=== PATIENT | male | born 1970 | race Caucasian/White ===

== ENCOUNTER 2018-06-27 17:26 | Emergency (ER) | payer MEDICARE, MEDICAID ==
[~2018-06-27] VITALS: Ht 154.9 cm; Wt 61.2 kg
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
--- OUTSIDE RECORDS SUMMARY | 2018-06-27 17:32 | XMS REPORT ---
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 008835919 ALLERGIES No Information ENCOUNTERS Encounter Location Date Diagnosis [place] [id number] [place] [address] 00904- 9736 Oct, [place] [id number] [place] [address] 00146- 8133 Sep, [facility] [address] [place] [address] Aug, [facility] [address] [place] [address] Aug, Dental examination Z01.20 [place] [id number] [place] [address] 25655- 3297 May, Leg pain, right M79.604 [facility] [id number] [place] [address] 00500- 5828 May, [facility] [id number] [place] [address] 60177- 7408 Mar, [place] [id number] [place] [address] 80055- 7355 Mar, 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 [facility] [id number] [place] [address] 17953- 5904 Feb, Leg pain, right M79.604 and Actinic keratosis L57.0 [facility] [id number] [place] [address] 90737- 4686 Feb, 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 [facility] [id number] [place] [address] 97944 2546 Feb, 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 [facility] [id number] [place] [address] 81792- 9676 Jan, 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 [facility] [id number] [place] [address] 67269 2541 Jan, Impacted cerumen of right ear H61.21 [facility] [id number] [place] [address] 60119- 5803 Jan, 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 [facility] [id number] [place] [address] 91218- 1557 Dec, 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 [facility] [id number] [place] [address] 59011- 9159 Dec, 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 [facility] [id number] [place] [address] 22385- 7731 28 Nov, 2016 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 [facility] [id number] [place] [address] 65132- 5041 28 Nov, 2016 [facility] [id number] [place] [address] 83153 2544 28 Nov, 2016 [facility] [id number] [place] [address] 02139- 9657 14 Nov, 2016 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 [facility] [id number] [place] [address] 76042- 1586 Oct, 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 [facility] [address] [place] [address] 11103- 1490 Oct, 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 and Effusion of right knee M25.461 [facility] [id number] [address]- 2455 Oct, 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 [facility] [id number] [place] [address], [place] [address]- 2756 Oct, [facility] [id number] [place] [address] 82241- 3580 Sep, Pain in right knee M25.561 and 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 [facility] [id number] [place] [address], [place] [address]- 9622 Sep, 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 [facility] [id number] [place] [address], [place] [address]- 5983 Sep, 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 [facility] [id number] [place] [address], [place] [address]- 0790 Sep, Pain in right leg M79.604 [facility] [id number] [place] [address] 96677- 2377 Sep, Pain in right leg M79.604 [facility] [id number] [place] [address], [place] [address]- 0633 Aug, 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 and Pain in right leg M79.604 [facility] [address] [place] [address] 48986- 0974 Aug, 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 [facility] [address] [address]- 2109 Aug, 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 [facility] [id number] [place] [address] 37960- 0456 July, 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
--- OUTSIDE RECORDS SUMMARY | 2018-06-27 17:33 | XMS REPORT ---
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 343520327 ALLERGIES No Information ENCOUNTERS Encounter Location Date Diagnosis [facility] [address] [place] [address] [id number] Oct, [facility] [address] [place] [address] [id number] Aug, [address] [id number] Aug, Dental examination Z01.20 [place] [id number] [place] [address] 22336- 8520 May, Leg pain, right M79.604 [place] [id number] [place] [address] 28098- 0488 May, [place] [id number] [place] [address] 46111- 1618 Mar, [place] [id number] [place] [address] 62034- 2297 Mar, 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 [place] [id number] [place] [address] 56129- 7781 Feb, Leg pain, right M79.604 and Actinic keratosis L57.0 [place] [id number] [place] [address] 25109- 9579 Feb, 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 [place] [id number] [place] [address] 03759- 3337 Feb, 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 [facility] [id number] [place] [address] 52677- 8128 Jan, 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 [facility] [id number] [place] [address] 27478- 7087 16 Jan, 2017 Impacted cerumen of right ear H61.21 [facility] [id number] [place] [address] 60925- 0203 09 Jan, 2017 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 [facility] [id number] [place] [address] 18731- 9931 Dec, 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 [facility] [id number] [place] [address] 29346- 4249 Dec, 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 [facility] [id number] [place] [address] 53316- 9207 28 Nov, 2016 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 [facility] [id number] [place] [address] 09073- 6338 28 Nov, 2016 [facility] [id number] [place] [address] 07116- 1343 28 Nov, 2016 [facility] [id number] [place] [address] 92979- 5457 14 Nov, 2016 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 [facility] [id number] [place] [address] 95337- 6885 Oct, 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 and Effusion of right knee M25.461 [facility] [id number] [place] [address] 25369- 6658 Oct, 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 [facility] [id number] [place] [address] 01535- 6263 Oct, 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 [facility] [id number] [place] [address] 54621- 6182 Oct, [facility] [id number] [place] [address] 64090- 4177 Sep, Pain in right knee M25.561 and 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 [facility] [id number] [place] [address] 56464- 8484 Sep, 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 [facility] [id number] [place] [address] 10721- 0657 Sep, 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 [facility] [id number] [place] [address] 50003- 0544 Sep, Pain in right leg M79.604 [facility] [id number] [place] [address] 55715- 7965 Sep, Pain in right leg M79.604 [facility] [id number] [place] [address] 40234- 4102 Aug, 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 and Pain in right leg M79.604 [facility] [id number] [place] [address] 65912- 8427 Aug, 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 [facility] [address] [address]- 7062 Aug, 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 [facility] [id number] [place] [address] 61999- 8235 July, 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
--- OUTSIDE RECORDS SUMMARY | 2018-06-27 17:33 | XMS REPORT ---
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 334185937 ALLERGIES Substance Reaction Event Type Date Status Penicillin V Potassium hives Drug Allergy Aug, Active ENCOUNTERS Encounter Location Date Diagnosis [place] [id number] [place] [address] 62595- 4735 Oct, [place] [id number] [place] [address] 38830- 3464 Sep, [address] [address] Aug, [address] [address] Aug, Dental examination Z01.20 [place] [id number] [place] [address] 42512- 7695 May, Leg pain, right M79.604 [place] [id number] [place] [address] 27573- 4469 May, [place] [id number] [place] [address] 61332- 8842 Mar, [place] [id number] [place] [address] 73325- 6572 Mar, 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 [facility] [id number] [place] [address] 06157- 0182 Feb, Leg pain, right M79.604 and Actinic keratosis L57.0 [facility] [id number] [place] [address] 45208- 2509 Feb, 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 [facility] [id number] [place] [address] 68473 2546 Feb, 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 [facility] [id number] [place] [address] 80077 2544 Jan, 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 [facility] [id number] [place] [address] 62271 2540 Jan, Impacted cerumen of right ear H61.21 [facility] [id number] [place] [address] 81056- 0682 Jan, 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 [facility] [id number] [place] [address] 22103- 0578 Dec, 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 [facility] [id number] [place] [address] 42630- 8879 Dec, 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 [facility] [id number] [place] [address] 86064- 6899 Nov, 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 [facility] [id number] [place] [address] 16704- 2258 28 Nov, 2016 [facility] [id number] [place] [address] 48058- 2542 28 Nov, 2016 [facility] [id number] [place] [address] 21012- 3799 14 Nov, 2016 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 [facility] [id number] [place] [address] 57032- 2397 Oct, 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561 and 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 [facility] [id number] [place] [address] 58894- 4380 Sep, 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 [facility] [id number] [place] [address] 33154- 3392 Sep, 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 [facility] [id number] [place] [address] 62871- 1923 Sep, Pain in right leg M79.604 [facility] [id number] [place] [address] 77732- 1365 Sep, Pain in right leg M79.604 [facility] [id number] [place] [address] 90397- 2159 Aug, 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 and Pain in right leg M79.604 [facility] [id number] [place] [address] 38951- 6679 Aug, 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 [facility] [id number] [place] [address] 37533- 8225 Aug, 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 [facility] [id number] [place] [address] 70702- 2508 July, 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 PLAN OF CARE Activity Details Follow Up prn Reason:O&R #10 MDL VITAL SIGNS MEDICATIONS Medication Instructions Dosage Frequency Start Date End Date Duration Status Quetiapine Fumarate 400 mg Orally Once a day 1 tablet at bedtime 24h Not-Taking Protonix 40 mg Orally twice a day 1 tablet 12h Not-Taking Tramadol HCl 50 mg Orally 3 times a day 1 tablet as needed 8h Aug, Not-Taking Lamotrigine 200 mg Orally at bedtime 1 tablet Not-Taking Benztropine Mesylate 1 MG Orally Once a day 1 tablet at bedtime 24h Not-Taking Trazodone HCl 100 mg Orally Once a day 3 tablets at bedtime 24h Active Risperdal Consta 50MG/2ML INJECT 50 MG INTRAMUSCULARLY EVERY 14 DAYS Active Seroquel Active Quetiapine Fumarate 200 mg Orally Once a day, at bed time 1 tablet Not-Taking Lamictal Active Ranitidine HCl 150 MG Orally twice a day 1 capsule 12h Unknown RESULTS No Results PROCEDURES Procedure Date Ordered Result Body Site LTD ORAL EVALUATION - PROBLEM FOCUS September 04, 2017 INTRAORL-PERIAPICAL 1 FILM 80026 September 04, 2017 Dental Outreach adjust balance September 04, 2017 Billing Notes on claim September 04, 2017 INSTRUCTIONS MEDICATIONS ADMINISTERED No Known Medications MEDICAL [...]
--- OUTSIDE RECORDS SUMMARY | 2018-06-27 17:33 | XMS REPORT ---
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 Active 643536076 ALLERGIES Substance Reaction Event Type Date Status Penicillin V Potassium hives Drug Allergy May, Active ENCOUNTERS Encounter Location Date Diagnosis [address] [address] Oct, [address] [address] Aug, [address] [address] Aug, Dental examination Z01.20 [place] [id number] [place] [address] 12204- 3018 May, Leg pain, right M79.604 [facility] [id number] [place] [address] 34304- 7315 May, [facility] [place] [id number] [place] [address] 39145- 0906 Mar, [facility] [place] [id number] [place] [address] 98657- 3217 Mar, 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 [facility] [place] [id number] [place] [address] 68779- 5593 Feb, Leg pain, right M79.604 and Actinic keratosis L57.0 [facility] [id number] [place] [address] 42546- 3997 Feb, 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 [facility] [address] [place] [address] 59583- 5095 Feb, 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 [facility] [place] [address] [place] [address] 82233- 4396 Jan, 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 [facility] [place] [id number] [place] [address] 50182- 2896 16 Jan, 2017 Impacted cerumen of right ear H61.21 [facility] [place] [id number] [place] [address] 73767 2545 09 Jan, 2017 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 [facility] [place] [id number] [place] [address] 58813- 6386 Dec, 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 [facility] [place] [id number] [place] [address] 77689- 4896 Dec, 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 [facility] [place] [id number] [place] [address] 11026 2543 28 Nov, 2016 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 [facility] [place] [id number] [place] [address] 87425- 8436 28 Nov, 2016 [facility] [place] [address] [place] [address] 39915- 2541 28 Nov, 2016 [facility] [place] [address] [place] [address] 40954- 2543 14 Nov, 2016 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 [facility] [place] [address] [place] [address] 41039- 8595 Oct, 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 and Effusion of right knee M25.461 [facility] [place] [id number] [place] [address] 05904- 9337 Oct, 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 [facility] [place] [address] [place] [address] 01062- 254 Oct, 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 [facility] [place] [address] [place] [address], [place] [address]- 6672 Oct, [facility] [place] [id number] [place] [address] 44073- 8256 Sep, Pain in right knee M25.561 and 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 [facility] [place] [id number] [place] [address], [place] [address]- 4186 Sep, 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 [facility] [place] [id number] [place] [address], [place] [address]- 3876 Sep, 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 [facility] [place] [id number] [place] [address], [place] [address]- 8393 Sep, Pain in right leg M79.604 [facility] [place] [id number] [place] [address] 53925- 9196 Sep, Pain in right leg M79.604 [facility] [place] [id number] [place] [address] 56495- 8376 Aug, 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 and Pain in right leg M79.604 [facility] [place] [id number] [place] [address] 06545- 3297 Aug, 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 [facility] [place] [id number] [place] [address] 35567- 8402 Aug, 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 [facility] [place] [id number] [place] [address]- 7992 July, 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 [facility] [place] [id number] [place] [address], [place] [address]- 5168 July, [facility] [place] [id number] [place] [address] 18314- 8024 July, [facility] [place] [id number] [place] [address] 34249- 8145 July, 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 IMMUNIZATIONS No Known Immunizations SOCIAL HISTORY Never Assessed REASON FOR VISIT [facility] f/u. Was in for aabdominal pain. , UDS positive for meth and amphetamines according to Mobile notes. Pt reports has not used drugs in 15 yrs. CBRumbackRn PLAN OF CARE VITAL SIGNS Height 62 in 2017-05-29 Weight 127.3 lbs 2017-05-29 Temperature 97.9 degrees Fahrenheit 2017-05-29 Heart Rate 104 bpm 2017-05-29 Respiratory Rate 18 2017-05-29 BMI 23.28 kg/m2 2017-05-29 Blood pressure systolic 112 mmHg 2017-05-29 Blood pressure diastolic 80 mmHg 2017-05-29 MEDICATIONS Medication Instructions Dosage Frequency Start Date End Date Duration Status Quetiapine Fumarate 200 mg Orally Once a day, at bed time 1 tablet Active Trazodone HCl 100 mg Orally Once a day 3 tablets at bedtime 24h Active Quetiapine Fumarate 400 mg Orally Once a day 1 tablet at bedtime 24h Active Diclofenac Sodium 75 MG Orally Twice a day 1 tablet with food or milk 12h Feb, May, 30 day(s) Active Benztropine Mesylate 1 MG Orally Once a day 1 tablet at bedtime 24h Active Protonix 40 mg Orally twice a day 1 tablet 12h Active Tramadol HCl 50 mg Orally 3 times a day 1 tablet as needed 8h Aug, Active Lamotrigine 200 mg Orally at bedtime 1 tablet Active Ranitidine HCl 150 MG Orally twice a day 1 capsule 12h Not-Taking Risperdal Consta 50MG/2ML INJECT 50 MG INTRAMUSCULARLY EVERY 14 DAYS Active RESULTS No Results PROCEDURES Procedure Date Ordered Result Body Site DRUG TEST PRSMV CHEM ANLYZR May 29, 2017 ON LICENSE OF [facility] VISIT ESTABLISHED PATIENT May 29, 2017 INSTRUCTIONS MEDICATIONS ADMINISTERED No Known Medications [...]
--- OUTSIDE RECORDS SUMMARY | 2018-06-27 17:33 | XMS REPORT ---
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 Active 236726533 ALLERGIES No Information ENCOUNTERS Encounter Location Date Diagnosis [place] [id number] [place] [address] 64270- 5117 Oct, [place] [address] [address] Sep, [address] [address] Aug, [address] [address] Aug, Dental examination Z01.20 [place] [id number] [place] [address] 55703- 9133 May, Leg pain, right M79.604 [place] [id number] [place] [address] 80705- 8216 May, [place] [id number] [place] [address] 67697- 0170 Mar, [place] [address] [address]- 0968 Mar, 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 [place] [id number] [place] [address] 44209- 1300 Feb, Leg pain, right M79.604 and Actinic keratosis L57.0 [facility] [id number] [place] [address] 92034- 8302 Feb, 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 [facility] [id number] [place] [address] 42971 2546 Feb, 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 [facility] [id number] [place] [address] 54503- 3120 Jan, 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 [facility] [id number] [place] [address] 70773- 2542 Jan, Impacted cerumen of right ear H61.21 [facility] [id number] [place] [address] 84868- 1069 Jan, 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 [facility] [id number] [place] [address] 19016- 8429 Dec, 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 [facility] [id number] [place] [address] 46505- 8889 Dec, 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 [facility] [id number] [place] [address] 86245- 0438 28 Nov, 2016 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 [facility] [id number] [place] [address] 13044- 5441 28 Nov, 2016 [facility] [id number] [place] [address] 43367- 2548 28 Nov, 2016 [facility] [address] [place] [address] 98508- 9685 14 Nov, 2016 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 [facility] [id number] [place] [address] 97165- 8286 Oct, 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 [facility] [address] [place] [address] 38587- 9248 Oct, 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 and Effusion of right knee M25.461 [facility] [id number] [place] [address] 37358- 2197 Oct, 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 [facility] [id number] [place] [address] 28268- 8037 Oct, [facility] [id number] [place] [address] 98310- 8318 Sep, Pain in right knee M25.561 and 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 [facility] [id number] [place] [address], [place] [address]- 9173 Sep, 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 [facility] [id number] [place] [address], [place] [address]- 3195 Sep, 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 [facility] [id number] [place] [address], [place] [address]- 2901 Sep, Pain in right leg M79.604 [facility] [id number] [place] [address] 01858- 9797 Sep, Pain in right leg M79.604 [facility] [id number] [place] [address] 34514- 8829 Aug, 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 and Pain in right leg M79.604 [facility] [id number] [place] [address] 77534- 8237 Aug, 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 [facility] [id number] [place] [address] 81690- 8429 Aug, 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 [facility] [id number] [place] [address] 07970- 0975 July, 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 [facility] [id number] [address] 8305 July, [facility] [id number] [place] [address] 72276- 5896 July, [facility] [address] [facility] [id number] [place] [address] [address]686 July, 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 IMMUNIZATIONS No Known Immunizations SOCIAL HISTORY Never Assessed REASON FOR VISIT PLAN OF CARE VITAL SIGNS MEDICATIONS Medication Instructions Dosage Frequency Start Date End Date Duration Status Clindamycin HCl 150 MG Orally every 8 hrs 2 capsules 8h 10 day(s) Active Magic Mouthwash Apply medicated swab to sore areas of the mouth to numb the pain As needed Dip cotton swab into medication Aug, As needed Active RESULTS No Results PROCEDURES No Known procedures [...]
--- OUTSIDE RECORDS SUMMARY | 2018-06-27 17:33 | XMS REPORT ---
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 Active 33495199 Problem Pain in right knee M25.561 Active 82689918 Problem 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 Active 908982371 ALLERGIES No Information ENCOUNTERS Encounter Location Date Diagnosis [place] [id number] [place] [address] 80601- 5945 May, Leg pain, right M79.604 [facility] [address] 17953- 5833 May, [facility] [address] 44533- 1108 Mar, [facility] [id number] [place] [address] 13878- 3691 Mar, 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 [facility] [id number] [place] [address] 81237- 4288 Feb, Leg pain, right M79.604 and Actinic keratosis L57.0 [facility] [id number] [place] [address] 33014- 8505 Feb, 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 [facility] [id number] [place] [address] 28265- 1720 Feb, 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 [facility] [id number] [place] [address] 88094- 4097 Jan, 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 [facility] [id number] [place] [address] 76268- 5165 16 Jan, 2017 Impacted cerumen of right ear H61.21 [facility] [id number] [place] [address] 94436- 1105 Jan, 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 [facility] [id number] [place] [address] 30061- 1849 Dec, 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 [facility] [id number] [place] [address] 71727- 3835 Dec, 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 [facility] [id number] [place] [address] 76156- 6289 Nov, 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 [facility] [id number] [place] [address] 36256- 1773 Nov, [facility] [id number] [place] [address] 28379- 7204 Nov, [facility] [id number] [place] [address] 54464- 5535 14 Nov, 2016 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 [facility] [id number] [place] [address] 15414- 3555 Oct, 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 [facility] [id number] [place] [address] 81139- 5296 Oct, 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 and Effusion of right knee M25.461 [facility] [id number] [place] [address] 52936- 5344 Oct, 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 [facility] [id number] [place] [address] 03914- 2466 Oct, [facility] [address] [place] [address] 72677- 7510 Sep, Pain in right knee M25.561 and 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 [facility] [address] [address]- 0324 Sep, 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 [facility] [id number] [address]- 2896 Sep, 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 [facility] [address] [address]- 9496 Sep, Pain in right leg M79.604 [facility] [id number] [address]- 2671 Sep, Pain in right leg M79.604 [facility] [id number] [place] [address] 41924- 8691 Aug, 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 and Pain in right leg M79.604 [facility] [address] [place] [address] 44665- 6361 Aug, 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 [facility] [address] [address]- 1245 Aug, 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 [facility] [id number] [address]- 1746 July, 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 [facility] [address] [address]- 2647 July, [facility] [address] [address]- 2512 July, [facility] [address] [address]- 7424 July, 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 IMMUNIZATIONS Vaccine Route Administration Date Status RISPERDAL CONSTA INJECTION (PT'S OWN) IM Intramuscular Mar 21, 2017 Administered SOCIAL HISTORY Never Assessed REASON FOR VISIT Injection-Jacquelyn MCKEON PLAN OF CARE Activity Details Follow Up 2 Weeks Reason: VITAL SIGNS MEDICATIONS No Known Medications RESULTS No Results PROCEDURES Procedure Date Ordered Result Body Site RISPERDAL CONSTA INJECTION (PT'S OWN) Mar 21, 2017 THER/PROPH/DIAG INJ, SC/IM Mar 21, 2017 INSTRUCTIONS MEDICATIONS ADMINISTERED No Known Medications [...]
--- OUTSIDE RECORDS SUMMARY | 2018-06-27 17:33 | XMS REPORT ---
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 64383624 Problem Pain in right knee M25.561 Active 21164949 Problem 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 Active 018264152 ALLERGIES No Information ENCOUNTERS Encounter Location Date Diagnosis [place] [id number] [place] [address] 97620- 5260 May, Leg pain, right M79.604 [facility] [address] 27508- 1081 May, [facility] [address] 83411- 5461 Mar, [facility] [id number] [place] [address] 47243- 8380 Mar, 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 [facility] [id number] [place] [address] 50557- 3284 Feb, Leg pain, right M79.604 and Actinic keratosis L57.0 [facility] [id number] [place] [address] 55844- 3685 Feb, 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 [facility] [id number] [place] [address] 93621- 9021 Feb, 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 [facility] [id number] [place] [address] 92019- 8407 Jan, 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 [facility] [id number] [place] [address] 23815- 1194 16 Jan, 2017 Impacted cerumen of right ear H61.21 [facility] [id number] [place] [address] 49058- 9231 Jan, 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 [facility] [id number] [place] [address] 95064- 5024 Dec, 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 [facility] [id number] [place] [address] 88371- 0798 Dec, 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 [facility] [id number] [place] [address] 11304- 0038 Nov, 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 [facility] [id number] [place] [address] 37762- 9828 Nov, [facility] [id number] [place] [address] 99234- 4426 Nov, [facility] [id number] [place] [address] 54282- 5837 14 Nov, 2016 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 [facility] [id number] [place] [address] 85863- 2495 Oct, 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 and Effusion of right knee M25.461 [facility] [id number] [place] [address] 44980- 6171 Oct, 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 [facility] [id number] [place] [address] 31460- 4995 Oct, 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 [facility] [id number] [place] [address] 05704- 7608 Oct, [facility] [address] [place] [address] 04752- 0935 Sep, Pain in right knee M25.561 and 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 [facility] [address] [address]- 0381 Sep, 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 [facility] [address] [address]- 5726 Sep, 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 [facility] [address] [address]- 6846 Sep, Pain in right leg M79.604 [facility] [id number] [address]- 8410 Sep, Pain in right leg M79.604 [facility] [id number] [place] [address] 55031- 5508 Aug, 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 and Pain in right leg M79.604 [facility] [address] [place] [address] 26714- 8448 Aug, 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 [facility] [address] [address]- 9212 Aug, 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 [facility] [id number] [address]- 5520 July, 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 [facility] [address] [address]- 8032 July, [facility] [address] [address]- 3390 July, [facility] [address] [address]- 9808 July, 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 IMMUNIZATIONS Vaccine Route Administration Date Status RISPERDAL CONSTA INJECTION (PT'S OWN) IM Intramuscular Jan 10, 2017 Administered SOCIAL HISTORY Never Assessed REASON FOR VISIT Immunization(s)- Dotty Oliva RN PLAN OF CARE VITAL SIGNS MEDICATIONS No Known Medications RESULTS No Results PROCEDURES Procedure Date Ordered Result Body Site RISPERDAL CONSTA INJECTION (PT'S OWN) Jan 10, 2017 THER/PROPH/DIAG INJ, SC/IM Jan 10, 2017 INSTRUCTIONS MEDICATIONS ADMINISTERED No Known Medications [...]
--- OUTSIDE RECORDS SUMMARY | 2018-06-27 17:33 | XMS REPORT ---
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 Active 83860595 Problem Pain in right knee M25.561 Active 93420140 Problem 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 Active 835601402 ALLERGIES No Information ENCOUNTERS Encounter Location Date Diagnosis [place] [id number] [place] [address] 09628- 7227 May, Leg pain, right M79.604 [facility] [address] 15503- 3918 May, [facility] [address] 38383- 3940 Mar, [facility] [id number] [place] [address] 24991- 5782 Mar, 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 [facility] [id number] [place] [address] 07429- 5055 Feb, Leg pain, right M79.604 and Actinic keratosis L57.0 [facility] [id number] [place] [address] 63140- 9740 Feb, 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 [facility] [id number] [place] [address] 72424- 4039 Feb, 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 [facility] [id number] [place] [address] 12783- 6942 Jan, 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 [facility] [id number] [place] [address] 75476- 1654 16 Jan, 2017 Impacted cerumen of right ear H61.21 [facility] [id number] [place] [address] 81395- 5118 Jan, 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 [facility] [id number] [place] [address] 51596- 4764 Dec, 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 [facility] [id number] [place] [address] 50676- 9741 Dec, 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 [facility] [id number] [place] [address] 09086- 1203 Nov, 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 [facility] [id number] [place] [address] 34623- 4449 Nov, [facility] [id number] [place] [address] 75014- 3192 Nov, [facility] [id number] [place] [address] 55620- 4496 14 Nov, 2016 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 [facility] [id number] [place] [address] 73152- 4677 Oct, 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 [facility] [id number] [place] [address] 02102- 1224 Oct, 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 and Effusion of right knee M25.461 [facility] [id number] [place] [address] 18946- 7849 Oct, 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 [facility] [id number] [place] [address] 54527- 1495 Oct, [facility] [address] [place] [address] 28966- 8804 Sep, Pain in right knee M25.561 and 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 [facility] [address] [address]- 0085 Sep, 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 [facility] [id number] [address]- 3866 Sep, 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 [facility] [address] [address]- 2186 Sep, Pain in right leg M79.604 [facility] [id number] [address]- 2518 Sep, Pain in right leg M79.604 [facility] [id number] [place] [address] 60897- 3576 Aug, 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 and Pain in right leg M79.604 [facility] [address] [place] [address] 09542- 0745 Aug, 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 [facility] [address] [address]- 6402 Aug, 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 [facility] [id number] [address]- 6894 July, 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 [facility] [address], [place] [address]- 9707 July, [facility] [address] [place] [address]- 3169 July, [facility] [address] [address]- 4482 July, 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 IMMUNIZATIONS Vaccine Route Administration Date Status RISPERDAL CONSTA INJECTION (PT'S OWN) IM Intramuscular Mar 07, 2017 Administered SOCIAL HISTORY Never Assessed REASON FOR VISIT Injection-Jacquelyn MCKEON PLAN OF CARE Activity Details Follow Up 2 Weeks Reason: VITAL SIGNS MEDICATIONS No Known Medications RESULTS No Results PROCEDURES Procedure Date Ordered Result Body Site RISPERDAL CONSTA INJECTION (PT'S OWN) Mar 07, 2017 THER/PROPH/DIAG INJ, SC/IM Mar 07, 2017 INSTRUCTIONS MEDICATIONS ADMINISTERED No Known Medications [...]
--- OUTSIDE RECORDS SUMMARY | 2018-06-27 17:34 | XMS REPORT ---
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 06774981 Problem Pain in right knee M25.561 Active 46718708 Problem Undifferentiated schizophrenia F20.3 Active 707967563 ALLERGIES Substance Reaction Event Type Date Status Penicillin V Potassium hives Drug Allergy Feb, Active ENCOUNTERS Encounter Location Date Diagnosis [address] [id number] [place] [id number] Aug, [facility] [address] [place] [address] [id number] [place] [id number] Aug, Dental examination Z01.20 [facility] [place] [address] [place] [address] 04567- 1111 May, Leg pain, right M79.604 [facility] [place] [address], [place] [address] 33[address] May, [facility] [place] [id number] [place] [address] 06048- 1469 Mar, [facility] [place] [address] [place] [address] 60667- 5754 Mar, Undifferentiated schizophrenia F20.3 [facility] [place] [id number] [place] [address] 10292- 6080 Feb, Leg pain, right M79.604 and Actinic keratosis L57.0 [facility] [place] [address], [place] [address] 2817 Feb, Undifferentiated schizophrenia F20.3 [place] [id number], [place] [address] 3899 Feb, Undifferentiated schizophrenia F20.3 [facility] [place] [id number] [place] [address] 24944- 5996 Jan, Undifferentiated schizophrenia F20.3 [facility] [place] [address] [place] [address] 54411- 5506 16 Jan, 2017 Impacted cerumen of right ear H61.21 [facility] [place] [id number] [place] [address] 84709 2544 09 Jan, 2017 Undifferentiated schizophrenia F20.3 [facility] [place] [id number] [place] [address], [place] [address]- 6766 Dec, Undifferentiated schizophrenia F20.3 [facility] [place] [address] [place] [address] 17591- 6319 Dec, Undifferentiated schizophrenia F20.3 [facility] [place] [address] [place] [address] 29438- 4243 28 Nov, 2016 Undifferentiated schizophrenia F20.3 [facility] [place] [address] [place] [address] 31415- 4443 28 Nov, 2016 [facility] [place] [address] [place] [address] 18549- 2548 28 Nov, 2016 [facility] [place] [address] [place] [address] 48647- 5595 14 Nov, 2016 Undifferentiated schizophrenia F20.3 [facility] [place] [address] [place] [address] 99949- 6218 Oct, Undifferentiated schizophrenia F20.3 [facility] [place] [id number] [place] [address] 81275- 6335 Oct, 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 and Effusion of right knee M25.461 [facility] [place] [address], [place] [address] 3736 Oct, Undifferentiated schizophrenia F20.3 [facility] [place] [address] [facility] [id number] [place] [address] 2546 Oct, [facility] [place] [address] [facility] [id number] [place] [address], [place] [address] 2546 Sep, Pain in right knee M25.561 and Undifferentiated schizophrenia F20.3 [facility] [place] [address] [id number] [place] [address] 2546 Sep, Undifferentiated schizophrenia F20.3 [facility] [place] [address] [facility] [id number] [place] [address] 2546 Sep, Undifferentiated schizophrenia F20.3 [facility] [place] [id number] [place] [address], [place] [address]- 2966 Sep, Pain in right leg M79.604 [facility] [place] [address] [id number] [place] [address]- 8906 Sep, Pain in right leg M79.604 [facility] [place] [id number] [place] [address], [place] [address]- 0339 Aug, Undifferentiated schizophrenia F20.3 and Pain in right leg M79.604 [facility] [place] [address] [id number] [place] [address]- 0043 Aug, Undifferentiated schizophrenia F20.3 [facility] [place] [address] [id number] [place] [address]- 7636 Aug, Undifferentiated schizophrenia F20.3 [facility] [place] [id number], [place] [address] 2181 July, Undifferentiated schizophrenia F20.3 [facility] [place] [address] [facility] [id number] [place] [address]- 8936 July, [facility] [place] [id number], [place] [address]- 2631 July, [facility] [place] [address] [id number] [place] [address]- 1318 July, Undifferentiated schizophrenia F20.3 IMMUNIZATIONS No Known Immunizations SOCIAL HISTORY Never Assessed REASON FOR VISIT Tick Bites on head 5-6 yrs ago, pt reports he removed them with a pocket knife now has "growths" that are irritating and itchy. , Arthritis in right leg bothering him today. CBrumbackRN PLAN OF CARE VITAL SIGNS Height 62 in 2017-03-15 Weight 126.1 lbs 2017-03-15 Temperature 98.1 degrees Fahrenheit 2017-03-15 Heart Rate 92 bpm 2017-03-15 Respiratory Rate 18 2017-03-15 BMI 23.06 kg/m2 2017-03-15 Blood pressure systolic 110 mmHg 2017-03-15 Blood pressure diastolic 88 mmHg 2017-03-15 MEDICATIONS Medication Instructions Dosage Frequency Start Date End Date Duration Status Quetiapine Fumarate 200 mg Orally Once a day, at bed time 1 tablet Active Diclofenac Sodium 75 MG Orally Twice a day 1 tablet with food or milk 12h Feb, May, 30 day(s) Active Quetiapine Fumarate 400 mg Orally Once a day 1 tablet at bedtime 24h Active Ranitidine HCl 150 MG Orally twice a day 1 capsule 12h Not-Taking Trazodone HCl 100 mg Orally Once a day 3 tablets at bedtime 24h Active Benztropine Mesylate 1 MG Orally Once a day 1 tablet at bedtime 24h Active Risperdal Consta 50 MG INJECT 50 MG INTRAMUSCULARLY EVERY 14 DAYS 28 Active Lamotrigine 200 mg Orally at bedtime 1 tablet Active Protonix 40 mg Orally twice a day 1 tablet 12h Active Tramadol HCl 50 mg Orally 3 times a day 1 tablet as needed 8h Aug, Active RESULTS No Results PROCEDURES Procedure Date Ordered Result Body Site [facility] VISIT ESTABLISHED PATIENT Mar 15, 2017 INSTRUCTIONS MEDICATIONS ADMINISTERED No Known Medications [...]
--- OUTSIDE RECORDS SUMMARY | 2018-06-27 17:34 | XMS REPORT ---
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 65996929 Problem Pain in right knee M25.561 Active 67968202 Problem Undifferentiated schizophrenia F20.3 Active 586560424 ALLERGIES No Information ENCOUNTERS Encounter Location Date Diagnosis [place] [id number] [place] [address] 61561- 9724 May, Leg pain, right M79.604 [facility] [id number] [place] [address] 08012- 6179 May, [facility] [id number] [place] [address] 44927- 0999 Mar, [facility] [id number] [place] [address] 86969- 7186 Mar, Undifferentiated schizophrenia F20.3 [facility] [id number] [place] [address] 44252- 9603 Feb, Leg pain, right M79.604 and Actinic keratosis L57.0 [facility] [id number] [place] [address] 33499- 1259 Feb, Undifferentiated schizophrenia F20.3 [facility] [id number] [place] [address] 13392- 2090 Feb, Undifferentiated schizophrenia F20.3 [facility] [id number] [place] [address] 27033- 9733 Jan, Undifferentiated schizophrenia F20.3 [place] [address], [place] [address]- 6273 Jan, Impacted cerumen of right ear H61.21 [facility] [id number] [place] [address] 49920- 3834 09 Jan, 2017 Undifferentiated schizophrenia F20.3 [facility] [id number] [place] [address] 97909- 3976 Dec, Undifferentiated schizophrenia F20.3 [facility] [id number] [place] [address] 80557- 0034 Dec, Undifferentiated schizophrenia F20.3 [facility] [id number] [place] [address] 27406- 1923 Nov, Undifferentiated schizophrenia F20.3 [facility] [id number] [place] [address] 91750- 5005 Nov, [facility] [id number] [place] [address] 95830- 7676 28 Nov, 2016 [facility] [id number] [place] [address] 52325- 4112 14 Nov, 2016 Undifferentiated schizophrenia F20.3 [facility] [address] [place] [address] 24692- 6809 Oct, Undifferentiated schizophrenia F20.3 [facility] [address] [place] [address] 77777- 6747 Oct, 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 and Effusion of right knee M25.461 [facility] [address] [place] [address] 29416- 7252 Oct, Undifferentiated schizophrenia F20.3 [facility] [id number] [place] [address] 85361- 1292 Oct, [facility] [id number] [place] [address] 50977- 6210 Sep, Pain in right knee M25.561 and Undifferentiated schizophrenia F20.3 [facility] [address], [place] [address]- 9800 Sep, Undifferentiated schizophrenia F20.3 [facility] [id number], [place] [address]- 3946 Sep, Undifferentiated schizophrenia F20.3 [facility] [id number] [address]- 4438 Sep, Pain in right leg M79.604 [facility] [id number] [place] [address] 76970- 5076 Sep, Pain in right leg M79.604 [facility] [id number] [place] [address] 17601- 9583 Aug, Undifferentiated schizophrenia F20.3 and Pain in right leg M79.604 [facility] [address] [place] [address] 65365- 7606 Aug, Undifferentiated schizophrenia F20.3 [facility] [id number] [address]- 7346 Aug, Undifferentiated schizophrenia F20.3 [facility] [address], [place] [address]- 1073 July, Undifferentiated schizophrenia F20.3 [facility] [address], [place] [address]- 8910 July, [facility] [address], [place] [address]- 9485 July, [facility] [address], [place] [address]- 7251 July, Undifferentiated schizophrenia F20.3 IMMUNIZATIONS Vaccine Route Administration Date Status RISPERDAL CONSTA INJECTION (PT'S OWN) IM Intramuscular Oct 19, 2016 Administered SOCIAL HISTORY Never Assessed REASON FOR VISIT inject PLAN OF CARE VITAL SIGNS MEDICATIONS No Known Medications RESULTS No Results PROCEDURES Procedure Date Ordered Result Body Site RISPERDAL CONSTA INJECTION (PT'S OWN) Oct 19, 2016 THER/PROPH/DIAG INJ, SC/IM Oct 19, 2016 INSTRUCTIONS MEDICATIONS ADMINISTERED No Known Medications MEDICAL [...]
--- OUTSIDE RECORDS SUMMARY | 2018-06-27 17:34 | XMS REPORT ---
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 08925632 Problem Pain in right knee M25.561 Active 36889716 Problem Undifferentiated schizophrenia F20.3 Active 105848767 ALLERGIES No Information ENCOUNTERS Encounter Location Date Diagnosis [place] [id number] [place] [address] 04102- 4372 May, Leg pain, right M79.604 [facility] [address] 94032- 5608 May, [facility] [address] 25604- 7103 Mar, [facility] [id number] [place] [address] 93323- 4399 Mar, Undifferentiated schizophrenia F20.3 [facility] [id number] [place] [address] 33548- 8904 Feb, Leg pain, right M79.604 and Actinic keratosis L57.0 [facility] [id number] [place] [address] 58918- 9157 Feb, Undifferentiated schizophrenia F20.3 [facility] [id number] [place] [address] 69516- 5886 Feb, Undifferentiated schizophrenia F20.3 [facility] [id number] [place] [address] 44546- 3023 Jan, Undifferentiated schizophrenia F20.3 [facility] [id number] [place] [address] 30511- 5844 16 Jan, 2017 Impacted cerumen of right ear H61.21 [facility] [id number] [place] [address] 27438- 3735 Jan, Undifferentiated schizophrenia F20.3 [facility] [id number] [place] [address] 05235- 6462 Dec, Undifferentiated schizophrenia F20.3 [facility] [id number] [place] [address] 05500- 8389 Dec, Undifferentiated schizophrenia F20.3 [facility] [id number] [place] [address] 38391- 1274 Nov, Undifferentiated schizophrenia F20.3 [facility] [id number] [place] [address] 75858- 1870 Nov, [facility] [id number] [place] [address] 41241- 1621 Nov, [facility] [id number] [place] [address] 31760- 2304 14 Nov, 2016 Undifferentiated schizophrenia F20.3 [facility] [id number] [place] [address] 21991- 0576 Oct, Undifferentiated schizophrenia F20.3 [facility] [id number] [place] [address] 26733- 1131 Oct, 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 and Effusion of right knee M25.461 [facility] [id number] [place] [address] 78621- 3288 Oct, Undifferentiated schizophrenia F20.3 [facility] [id number] [place] [address] 37729- 5727 Oct, [facility] [address] [place] [address] 42816- 0804 Sep, Pain in right knee M25.561 and Undifferentiated schizophrenia F20.3 [facility] [address], [place] [address]- 0986 Sep, Undifferentiated schizophrenia F20.3 [facility] [address], [place] [address]- 5006 Sep, Undifferentiated schizophrenia F20.3 [facility] [address], [place] [address]- 5256 Sep, Pain in right leg M79.604 [facility] [id number], [place] [address]- 1028 Sep, Pain in right leg M79.604 [facility] [id number] [place] [address] 45455- 3196 Aug, Undifferentiated schizophrenia F20.3 and Pain in right leg M79.604 [facility] [address] [place] [address] 23262- 8504 Aug, Undifferentiated schizophrenia F20.3 [facility] [address], [place] [address]- 2970 Aug, Undifferentiated schizophrenia F20.3 [facility] [id number] [address]- 5799 July, Undifferentiated schizophrenia F20.3 [facility] [address], [place] [address]- 6210 July, [facility] [address], [place] [address]- 5904 July, [facility] [address], [place] [address]- 1551 July, Undifferentiated schizophrenia F20.3 IMMUNIZATIONS Vaccine Route Administration Date Status RISPERDAL CONSTA INJECTION (PT'S OWN) IM Intramuscular Feb 21, 2017 Administered SOCIAL HISTORY Never Assessed REASON FOR VISIT Injection-Jacquelyn MCKEON PLAN OF CARE Activity Details Follow Up 2 Weeks Reason: VITAL SIGNS MEDICATIONS No Known Medications RESULTS No Results PROCEDURES Procedure Date Ordered Result Body Site RISPERDAL CONSTA INJECTION (PT'S OWN) Feb 21, 2017 THER/PROPH/DIAG INJ, SC/IM Feb 21, 2017 INSTRUCTIONS MEDICATIONS ADMINISTERED No Known [...]
--- OUTSIDE RECORDS SUMMARY | 2018-06-27 17:34 | XMS REPORT ---
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 Active 27625211 Problem Pain in right knee M25.561 Active 03864417 Problem Undifferentiated schizophrenia F20.3 Active 451361821 ALLERGIES No Information ENCOUNTERS Encounter Location Date Diagnosis [place] [id number] [place] [address] 21445- 9322 May, Leg pain, right M79.604 [facility] [place] [address] 16475- 8314 May, [facility] [place] [address] 54358- 0181 Mar, [facility] [place] [id number] [place] [address] 39286- 2191 Mar, Undifferentiated schizophrenia F20.3 [facility] [place] [id number] [place] [address] 11831- 6690 Feb, Leg pain, right M79.604 and Actinic keratosis L57.0 [facility] [place] [id number] [place] [address] 48035- 7821 Feb, Undifferentiated schizophrenia F20.3 [facility] [place] [id number] [place] [address] 26175- 6306 Feb, Undifferentiated schizophrenia F20.3 [facility] [place] [id number] [place] [address] 12358- 4374 Jan, Undifferentiated schizophrenia F20.3 [facility] [place] [id number] [place] [address] 82217- 0023 16 Jan, 2017 Impacted cerumen of right ear H61.21 [facility] [place] [id number] [place] [address] 90482- 3520 Jan, Undifferentiated schizophrenia F20.3 [facility] [place] [id number] [place] [address] 02750- 0331 Dec, Undifferentiated schizophrenia F20.3 [facility] [place] [id number] [place] [address] 66787- 7610 Dec, Undifferentiated schizophrenia F20.3 [facility] [place] [id number] [place] [address] 73275- 3936 Nov, Undifferentiated schizophrenia F20.3 [facility] [place] [id number] [place] [address] 96047- 1190 Nov, [facility] [place] [id number] [place] [address] 79309- 3460 Nov, [facility] [place] [id number] [place] [address] 06591- 6608 14 Nov, 2016 Undifferentiated schizophrenia F20.3 [facility] [place] [id number] [place] [address] 08990- 3840 Oct, Undifferentiated schizophrenia F20.3 [facility] [place] [id number] [place] [address] 51215- 9229 Oct, 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 and Effusion of right knee M25.461 [facility] [place] [id number] [place] [address] 51992- 8792 Oct, Undifferentiated schizophrenia F20.3 [facility] [place] [id number] [place] [address] 63053- 9564 Oct, [facility] [address] [place] [address] 95256- 3125 Sep, Pain in right knee M25.561 and Undifferentiated schizophrenia F20.3 [facility] [place] [address], [place] [address]- 5297 Sep, Undifferentiated schizophrenia F20.3 [facility] [id number] [place] [address] 73423- 9966 Sep, Undifferentiated schizophrenia F20.3 [facility] [address] [address]- 1356 Sep, Pain in right leg M79.604 [facility] [id number] [place] [address] 75974- 8162 Sep, Pain in right leg M79.604 [facility] [place] [id number] [place] [id number] Aug, Undifferentiated schizophrenia F20.3 and Pain in right leg M79.604 [facility] [place] [id number] [place] [id number] Aug, Undifferentiated schizophrenia F20.3 [facility] [place] [id number] [address] Aug, Undifferentiated schizophrenia F20.3 [facility] [place] [id number] [place] [address] July, Undifferentiated schizophrenia F20.3 [facility] [place] [id number], [place] [address] July, [facility] [place] [id number], [place] [address] July, [facility] [place] [id number] [address] July, Undifferentiated schizophrenia F20.3 IMMUNIZATIONS No Known Immunizations SOCIAL HISTORY Never Assessed REASON FOR VISIT xray for referral PLAN OF CARE VITAL SIGNS MEDICATIONS No Known Medications RESULTS No Results PROCEDURES No Known [...]
--- OUTSIDE RECORDS SUMMARY | 2018-06-27 17:34 | XMS REPORT ---
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 Active 53542809 Problem Pain in right knee M25.561 Active 09067877 Problem Undifferentiated schizophrenia F20.3 Active 758989293 ALLERGIES No Information ENCOUNTERS Encounter Location Date Diagnosis [place] [id number] [place] [address] 19799- 2844 May, Leg pain, right M79.604 [facility] [address] [address]- 9250 May, [facility] [address] 92203- 0318 Mar, [facility] [id number] [place] [address] 67368- 4010 Mar, Undifferentiated schizophrenia F20.3 [facility] [id number] [place] [address] 98870- 7453 Feb, Leg pain, right M79.604 and Actinic keratosis L57.0 [facility] [id number] [place] [address] 18140- 6562 Feb, Undifferentiated schizophrenia F20.3 [facility] [id number] [place] [address] 66496- 3209 Feb, Undifferentiated schizophrenia F20.3 [facility] [id number] [place] [address] 95373- 6738 Jan, Undifferentiated schizophrenia F20.3 [facility] [id number] [place] [address] 86317- 7400 16 Jan, 2017 Impacted cerumen of right ear H61.21 [facility] [id number] [place] [address] 38626- 5758 Jan, Undifferentiated schizophrenia F20.3 [facility] [id number] [place] [address] 00800- 6119 Dec, Undifferentiated schizophrenia F20.3 [facility] [id number] [place] [address] 03457- 9955 Dec, Undifferentiated schizophrenia F20.3 [facility] [id number] [place] [address] 86776- 5153 Nov, Undifferentiated schizophrenia F20.3 [facility] [id number] [place] [address] 67280- 8559 Nov, [facility] [id number] [place] [address] 89776- 4638 Nov, [facility] [id number] [place] [address] 78699- 1986 14 Nov, 2016 Undifferentiated schizophrenia F20.3 [facility] [id number] [place] [address] 24671- 0253 Oct, Undifferentiated schizophrenia F20.3 [facility] [id number] [place] [address] 48608- 2951 Oct, 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 and Effusion of right knee M25.461 [facility] [id number] [place] [address] 44647- 2013 Oct, Undifferentiated schizophrenia F20.3 [facility] [id number] [place] [address] 95302- 2611 Oct, [facility] [id number] [place] [address] 77369- 2884 Sep, Pain in right knee M25.561 and Undifferentiated schizophrenia F20.3 [facility] [address] [place] [address]- 0995 Sep, Undifferentiated schizophrenia F20.3 [facility] [id number] [address]- 8876 Sep, Undifferentiated schizophrenia F20.3 [facility] [address] [place] [address]- 8796 Sep, Pain in right leg M79.604 [facility] [id number] [address]- 4032 Sep, Pain in right leg M79.604 [facility] [id number] [place] [address] 26634- 7563 Aug, Undifferentiated schizophrenia F20.3 and Pain in right leg M79.604 [facility] [id number] [place] [address] 57255- 3058 Aug, Undifferentiated schizophrenia F20.3 [facility] [address], [place] [address]- 8645 Aug, Undifferentiated schizophrenia F20.3 [facility] [id number] [place] [address]- 1451 July, Undifferentiated schizophrenia F20.3 [facility] [address] [place] [address]- 7753 July, [facility] [address] [place] [address]- 1012 July, [facility] [address] [place] [address]- 8730 July, Undifferentiated schizophrenia F20.3 IMMUNIZATIONS Vaccine Route Administration Date Status RISPERDAL CONSTA INJECTION (PT'S OWN) IM Intramuscular Dec 27, 2016 Administered SOCIAL HISTORY Never Assessed REASON FOR VISIT Injection JJustina PLAN OF CARE Activity Details Follow Up 2 Weeks Reason: VITAL SIGNS MEDICATIONS No Known Medications RESULTS No Results PROCEDURES Procedure Date Ordered Result Body Site RISPERDAL CONSTA INJECTION (PT'S OWN) Dec 27, 2016 THER/PROPH/DIAG INJ, SC/IM Dec 27, 2016 INSTRUCTIONS MEDICATIONS ADMINISTERED No Known Medications [...]
--- OUTSIDE RECORDS SUMMARY | 2018-06-27 17:34 | XMS REPORT ---
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 014977742 ALLERGIES Substance Reaction Event Type Date Status Penicillin V Potassium hives Drug Allergy Aug, Active ENCOUNTERS Encounter Location Date Diagnosis [place] [id number] [place] [address] 74972- 9739 May, Leg pain, right M79.604 [facility] [id number] [place] [address] 40366- 2710 May, [facility] [id number] [place] [address] 83997- 0267 Mar, [facility] [id number] [place] [address] 26167- 4862 Mar, 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 [facility] [id number] [place] [address] 72504- 0388 Feb, Leg pain, right M79.604 and Actinic keratosis L57.0 [facility] [id number] [place] [address] 74703- 6310 Feb, 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 [facility] [id number] [place] [address] 78432- 8405 Feb, Undifferentiated schizophrenia F20.3 [facility] [id number] [place] [address] 38793- 8273 Jan, 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 [facility] [id number] [place] [address] 75515- 9045 16 Jan, 2017 Impacted cerumen of right ear H61.21 [facility] [id number] [place] [address] 10674- 1975 Jan, 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 [facility] [id number] [place] [address] 55528- 5724 Dec, 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 [facility] [id number] [place] [address] 38975- 1979 Dec, Undifferentiated schizophrenia F20.3 [facility] [id number] [place] [address] 54636- 2245 Nov, Undifferentiated schizophrenia F20.3 [facility] [id number] [place] [address] 02600- 5831 Nov, [facility] [id number] [place] [address] 86363- 6564 Nov, [facility] [id number] [place] [address] 40945- 1922 Nov, Undifferentiated schizophrenia F20.3 [facility] [id number] [place] [address] 96218- 8123 Oct, Undifferentiated schizophrenia F20.3 [facility] [id number] [place] [address] 32197- 5567 Oct, 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 and Effusion of right knee M25.461 [facility] [id number] [place] [address] 34021- 8729 Oct, 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 [facility] [id number] [place] [address] 30470- 0970 Oct, [facility] [id number] [place] [address] 52402- 6566 Sep, Pain in right knee M25.561 and Undifferentiated schizophrenia F20.3 [facility] [address] [address]- 5186 Sep, Undifferentiated schizophrenia F20.3 [facility] [id number] [place] [place] [address]- 0154 Sep, Undifferentiated schizophrenia F20.3 [facility] [address] [address]- 2230 Sep, Pain in right leg M79.604 [facility] [id number] [address]- 5159 Sep, Pain in right leg M79.604 [facility] [id number] [place] [address] 47785- 3712 Aug, Undifferentiated schizophrenia F20.3 and Pain in right leg M79.604 [facility] [id number] [address]- 4749 Aug, Undifferentiated schizophrenia F20.3 [facility] [id number] [address]- 7122 Aug, Undifferentiated schizophrenia F20.3 [facility] [id number] [address]- 2406 July, Undifferentiated schizophrenia F20.3 [facility] [id number] [address]- 2759 July, [facility] [id number] [address]- 8821 July, [facility] [address] [address]- 2390 July, Undifferentiated schizophrenia F20.3 IMMUNIZATIONS No Known Immunizations SOCIAL HISTORY Never Assessed REASON FOR VISIT Establish Care. KBoleRN PLAN OF CARE Activity Details Follow Up 4 Weeks Reason:knee pain VITAL SIGNS Height 62 in 2016-09-13 Weight 135 lbs 2016-09-13 Temperature 98.0 degrees Fahrenheit 2016-09-13 Heart Rate 80 bpm 2016-09-13 Respiratory Rate 18 2016-09-13 BMI 24.69 kg/m2 2016-09-13 Blood pressure systolic 110 mmHg 2016-09-13 Blood pressure diastolic 66 mmHg 2016-09-13 MEDICATIONS Medication Instructions Dosage Frequency Start Date End Date Duration Status Quetiapine Fumarate 400 mg Orally Once a day 1 tablet at bedtime 24h Active Quetiapine Fumarate 200 mg Orally Once a day, at bed time 1 tablet Active Trazodone HCl 100 mg Orally Once a day 3 tablets at bedtime 24h Active Lamotrigine 200 mg Orally at bedtime 1 tablet Active Benztropine Mesylate 1 MG Orally Once a day 1 tablet at bedtime 24h Active Ranitidine HCl 150 MG Orally twice a day 1 capsule 12h Active Risperdal Consta 50 mg Intramuscular every two weeks Inject 50 mg July 30 days Active Tramadol HCl 50 mg Orally 3 times a day 1 tablet as needed 8h Aug, Active RESULTS No Results PROCEDURES Procedure Date Ordered Result Body Site [facility] VISIT NEW PATIENT September 13, 2016 INSTRUCTIONS MEDICATIONS ADMINISTERED No Known Medications [...]
--- OUTSIDE RECORDS SUMMARY | 2018-06-27 17:35 | XMS REPORT ---
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 326807639 ALLERGIES Substance Reaction Event Type Date Status Penicillin V Potassium hives Drug Allergy Aug, Active ENCOUNTERS Encounter Location Date Diagnosis [place] [id number] [place] [address] 65446- 8201 May, Leg pain, right M79.604 [facility] [place] [id number] [place] [address] 92581- 5612 May, [facility] [place] [id number] [place] [address] 92327- 9205 Mar, [facility] [place] [id number] [place] [address] 05926- 9277 Mar, Undifferentiated schizophrenia F20.3 [facility] [place] [id number] [place] [address] 97080- 8467 Feb, Leg pain, right M79.604 and Actinic keratosis L57.0 [facility] [place] [id number] [place] [address] 76701- 2221 Feb, Undifferentiated schizophrenia F20.3 [facility] [place] [id number] [place] [address] 22905- 1028 Feb, Undifferentiated schizophrenia F20.3 [facility] [place] [id number] [place] [address] 65982- 7861 Jan, Undifferentiated schizophrenia F20.3 [facility] [place] [id number] [place] [address] 64236- 3471 16 Jan, 2017 Impacted cerumen of right ear H61.21 [facility] [place] [id number] [place] [address] 01161- 4073 Jan, Undifferentiated schizophrenia F20.3 [facility] [place] [id number] [place] [address] 40146- 6412 Dec, Undifferentiated schizophrenia F20.3 [facility] [place] [id number] [place] [address] 61698- 0773 Dec, Undifferentiated schizophrenia F20.3 [facility] [place] [id number] [place] [address] 89028- 6937 Nov, Undifferentiated schizophrenia F20.3 [facility] [place] [id number] [place] [address] 70912- 1966 Nov, [facility] [place] [id number] [place] [address] 76729- 1890 Nov, [facility] [place] [id number] [place] [address] 54014- 6913 Nov, Undifferentiated schizophrenia F20.3 [facility] [place] [id number] [place] [address] 35561- 7716 Oct, Undifferentiated schizophrenia F20.3 [facility] [place] [id number] [place] [address] 47719- 1038 Oct, 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 and Effusion of right knee M25.461 [facility] [place] [id number] [place] [address] 00259- 9133 Oct, Undifferentiated schizophrenia F20.3 [facility] [place] [id number] [place] [address] 71768- 9425 Oct, [facility] [place] [id number] [place] [address] 49193- 8956 Sep, Pain in right knee M25.561 and 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 [facility] [place] [address] [address]- 9189 Sep, Undifferentiated schizophrenia F20.3 [facility] [place] [id number] [address]- 4146 Sep, Undifferentiated schizophrenia F20.3 [facility] [place] [address] [address]- 8475 Sep, Pain in right leg M79.604 [facility] [place] [address] [address]- 7413 Sep, Pain in right leg M79.604 [facility] [place] [id number] [place] [address] 38518- 0597 Aug, Undifferentiated schizophrenia F20.3 and Pain in right leg M79.604 [facility] [place] [address] [address]- 5658 Aug, Undifferentiated schizophrenia F20.3 [facility] [place] [address] [address]- 0432 Aug, Undifferentiated schizophrenia F20.3 [facility] [place] [id number] [address]- 4199 July, Undifferentiated schizophrenia F20.3 [facility] [place] [address] [address]- 6002 July, [facility] [place] [address] [address]- 1374 July, [facility] [place] [id number] [address]- 8093 July, 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 IMMUNIZATIONS Vaccine Route Administration Date Status RISPERDAL CONSTA INJECTION (PT'S OWN) IM Intramuscular September 07, 2016 Administered SOCIAL HISTORY Never Assessed REASON FOR VISIT risperdal injection CBrumbackRN PLAN OF CARE VITAL SIGNS MEDICATIONS Medication Instructions Dosage Frequency Start Date End Date Duration Status Risperdal Consta 50 mg Intramuscular every two weeks Inject 50 mg July 30 days Active Trazodone HCl 100 mg Orally Once a day 3 tablets at bedtime 24h Active Ranitidine & Diet Manage Prod 150 MG Active Quetiapine Fumarate 400 MG Orally Once a day 1 tablet at bedtime 24h Active Benztropine Mesylate 1 MG Orally Once a day 1 tablet at bedtime 24h Active Quetiapine Fumarate 200 mg Orally at bedtime 2 tablets Active Lamotrigine 200 mg Orally at bedtime 1 tablet Active RESULTS No Results PROCEDURES Procedure Date Ordered Result Body Site RISPERDAL CONSTA INJECTION (PT'S OWN) September 07, 2016 THER/PROPH/DIAG INJ, SC/IM September 07, 2016 INSTRUCTIONS MEDICATIONS ADMINISTERED No Known Medications [...]
--- OUTSIDE RECORDS SUMMARY | 2018-06-27 17:35 | XMS REPORT ---
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 725487528 ALLERGIES No Information SOCIAL HISTORY Never Assessed PLAN OF CARE VITAL SIGNS MEDICATIONS Unknown Medications RESULTS No Results PROCEDURES Procedure Date Ordered Result Body Site RISPERDAL CONSTA INJECTION (PT'S OWN) August 10, 2016 THER/PROPH/DIAG INJ, SC/IM August 10, 2016 IMMUNIZATIONS Vaccine Route Administration Date Status RISPERDAL CONSTA INJECTION (PT'S OWN) IM Intramuscular August 10, 2016 Administered MEDICAL (GENERAL) HISTORY Type Description Date Medical History bi polar Medical History schizophrenia Medical History manic depression Medical History insomnia Medical History chronic pain Medical History bilat hearing loss Surgical History right leg surgery and fusion Surgical History right knee replacement failure. Surgical History tonsilectomy
--- OUTSIDE RECORDS SUMMARY | 2018-06-27 17:35 | XMS REPORT ---
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 208054301 ALLERGIES Substance Reaction Event Type Date Status Penicillin V Potassium hives Drug Allergy Sep, Active ENCOUNTERS Encounter Location Date Diagnosis [place] [id number] [place] [address] 81810- 9849 May, Leg pain, right M79.604 [facility] [id number] [place] [address] 39288- 1668 May, [facility] [id number] [place] [address] 06954- 6749 Mar, [facility] [id number] [place] [address] 41109- 5723 Mar, Undifferentiated schizophrenia F20.3 [facility] [id number] [place] [address] 20571- 8429 Feb, Leg pain, right M79.604 and Actinic keratosis L57.0 [facility] [id number] [place] [address] 36483- 1975 Feb, Undifferentiated schizophrenia F20.3 [facility] [id number] [place] [address] 62289- 2595 Feb, Undifferentiated schizophrenia F20.3 [facility] [id number] [place] [address] 41641- 7403 Jan, Undifferentiated schizophrenia F20.3 [facility] [id number] [place] [address] 41765- 6330 Jan, Impacted cerumen of right ear H61.21 [facility] [id number] [place] [address] 96001- 5689 Jan, Undifferentiated schizophrenia F20.3 [facility] [id number] [place] [address] 78369- 6051 Dec, Undifferentiated schizophrenia F20.3 [facility] [id number] [place] [address] 14902- 1141 Dec, Undifferentiated schizophrenia F20.3 [facility] [id number] [place] [address] 14671- 5334 Nov, Undifferentiated schizophrenia F20.3 [facility] [id number] [place] [address] 83537- 3285 Nov, [facility] [id number] [place] [address] 36287- 9984 28 Nov, 2016 [facility] [id number] [place] [address] 37970- 6969 14 Nov, 2016 Undifferentiated schizophrenia F20.3 [facility] [id number] [place] [address] 69472- 8826 Oct, Undifferentiated schizophrenia F20.3 [facility] [id number] [place] [address] 77961- 3273 Oct, 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 and Effusion of right knee M25.461 [facility] [id number] [place] [address] 84900- 0829 Oct, Undifferentiated schizophrenia F20.3 [facility] [id number] [place] [address] 96316- 6829 Oct, [facility] [id number] [place] [address] 23570- 9969 Sep, Pain in right knee M25.561 and Undifferentiated schizophrenia F20.3 [facility] [address] [address]- 8396 Sep, Undifferentiated schizophrenia F20.3 [facility] [id number] [address]- 2546 Sep, Undifferentiated schizophrenia F20.3 [facility] [address] [address]- 6726 Sep, Pain in right leg M79.604 [facility] [id number] [address]- 5116 Sep, Pain in right leg M79.604 [facility] [id number] [place] [address] 03023- 2616 Aug, Undifferentiated schizophrenia F20.3 and Pain in right leg M79.604 [facility] [address] [address]- 9808 Aug, Undifferentiated schizophrenia F20.3 [facility] [address] [address]- 8309 Aug, Undifferentiated schizophrenia F20.3 [facility] [id number] [address]- 2876 July, Undifferentiated schizophrenia F20.3 [facility] [address] [address]- 4015 July, [facility] [id number] [address]- 2544 July, [facility] [id number] [address]- 4555 July, Undifferentiated schizophrenia F20.3 IMMUNIZATIONS Vaccine Route Administration Date Status RISPERDAL CONSTA INJECTION (PT'S OWN) IM Intramuscular September 21, 2016 Administered SOCIAL HISTORY Never Assessed REASON FOR VISIT Injection. Pt states that his last injection didn't seem to work. He was very boo and angry throughout the last 2 weeks. I asked patient to give me a call on Saturday if he is feeling the same way after this injection. [facility] [place] PLAN OF CARE VITAL SIGNS MEDICATIONS Medication Instructions Dosage Frequency Start Date End Date Duration Status Risperdal Consta 50 mg Intramuscular every two weeks Inject 50 mg July 30 days Active Trazodone HCl 100 mg Orally Once a day 3 tablets at bedtime 24h Active Ranitidine HCl 150 MG Orally twice a day 1 capsule 12h Active Tramadol HCl 50 mg Orally 3 times a day 1 tablet as needed 8h Aug, Active Benztropine Mesylate 1 MG Orally Once a day 1 tablet at bedtime 24h Active Quetiapine Fumarate 400 mg Orally Once a day 1 tablet at bedtime 24h Active Quetiapine Fumarate 200 mg Orally Once a day, at bed time 1 tablet Active Lamotrigine 200 mg Orally at bedtime 1 tablet Active RESULTS No Results PROCEDURES Procedure Date Ordered Result Body Site RISPERDAL CONSTA INJECTION (PT'S OWN) September 21, 2016 THER/PROPH/DIAG INJ, SC/IM September 21, 2016 INSTRUCTIONS MEDICATIONS ADMINISTERED No Known Medications [...]
--- OUTSIDE RECORDS SUMMARY | 2018-06-27 17:35 | XMS REPORT ---
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 190210253 ALLERGIES Substance Reaction Event Type Date Status Penicillin V Potassium hives Drug Allergy July, Active SOCIAL HISTORY Never Assessed PLAN OF CARE Activity Details Follow Up 2 Months Reason: VITAL SIGNS Weight 133 lbs 2016-08-09 Temperature 98.6 degrees Fahrenheit 2016-08-09 Heart Rate 76 bpm 2016-08-09 Respiratory Rate 18 2016-08-09 Blood pressure systolic 116 mmHg 2016-08-09 Blood pressure diastolic 80 mmHg 2016-08-09 MEDICATIONS Medication Instructions Dosage Frequency Start Date End Date Duration Status Quetiapine Fumarate 400 MG Orally Once a day 1 tablet at bedtime 24h Active Benztropine Mesylate 1 MG Orally Once a day 1 tablet at bedtime 24h Active Trazodone HCl 100 mg Orally Once a day 3 tablets at bedtime 24h Active Lamotrigine 200 mg Orally at bedtime 1 tablet Active Ranitidine & Diet Manage Prod 150 MG Active Quetiapine Fumarate 200 mg Orally at bedtime 2 tablets Active Risperdal Consta 50 mg Intramuscular every two weeks Inject 50 mg July 30 days Active RESULTS No Results PROCEDURES Procedure Date Ordered Result Body Site [facility] VISIT NEW PATIENT August 09, 2016 IMMUNIZATIONS No Known Immunizations MEDICAL (GENERAL) HISTORY Type Description Date Medical History bi polar Medical History schizophrenia Medical History manic depression Medical History insomnia Medical History chronic pain Medical History bilat hearing loss Surgical History right leg surgery and fusion Surgical History right knee replacement failure. Surgical History tonsilectomy
--- OUTSIDE RECORDS SUMMARY | 2018-06-27 17:35 | XMS REPORT ---
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 475869667 ALLERGIES No Information ENCOUNTERS Encounter Location Date Diagnosis [place] [id number] [place] [address] 39213- 4611 May, Leg pain, right M79.604 [facility] [address] 01256- 7078 May, [facility] [address] 41393- 8383 Mar, [facility] [id number] [place] [address] 56085- 4552 Mar, Undifferentiated schizophrenia F20.3 [facility] [id number] [place] [address] 50438- 6452 Feb, Leg pain, right M79.604 and Actinic keratosis L57.0 [facility] [id number] [place] [address] 35319- 2509 Feb, Undifferentiated schizophrenia F20.3 [facility] [id number] [place] [address] 27724- 7571 Feb, Undifferentiated schizophrenia F20.3 [facility] [id number] [place] [address] 22816- 8561 Jan, Undifferentiated schizophrenia F20.3 [facility] [id number] [place] [address] 40853- 5336 16 Jan, 2017 Impacted cerumen of right ear H61.21 [facility] [id number] [place] [address] 43820- 8378 Jan, Undifferentiated schizophrenia F20.3 [facility] [id number] [place] [address] 52368- 7608 Dec, Undifferentiated schizophrenia F20.3 [facility] [id number] [place] [address] 10873- 4038 Dec, Undifferentiated schizophrenia F20.3 [facility] [id number] [place] [address] 29574- 0384 Nov, Undifferentiated schizophrenia F20.3 [facility] [id number] [place] [address] 49994- 9333 Nov, [facility] [id number] [place] [address] 44687- 4126 Nov, [facility] [id number] [place] [address] 08339- 3705 14 Nov, 2016 Undifferentiated schizophrenia F20.3 [facility] [id number] [place] [address] 21325- 2941 Oct, Undifferentiated schizophrenia F20.3 [facility] [id number] [place] [address] 13388- 3352 Oct, 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 and Effusion of right knee M25.461 [facility] [id number] [place] [address] 63475- 8830 Oct, Undifferentiated schizophrenia F20.3 [facility] [id number] [place] [address] 14272- 9912 Oct, [facility] [id number] [place] [address] 27516- 1501 Sep, Pain in right knee M25.561 and Undifferentiated schizophrenia F20.3 [facility] [id number] [address]- 8293 Sep, Undifferentiated schizophrenia F20.3 [facility] [id number] [address]- 1386 Sep, Undifferentiated schizophrenia F20.3 [facility] [address] [address]- 6813 Sep, Pain in right leg M79.604 [facility] [id number] [address]- 7725 Sep, Pain in right leg M79.604 [facility] [id number] [place] [address] 22735- 4857 Aug, Undifferentiated schizophrenia F20.3 and Pain in right leg M79.604 [facility] [id number] [place] [address] 56758- 1672 Aug, Undifferentiated schizophrenia F20.3 [facility] [address] [address]- 0681 Aug, Undifferentiated schizophrenia F20.3 [facility] [id number] [place] [address] 16189- 0283 July, Undifferentiated schizophrenia F20.3 [facility] [address] [address]- 2839 July, [facility] [address] [address]- 1633 July, [facility] [address] [address]- 5498 July, Undifferentiated schizophrenia F20.3 IMMUNIZATIONS No Known Immunizations SOCIAL HISTORY Never Assessed REASON FOR VISIT Requests return call PLAN OF CARE VITAL SIGNS MEDICATIONS No [...]
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
--- OUTSIDE RECORDS SUMMARY | 2018-06-27 17:35 | XMS REPORT ---
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 Active 74958882 Problem Pain in right knee M25.561 Active 45685578 Problem Undifferentiated schizophrenia F20.3 Active 655380358 ALLERGIES Substance Reaction Event Type Date Status Penicillin V Potassium hives Drug Allergy Aug, Active ENCOUNTERS Encounter Location Date Diagnosis [place] [place] [id number] [place] [address] 37768- 4685 May, Leg pain, right M79.604 [facility] [id number] [place] [address] 13194- 4854 May, [facility] [id number] [place] [address] 60691- 2683 Mar, [facility] [id number] [place] [address] 96894- 6289 Mar, Undifferentiated schizophrenia F20.3 [facility] [id number] [place] [address] 84673- 7227 Feb, Leg pain, right M79.604 and Actinic keratosis L57.0 [facility] [id number] [place] [address] 98870- 4555 Feb, Undifferentiated schizophrenia F20.3 [facility] [id number] [place] [address] 71099- 0347 Feb, Undifferentiated schizophrenia F20.3 [facility] [id number] [place] [address] 82981- 4581 Jan, Undifferentiated schizophrenia F20.3 [facility] [id number] [place] [address] 33189- 7199 16 Jan, 2017 Impacted cerumen of right ear H61.21 [facility] [id number] [place] [address] 88277- 3247 Jan, Undifferentiated schizophrenia F20.3 [facility] [id number] [place] [address] 48096- 0719 Dec, Undifferentiated schizophrenia F20.3 [facility] [id number] [place] [address] 55225- 0580 Dec, Undifferentiated schizophrenia F20.3 [facility] [id number] [place] [address] 33829- 2241 Nov, Undifferentiated schizophrenia F20.3 [facility] [id number] [place] [address] 97856- 3751 Nov, [facility] [id number] [place] [address] 45816- 4030 Nov, [facility] [id number] [place] [address] 00103- 5564 Nov, Undifferentiated schizophrenia F20.3 [facility] [id number] [place] [address] 27472- 8545 Oct, Undifferentiated schizophrenia F20.3 [facility] [id number] [place] [address] 63569- 5939 Oct, 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 and Effusion of right knee M25.461 [facility] [id number] [place] [address] 62611- 9666 Oct, Undifferentiated schizophrenia F20.3 [facility] [id number] [place] [address] 53928- 9778 Oct, [facility] [id number] [place] [address] 64012- 7924 Sep, Pain in right knee M25.561 and 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 [facility] [address], [place] [address]- 1971 Sep, Undifferentiated schizophrenia F20.3 [facility] [id number] [address] 3475 Sep, Undifferentiated schizophrenia F20.3 [facility] [address], [place] [address]- 9812 Sep, Pain in right leg M79.604 [facility] [address], [place] [address]- 2137 Sep, Pain in right leg M79.604 [facility] [id number] [place] [address] 02730- 5510 Aug, Undifferentiated schizophrenia F20.3 and Pain in right leg M79.604 [facility] [address], [place] [address]- 1425 Aug, Undifferentiated schizophrenia F20.3 [facility] [address], [place] [address]- 0357 Aug, Undifferentiated schizophrenia F20.3 [facility] [id number] [address]- 1075 July, Undifferentiated schizophrenia F20.3 [facility] [address], [place] [address]- 9192 July, [facility] [address], [place] [address]- 5608 July, [facility] [id number] [address]- 8616 July, Undifferentiated 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 IMMUNIZATIONS Vaccine Route Administration Date Status RISPERDAL CONSTA INJECTION (PT'S OWN) IM Intramuscular August 24, 2016 Administered SOCIAL HISTORY Never Assessed REASON FOR VISIT Injection - Tiarra Brown MA PLAN OF CARE VITAL SIGNS MEDICATIONS Medication Instructions Dosage Frequency Start Date End Date Duration Status Risperdal Consta 50 mg Intramuscular every two weeks Inject 50 mg July 30 days Active Ranitidine & Diet Manage Prod 150 MG Active Quetiapine Fumarate 200 mg Orally at bedtime 2 tablets Active Lamotrigine 200 mg Orally at bedtime 1 tablet Active Benztropine Mesylate 1 MG Orally Once a day 1 tablet at bedtime 24h Active Trazodone HCl 100 mg Orally Once a day 3 tablets at bedtime 24h Active Quetiapine Fumarate 400 MG Orally Once a day 1 tablet at bedtime 24h Active RESULTS No Results PROCEDURES Procedure Date Ordered Result Body Site RISPERDAL CONSTA INJECTION (PT'S OWN) August 24, 2016 THER/PROPH/DIAG INJ, SC/IM August 24, 2016 INSTRUCTIONS MEDICATIONS ADMINISTERED No Known Medications [...]
--- OUTSIDE RECORDS SUMMARY | 2018-06-27 17:36 | XMS REPORT ---
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
--- OUTSIDE RECORDS SUMMARY | 2018-06-27 17:36 | XMS REPORT ---
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 Active 63255695 Problem Pain in right knee M25.561 Active 42224167 Problem Undifferentiated schizophrenia F20.3 Active 806398307 ALLERGIES No Information ENCOUNTERS Encounter Location Date Diagnosis [id number] [place] [address] 11258- 8832 May, Leg pain, right M79.604 [facility] [address] 54662- 4091 May, [facility] [address] 94655- 9846 Mar, [facility] [id number] [place] [address] 34634- 6364 Mar, Undifferentiated schizophrenia F20.3 [facility] [id number] [place] [address] 46674- 0427 Feb, Leg pain, right M79.604 and Actinic keratosis L57.0 [facility] [id number] [place] [address] 98706- 8154 Feb, Undifferentiated schizophrenia F20.3 [facility] [id number] [place] [address] 14937- 2474 Feb, Undifferentiated schizophrenia F20.3 [facility] [id number] [place] [address] 41093- 0835 Jan, Undifferentiated schizophrenia F20.3 [facility] [id number] [place] [address] 11454- 4707 16 Jan, 2017 Impacted cerumen of right ear H61.21 [facility] [id number] [place] [address] 97369- 9888 Jan, Undifferentiated schizophrenia F20.3 [facility] [id number] [place] [address] 01287- 1843 Dec, Undifferentiated schizophrenia F20.3 [facility] [id number] [place] [address] 63322- 8967 Dec, Undifferentiated schizophrenia F20.3 [facility] [place] [id number] [place] [address] 88605- 8944 Nov, Undifferentiated schizophrenia F20.3 [facility] [place] [id number] [place] [address] 20537- 1247 Nov, [facility] [place] [id number] [place] [address] 64495- 1490 Nov, [facility] [id number] [place] [address] 91329- 3604 14 Nov, 2016 Undifferentiated schizophrenia F20.3 [facility] [id number] [place] [address] 74869- 8034 Oct, Undifferentiated schizophrenia F20.3 [facility] [place] [id number] [place] [address] 47523- 6287 Oct, 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 and Effusion of right knee M25.461 [facility] [id number] [place] [address] 58794- 2256 Oct, Undifferentiated schizophrenia F20.3 [facility] [id number] [place] [address] 13566- 5436 Oct, [facility] [id number] [place] [address] 71809- 1441 Sep, Pain in right knee M25.561 and Undifferentiated schizophrenia F20.3 [facility] [address] [address]- 9713 Sep, Undifferentiated schizophrenia F20.3 [facility] [address] [address]- 5786 Sep, Undifferentiated schizophrenia F20.3 [facility] [address] [address]- 1996 Sep, Pain in right leg M79.604 [facility] [address] [address]- 4152 Sep, Pain in right leg M79.604 [facility] [id number] [place] [address] 39219- 5632 Aug, Undifferentiated schizophrenia F20.3 and Pain in right leg M79.604 [facility] [address] [address]- 3878 Aug, Undifferentiated schizophrenia F20.3 [facility] [address] [address]- 3159 Aug, Undifferentiated schizophrenia F20.3 [facility] [id number] [address]- 3489 July, Undifferentiated schizophrenia F20.3 [facility] [address] [address]- 3824 July, [facility] [address] [address]- 0436 July, [facility] [place] [id number] [address]- 2910 July, Undifferentiated schizophrenia F20.3 IMMUNIZATIONS No Known Immunizations SOCIAL HISTORY Never Assessed REASON FOR VISIT Xray (walk-in) MHill RT(R) PLAN OF CARE VITAL SIGNS MEDICATIONS No Known Medications RESULTS Name Result Date Reference Range Xray : Knee, Right 1-2 views (IN HOUSE) 2016-09-21 PROCEDURES Procedure Date Ordered Result Body Site X-RAY EXAM OF KNEE, 1 OR 2 September 21, 2016 INSTRUCTIONS MEDICATIONS ADMINISTERED No [...]
--- OUTSIDE RECORDS SUMMARY | 2018-06-27 17:36 | XMS REPORT ---
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 Active [id number] ALLERGIES No Information ENCOUNTERS Encounter Location Date Diagnosis [place] [id number] [place] [address]67[address] May, Leg pain, right M79.604 [facility] [address] [address] May, [facility] [address] [address] Mar, [facility] [id number] [place] [address] 99388- 5791 Mar, Undifferentiated schizophrenia F20.3 [facility] [id number] [place] [address] 05056- 1612 Feb, Leg pain, right M79.604 and Actinic keratosis L57.0 [facility] [id number] [place] [address] 96936- 1292 Feb, Undifferentiated schizophrenia F20.3 [facility] [id number] [place] [address] 62270- 5355 Feb, Undifferentiated schizophrenia F20.3 [facility] [id number] [place] [address] 13412- 1785 Jan, Undifferentiated schizophrenia F20.3 [facility] [id number] [place] [address] 10414- 1600 16 Jan, 2017 Impacted cerumen of right ear H61.21 [facility] [id number] [place] [address] 68388- 3855 Jan, Undifferentiated schizophrenia F20.3 [facility] [id number] [place] [address] 81235- 0914 Dec, Undifferentiated schizophrenia F20.3 [facility] [id number] [place] [address] 17138- 6270 Dec, Undifferentiated schizophrenia F20.3 [facility] [id number] [place] [address] 84025- 7764 Nov, Undifferentiated schizophrenia F20.3 [facility] [id number] [place] [address] 82095- 4332 Nov, [facility] [id number] [place] [address] 30803- 0968 Nov, [facility] [id number] [place] [address] 14446- 7653 14 Nov, 2016 Undifferentiated schizophrenia F20.3 [facility] [id number] [place] [address] 40395- 2297 Oct, Undifferentiated schizophrenia F20.3 [facility] [id number] [place] [address] 44177- 8904 Oct, 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 and Effusion of right knee M25.461 [facility] [id number] [place] [address] 66900- 3880 Oct, Undifferentiated schizophrenia F20.3 [facility] [id number] [place] [address] 60913- 5134 Oct, [facility] [id number] [place] [address] 76103- 6810 Sep, Pain in right knee M25.561 and Undifferentiated schizophrenia F20.3 [facility] [address] [place] [address] Sep, Undifferentiated schizophrenia F20.3 [facility] [address] [place] [address] Sep, Undifferentiated schizophrenia F20.3 [facility] [address] [place] [address] Sep, Pain in right leg M79.604 [facility] [id number] [address] Sep, Pain in right leg M79.604 [facility] [id number] [place] [address] 07697- 2062 Aug, Undifferentiated schizophrenia F20.3 and Pain in right leg M79.604 [facility] [id number] [place] [address] 79936- 3968 Aug, Undifferentiated schizophrenia F20.3 [facility] [address] [place] [address] Aug, Undifferentiated schizophrenia F20.3 [facility] [id number] [place] [address] 50124- 9556 July, Undifferentiated schizophrenia F20.3 [facility] [address] [place] [address] July, [facility] [address] [place] [address] July, [facility] [address] [place] [address] July, Undifferentiated schizophrenia F20.3 IMMUNIZATIONS No Known Immunizations SOCIAL HISTORY Never Assessed REASON FOR VISIT Medication question PLAN OF CARE VITAL SIGNS MEDICATIONS No [...]
--- NOTE | 2018-06-27 18:13 | ED GI ---
General Chief Complaint: Abdominal/GI Problems Stated Complaint: CONSTIPATION, ABD PAIN Nursing Triage Note: REPORTS NO BOWEL MOVEMENT FOR 3 WEEKS. REPORTS TRYING MIRALX, JUICE, AND STOOL SOFTENERS. LOWER UMBILICAL PAIN. Sepsis Screen: No Definite Risk Source of Information: Patient History of Present Illness Date Seen by Provider: Jun 27, 2018 Time Seen by Provider: 18:13 Initial Comments 48 yo M with hx of chronic GI issues and has had hard stools with constipation for over 3 weeks. He takes miralax and stool softeners as well as apple juice but nothing has worked to produce results other than small hard bits of stool. He has had similar symptoms a year or so ago and had to go to [facility] and stay overnight to get enemas to get cleared out. This had been a recurrent issue for him. He has had some nausea as well. He denies having any diarrhea. He has had no fever or chills. He does not know why this keeps happening for him. He has not tried an enema at home. Allergies and Home Medications Allergies Coded Allergies: Penicillins (Verified Allergy, Unknown, 06/27/18) Patient Home Medication List Home Medication List Reviewed: Yes Review of Systems Review of Systems Constitutional: No chills, No fever EENTM: No Symptoms Reported Respiratory: No Symptoms Reported Cardiovascular: No Symptoms Reported Gastrointestinal: See HPI; Denies Abdomen Distended; Abdominal Pain (diffuse cramping); Denies Blood Streaked Stools; Constipated; Denies Diarrhea; Nausea; Denies Poor Fluid Intake, Denies Rectal Bleeding, Denies Vomiting Genitourinary: No Symptoms Reported Musculoskeletal: no symptoms reported Skin: no symptoms reported Psychiatric/Neurological: No Symptoms Reported Past Bfhnfhk-Plqwna-Pnthmh Hx Past Med/Social Hx: Reviewed Nursing Past Med/Soc Hx Patient Social History Alcohol Use: Denies Use Recreational Drug Use: No Smoking Status: Never a Smoker 2nd Hand Smoke Exposure: No Recent Foreign Travel: No Contact w/Someone Who Travel: No Recent Infectious Disease Expo: No Recent Hopitalizations: No Physical Abuse: No Sexual Abuse: No Mistreated: No Fear: No Seasonal Allergies Seasonal Allergies: No Past Medical History Surgeries: Yes Cystectomy, Gallbladder, Orthopedic, Tonsillectomy Respiratory: No Cardiac: No Neurological: Yes Seizure Disorder Genitourinary: No Gastrointestinal: No Musculoskeletal: Yes Chronic Back Pain Endocrine: No HEENT: No Cancer: No Psychosocial: Yes Anxiety, Depression Integumentary: No Blood Disorders: No Physical Exam Vital Signs Vital Signs - First Documented 06/27/18 06/27/18 17:43 19:17 Temp 97.3 Pulse 104 Resp 16 B/P (MAP) 145/98 (114) Pulse Ox 99 O2 Delivery Room Air Capillary Refill : Less Than 3 Seconds Height/Weight/BMI Height: 5'1.00" Weight: 135lbs. oz. 61.495661jo; BMI Method:Stated General Appearance: WD/WN, no apparent distress HEENT: normal ENT inspection, pharynx normal Respiratory: chest non-tender, lungs clear, normal breath sounds Cardiovascular: normal peripheral pulses, regular rate, rhythm Gastrointestinal: normal bowel sounds, soft, no pulsatile mass; No distended, No guarding, No rebound; tenderness (diffuse mild tenderness) Rectal: normal exam, normal rectal tone; No black stool, No blood streaked stool, No decreased tone, No heme positive stool, No hemorrhoids, No mass, No tenderness; other (no stool in rectal vault or felt against my finger with rectal exam) Neurologic/Psychiatric: alert, normal mood/affect, oriented x 3 Skin: normal color, warm/dry Progress/Results/Core Measures Results/Orders My Orders Orders - DU DIEGO MD Acute Abd Series (06/27/18 18:25) Vital Signs/I&O 06/27/18 06/27/18 17:43 19:17 Temp 97.3 Pulse 104 100 Resp 16 B/P (MAP) 145/98 (114) 124/83 (97) Pulse Ox 99 O2 Delivery Room Air Room Air Blood Pressure Mean: 114 Progress Progress Note #1: Time: 18:20 Progress Note since he had no rectal impaction or stool in rectal vault will check an acute abdomen exam to see how much stool is present in bowels. Progress Note #2: Time: 18:48 Progress Note On return from radiology pt reports he felt like he could use the bathroom. I reviewed with him that I saw some increased stool but did not see any obstruction or blockage on his films. Also no sign of perforation. I advised him I would discuss more options with him when he comes back from trying to have a BM. When pt returned from the bathroom he states he did have a BM and his abdominal pain and cramping was much improved. He did see some blood and had a hard stool with the BM. He reports feeling better and that he did have some liquid stool at the the end of his BM. He felt he no longer needed the enema now. I advised him he could continue with his OTC meds/treatments and increase fiber in his diet. He could also try a Fleets enema at home if he wanted to. Follow up with clinic or return for worsening symptoms. Diagnostic Imaging Diagonstic Imaging: Xray Plain Films/CT/US/NM/MRI: abdomen Comments NAME: CORIE MILIAN JR [facility] REC#: [id number] PT STATUS: REG ER : 1970 PHYSICIAN: DU DIEGO MD ADMIT DATE: 06/27/18/ER FS Draft Date of Exam:06/27/18 ACUTE ABD SERIES INDICATION: Abdominal pain and constipation COMPARISON: None FINDINGS: Acute abdominal series demonstrates moderate constipation without obstruction or ileus. There is no free air. The chest is normal. Osseous structures are age-appropriate. IMPRESSION: Moderate constipation without obstruction, ileus or free air. Dictated on workstation # [id number] Dict: 06/27/18 1835 Trans: 06/27/18 1839 [facility] [id number] Interpreted by: DAI GARCÍA Electronically signed by: Reviewed: Reviewed by Me (reviewed radiology report as well) Departure Impression Primary Impression: Constipation Qualified Codes: K59.00 - Constipation, unspecified Disposition: 01 HOME, SELF-CARE Condition: Improved Departure-Patient Inst. Decision time for Depature: 19:06 Referrals: ANUEL IVAN MD (PCP) Primary Care Physician Patient Instructions: Constipation, Adult (DC) Add. Discharge Instructions: Continue with Stool softeners and laxatives as needed at home to keep stools soft and regular at home. If you have worsening symptoms again or more concerns check back with clinic You may also try a Fleets enema at home to help you have a bowel movement if you are not getting any results with taking the constipation treatments by mouth. All discharge instructions reviewed with patient and/or family. Voiced understanding. DU DIEGO MD Jun 27, 2018 18:13
--- NOTE | 2018-06-27 18:39 | Diagnostic Imaging Report ---
INDICATION: Abdominal pain and constipation COMPARISON: None FINDINGS: Acute abdominal series demonstrates moderate constipation without obstruction or ileus. There is no free air. The chest is normal. Osseous structures are age-appropriate. IMPRESSION: Moderate constipation without obstruction, ileus or free air. Dictated by: Dictated on workstation # [id number]
[2018-06-27 19:17] VITALS: BP 124/83
== END 2018-06-27 19:14 | disposition home or self-care (01) ==
LOC: ER FS 17:28
DX: K59.00 Constipation, unspecified (principal); G40.909 Epilepsy, unspecified, not intractable, without status epilepticus; F41.9 Anxiety disorder, unspecified; F32.9 Major depressive disorder, single episode, unspecified; Z88.0 Allergy status to penicillin; Z90.89 Acquired absence of other organs; Z90.6 Acquired absence of other parts of urinary tract
CPT/HCPCS: 74022

== ENCOUNTER 2018-07-02 19:10 | Emergency (ER) | payer MEDICARE, MEDICAID ==
[~2018-07-02] VITALS: Ht 154.9 cm; Wt 62.1 kg
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
--- NOTE | 2018-07-02 19:44 | NUR ---
Doctor in to see the patient at this time.
[2018-07-02] MEDS ORDERED: KETOROLAC 30 MG/ML VIAL IM ONE (20:00)
--- NOTE | 2018-07-02 20:28 | Diagnostic Imaging Report ---
EXAMINATION: Right ankle, three views. INDICATION: Right ankle pain after fall. COMPARISON: None available. FINDINGS: No fracture or acute osseous abnormality. Bony alignment is maintained. Ankle mortise appears intact. No osteochondral lesion of the talar dome. No significant arthritic change. The soft tissues are unremarkable. IMPRESSION: No acute fracture or dislocation. Dictated by: Dictated on workstation # [id number]
--- NOTE | 2018-07-02 20:29 | Diagnostic Imaging Report ---
Examination: Right knee, 3 views Indication: Right knee injury sustained during fall. Comparison: None available. Findings: There is fusion across the knee joint, with an intramedullary diane in the visualized distal femur traversing the knee joint into the proximal tibia, with fixation screws demonstrated. There is no evidence of hardware fracture or loosening. There is marked osteophyte and heterotopic bone formation along the medial and lateral compartments. The soft tissues are unremarkable. No radiopaque foreign body. IMPRESSION: Fusion across the knee joint, with intramedullary diane in the distal femur traversing the knee joint and into the proximal tibia. No evidence of hardware fracture. No evidence of acute osseous abnormality. Dictated by: Dictated on workstation # [id number]
--- NOTE | 2018-07-02 20:31 | Diagnostic Imaging Report ---
Examination: AP pelvis and single view of the right hip Indication: Right hip pain after fall. Findings: No fracture or acute osseous abnormality. Pelvis appears intact. The femoral heads are well-seated in the acetabuli. SI joints are unremarkable. Mild arthritic changes are noted in both hip joints. The regional soft tissues are unremarkable. Impression: No acute fracture or dislocation. Dictated by: Dictated on workstation # [id number]
[2018-07-02 21:37] VITALS: BP 118/85
== END 2018-07-02 21:18 | disposition home or self-care (01) ==
LOC: EDUNIT# 19:10 → ER FS 19:11
DX: M25.561 Pain in right knee (principal); M25.551 Pain in right hip; M25.571 Pain in right ankle and joints of right foot; G40.909 Epilepsy, unspecified, not intractable, without status epilepticus; F41.9 Anxiety disorder, unspecified; F32.9 Major depressive disorder, single episode, unspecified; Z88.0 Allergy status to penicillin; Z90.89 Acquired absence of other organs; Z90.6 Acquired absence of other parts of urinary tract; W19.XXXA Unspecified fall, initial encounter
CPT/HCPCS: 73502; 73562; 73610

== ENCOUNTER → 2018-07-10 | Outpatient (CLI) | payer MEDICARE, MEDICAID ==
--- NOTE | 2018-07-10 10:06 | Diagnostic Imaging Report ---
INDICATION: Right ankle pain. Three views of the right ankle show no fracture, dislocation or other acute abnormalities. IMPRESSION: Negative right ankle. Dictated by: Dictated on workstation # [id number]
--- NOTE | 2018-07-10 10:06 | Diagnostic Imaging Report ---
INDICATION: Right leg pain AP and lateral views of the right tibia and fibula show postop changes from arthrodesis of the right knee with long intramedullary pin extending across the joint and ankle with screws in the distal femur and proximal tibia shaft. There is no evidence of loosening. There is no acute fracture. IMPRESSION: Postop changes from hardware arthrodesis of the right knee. No acute abnormalities seen. Dictated by: Dictated on workstation # [id number]
== END ==
LOC: RAD FS 09:37
PROVIDERS: ATTEND Nurse Practitioner
DX: M79.661 Pain in right lower leg (principal); M25.571 Pain in right ankle and joints of right foot; Z98.890 Other specified postprocedural states
CPT/HCPCS: 73590; 73610

== ENCOUNTER 2018-07-14 11:48 | Emergency (ER) | payer MEDICARE, MEDICAID ==
[~2018-07-14] VITALS: Ht 154.9 cm; Wt 61.7 kg
--- NOTE | 2018-07-14 12:00 | ED Upper Extremity ---
General Stated Complaint: FLAQUITO SHOULDER PAIN Source: patient, RN notes reviewed Exam Limitations: no limitations History of Present Illness Date Seen by Provider: Jul 14, 2018 Time Seen by Provider: 12:00 Allergies and Home Medications Allergies Coded Allergies: Penicillins (Verified Allergy, Unknown, 07/02/18) Past Jkosenf-Zftfuv-Chnbyf Hx Patient Social History 2nd Hand Smoke Exposure: No Recent Hopitalizations: No Seasonal Allergies Seasonal Allergies: No Past Medical History Surgeries: Yes Cystectomy, Gallbladder, Orthopedic, Tonsillectomy Respiratory: No Cardiac: No Neurological: Yes Seizure Disorder Genitourinary: No Gastrointestinal: No Musculoskeletal: Yes Chronic Back Pain Endocrine: No HEENT: No Cancer: No Psychosocial: Yes Anxiety, Depression Integumentary: No Blood Disorders: No Physical Exam Vital Signs Vital Signs - First Documented 07/14/18 11:56 Temp 98.0 Pulse 110 Resp 16 B/P (MAP) 119/93 (102) Pulse Ox 99 O2 Delivery Room Air Capillary Refill : Height, Weight, BMI Height: 5'1.00" Weight: 137lbs. oz. 62.958960pb; BMI Method:Stated Progress/Results/Core Measures Results/Orders My Orders Orders - PHILLIP ROSEN DO Shoulder 3 View Bilateral (07/14/18 12:17) Vital Signs/I&O 07/14/18 11:56 Temp 98.0 Pulse 110 Resp 16 B/P (MAP) 119/93 (102) Pulse Ox 99 O2 Delivery Room Air Departure Impression Primary Impression: Bilateral shoulder pain Additional Impression: Degenerative arthritis bilateral shoulders Disposition: 01 HOME, SELF-CARE Departure-Patient Inst. Decision time for Depature: 13:04 Referrals: LUZ ELENA BARNEY (Family) Primary Care Physician Patient Instructions: Osteoarthritis (DC) Add. Discharge Instructions: IF PAIN CONTINUES RECOMMEND FOLLOW UP WITH ADDISON CORTES. Scripts Meloxicam (Mobic) 7.5 Mg Tablet 7.5 MG PO Q12H PRN for SHOULDER PAIN, #30 TAB 0 Refills Prov: PHILLIP ROSEN DO 07/14/18 PHILLIP ROSEN DO Jul 14, 2018 12:00
--- NOTE | 2018-07-14 12:48 | Diagnostic Imaging Report ---
INDICATION: Bilateral shoulder pain 3 views of both shoulders were obtained. FINDINGS: The alignment is normal bilaterally. There are minimal degenerative changes. There is no fracture or dislocation. Both visualized lungs are clear. Soft tissues are unremarkable. IMPRESSION: Mild degenerative changes bilaterally otherwise unremarkable. Dictated by: Dictated on workstation # [id number]
--- OUTSIDE RECORDS SUMMARY | 2018-07-14 12:57 | XMS REPORT | Continuity of Care Document ---
Author Organization Unknown Address Unknown Allergies Active Description Code Type Severity Reaction Onset Reported/Identified Relationship to Patient Clinical Status Yes ibuprofen [id number] Drug Allergy Unknown N/A 06/27/2018 Yes naproxen [id number] Drug Allergy Unknown N/A 06/27/2018 Yes tramadol [id number] Drug Allergy Unknown N/A 06/27/2018 Yes Penicillins [id number] Drug Allergy Unknown N/A 07/02/2018 Medications There is no data. Problems Date Dx Coded Attending Type Code Diagnosis Diagnosed By 06/27/2018 DU DIEGO MD, Ot F32.9 MAJOR DEPRESSIVE DISORDER, SINGLE EPISOD 06/27/2018 DU DIEGO MD, Ot F41.9 ANXIETY DISORDER, UNSPECIFIED 06/27/2018 DU DIEGO MD Ot G40.909 EPILEPSY, UNSP, NOT INTRACTABLE, WITHOUT 06/27/2018 DU DIEGO MD Ot K59.00 CONSTIPATION, UNSPECIFIED 06/27/2018 DU DIEGO MD, Ot Z88.0 ALLERGY STATUS TO PENICILLIN 06/27/2018 DU DIEGO MD, Ot Z90.6 ACQUIRED ABSENCE OF OTHER PARTS OF URINA 06/27/2018 DU DIEGO MD Ot Z90.89 ACQUIRED ABSENCE OF OTHER ORGANS 06/30/2018 DU DIEGO MD, Ot F32.9 MAJOR DEPRESSIVE DISORDER, SINGLE EPISOD 06/30/2018 DU DIEGO MD, Ot F41.9 ANXIETY DISORDER, UNSPECIFIED 06/30/2018 DU DIEGO MD, Ot G40.909 EPILEPSY, UNSP, NOT INTRACTABLE, WITHOUT 06/30/2018 DU DIEGO MD Ot K59.00 CONSTIPATION, UNSPECIFIED 06/30/2018 DU DIEGO MD Ot Z88.0 ALLERGY STATUS TO PENICILLIN 06/30/2018 DU DIEGO MD Ot Z90.6 ACQUIRED ABSENCE OF OTHER PARTS OF URINA 06/30/2018 DU DIEGO MD, Ot Z90.89 ACQUIRED ABSENCE OF OTHER ORGANS 06/30/2018 DU DIEGO MD Ot F32.9 MAJOR DEPRESSIVE DISORDER, SINGLE EPISOD 06/30/2018 DU DIEGO MD Ot F41.9 ANXIETY DISORDER, UNSPECIFIED 06/30/2018 DU DIEGO MD Ot G40.909 EPILEPSY, UNSP, NOT INTRACTABLE, WITHOUT 06/30/2018 DU DIEGO MD Ot K59.00 CONSTIPATION, UNSPECIFIED 06/30/2018 DU DIEGO MD Ot Z88.0 ALLERGY STATUS TO PENICILLIN 06/30/2018 DU DIEGO MD Ot Z90.6 ACQUIRED ABSENCE OF OTHER PARTS OF URINA 06/30/2018 DU DIEGO MD Ot Z90.89 ACQUIRED ABSENCE OF OTHER ORGANS 07/02/2018 DU DIEGO MD Ot F32.9 MAJOR DEPRESSIVE DISORDER, SINGLE EPISOD 07/02/2018 DU DIEGO MD Ot F41.9 ANXIETY DISORDER, UNSPECIFIED 07/02/2018 DU DIEGO MD Ot G40.909 EPILEPSY, UNSP, NOT INTRACTABLE, WITHOUT 07/02/2018 DU DIEGO MD Ot M25.551 PAIN IN RIGHT HIP 07/02/2018 DU DIEGO MD Ot M25.561 PAIN IN RIGHT KNEE 07/02/2018 DU DIEGO MD Ot M25.571 PAIN IN RIGHT ANKLE AND JOINTS OF RIGHT 07/02/2018 DU DIEGO MD Ot M79.604 PAIN IN RIGHT LEG 07/02/2018 DU DIEGO MD Ot W19.XXXA UNSPECIFIED FALL, INITIAL ENCOUNTER 07/02/2018 DU DIEGO MD Ot Z88.0 ALLERGY STATUS TO PENICILLIN 07/02/2018 DU DIEGO MD Ot Z90.6 ACQUIRED ABSENCE OF OTHER PARTS OF URINA 07/02/2018 DU DIEGO MD Ot Z90.89 ACQUIRED ABSENCE OF OTHER ORGANS 07/04/2018 DU DIEGO MD Ot F32.9 MAJOR DEPRESSIVE DISORDER, SINGLE EPISOD 07/04/2018 DU DIEGO MD Ot F41.9 ANXIETY DISORDER, UNSPECIFIED 07/04/2018 DU DIEGO MD Ot G40.909 EPILEPSY, UNSP, NOT INTRACTABLE, WITHOUT 07/04/2018 DU DIEGO MD Ot M25.551 PAIN IN RIGHT HIP 07/04/2018 DU DIEGO MD Ot M25.561 PAIN IN RIGHT KNEE 07/04/2018 DU DIEGO MD Ot M25.571 PAIN IN RIGHT ANKLE AND JOINTS OF RIGHT 07/04/2018 DU DIEGO MD Ot M79.604 PAIN IN RIGHT LEG 07/04/2018 DU DIEGO MD Ot W19.XXXA UNSPECIFIED FALL, INITIAL ENCOUNTER 07/04/2018 DU DIEGO MD Ot Z88.0 ALLERGY STATUS TO PENICILLIN 07/04/2018 DU DIEGO MD Ot Z90.6 ACQUIRED ABSENCE OF OTHER PARTS OF URINA 07/04/2018 DU DIEGO MD Ot Z90.89 ACQUIRED ABSENCE OF OTHER ORGANS 07/11/2018 KARLA CORTES Ot M25.571 PAIN IN RIGHT ANKLE AND JOINTS OF RIGHT 07/11/2018 KARLA CORTES Ot M79.661 PAIN IN RIGHT LOWER LEG 07/11/2018 KARLA CORTES Ot Z98.890 OTHER SPECIFIED POSTPROCEDURAL STATES Procedures There is no data. Results There is no data. Encounters ACCT No. Visit Date/Time Discharge Status Pt. Type Provider Facility Loc./Unit Complaint [id number] 07/10/2018 09:37:00 07/10/2018 23:59:59 CLS Outpatient KARLA CORTES Via [facility] RAD FS M79.661 [id number] 07/02/2018 19:11:00 07/02/2018 21:18:00 DIS Emergency DU DIEGO MD Via [facility] ER FS PT FELL, RT LEG SWOLLEN AND TENDER [id number] 06/27/2018 17:28:00 06/27/2018 19:14:00 DIS Emergency DU DIEGO MD Via [facility] ER FS CONSTIPATION, ABD PAIN
[2018-07-14] MEDS ORDERED: MELO-170 PO (13:07)
[2018-07-14 14:55] VITALS: BP 135/96
== END 2018-07-14 14:55 | disposition home or self-care (01) ==
LOC: EDUNIT# 11:48 → ER FS 11:52
DX: M19.011 Primary osteoarthritis, right shoulder (principal); M19.012 Primary osteoarthritis, left shoulder; G40.909 Epilepsy, unspecified, not intractable, without status epilepticus; F41.9 Anxiety disorder, unspecified; F32.9 Major depressive disorder, single episode, unspecified; Z88.0 Allergy status to penicillin; Z98.890 Other specified postprocedural states; Z90.6 Acquired absence of other parts of urinary tract

== ENCOUNTER 2018-08-06 17:54 | Emergency (ER) | payer MEDICARE, MEDICAID ==
[~2018-08-06] VITALS: Ht 157.5 cm; Wt 54.4 kg
[~2018-08-06 17:54] MED LIST: MELO-170 PO
--- OUTSIDE RECORDS SUMMARY | 2018-08-06 18:01 | XMS REPORT | Continuity of Care Document ---
Author Organization Unknown Address Unknown Allergies Active Description Code Type Severity Reaction Onset Reported/Identified Relationship to Patient Clinical Status Yes ibuprofen [id number] Drug Allergy Unknown N/A 06/27/2018 Yes naproxen [id number] Drug Allergy Unknown N/A 06/27/2018 Yes tramadol [id number] Drug Allergy Unknown N/A 06/27/2018 Yes Penicillins [id number] Drug Allergy Unknown N/A 07/02/2018 Medications There [...] PAIN IN RIGHT LOWER LEG 07/11/2018 KARLA CORTESP Ot Z98.890 OTHER SPECIFIED POSTPROCEDURAL STATES 07/14/2018 KARLA CORTES Ot M25.571 PAIN IN RIGHT ANKLE AND JOINTS OF RIGHT 07/14/2018 KARLA CORTES Ot M79.661 PAIN IN RIGHT LOWER LEG 07/14/2018 KARLA CORTES Ot Z98.890 OTHER SPECIFIED POSTPROCEDURAL STATES 07/14/2018 PHILLIP ROSEN DO Ot F32.9 MAJOR DEPRESSIVE DISORDER, SINGLE EPISOD 07/14/2018 PHILLIP ROSEN DO Ot F41.9 ANXIETY DISORDER, UNSPECIFIED 07/14/2018 PHILLIP ROSEN DO Ot G40.909 EPILEPSY, UNSP, NOT INTRACTABLE, WITHOUT 07/14/2018 PHILLIP ROSEN DO Ot M19.011 PRIMARY OSTEOARTHRITIS, RIGHT SHOULDER 07/14/2018 PHILLIP ROSEN DO, Ot M19.012 PRIMARY OSTEOARTHRITIS, LEFT SHOULDER 07/14/2018 PHILLIP ROSEN DO Ot M25.511 PAIN IN RIGHT SHOULDER 07/14/2018 PHILLIP ROSEN DO Ot Z88.0 ALLERGY STATUS TO PENICILLIN 07/14/2018 PHILLIP ROSEN DO Ot Z90.6 ACQUIRED ABSENCE OF OTHER PARTS OF URINA 07/14/2018 PHILLIP ROSEN DO, Ot Z98.890 OTHER SPECIFIED POSTPROCEDURAL STATES 07/14/2018 KARLA CORTES Ot M25.571 PAIN IN RIGHT ANKLE AND JOINTS OF RIGHT 07/14/2018 KARLA CORTES Ot M79.661 PAIN IN RIGHT LOWER LEG 07/14/2018 KARLA CORTES Ot Z98.890 OTHER SPECIFIED POSTPROCEDURAL STATES 07/17/2018 PHILLIP ROSEN DO, Ot F32.9 MAJOR DEPRESSIVE DISORDER, SINGLE EPISOD 07/17/2018 PHILLIP ROSEN DO, Ot F41.9 ANXIETY DISORDER, UNSPECIFIED 07/17/2018 PHILLIP ROSEN DO, Ot G40.909 EPILEPSY, UNSP, NOT INTRACTABLE, WITHOUT 07/17/2018 PHILLIP ROSEN DO, Ot M19.011 PRIMARY OSTEOARTHRITIS, RIGHT SHOULDER 07/17/2018 PHILLIP ROSEN DO, Ot M19.012 PRIMARY OSTEOARTHRITIS, LEFT SHOULDER 07/17/2018 PHILLIP ROSEN DO, Ot M25.511 PAIN IN RIGHT SHOULDER 07/17/2018 PHILLIP ORSEN DO Ot Z88.0 ALLERGY STATUS TO PENICILLIN 07/17/2018 PHILLIP ROSEN DO, Ot Z90.6 ACQUIRED ABSENCE OF OTHER PARTS OF URINA 07/17/2018 PHILLIP ROSEN DO, Ot Z98.890 OTHER SPECIFIED POSTPROCEDURAL STATES 07/22/2018 KARLA CORTES Ot M25.571 PAIN IN RIGHT ANKLE AND JOINTS OF RIGHT 07/22/2018 KARLA CORTES Ot M79.661 PAIN IN RIGHT LOWER LEG 07/22/2018 KARLA CORTES Ot Z98.890 OTHER SPECIFIED POSTPROCEDURAL STATES 07/23/2018 KARLA CORTES Ot M25.571 PAIN IN RIGHT ANKLE AND JOINTS OF RIGHT 07/23/2018 KARLA CORTES Ot M79.661 PAIN IN RIGHT LOWER LEG 07/23/2018 KARLA CORTES Ot Z98.890 OTHER SPECIFIED POSTPROCEDURAL STATES Procedures There is no data. Results Test Result Range PDM - PAIN MGMT (PROFILE 3 WITH CONFIRMATION) - 05/29/17 16:55 Prescribed Drug 1 Tramadol NRG Creatinine 21.8 mg/dL > or=20.0 pH 6.61 4.5 - 9.0 Oxidant NEGATIVE mcg/mL <200 Amphetamines NEGATIVE ng/mL <500 medMATCH Amphetamines CONSISTENT NRG Benzodiazepines NEGATIVE ng/mL <100 medMATCH Benzodiazepines CONSISTENT NRG Marijuana Metabolite NEGATIVE ng/mL <20 medMATCH Marijuana Metab CONSISTENT NRG Cocaine Metabolite NEGATIVE ng/mL <150 medMATCH Cocaine Metab CONSISTENT NRG Opiates NEGATIVE ng/mL <100 medMATCH Opiates CONSISTENT NRG Oxycodone NEGATIVE ng/mL <100 medMATCH Oxycodone CONSISTENT NRG COMMENT NRG Prescribed Drug 2 Tramadol NRG Encounters ACCT No. Visit Date/Time Discharge Status Pt. Type Provider Facility Loc./Unit Complaint [id number] 08/01/2018 15:20:00 08/01/2018 23:59:59 [facility] [id number] 05/29/2017 16:20:00 Document Registration [id number] 07/14/2018 11:52:00 07/14/2018 14:55:00 DIS Emergency PHILLIP ROSEN DO Via [facility] ER FS FLAQUITO SHOULDER PAIN [id number] 07/10/2018 09:37:00 07/10/2018 23:59:59 CLS Outpatient KARLA CORTES Via [facility] RAD FS M79.661 [id number] 07/02/2018 19:11:00 07/02/2018 21:18:00 DIS Emergency DU DIEGO MD Via [facility] ER FS PT FELL, RT LEG SWOLLEN AND TENDER [id number] 06/27/2018 17:28:00 06/27/2018 19:14:00 DIS Emergency DU DIEGO MD Via [facility] ER FS CONSTIPATION, ABD PAIN
[2018-08-06] MEDS ORDERED: NS IV 1000 ML 1,000 ML IV ONE (18:20)
[2018-08-06] MEDS ORDERED: FAMOTIDINE 20MG/2ML IV (PEPCID) IVP ONE (18:30)
[2018-08-06] MEDS ORDERED: ONDANSETRON 4 MG/2 ML (SDV) Z0FRAN IVP ONE (18:30)
[2018-08-06 18:46] LABS: BILIRUBIN,URINE NEGATIVE (NEGATIVE); CLARITY,URINE CLEAR; COLOR,URINE YELLOW; GLUCOSE, URINE (UA) NEGATIVE (NEGATIVE); KETONES,URINE NEGATIVE (NEGATIVE); NITRITE,URINE NEGATIVE (NEGATIVE); PROTEIN,URINE NEGATIVE (NEGATIVE)
[2018-08-06 18:47] LABS: BACTERIA,URINE NEGATIVE /HPF; LEUKOCYTE ESTERASE ,URINE NEGATIVE (NEGATIVE); SQUAMOUS EPITHELIAL CELL,UR RARE /HPF; UROBILINOGEN,URINE 0.2 MG/DL (NORMAL); WBC,URINE RARE /HPF
[2018-08-06 18:52] LABS: HEMATOCRIT 42 % (40-54); HEMOGLOBIN 13.9 G/DL (13.3-17.7); MEAN CORPUSCULAR HEMOGLOBIN 29 PG (25-34); MEAN CORPUSCULAR VOLUME 87 FL (80-99); WHITE BLOOD COUNT 7.8 10^3/uL (4.3-11.0)
[2018-08-06 18:53] LABS: BASOPHILS % (AUTO) 1 % (0-10); EOSINOPHILS # (AUTO) 0.2 10^3/uL (0.0-0.3); EOSINOPHILS % (AUTO) 3 % (0-10); LYMPHOCYTES # (AUTO) 2.2 X 10^3 (1.0-4.0); LYMPHOCYTES % (AUTO) 28 % (12-44); MEAN CORPUSCULAR HGB CONC 33 G/DL (32-36); MEAN PLATELET VOLUME 8.9 FL (7.4-10.4); MONOCYTES # (AUTO) 1.1 X 10^3 (0.0-1.0); MONOCYTES % (AUTO) 14 % (0-12); NEUTROPHILS # (AUTO) 4.2 X 10^3 (1.8-7.8); NEUTROPHILS % (AUTO) 54 % (42-75); PLATELET COUNT 263 10^3/uL (130-400); RED CELL DISTRIBUTION WIDTH 12.3 % (10.0-14.5)
[2018-08-06 18:54] LABS: BASOPHILS # (AUTO) 0.1 10^3/uL (0.0-0.1)
[2018-08-06 19:55] LABS: BILIRUBIN,TOTAL 0.3 MG/DL (0.1-1.0); BUN/CREATININE RATIO 8; CARBON DIOXIDE 25 MMOL/L (21-32); CHLORIDE 99 MMOL/L (98-107); GFR ESTIMATED > 60; GLUCOSE 79 MG/DL (70-105); POTASSIUM 3.2 MMOL/L (3.6-5.0); SODIUM 138 MMOL/L (135-145)
[2018-08-06 19:56] LABS: ALANINE AMINOTRANSFERASE 15 U/L (0-55); ALBUMIN 4.4 GM/DL (3.2-4.5); ALKALINE PHOSPHATASE 90 U/L (40-136); LIPASE 35 U/L (8-78); TOTAL PROTEIN 7.1 GM/DL (6.4-8.2)
--- NOTE | 2018-08-06 20:02 | Diagnostic Imaging Report ---
INDICATION: Abdominal pain. EXAMINATION: Abdomen, flat and upright. Supine and erect views were obtained. FINDINGS: There is gas in both the large and small bowel in a nonspecific fashion. This appearance is similar to the prior exam of 06/27/2018. There is no evidence for a bowel obstruction. There is at least a moderate amount of fecal material in the ascending colon. There is no mass, organomegaly or pathological calcification evident. There is no sign of a pneumoperitoneum. The deformity of the right iliac wing, seen previously, is again evident and no different. There is no acute bony abnormality appreciated. IMPRESSION: The bowel gas pattern is nonspecific. There is no acute abnormality identified. Dictated by: Dictated on workstation # [id number]
--- NOTE | 2018-08-06 20:46 | ED Abdominal Pain ---
General Chief Complaint: Abdominal/GI Problems Stated Complaint: VOMITING Nursing Triage Note: Patient reports he ran out of his medications 5 days ago and has been vomiting "nonstop" since then. States he has not been able to eat or drink for 5 days. Sepsis Screen: No Definite Risk Source of Information: Patient Exam Limitations: No Limitations History of Present Illness Date Seen by Provider: August 06, 2018 Time Seen by Provider: 18:11 Initial Comments This 48-year-old man presents to the emergency room with with nausea, vomiting, and abdominal pain 5 days. He denies any diarrhea. Last bowel movement was yesterday and was normal. He denies any drug or alcohol use. He reports abdominal pain is generalized and at 8/10 on the pain scale. Pain worsens when he eats or drinks. He reports being out of his usual medications including Risperdal, Seroquel, ranitidine, and Lamictal for about one week. Onset of his nausea and vomiting seems to correlate well with a timeframe of withdrawal from these medications. He does have the medications now but he believes he vomited them up when he tried to take them. He states a lapse in medications was due to medications being sent to the wrong address. He states his urine is dark in his mouth is dry. Allergies and Home Medications Allergies Coded Allergies: Penicillins (Verified Allergy, Unknown, 07/02/18) Home Medications Meloxicam 7.5 Mg Tablet, 7.5 MG PO Q12H PRN for SHOULDER PAIN Prescribed by: PHILLIP ROSEN on 07/14/18 1307 Omeprazole 20 Mg Capsule.dr, 20 MG PO BID Prescribed by: JENN OVALLE on 08/06/183 Patient Home Medication List Home Medication List Reviewed: Yes Review of Systems Review of Systems Constitutional: no symptoms reported EENTM: No Symptoms Reported Respiratory: No Symptoms Reported Cardiovascular: No Symptoms Reported Gastrointestinal: See HPI Genitourinary: No Symptoms Reported Musculoskeletal: no symptoms reported Skin: no symptoms reported Psychiatric/Neurological: No Symptoms Reported Endocrine: No Symptoms Reported Hematologic/Lymphatic: No Symptoms Reported Past Oqkviuo-Trxyye-Aacnaw Hx Past Med/Social Hx: Reviewed and Corrections made Patient Social History Alcohol Use: Denies Use Recreational Drug Use: No Smoking Status: Never a Smoker 2nd Hand Smoke Exposure: No Recent Foreign Travel: No Contact w/Someone Who Travel: No Recent Infectious Disease Expo: No Recent Hopitalizations: No Physical Abuse: No Sexual Abuse: No Mistreated: No Fear: No Seasonal Allergies Seasonal Allergies: No Past Medical History Surgeries: Yes Cystectomy, Gallbladder, Orthopedic, Tonsillectomy Respiratory: No Cardiac: No Neurological: Yes Seizure Disorder Genitourinary: No Gastrointestinal: No Musculoskeletal: Yes Chronic Back Pain Endocrine: No HEENT: No Cancer: No Psychosocial: Yes Anxiety, Bipolar, Depression Integumentary: No Blood Disorders: No Family Medical History Heart Disease, Diabetes, Hypertension Physical Exam Vital Signs Vital Signs - First Documented 08/06/18 18:11 Temp 98.9 Pulse 86 Resp 20 B/P (MAP) 120/95 (103) Pulse Ox 99 O2 Delivery Room Air Capillary Refill : Less Than 3 Seconds Height/Weight/BMI Height: 5'2.00" Weight: 120lbs. oz. 54.369039oc; BMI Method:Stated General Appearance: WD/WN, no apparent distress HEENT: PERRL/EOMI, normal ENT inspection, other (oropharynx dry) Neck: normal inspection Respiratory: lungs clear, normal breath sounds, no respiratory distress, no accessory muscle use Cardiovascular: regular rate, rhythm, no edema, no murmur Gastrointestinal: soft, abnormal bowel sounds (decreased); No distended; tenderness (generalized) Extremities: normal inspection, no pedal edema Neurologic/Psychiatric: manager budget II-XII nml as tested, no motor/sensory deficits, alert, normal mood/affect, oriented x 3 Skin: normal color, warm/dry Progress/Results/Core Measures Results/Orders Lab Results Laboratory Tests Test 08/06/18 18:26 08/06/18 18:40 Range/Units Urine Color YELLOW Urine Clarity CLEAR Urine pH 6.0 5-9 Urine Specific Bitely <=1.005 1.016-1.022 Urine Protein NEGATIVE NEGATIVE Urine Glucose (UA) NEGATIVE NEGATIVE Urine Ketones NEGATIVE NEGATIVE Urine Nitrite NEGATIVE NEGATIVE Urine Bilirubin NEGATIVE NEGATIVE Urine Urobilinogen 0.2 NORMAL MG/DL Urine Leukocyte Esterase NEGATIVE NEGATIVE Urine RBC (Auto) NEGATIVE NEGATIVE Urine RBC NONE /HPF Urine WBC RARE /HPF Urine Squamous Epithelial Cells RARE /HPF Urine Crystals NONE /LPF Urine Bacteria NEGATIVE /HPF Urine Casts NONE /LPF Urine Mucus NEGATIVE /LPF Urine Culture Indicated NO White Blood Count 7.8 4.3-11.0 10^3/uL Red Blood Count 4.81 4.35-5.85 10^6/uL Hemoglobin 13.9 13.3-17.7 G/DL Hematocrit 42 40-54 % Mean Corpuscular Volume 87 80-99 FL Mean Corpuscular Hemoglobin 29 25-34 PG Mean Corpuscular Hemoglobin Concent 33 32-36 G/DL Red Cell Distribution Width 12.3 10.0-14.5 % Platelet Count 263 130-400 10^3/uL Mean Platelet Volume 8.9 7.4-10.4 FL Neutrophils (%) (Auto) 54 42-75 % Lymphocytes (%) (Auto) 28 12-44 % Monocytes (%) (Auto) 14 H 0-12 % Eosinophils (%) (Auto) 3 0-10 % Basophils (%) (Auto) 1 0-10 % Neutrophils # (Auto) 4.2 1.8-7.8 X 10^3 Lymphocytes # (Auto) 2.2 1.0-4.0 X 10^3 Monocytes # (Auto) 1.1 H 0.0-1.0 X 10^3 Eosinophils # (Auto) 0.2 0.0-0.3 10^3/uL Basophils # (Auto) 0.1 0.0-0.1 10^3/uL Sodium Level 138 135-145 MMOL/L Potassium Level 3.2 L 3.6-5.0 MMOL/L Chloride Level 99 98-107 MMOL/L Carbon Dioxide Level 25 21-32 MMOL/L Anion Gap 14 5-14 MMOL/L Blood Urea Nitrogen 8 7-18 MG/DL Creatinine 1.00 0.60-1.30 MG/DL Estimat Glomerular Filtration Rate > 60 BUN/Creatinine Ratio 8 Glucose Level 79 70-105 MG/DL Calcium Level 9.0 8.5-10.1 MG/DL Corrected Calcium 8.7 8.5-10.1 MG/DL Magnesium Level 2.0 1.8-2.4 MG/DL Total Bilirubin 0.3 0.1-1.0 MG/DL Aspartate Amino Transf (AST/SGOT) 18 5-34 U/L Alanine Aminotransferase (ALT/SGPT) 15 0-55 U/L Alkaline Phosphatase 90 40-136 U/L Total Protein 7.1 6.4-8.2 GM/DL Albumin 4.4 3.2-4.5 GM/DL Lipase 35 8-78 U/L My Orders Orders - JENN TOLENTINO MD Cbc With Automated Diff (08/06/18 18:20) Comprehensive Metabolic Panel (08/06/18 18:20) Lipase (08/06/18 18:20) Magnesium (08/06/18 18:20) Ua Culture If Indicated (08/06/18 18:20) Ed Iv/Invasive Line Start (08/06/18 18:20) Ns Iv 1000 Ml (Sodium Chloride 0.9%) (08/06/18 18:20) Ondansetron Injection (Zofran Injectio (08/06/18 18:30) Famotidine Injection (Pepcid Injection) (08/06/18 18:30) Abdomen Flat & Upright/Decub (08/06/18 18:51) Hs C Reactive Protein (08/06/18 18:40) Lidocaine 2% Viscous 15 Ml (Xylocaine Vi (08/06/18 21:00) Antacid Suspension (Mylanta Suspension (08/06/18 21:00) Pantoprazole Tablet (Protonix Tablet) (08/06/18 21:15) Rx-Ondansetron Po (Rx-Zofran Po) (08/06/18 21:16) Potassium Chloride (Tablet) (Klor Con Ta (08/06/18 21:30) Medications Given in ED Current Medications Medications Dose Ordered Sig/Mukund Route Start Time Stop Time Status Last Admin Dose Admin Famotidine 20 mg ONCE ONCE IVP 08/06/18 18:30 08/06/18 18:31 DC 08/06/18 18:43 20 MG Ondansetron HCl 8 mg ONCE ONCE IVP 08/06/18 18:30 08/06/18 18:31 DC 08/06/18 18:42 8 MG Pantoprazole Sodium 40 mg ONCE ONCE PO 08/06/18 21:15 08/06/18 21:16 DC 08/06/18 21:30 40 MG Potassium Chloride 20 meq ONCE ONCE PO 08/06/18 21:30 08/06/18 21:31 DC 08/06/18 21:30 20 MEQ Sodium Chloride 1,000 ml @ 0 mls/hr Q0M ONCE IV 08/06/18 18:20 08/06/18 18:24 DC 08/06/18 18:42 1,000 MLS/HR Vital Signs/I&O 08/06/18 08/06/18 18:11 21:33 Temp 98.9 Pulse 86 73 Resp 20 15 B/P (MAP) 120/95 (103) 135/81 (99) Pulse Ox 99 100 O2 Delivery Room Air Room Air 08/07/18 00:00 Intake Total 1000 ml Balance 1000 ml Blood Pressure Mean: 103 Progress Progress Note : Progress Note Patient was treated with Zofran, Pepcid, and IV fluids. Labs were relatively unremarkable except for mild hypokalemia. X-ray revealed no acute abnormalities. Patient received a GI cocktail which improved his pain significantly. I'm suspicious he may have developed withdraw from his medications when he went without them for a few days and then developed gastritis from the vomiting. Patient was further treated with oral potassium and Protonix. Diagnostic Imaging Diagonstic Imaging: Xray Plain Films/CT/US/NM/MRI: abdomen, pelvis Comments KUB and upright x-ray films viewed by me and report reviewed. See report below: NAME: CORIE MILIAN [facility] REC#: [id number] PT STATUS: REG ER : 1970 PHYSICIAN: JENN TOLENTINO MD ADMIT DATE: 08/06/18/ER FS Signed Date of Exam:08/06/18 ABDOMEN FLAT UPRIGHT/DECUB INDICATION: Abdominal pain. EXAMINATION: Abdomen, flat and upright. Supine and erect views were obtained. FINDINGS: There is gas in both the large and small bowel in a nonspecific fashion. This appearance is similar to the prior exam of 06/27/2018. There is no evidence for a bowel obstruction. There is at least a moderate amount of fecal material in the ascending colon. There is no mass, organomegaly or pathological calcification evident. There is no sign of a pneumoperitoneum. The deformity of the right iliac wing, seen previously, is again evident and no different. There is no acute bony abnormality appreciated. IMPRESSION: The bowel gas pattern is nonspecific. There is no acute abnormality identified. Dictated by: Dictated on workstation # [id number] Dict: 08/06/181952 Trans: 08/06/182019 [facility] [id number] Interpreted by: TAMARA JEWELL MD Electronically signed by: TAMARA JEWELL MD 08/06/182019 Departure Impression Primary Impression: Generalized abdominal pain Additional Impressions: Nausea and vomiting Qualified Codes: R11.2 - Nausea with vomiting, unspecified Hypokalemia Disposition: HOME, SELF-CARE Condition: Improved Departure-Patient Inst. Decision time for Depature: 21:20 Referrals: [facility]/ (PCP) Primary Care Physician LUZ ELENA BARNEY (Family) Primary Care Physician Patient Instructions: Acute Abdomen (Belly Pain), Adult (DC), Nausea and Vomiting, Adult Add. Discharge Instructions: Dissolve Zofran (ondansetron) under your tongue every 4 hours as needed for nausea and vomiting. Take your ranitidine as previously prescribed. Add omeprazole as prescribed for further antiacid therapy. Follow-up with your primary care provider soon as possible. Call tomorrow for an appointment. Referral for scoping of your esophagus and stomach may be advised. Discuss this with your doctor. Avoid the following: Eating large meals, eating close to bedtime, caffeine, carbonation, chocolate, citrus fruits and juices, alcohol, tobacco, tomato products, NSAID medications such as ibuprofen or naproxen, fatty or greasy foods, mints, spicy foods, or anything else you know irritates your stomach. Return to care if symptoms worsen. All discharge instructions reviewed with patient and/or family. Voiced understanding. Scripts Omeprazole (Omeprazole) 20 Mg Capsule. 20 MG PO BID, #30 CAP Prov: JENN TOLENTINO MD 08/06/18 Copy Copies To 1: TARA EATON JOSHUA T MD August 06, 2018 20:46
[2018-08-06] MEDS ORDERED: LIDOCAINE 2% VISCOUS 15 ML UDC PO ONE (21:00)
[2018-08-06] MEDS ORDERED: ANTACID SUSP 30 ML UDC (MYLANTA) PO ONE (21:00)
[2018-08-06] MEDS ORDERED: PANTOPRAZOLE 40 MG (PROTONIX) TAB PO ONE (21:15)
[2018-08-06] MEDS ORDERED: RX-ONDANSETRON 4 MG ODT (ZOFRAN) PPK #4 SL STA (21:16)
[2018-08-06] MEDS ORDERED: OMEP20CA12 PO (21:23)
[2018-08-06] MEDS ORDERED: KCL 10 MEQ TAB (MICRO K) PO ONE (21:30)
[2018-08-06 21:33] VITALS: BP 135/81
== END 2018-08-06 21:33 | disposition home or self-care (01) ==
LOC: EDUNIT# 17:54 → ER FS 17:55
DX: E87.6 Hypokalemia (principal); R11.2 Nausea with vomiting, unspecified; R10.84 Generalized abdominal pain; G40.909 Epilepsy, unspecified, not intractable, without status epilepticus; F31.9 Bipolar disorder, unspecified; F41.9 Anxiety disorder, unspecified; Z88.0 Allergy status to penicillin; Z90.89 Acquired absence of other organs; Z82.49 Family history of ischemic heart disease and other diseases of the circulatory system
CPT/HCPCS: 36415; 74019; 80053; 81000; 83690; 83735; 85025; 86141

== ENCOUNTER 2018-08-11 17:15 | Emergency (ER) | payer MEDICARE, MEDICAID ==
[~2018-08-11] VITALS: Ht 154.9 cm; Wt 59.9 kg
[~2018-08-11 17:15] MED LIST changes: +OMEP20CA12 PO
--- OUTSIDE RECORDS SUMMARY | 2018-08-11 17:22 | XMS REPORT | Continuity of Care Document ---
Author Organization Unknown Address Unknown Allergies Active Description Code Type Severity Reaction Onset Reported/Identified Relationship to Patient Clinical Status Yes ibuprofen [id number] Drug Allergy Unknown N/A 06/27/2018 Yes naproxen [id number] Drug Allergy Unknown N/A 06/27/2018 Yes tramadol [id number] Drug Allergy Unknown N/A 06/27/2018 Yes Penicillins [id number] Drug Allergy Unknown N/A 07/02/2018 Medications There [...] OTHER PARTS OF URINA 07/14/2018 PHILLIP ROSEN DO Ot Z98.890 OTHER SPECIFIED POSTPROCEDURAL STATES 07/14/2018 KARLA CORTES Ot M25.571 PAIN IN RIGHT ANKLE AND JOINTS OF RIGHT 07/14/2018 KARLA CORTES Ot M79.661 PAIN IN RIGHT LOWER LEG 07/14/2018 KARLA CORTES Ot Z98.890 OTHER SPECIFIED POSTPROCEDURAL STATES 07/17/2018 PHILLIP ROSEN DO Ot F32.9 MAJOR DEPRESSIVE DISORDER, SINGLE EPISOD 07/17/2018 PHILLIP ROSEN DO Ot F41.9 ANXIETY DISORDER, UNSPECIFIED 07/17/2018 PHILLIP ROSEN DO, Ot G40.909 EPILEPSY, UNSP, NOT INTRACTABLE, WITHOUT 07/17/2018 PHILLIP ROSEN DO, Ot M19.011 PRIMARY OSTEOARTHRITIS, RIGHT SHOULDER 07/17/2018 PHILLIP ROSEN DO, Ot M19.012 PRIMARY OSTEOARTHRITIS, LEFT SHOULDER 07/17/2018 PHILLIP ROSEN DO, Ot M25.511 PAIN IN RIGHT SHOULDER 07/17/2018 PHILLIP ROSEN DO Ot Z88.0 ALLERGY STATUS [...] CORTES Ot Z98.890 OTHER SPECIFIED POSTPROCEDURAL STATES 08/08/2018 RAJAN HOFFMANN, JENN Grajeda Ot E87.6 HYPOKALEMIA 08/08/2018 JENN TOLENTINO MD Ot F31.9 BIPOLAR DISORDER, UNSPECIFIED 08/08/2018 JENN TOLENTINO MD, Ot F41.9 ANXIETY DISORDER, UNSPECIFIED 08/08/2018 JENN TOLENTINO MD, Ot G40.909 EPILEPSY, UNSP, NOT INTRACTABLE, WITHOUT 08/08/2018 JENN TOLENTINO MD, Ot R10.84 GENERALIZED ABDOMINAL PAIN 08/08/2018 JENN TOLENTINO MD, Ot R11.2 NAUSEA WITH VOMITING, UNSPECIFIED 08/08/2018 JENN TOLENTINO MD, Ot Z82.49 FAMILY HX OF ISCHEM HEART DIS AND OTH DI 08/08/2018 JENN TOLENTINO MD, Ot Z88.0 ALLERGY STATUS TO PENICILLIN 08/08/2018 JENN TOLENTINO MD, Ot Z90.89 ACQUIRED ABSENCE OF OTHER ORGANS Procedures There is no data. Results Test [...] COMMENT NRG Prescribed Drug 2 Tramadol NRG Complete urinalysis with reflex to culture - 08/06/18 18:26 Urine color determination YELLOW NRG Urine clarity determination CLEAR NRG Urine pH measurement by test strip 6.0 5-9 Specific gravity of urine by test strip <= 1.016-1.022 Urine protein assay by test strip, semi-quantitative NEGATIVE NEGATIVE Urine glucose detection by automated test strip NEGATIVE NEGATIVE Erythrocytes detection in urine sediment by light microscopy NEGATIVE NEGATIVE Urine ketones detection by automated test strip NEGATIVE NEGATIVE Urine nitrite detection by test strip NEGATIVE NEGATIVE Urine total bilirubin detection by test strip NEGATIVE NEGATIVE Urine urobilinogen measurement by automated test strip (mass/volume) 0.2 mg/dL NORMAL Urine leukocyte esterase detection by dipstick NEGATIVE NEGATIVE Automated urine sediment erythrocyte count by microscopy (number/high power field) NONE NRG Automated urine sediment leukocyte count by microscopy (number/high power field) RARE NRG Bacteria detection in urine sediment by light microscopy NEGATIVE NRG Squamous epithelial cells detection in urine sediment by light microscopy RARE NRG Crystals detection in urine sediment by light microscopy NONE NRG Casts detection in urine sediment by light microscopy NONE NRG Mucus detection in urine sediment by light microscopy NEGATIVE NRG Complete urinalysis with reflex to culture NO NRG Complete blood count (CBC) with automated white blood cell (WBC) differential - 08/06/18 18:40 Blood leukocytes automated count (number/volume) 7.8 10*3/uL 4.3-11.0 Blood erythrocytes automated count (number/volume) 4.81 10*6/uL 4.35-5.85 Venous blood hemoglobin measurement (mass/volume) 13.9 g/dL 13.3-17.7 Blood hematocrit (volume fraction) 42 % 40-54 Automated erythrocyte mean corpuscular volume 87 [foz_us] 80-99 Automated erythrocyte mean corpuscular hemoglobin (mass per erythrocyte) 29 pg 25-34 Automated erythrocyte mean corpuscular hemoglobin concentration measurement (mass/volume) 33 g/dL 32-36 Automated erythrocyte distribution width ratio 12.3 % 10.0- 14.5 Automated blood platelet count (count/volume) 263 10*3/uL 130-400 Automated blood platelet mean volume measurement 8.9 [foz_us] 7.4-10.4 Automated blood neutrophils/100 leukocytes 54 % 42-75 Automated blood lymphocytes/100 leukocytes 28 % 12-44 Blood monocytes/100 leukocytes 14 % 0-12 Automated blood eosinophils/100 leukocytes 3 % 0-10 Automated blood basophils/100 leukocytes 1 % 0-10 Blood neutrophils automated count (number/volume) 4.2 10*3 1.8-7.8 Blood lymphocytes automated count (number/volume) 2.2 10*3 1.0-4.0 Blood monocytes automated count (number/volume) 1.1 10*3 0.0- 1.0 Automated eosinophil count 0.2 10*3/uL 0.0-0.3 Automated blood basophil count (count/volume) 0.1 10*3/uL 0.0-0.1 Comprehensive metabolic panel - 08/06/18 18:40 Serum or plasma sodium measurement (moles/volume) 138 mmol/L 135-145 Serum or plasma potassium measurement (moles/volume) 3.2 mmol/L 3.6-5.0 Serum or plasma chloride measurement (moles/volume) 99 mmol/L 98-107 Carbon dioxide 25 mmol/L 21-32 Serum or plasma anion gap determination (moles/volume) 14 mmol/L 5-14 Serum or plasma urea nitrogen measurement (mass/volume) 8 mg/dL 7-18 Serum or plasma creatinine measurement (mass/volume) 1.00 mg/dL 0.60-1.30 Serum or plasma urea nitrogen/creatinine mass ratio 8 NRG Serum or plasma creatinine measurement with calculation of estimated glomerular filtration rate > NRG Serum or plasma glucose measurement (mass/volume) 79 mg/dL 70-105 Serum or plasma calcium measurement (mass/volume) 9.0 mg/dL 8.5-10.1 Serum or plasma total bilirubin measurement (mass/volume) 0.3 mg/dL 0.1-1.0 Serum or plasma alkaline phosphatase measurement (enzymatic activity/volume) 90 U/L 40-136 Serum or plasma aspartate aminotransferase measurement (enzymatic activity/volume) 18 U/L 5-34 Serum or plasma alanine aminotransferase measurement (enzymatic activity/volume) 15 U/L 0-55 Serum or plasma protein measurement (mass/volume) 7.1 g/dL 6.4-8.2 Serum or plasma albumin measurement (mass/volume) 4.4 g/dL 3.2-4.5 CALCIUM CORRECTED 8.7 mg/dL 8.5-10.1 Magnesium - 08/06/18 18:40 Magnesium 2.0 mg/dL 1.8-2.4 Lipase - 08/06/18 18:40 Lipase 35 U/L 8-78 Serum or plasma C reactive protein measurement (mass/volume) - 08/06/18 18:40 Serum or plasma C reactive protein measurement (mass/volume) 0.17 mg/dL 0.00-0.50 Encounters ACCT No. Visit Date/Time Discharge Status Pt. Type Provider Facility Loc./Unit Complaint [id number] 08/01/2018 15:20:00 08/01/2018 23:59:59 [facility] Outpatient LUZ ELENA BARNEY [facility] [id number] 05/29/2017 16:20:00 Document Registration [id number] 08/06/2018 17:55:00 08/06/2018 21:33:00 DIS Outpatient RAJAN HOFFMANN, JENN Grajeda [facility] ER FS VOMITING [id number] 07/14/2018 11:52:00 07/14/2018 14:55:00 DIS Emergency PHILLIP ROSEN DO [facility] ER FS FLAQUITO SHOULDER PAIN [id number] 07/10/2018 09:37:00 07/10/2018 23:59:59 CLS Outpatient KARLA CORTES [facility] RAD FS M79.661 [id number] 07/02/2018 19:11:00 07/02/2018 21:18:00 DIS Emergency DU DIEGO MD [facility] ER FS PT FELL, RT LEG SWOLLEN AND TENDER [id number] 06/27/2018 17:28:00 06/27/2018 19:14:00 DIS Emergency DU DIEGO MD [facility] ER FS CONSTIPATION, ABD PAIN
--- NOTE | 2018-08-11 17:57 | NUR ---
DR MONTANEZ TO ROOM.
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
[2018-08-11] MEDS ORDERED: KETOROLAC 60 MG/2 ML VIAL IM ONE (18:30)
[2018-08-11] MEDS ORDERED: FAMOTIDINE 20 MG (PEPCID) TABLET PO ONE (18:30)
[2018-08-11] MEDS ORDERED: NAPR-1071 PO (18:36)
[2018-08-11] MEDS ORDERED: OMEP20TA33 PO (18:36)
[2018-08-11] MEDS ORDERED: POLY119P5 PO (18:36)
[2018-08-11 18:52] VITALS: BP 117/86
== END 2018-08-11 18:46 | disposition home or self-care (01) ==
LOC: EDUNIT# 17:15 → ER FS 17:16
DX: M25.561 Pain in right knee (principal); G89.29 Other chronic pain; K59.00 Constipation, unspecified; K21.9 Gastro-esophageal reflux disease without esophagitis; F20.9 Schizophrenia, unspecified; G40.909 Epilepsy, unspecified, not intractable, without status epilepticus; F41.9 Anxiety disorder, unspecified; F31.9 Bipolar disorder, unspecified; Z82.49 Family history of ischemic heart disease and other diseases of the circulatory system; Z88.0 Allergy status to penicillin; Z90.89 Acquired absence of other organs; Z90.6 Acquired absence of other parts of urinary tract; Z98.890 Other specified postprocedural states
CPT/HCPCS: 96372; 99284

== ENCOUNTER 2018-08-19 20:03 | Emergency (ER) | payer MEDICARE, MEDICAID ==
[~2018-08-19] VITALS: Ht 165.1 cm; Wt 57.6 kg
[~2018-08-19 20:03] MED LIST changes: +NAPR-1071 PO; +OMEP20TA33 PO; +POLY119P5 PO
--- NOTE | 2018-08-19 20:16 | ED GI ---
General Chief Complaint: Abdominal/GI Problems Stated Complaint: ABD PAIN, VOMITING, LOOSE STOOL Source of Information: Patient, Old Records, RN Notes Reviewed Exam Limitations: No Limitations History of Present Illness Date Seen by Provider: Aug 19, 2018 Time Seen by Provider: 20:14 Initial Comments Patient presents c/ c/o upper abdominal pain c/ N/V since this AM p/ eating eggs for breakfast. Patient rates his pain a 12/25. Has known GERD. Sates he is scheduled for an EGD but not until January. Patient is a fairly frequent ED visitor. Timing/Duration: 12 Hours Severity/Quality: Severe (12/25) Location: Epigastric Radiation: No Radiation Activities at Onset: Other (p/ eating breakfast) Modifying Factors: Improves With Other (none) Associated Symptoms: Denies Symptoms (x/ as noted. ), Nausea/Vomiting Allergies and Home Medications Allergies Coded Allergies: Penicillins (Verified Allergy, Unknown, 08/19/18) Home Medications Meloxicam 7.5 Mg Tablet, 7.5 MG PO Q12H PRN for SHOULDER PAIN Prescribed by: PHILLIP ROSEN on 07/14/18 1307 Naproxen 500 Mg Tablet, 500 MG PO BID Prescribed by: ANTONETTE MONTANEZ on 08/11/18 1836 Omeprazole 20 Mg Capsule., 20 MG PO BID Prescribed by: JENN OVALLE on 08/06/182122 Omeprazole Magnesium 20 Mg Tablet., 20 MG PO DAILY Prescribed by: ANTONETTE MONTANEZ on 08/11/18 183 Ondansetron 4 Mg Tab.rapdis, 4 MG PO Q6H PRN for NAUSEA/VOMITING Prescribed by: PHILLIP ROSEN on 08/19/18 2202 Polyethylene Glycol 3350 119 Gm Powder, 17 GM PO BID PRN PRN for CONSTIPATION- 1ST LINE Prescribed by: ANTONETTE MONTANEZ on 08/11/18 1836 Patient Home Medication List Home Medication List Reviewed: Yes Review of Systems Review of Systems Constitutional: see HPI Gastrointestinal: See HPI, Abdominal Pain, Nausea, Vomiting All Other Systems Reviewed Negative Unless Noted: Yes (Negative excepted noted.) Past Awbulrt-Rfllmz-Ynpmwu Hx Patient Social History 2nd Hand Smoke Exposure: No Recent Foreign Travel: No Contact w/Someone Who Travel: No Recent Hopitalizations: No Immunizations Up To Date Tetanus Booster (TDap): Unknown Seasonal Allergies Seasonal Allergies: No Past Medical History Surgeries: Yes (RIGHT LEG FUSION CHILD) Cystectomy, Gallbladder, Orthopedic, Tonsillectomy Respiratory: No Cardiac: No Neurological: Yes Seizure Disorder Genitourinary: No Gastrointestinal: No Musculoskeletal: Yes Chronic Back Pain Endocrine: No HEENT: No Cancer: No Psychosocial: Yes Anxiety, Bipolar, Depression Integumentary: No Blood Disorders: No Family Medical History Heart Disease, Diabetes, Hypertension Physical Exam Vital Signs Vital Signs - First Documented 08/19/18 20:18 Temp 98.3 Pulse 109 Resp 20 B/P (MAP) 153/101 (118) Pulse Ox 98 O2 Delivery Room Air Capillary Refill : Height/Weight/BMI Height: 5'1.00" Weight: 132lbs. oz. 59.650146vy; BMI Method:Stated General Appearance: WD/WN, no apparent distress (despite rating his pain a 10/10.) Respiratory: no respiratory distress Cardiovascular: tachycardia Gastrointestinal: No guarding, No rebound; tenderness (epigastric; very dramatic) Rectal: deferred Neurologic/Psychiatric: no motor/sensory deficits, alert, oriented x 3 Skin: warm/dry Progress/Results/Core Measures Results/Orders Lab Results Laboratory Tests Test 08/19/18 20:43 08/19/18 20:45 Range/Units Urine Color YELLOW Urine Clarity CLEAR Urine pH 6.5 5-9 Urine Specific [place] 1.025 H 1.016-1.022 Urine Protein NEGATIVE NEGATIVE Urine Glucose (UA) NEGATIVE NEGATIVE Urine Ketones NEGATIVE NEGATIVE Urine Nitrite NEGATIVE NEGATIVE Urine Bilirubin NEGATIVE NEGATIVE Urine Urobilinogen 0.2 NORMAL MG/DL Urine Leukocyte Esterase NEGATIVE NEGATIVE Urine RBC (Auto) NEGATIVE NEGATIVE Urine RBC NONE /HPF Urine WBC NONE /HPF Urine Squamous Epithelial Cells RARE /HPF Urine Crystals NONE /LPF Urine Bacteria NONE /HPF Urine Casts NONE /LPF Urine Mucus TRACE /LPF Urine Other /HPF Urine Culture Indicated NO White Blood Count 9.2 4.3-11.0 10^3/uL Red Blood Count 4.45 4.35-5.85 10^6/uL Hemoglobin 13.0 L 13.3-17.7 G/DL Hematocrit 39 L 40-54 % Mean Corpuscular Volume 87 80-99 FL Mean Corpuscular Hemoglobin 29 25-34 PG Mean Corpuscular Hemoglobin Concent 34 32-36 G/DL Red Cell Distribution Width 12.7 10.0-14.5 % Platelet Count 299 130-400 10^3/uL Mean Platelet Volume 8.2 7.4-10.4 FL Neutrophils (%) (Auto) 67 42-75 % Lymphocytes (%) (Auto) 20 12-44 % Monocytes (%) (Auto) 11 0-12 % Eosinophils (%) (Auto) 2 0-10 % Basophils (%) (Auto) 0 0-10 % Neutrophils # (Auto) 6.2 1.8-7.8 X 10^3 Lymphocytes # (Auto) 1.8 1.0-4.0 X 10^3 Monocytes # (Auto) 1.0 0.0-1.0 X 10^3 Eosinophils # (Auto) 0.1 0.0-0.3 10^3/uL Basophils # (Auto) 0.0 0.0-0.1 10^3/uL Sodium Level 141 135-145 MMOL/L Potassium Level 3.9 3.6-5.0 MMOL/L Chloride Level 102 98-107 MMOL/L Carbon Dioxide Level 23 21-32 MMOL/L Anion Gap 16 H 5-14 MMOL/L Blood Urea Nitrogen 12 7-18 MG/DL Creatinine 1.19 0.60-1.30 MG/DL Estimat Glomerular Filtration Rate > 60 BUN/Creatinine Ratio 10 Glucose Level 114 H 70-105 MG/DL Calcium Level 9.1 8.5-10.1 MG/DL Corrected Calcium 8.9 8.5-10.1 MG/DL Total Bilirubin 0.2 0.1-1.0 MG/DL Aspartate Amino Transf (AST/SGOT) 14 5-34 U/L Alanine Aminotransferase (ALT/SGPT) 11 0-55 U/L Alkaline Phosphatase 94 40-136 U/L Troponin T < 6 <=15 NG/L Total Protein 6.7 6.4-8.2 GM/DL Albumin 4.3 3.2-4.5 GM/DL Lipase 24 8-78 U/L PHILLIP Pettit DO Lidocaine 2% Viscous 15 Ml (Xylocaine Vi (08/19/18 20:30) Antacid Suspension (Mylanta Suspension (08/19/18 20:30) Cbc With Automated Diff (08/19/18 20:29) Comprehensive Metabolic Panel (08/19/18 20:29) Lipase (08/19/18 20:29) Ua Culture If Indicated (08/19/18 20:29) Troponin T (08/19/18 20:39) Acute Abd Series (08/19/18 21:08) Magnesium Citrate Oral Soln (Citrate Of (08/19/18 22:00) Medications Given in ED Current Medications Medications Dose Ordered Sig/Mukund Route Start Time Stop Time Status Last Admin Dose Admin Al Hydrox/Mg Hydrox/Simethicone 30 ml ONCE ONCE PO 08/19/18 20:30 08/19/18 20:31 DC 08/19/18 20:24 30 ML Lidocaine HCl 15 ml ONCE ONCE PO 08/19/18 20:30 08/19/18 20:31 DC 08/19/18 20:24 15 ML Magnesium Citrate 300 ml ONCE ONCE PO 08/19/18 22:00 08/19/18 22:01 DC 08/19/18 21:58 300 ML Vital Signs/I&O 08/19/18 08/19/18 20:18 22:08 Temp 98.3 Pulse 109 83 Resp 20 16 B/P (MAP) 153/101 (118) 129/78 (95) Pulse Ox 98 97 O2 Delivery Room Air Room Air Progress Progress Note : Progress Note Discomfort improved @ time of discharge. Diagnostic Imaging Diagonstic Imaging: Xray Plain Films/CT/US/NM/MRI: abdomen ((+) constipation) Departure Impression Primary Impression: Abdominal pain Additional Impressions: Gastritis vs PUD Constipation Disposition: 01 HOME, SELF-CARE Condition: Improved Departure-Patient Inst. Referrals: [facility] (PCP) Primary Care Physician LUZ ELENA BARNEY (Family) Primary Care Physician Patient Instructions: Constipation, Adult (DC), Gastritis (DC), Nausea and Vomiting, Adult (DC) Add. Discharge Instructions: All discharge instructions reviewed with patient and/or family. Voiced understanding. RECOMMEND INCREASING YOUR OMEPRAZOLE TO TWICE DAILY X 2 WEEKS. INCREASE YOUR DAILY STOOL SOFTENER. STOP THE NAPROXEN IF YOUR TAKING IT. RECOMMEND 1000 mg OF TYLENOL EVERY 6 HOURS NEEDED FOR PAIN. DO NOT EXCEED 4000 mg OF TYLENOL IN A 24 HOUR PERIOD. Scripts Ondansetron (Ondansetron Odt) 4 Mg Tab.rapdis 4 MG PO Q6H PRN for NAUSEA/VOMITING, #10 TAB 0 Refills Prov: PHILLIP ROSEN DO 08/19/18 PHILLIP ROSEN DO Aug 19, 2018 20:16
[2018-08-19] MEDS ORDERED: LIDOCAINE 2% VISCOUS 15 ML UDC PO ONE (20:30)
[2018-08-19] MEDS ORDERED: ANTACID SUSP 30 ML UDC (MYLANTA) PO ONE (20:30)
[2018-08-19 20:52] LABS: CLARITY,URINE CLEAR; COLOR,URINE YELLOW; GLUCOSE, URINE (UA) NEGATIVE (NEGATIVE); PH,URINE 6.5 (5-9); PROTEIN,URINE NEGATIVE (NEGATIVE)
[2018-08-19 20:53] LABS: BILIRUBIN,URINE NEGATIVE (NEGATIVE); KETONES,URINE NEGATIVE (NEGATIVE); LEUKOCYTE ESTERASE ,URINE NEGATIVE (NEGATIVE); NITRITE,URINE NEGATIVE (NEGATIVE); SQUAMOUS EPITHELIAL CELL,UR RARE /HPF; UROBILINOGEN,URINE 0.2 MG/DL (NORMAL)
[2018-08-19 20:53] LABS: BASOPHILS % (AUTO) 0 % (0-10); EOSINOPHILS % (AUTO) 2 % (0-10); HEMATOCRIT 39 % (40-54); LYMPHOCYTES % (AUTO) 20 % (12-44); MEAN CORPUSCULAR HEMOGLOBIN 29 PG (25-34); MEAN CORPUSCULAR HGB CONC 34 G/DL (32-36); MEAN CORPUSCULAR VOLUME 87 FL (80-99); MEAN PLATELET VOLUME 8.2 FL (7.4-10.4); MONOCYTES % (AUTO) 11 % (0-12); NEUTROPHILS % (AUTO) 67 % (42-75); PLATELET COUNT 299 10^3/uL (130-400); RED CELL DISTRIBUTION WIDTH 12.7 % (10.0-14.5); WHITE BLOOD COUNT 9.2 10^3/uL (4.3-11.0)
[2018-08-19 20:54] LABS: EOSINOPHILS # (AUTO) 0.1 10^3/uL (0.0-0.3); LYMPHOCYTES # (AUTO) 1.8 X 10^3 (1.0-4.0); NEUTROPHILS # (AUTO) 6.2 X 10^3 (1.8-7.8)
[2018-08-19 21:21] LABS: ALANINE AMINOTRANSFERASE 11 U/L (0-55); ALBUMIN 4.3 GM/DL (3.2-4.5); ALKALINE PHOSPHATASE 94 U/L (40-136); BILIRUBIN,TOTAL 0.2 MG/DL (0.1-1.0); BUN/CREATININE RATIO 10; CALCIUM 9.1 MG/DL (8.5-10.1); CARBON DIOXIDE 23 MMOL/L (21-32); CHLORIDE 102 MMOL/L (98-107); CREATININE SERUM 1.19 MG/DL (0.60-1.30); GFR ESTIMATED > 60; GLUCOSE 114 MG/DL (70-105); LIPASE 24 U/L (8-78); POTASSIUM 3.9 MMOL/L (3.6-5.0); SODIUM 141 MMOL/L (135-145); TOTAL PROTEIN 6.7 GM/DL (6.4-8.2)
--- NOTE | 2018-08-19 21:43 | Diagnostic Imaging Report ---
INDICATION: Vomiting. Heartburn. FINDINGS: PA chest shows the lungs to be well aerated and clear. Heart is not enlarged. There is no evidence of free air under the diaphragm. There is a moderate amount of stool present throughout the colon from the cecum to the rectum. Stomach is fluid filled. Small bowel appears to be fluid filled as well. No organomegaly. No pathologic calcification. IMPRESSION: Findings are consistent with moderate constipation throughout the colon most severe within the right side of the colon. Fluid-filled stomach and small bowel may be secondary to constipation. Dictated by: Dictated on workstation # [id number]
[2018-08-19] MEDS ORDERED: MAGNESIUM CITRATE 300 ML BTL PO ONE (22:00)
[2018-08-19] MEDS ORDERED: ONDA4TAB11 PO (22:02)
[2018-08-19 22:08] VITALS: BP 129/78
--- OUTSIDE RECORDS SUMMARY | 2018-08-20 01:34 | XMS REPORT | Continuity of Care Document ---
Author Organization Unknown Address Unknown Allergies Active Description Code Type Severity Reaction Onset Reported/Identified Relationship to Patient Clinical Status Yes ibuprofen [id number] Drug Allergy Unknown N/A 06/27/2018 Yes naproxen [id number] Drug Allergy Unknown N/A 06/27/2018 Yes tramadol [id number] Drug Allergy Unknown N/A 06/27/2018 Yes Penicillins [id number] Drug Allergy Unknown N/A 07/02/2018 Medications There [...] ANKLE AND JOINTS OF RIGHT 07/02/2018 DU DEIGO MD Ot M79.604 PAIN IN RIGHT LEG [...] reactive protein measurement (mass/volume) 0.17 mg/dL 0.00-0.50 Complete urinalysis with reflex to culture - 08/19/18 20:43 Urine color determination YELLOW NRG Urine clarity determination CLEAR NRG Urine pH measurement by test strip 6.5 5-9 Specific gravity of urine by test strip 1.025 1.016-1.022 Urine protein assay by test strip, [...] leukocyte count by microscopy (number/high power field) NONE NRG Bacteria detection in urine sediment by light microscopy NONE NRG Squamous epithelial cells detection in urine sediment by light microscopy RARE NRG Crystals detection in urine sediment by light microscopy NONE NRG Casts detection in urine sediment by light microscopy NONE NRG Mucus detection in urine sediment by light microscopy TRACE NRG Complete urinalysis with reflex to culture NO NRG Complete blood count (CBC) with automated white blood cell (WBC) differential - 08/19/18 20:45 Blood leukocytes automated count (number/volume) 9.2 10*3/uL 4.3-11.0 Blood erythrocytes automated count (number/volume) 4.45 10*6/uL 4.35-5.85 Venous blood hemoglobin measurement (mass/volume) 13.0 g/dL 13.3-17.7 Blood hematocrit (volume fraction) 39 % 40-54 Automated erythrocyte mean corpuscular volume 87 [foz_us] 80-99 Automated erythrocyte mean corpuscular hemoglobin (mass per erythrocyte) 29 pg 25-34 Automated erythrocyte mean corpuscular hemoglobin concentration measurement (mass/volume) 34 g/dL 32-36 Automated erythrocyte distribution width ratio 12.7 % 10.0- 14.5 Automated blood platelet count (count/volume) 299 10*3/uL 130-400 Automated blood platelet mean volume measurement 8.2 [foz_us] 7.4-10.4 Automated blood neutrophils/100 leukocytes 67 % 42-75 Automated blood lymphocytes/100 leukocytes 20 % 12-44 Blood monocytes/100 leukocytes 11 % 0-12 Automated blood eosinophils/100 leukocytes 2 % 0-10 Automated blood basophils/100 leukocytes 0 % 0-10 Blood neutrophils automated count (number/volume) 6.2 10*3 1.8-7.8 Blood lymphocytes automated count (number/volume) 1.8 10*3 1.0-4.0 Blood monocytes automated count (number/volume) 1.0 10*3 0.0- 1.0 Automated eosinophil count 0.1 10*3/uL 0.0-0.3 Automated blood basophil count (count/volume) 0.0 10*3/uL 0.0-0.1 Comprehensive metabolic panel - 08/19/18 20:45 Serum or plasma sodium measurement (moles/volume) 141 mmol/L 135-145 Serum or plasma potassium measurement (moles/volume) 3.9 mmol/L 3.6-5.0 Serum or plasma chloride measurement (moles/volume) 102 mmol/L 98-107 Carbon dioxide 23 mmol/L 21-32 Serum or plasma anion gap determination (moles/volume) 16 mmol/L 5-14 Serum or plasma urea nitrogen measurement (mass/volume) 12 mg/dL 7-18 Serum or plasma creatinine measurement (mass/volume) 1.19 mg/dL 0.60-1.30 Serum or plasma urea nitrogen/creatinine mass ratio 10 NRG Serum or plasma creatinine measurement with calculation of estimated glomerular filtration rate > NRG Serum or plasma glucose measurement (mass/volume) 114 mg/dL 70-105 Serum or plasma calcium measurement (mass/volume) 9.1 mg/dL 8.5-10.1 Serum or plasma total bilirubin measurement (mass/volume) 0.2 mg/dL 0.1-1.0 Serum or plasma alkaline phosphatase measurement (enzymatic activity/volume) 94 U/L 40-136 Serum or plasma aspartate aminotransferase measurement (enzymatic activity/volume) 14 U/L 5-34 Serum or plasma alanine aminotransferase measurement (enzymatic activity/volume) 11 U/L 0-55 Serum or plasma protein measurement (mass/volume) 6.7 g/dL 6.4-8.2 Serum or plasma albumin measurement (mass/volume) 4.3 g/dL 3.2-4.5 CALCIUM CORRECTED 8.9 mg/dL 8.5-10.1 TROPONIN T - 08/19/18 20:45 TROPONIN T < 6 <=15 Lipase - 08/19/18 20:45 Lipase 24 U/L 8-78 Encounters ACCT No. Visit Date/Time Discharge Status Pt. Type Provider Facility Loc./Unit Complaint [id number] 08/01/2018 15:20:00 08/01/2018 23:59:59 [id number] 05/29/2017 16:20:00 Document Registration [id number] 08/11/2018 17:16:00 08/11/2018 18:46:00 DIS Emergency ANTONETTE MONTANEZ MD Via [facility] ER FS RT LEG PAIN [id number] 08/06/2018 17:55:00 08/06/2018 21:33:00 DIS Outpatient RAJAN HOFFMANN, JENN Grajeda Via [facility] ER FS VOMITING [id number] 07/14/2018 11:52:00 07/14/2018 14:55:00 DIS Emergency PHILLIP ROSEN DO Via [facility] ER FS FLAQUITO SHOULDER PAIN [id number] 07/10/2018 09:37:00 07/10/2018 23:59:59 CLS Outpatient KARLA CORTES [facility] RAD FS M79.661 [id number] 07/02/2018 19:11:00 07/02/2018 21:18:00 DIS Emergency DU DIEGO MD Via [facility] ER FS PT FELL, RT LEG SWOLLEN AND TENDER [id number] 06/27/2018 17:28:00 06/27/2018 19:14:00 DIS Emergency DU DIEGO MD Via [facility] ER FS CONSTIPATION, ABD PAIN [id number] 08/19/2018 20:53:00 Document Registration
== END 2018-08-19 22:08 | disposition home or self-care (01) ==
LOC: EDUNIT# 20:03 → ER FS 20:04
DX: K59.00 Constipation, unspecified (principal); K21.9 Gastro-esophageal reflux disease without esophagitis; G40.909 Epilepsy, unspecified, not intractable, without status epilepticus; F41.9 Anxiety disorder, unspecified; F31.9 Bipolar disorder, unspecified; Z88.0 Allergy status to penicillin; Z90.89 Acquired absence of other organs; Z90.6 Acquired absence of other parts of urinary tract; Z82.49 Family history of ischemic heart disease and other diseases of the circulatory system
CPT/HCPCS: 36415; 74022; 80053; 81000; 83690; 84484; 85025

== ENCOUNTER 2018-09-06 07:00 | Emergency (ER) | payer MEDICARE, MEDICAID ==
[~2018-09-06] VITALS: Ht 156.2 cm; Wt 57.6 kg
[~2018-09-06 07:00] MED LIST changes: +ONDA4TAB11 PO
[2018-09-06] MEDS ORDERED: IBUPROFEN 600 MG (MOTRIN) TAB PO ONE (07:45)
[2018-09-06 07:50] VITALS: BP 130/90
--- NOTE | 2018-09-06 11:47 | ED Lower Extremity ---
General Chief Complaint: Lower Extremity Stated Complaint: RT LEG INJ Nursing Triage Note: Patient c/o right leg pain. States that he was drilling post holes with an auger yesterday when it fell over and landed on his right leg. He states that he has tried Tylenol, ice packs, and a hot shower with no relief. Nursing Sepsis Screen: No Definite Risk Source: patient Exam Limitations: no limitations History of Present Illness Date Seen by Provider: Sep 06, 2018 Time Seen by Provider: 07:15 Initial Comments Patient is of 48-year-old male with chronic right knee pain with multiple failed right leg surgeries who presents with right anterior tibial pain. Patient states he was using an auger to drill post holes but fell over landing on top of his right leg. Auger reportedly weighs 50 pounds. Patient denies taking any medications prior to ED arrival. He states he does not have [id number]-utt-[id number] pain medication at home. Patient sleeping upon entering the room. Patient states his significant other drove him to the hospital. She is also checked in as a patient Onset: yesterday Pain/Injury Location: right leg Method of Injury: direct blow Modifying Factors: Improves With Rest Allergies and Home Medications Allergies Coded Allergies: Penicillins (Verified Allergy, Unknown, 08/19/18) Home Medications Meloxicam 7.5 Mg Tablet, 7.5 MG PO Q12H PRN for SHOULDER PAIN Prescribed by: PHILLIP ROSEN on 07/14/18 1307 Naproxen 500 Mg Tablet, 500 MG PO BID Prescribed by: ANTONETTE MONTANEZ on 08/11/18 183 Omeprazole 20 Mg Capsule., 20 MG PO BID Prescribed by: JENN OVALLE on 08/06/182122 Omeprazole Magnesium 20 Mg Tablet., 20 MG PO DAILY Prescribed by: ANTONETTE MONTANEZ on 08/11/18 183 Ondansetron 4 Mg Tab.rapdis, 4 MG PO Q6H PRN for NAUSEA/VOMITING Prescribed by: PHILLIP ROSEN on 08/19/182201 Polyethylene Glycol 3350 119 Gm Powder, 17 GM PO BID PRN PRN for CONSTIPATION- 1ST LINE Prescribed by: ANTONETTE MONTANEZ on 08/11/18 183 Patient Home Medication List Home Medication List Reviewed: Yes Review of Systems Constitutional: no symptoms reported EENTM: no symptoms reported Cardiovascular: no symptoms reported Gastrointestinal: no symptoms reported Genitourinary: no symptoms reported, decreased output Musculoskeletal: see HPI Skin: no symptoms reported Psychiatric/Neurological: No Symptoms Reported All Other Systems Reviewed Negative Unless Noted: Yes Past Niuagze-Woegjr-Vptxws Hx Past Med/Social Hx: Reviewed Nursing Past Med/Soc Hx Patient Social History Alcohol Use: Denies Use Recreational Drug Use: No Smoking Status: Never a Smoker 2nd Hand Smoke Exposure: No Recent Foreign Travel: No Contact w/Someone Who Travel: No Recent Infectious Disease Expo: No Recent Hopitalizations: No Physical Abuse: No Sexual Abuse: No Mistreated: No Fear: No Immunizations Up To Date Tetanus Booster (TDap): Unknown Seasonal Allergies Seasonal Allergies: No Past Medical History Surgeries: Yes (RIGHT LEG FUSION CHILD) Cystectomy, Gallbladder, Orthopedic, Tonsillectomy Respiratory: No Cardiac: No Neurological: Yes Seizure Disorder Genitourinary: No Gastrointestinal: No Musculoskeletal: Yes Chronic Back Pain Endocrine: No HEENT: No Cancer: No Psychosocial: Yes Anxiety, Bipolar, Depression Integumentary: No Blood Disorders: No Family Medical History Heart Disease, Diabetes, Hypertension Physical Exam Vital Signs Vital Signs - First Documented 09/06/18 07:06 Temp 97.5 Pulse 91 Resp 18 B/P (MAP) 130/90 (103) Pulse Ox 96 O2 Delivery Room Air Capillary Refill : Less Than 3 Seconds Height, Weight, BMI Height: 5'1.50" Weight: 127lbs. oz. 57.895831du; BMI Method:Stated General Appearance: no apparent distress HEENT: normal ENT inspection Neck: non-tender, supple Cardiovascular: regular rate, rhythm Respiratory: lungs clear, normal breath sounds Gastrointestinal: normal bowel sounds, non tender Hips: bilateral hip non-tender, bilateral hip normal inspection, bilateral hip normal range of motion Legs: right leg non-tender, right leg normal inspection, right leg other (right leg pain, no swelling bruising or redness. 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 as tested, no motor/sensory deficits Skin: normal color Progress/Results/Core Measures Results/Orders My Orders Orders - KEE PARTIDA DO Ibuprofen Tablet (Motrin Tablet) (09/06/18 07:45) Medications Given in ED Current Medications Medications Dose Ordered Sig/Mukund Route Start Time Stop Time Status Last Admin Dose Admin Ibuprofen 600 mg ONCE ONCE PO 09/06/18 07:45 09/06/18 07:47 DC 09/06/18 07:46 600 MG Vital Signs/I&O 09/06/18 09/06/18 07:06 07:50 Temp 97.5 97.5 Pulse 91 91 Resp 18 18 B/P (MAP) 130/90 (103) 130/90 (103) Pulse Ox 96 96 O2 Delivery Room Air Blood Pressure Mean: 103 Departure Communication (Admissions) No identifiable injury on physical exam. Patient sleeping for approximately 20- 30 minutes in the emergency department. Ibuprofen given. Recommend supportive care with PCP follow-up Impression Primary Impression: Pain of right lower leg Disposition: 01 HOME, SELF-CARE Condition: Improved Departure-Patient Inst. Decision time for Depature: 07:35 Add. Discharge Instructions: Apply ice and take 600 mg of ibuprofen alea 8 hours as needed for pain. All discharge instructions reviewed with patient and/or family. Voiced understanding. KEE PARTIDA DO Sep 06, 2018 11:47
== END 2018-09-06 07:50 | disposition home or self-care (01) ==
LOC: EDUNIT# 07:00 → ER FS 07:02
DX: M79.661 Pain in right lower leg (principal); G40.909 Epilepsy, unspecified, not intractable, without status epilepticus; F41.9 Anxiety disorder, unspecified; F31.9 Bipolar disorder, unspecified; Z88.0 Allergy status to penicillin; Z90.89 Acquired absence of other organs; Z82.49 Family history of ischemic heart disease and other diseases of the circulatory system; W20.8XXA Other cause of strike by thrown, projected or falling object, initial encounter
CPT/HCPCS: 99283

== ENCOUNTER 2018-09-25 19:39 | Emergency (ER) | payer MEDICARE, MEDICAID ==
[~2018-09-25] VITALS: Ht 154.9 cm; Wt 59.0 kg
--- OUTSIDE RECORDS SUMMARY | 2018-09-25 19:48 | XMS REPORT | Continuity of Care Document ---
Author Organization Unknown Address Unknown Allergies Active Description Code Type Severity Reaction Onset Reported/Identified Relationship to Patient Clinical Status Yes ibuprofen [id number] Drug Allergy Unknown N/A 06/27/2018 Yes naproxen [id number] Drug Allergy Unknown N/A 06/27/2018 Yes tramadol [id number] Drug Allergy Unknown N/A 06/27/2018 Yes Penicillins [id number] Drug Allergy Unknown N/A 08/19/2018 Medications There is no data. Problems Date [...] DIEGO MD Ot K59.00 CONSTIPATION, UNSPECIFIED 06/30/2018 UD DIEGO MD Ot Z88.0 ALLERGY STATUS TO [...] W19.XXXA UNSPECIFIED FALL, INITIAL ENCOUNTER 07/04/2018 DU DIGEO MD Ot Z88.0 ALLERGY STATUS TO PENICILLIN 07/04/2018 UD DIEGO MD Ot Z90.6 ACQUIRED ABSENCE OF [...] PRIMARY OSTEOARTHRITIS, LEFT SHOULDER 07/17/2018 PHILLIP ROSEN DO Ot M25.511 PAIN IN RIGHT SHOULDER 07/17/2018 [...] CORTES Ot Z98.890 OTHER SPECIFIED POSTPROCEDURAL STATES 08/06/2018 RAJAN HOFFMANN, JENN Grajeda Ot E87.6 HYPOKALEMIA 08/06/2018 BRUEGGEMANN MD, JENN T Ot F31.9 BIPOLAR DISORDER, UNSPECIFIED 08/06/2018 JENN TOLENTINO MD Ot F41.9 ANXIETY DISORDER, UNSPECIFIED 08/06/2018 JENN TOLENTINO MD Ot G40.909 EPILEPSY, UNSP, NOT INTRACTABLE, WITHOUT 08/06/2018 JENN TOLENTINO MD Ot R10.84 GENERALIZED ABDOMINAL PAIN 08/06/2018 JENN TOLENTINO MD Ot R11.2 NAUSEA WITH VOMITING, UNSPECIFIED 08/06/2018 JENN TOLENTINO MD Ot Z82.49 FAMILY HX OF ISCHEM HEART DIS AND OTH DI 08/06/2018 JENN TOLENTINO MD Ot Z88.0 ALLERGY STATUS TO PENICILLIN 08/06/2018 JENN TOLENTINO MD Ot Z90.89 ACQUIRED ABSENCE OF OTHER ORGANS 08/08/2018 JENN TOLENTINO MD Ot E87.6 HYPOKALEMIA 08/08/2018 JENN TOLENTINO MD Ot F31.9 BIPOLAR DISORDER, UNSPECIFIED 08/08/2018 JENN TOLENTINO MD Ot F41.9 ANXIETY DISORDER, UNSPECIFIED 08/08/2018 JENN TOLENTINO MD Ot G40.909 EPILEPSY, UNSP, NOT INTRACTABLE, WITHOUT 08/08/2018 JENN TOLENTINO MD Ot R10.84 GENERALIZED ABDOMINAL PAIN 08/08/2018 JENN TOLENTINO MD Ot R11.2 NAUSEA WITH VOMITING, UNSPECIFIED 08/08/2018 JENN TOLENTINO MD Ot Z82.49 FAMILY HX OF ISCHEM HEART DIS AND OTH DI 08/08/2018 JENN TOLENTINO MD Ot Z88.0 ALLERGY STATUS TO PENICILLIN 08/08/2018 JENN TOLENTINO MD Ot Z90.89 ACQUIRED ABSENCE OF OTHER ORGANS 08/11/2018 ANTONETTE MONTANEZ MD Ot F20.9 SCHIZOPHRENIA, UNSPECIFIED 08/11/2018 ANTONETTE MONTANEZ MD Ot F31.9 BIPOLAR DISORDER, UNSPECIFIED 08/11/2018 ANTONETTE MONTANEZ MD Ot F41.9 ANXIETY DISORDER, UNSPECIFIED 08/11/2018 ANTONETTE MONTANEZ MD Ot G40.909 EPILEPSY, UNSP, NOT INTRACTABLE, WITHOUT 08/11/2018 ANTONETTE MONTANEZ MD Ot G89.29 OTHER CHRONIC PAIN 08/11/2018 ANTONETTE MONTANEZ MD Ot K21.9 GASTRO-ESOPHAGEAL REFLUX DISEASE WITHOUT 08/11/2018 ANTONETTE MONTANEZ MD Ot K59.00 CONSTIPATION, UNSPECIFIED 08/11/2018 ANTONETTE MONTANEZ MD Ot M25.561 PAIN IN RIGHT KNEE 08/11/2018 ANTONETTE MONTANEZ MD Ot M79.604 PAIN IN RIGHT LEG 08/11/2018 ANTONETTE MONTANEZ MD Ot Z82.49 FAMILY HX OF ISCHEM HEART DIS AND OTH DI 08/11/2018 ANTONETTE MONTANEZ MD Ot Z88.0 ALLERGY STATUS TO PENICILLIN 08/11/2018 ANTONETTE MONTANEZ MD Ot Z90.6 ACQUIRED ABSENCE OF OTHER PARTS OF URINA 08/11/2018 ANTONETTE MONTANEZ MD Ot Z90.89 ACQUIRED ABSENCE OF OTHER ORGANS 08/11/2018 ANTONETTE MONTANEZ MD Ot Z98.890 OTHER SPECIFIED POSTPROCEDURAL STATES 08/19/2018 PHILLIP ROSEN DO, Ot F31.9 BIPOLAR DISORDER, UNSPECIFIED 08/19/2018 PHILLIP ROSEN DO, Ot F41.9 ANXIETY DISORDER, UNSPECIFIED 08/19/2018 PHILLIP ROSEN DO, Ot G40.909 EPILEPSY, UNSP, NOT INTRACTABLE, WITHOUT 08/19/2018 PHILLIP ROSEN DO, Ot K21.9 GASTRO-ESOPHAGEAL REFLUX DISEASE WITHOUT 08/19/2018 PHILLIP ROSEN DO, Ot K59.00 CONSTIPATION, UNSPECIFIED 08/19/2018 PHILLIP ROSEN DO Ot R10.13 EPIGASTRIC PAIN 08/19/2018 PHILLIP ROSEN DO, Ot Z82.49 FAMILY HX OF ISCHEM HEART DIS AND OTH DI 08/19/2018 PHILLIP ROSEN DO Ot Z88.0 ALLERGY STATUS TO PENICILLIN 08/19/2018 PHILLIP ROSEN DO Ot Z90.6 ACQUIRED ABSENCE OF OTHER PARTS OF URINA 08/19/2018 PHILLIP ROSEN DO Ot Z90.89 ACQUIRED ABSENCE OF OTHER ORGANS 08/22/2018 PHILLIP ROSEN DO, Ot F31.9 BIPOLAR DISORDER, UNSPECIFIED 08/22/2018 PHILLIP ROSEN DO, Ot F41.9 ANXIETY DISORDER, UNSPECIFIED 08/22/2018 PHILLIP ROSEN DO, Ot G40.909 EPILEPSY, UNSP, NOT INTRACTABLE, WITHOUT 08/22/2018 PHILLIP ROSEN DO, Ot K21.9 GASTRO-ESOPHAGEAL REFLUX DISEASE WITHOUT 08/22/2018 PHILLIP ROSEN DO, Ot K59.00 CONSTIPATION, UNSPECIFIED 08/22/2018 PHILLIP ROSEN DO Ot R10.13 EPIGASTRIC PAIN 08/22/2018 PHILLIP ROSEN DO, Ot Z82.49 FAMILY HX OF ISCHEM HEART DIS AND OTH DI 08/22/2018 PHILLIP ROSEN DO Ot Z88.0 ALLERGY STATUS TO PENICILLIN 08/22/2018 PHILLIP ROSEN DO Ot Z90.6 ACQUIRED ABSENCE OF OTHER PARTS OF URINA 08/22/2018 PHILLIP ROSEN DO, Ot Z90.89 ACQUIRED ABSENCE OF OTHER ORGANS 09/06/2018 KARLA CORTES Ot M25.571 PAIN IN RIGHT ANKLE AND JOINTS OF RIGHT 09/06/2018 KARLA CORTES Ot M79.661 PAIN IN RIGHT LOWER LEG 09/06/2018 KARLA CORTES Ot Z98.890 OTHER SPECIFIED POSTPROCEDURAL STATES 09/08/2018 KEE PARTIDA DO Ot F31.9 BIPOLAR DISORDER, UNSPECIFIED 09/08/2018 KEE PARTIDA DO, Ot F41.9 ANXIETY DISORDER, UNSPECIFIED 09/08/2018 KEE PARTIDA DO, Ot G40.909 EPILEPSY, UNSP, NOT INTRACTABLE, WITHOUT 09/08/2018 KEE PARTIDA DO Ot M79.661 PAIN IN RIGHT LOWER LEG 09/08/2018 KEE PARTIDA DO, Ot W20.8XXA OT CAUSE OF STRIKE BY THROWN, PROJECTED 09/08/2018 KEE PARTIDA DO Ot Z82.49 FAMILY HX OF ISCHEM HEART DIS AND OTH DI 09/08/2018 KEE PARTIDA DO Ot Z88.0 ALLERGY STATUS TO PENICILLIN 09/08/2018 KEE PARTIDA DO Ot Z90.89 ACQUIRED ABSENCE OF OTHER ORGANS [...] Status Pt. Type Provider Facility Loc./Unit Complaint [id number] 09/24/2018 13:00:00 ACT Outpatient [facility]I [facility] [id number] 05/29/2017 16:20:00 Document Registration [id number] 09/06/2018 07:02:00 09/06/2018 07:50:00 DIS Outpatient KEE PARTIDA DO Via [facility] ER FS RT LEG INJ [id number] 08/19/2018 20:04:00 08/19/2018 22:08:00 DIS Emergency PHILLIP ROSEN DO Via [facility] ER FS ABD PAIN, VOMITING, LOOSE STOOL [id number] 08/11/2018 17:16:00 08/11/2018 18:46:00 DIS Emergency ANTONETTE MONTANEZ MD Via [facility] ER FS RT LEG PAIN [id number] 08/06/2018 17:55:00 08/06/2018 21:33:00 DIS Emergency RAJAN HOFFMANN, JENN Grajeda [facility] ER FS VOMITING [id number] 07/14/2018 11:52:00 07/14/2018 14:55:00 DIS Emergency PHILLIP ROSEN DO [facility] ER FS FLAQUITO SHOULDER PAIN [id number] 07/10/2018 09:37:00 07/10/2018 23:59:59 CLS Outpatient KARLA CORTES [facility] RAD FS M79.661 [id number] 07/02/2018 19:11:00 07/02/2018 21:18:00 DIS Emergency DU DIEGO MD Via [facility] ER FS PT FELL, RT LEG SWOLLEN AND TENDER [id number] 06/27/2018 17:28:00 06/27/2018 19:14:00 DIS Emergency DU DIEGO MD Via [facility] ER FS CONSTIPATION, ABD PAIN
--- NOTE | 2018-09-25 19:54 | ED Lower Extremity ---
General Chief Complaint: Lower Extremity Stated Complaint: RT LEG PAIN History of Present Illness Date Seen by Provider: Sep 25, 2018 Time Seen by Provider: 19:45 Initial Comments The patient is a pleasant 48-year-old male presents for evaluation of a right lower leg injury. He states he was outside walking when he twisted his ankle and he now has pain to the lateral aspect of the right lower leg just inferior to the knee. He is a history of a traumatic injury to the right leg and has a fused knee. He did not fall or hit his head and has no other complaints. The injury happened at approximately 1730 this afternoon. Location Injury Occurred: walking outside Onset: other (around 1730) Pain/Injury Location: right leg Method of Injury: twisted Modifying Factors: Improves With Movement (worsens), Improves With Rest (helps) Allergies and Home Medications Allergies Coded Allergies: Penicillins (Verified Allergy, Unknown, 08/19/18) Home Medications Meloxicam 7.5 Mg Tablet, 7.5 MG PO Q12H PRN for SHOULDER PAIN Prescribed by: PHILLIP ROSEN on 07/14/18 1307 Naproxen 500 Mg Tablet, 500 MG PO BID Prescribed by: ANTONETTE MONTANEZ on 08/11/18 1836 Omeprazole 20 Mg Capsule.dr, 20 MG PO BID Prescribed by: JENN OVALLE on 08/06/182122 Omeprazole Magnesium 20 Mg Tablet.dr, 20 MG PO DAILY Prescribed by: ANTONETTE MONTANEZ on 08/11/18 1836 Ondansetron 4 Mg Tab.rapdis, 4 MG PO Q6H PRN for NAUSEA/VOMITING Prescribed by: PHILLIP ROSEN on 08/19/18 2202 Polyethylene Glycol 3350 119 Gm Powder, 17 GM PO BID PRN PRN for CONSTIPATION- 1ST LINE Prescribed by: ANTONETTE MONTANEZ on 08/11/18 1836 Patient Home Medication List Home Medication List Reviewed: Yes Review of Systems Constitutional: no symptoms reported EENTM: no symptoms reported Respiratory: no symptoms reported Cardiovascular: no symptoms reported Gastrointestinal: no symptoms reported Genitourinary: no symptoms reported Musculoskeletal: other (pain to right lateral keene) Skin: no symptoms reported Psychiatric/Neurological: No Symptoms Reported All Other Systems Reviewed Negative Unless Noted: Yes Past Kmpvkqf-Iiipnp-Cijoqo Hx Past Med/Social Hx: Reviewed Nursing Past Med/Soc Hx Patient Social History 2nd Hand Smoke Exposure: No Recent Foreign Travel: No Contact w/Someone Who Travel: No Recent Hopitalizations: No Immunizations Up To Date Tetanus Booster (TDap): Unknown Seasonal Allergies Seasonal Allergies: No Past Medical History Surgeries: Yes (RIGHT LEG FUSION CHILD) Cystectomy, Gallbladder, Orthopedic, Tonsillectomy Respiratory: No Cardiac: No Neurological: Yes Seizure Disorder Genitourinary: No Gastrointestinal: No Musculoskeletal: Yes Chronic Back Pain Endocrine: No HEENT: No Cancer: No Psychosocial: Yes Anxiety, Bipolar, Depression Integumentary: No Blood Disorders: No Family Medical History Heart Disease, Diabetes, Hypertension Physical Exam Vital Signs Capillary Refill : Height, Weight, BMI Height: 5'1.50" Weight: 127lbs. oz. 57.265422wb; BMI Method:Stated General Appearance: WD/WN, no apparent distress HEENT: PERRL/EOMI, normal ENT inspection, TMs normal, pharynx normal Neck: non-tender, full range of motion Cardiovascular: regular rate, rhythm, no edema, no murmur Respiratory: chest non-tender, lungs clear, normal breath sounds, no respiratory distress Gastrointestinal: normal bowel sounds, non tender, soft Back: normal inspection, no CVA tenderness Legs: right leg soft tissue tenderness (there is some swelling and mild ecchymosis to the right lateral upper keene, this is soft tissue swelling, there is limited adjacent bony tenderness) Knees: right knee other (surgical fixation of the right knee, multiple old healed surgical scars) Ankles: bilateral ankle non-tender, bilateral ankle normal inspection, bilateral ankle normal range of motion 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, alert, normal mood/affect, oriented x 3 Skin: normal color, warm/dry Progress/Results/Core Measures Results/Orders My Orders Orders - BERNARDINO BONILLA DO Ice: Apply To Affected Area (09/25/18 19:48) Hydrocodone/Apap 5/325 Tablet (Lortab 5 (09/25/18 20:00) Tibia Fibula 2 View Right (09/25/18 19:48) Medications Given in ED Current Medications Medications Dose Ordered Sig/Mukund Route Start Time Stop Time Status Last Admin Dose Admin Acetaminophen/ Hydrocodone Bitart 1 tab ONCE ONCE PO 09/25/18 20:00 09/25/18 20:01 DC 09/25/18 19:54 1 TAB Progress Progress Note : Progress Note @2019 - Patient updated on imaging results which are unremarkable. The patient likely has a strain and a small hematoma is possible. Advised patient to apply ice. Drew wrap applied and crutches given. The patient go home with a presc ription for tramadol. He is stable for discharge at this time. Diagnostic Imaging Comments [facility]. [place], [place] NAME: CORIE MILIAN JR [facility] REC#: [id number] PT STATUS: REG ER : 1970 PHYSICIAN: BERNARDINO BONILLA DO ADMIT DATE: 09/25/18/ER FS Draft Date of Exam:09/25/18 TIBIA FIBULA 2 VIEW RIGHT INDICATION: Patient rolled his ankle, now starting to have pain in his right leg. FINDINGS: Frontal and lateral views of the right tibia and fibula demonstrate previous fusion of the knee. No evidence of hardware loosening is present. No fractures or other foreign bodies are present. No joint effusion is seen in the ankle. IMPRESSION: There are no acute findings to the right tibia or fibula. Dictated on workstation # [id number] Dict: 09/25/182010 Trans: 09/25/182014 PJE [id number] Interpreted by: SHIRLEY HAILE MD Electronically signed by: Departure Impression Primary Impression: Lower leg injury Disposition: 01 HOME, SELF-CARE Condition: Stable Departure-Patient Inst. Decision time for Depature: 20:20 Referrals: [facility] [place] Primary Care Physician LUZ ELENA BARNEY (Family) Primary Care Physician Patient Instructions: Sprain (DC), Contusion (DC) Add. Discharge Instructions: Follow-up with your doctor in the next 2-3 days. Return to the emergency department for new or worsening symptoms. Take the prescribed medication as needed for pain relief. Apply ice at home and keep the extremity elevated to reduce swelling. Scripts Tramadol HCl (Tramadol HCl) 50 Mg Tablet 50 MG PO Q6H PRN for PAIN for 3 Days, #12 TAB 0 Refills Prov: BERNARDINO BONILLA DO 09/25/18 BERNARDINO BONILLA DO Sep 25, 2018 19:54
[2018-09-25] MEDS ORDERED: HYDROcodone/APAP 5 MG/325 MG (LORTAB) TAB PO ONE (20:00)
--- NOTE | 2018-09-25 20:16 | Diagnostic Imaging Report ---
INDICATION: Patient rolled his ankle, now starting to have pain in his right leg. FINDINGS: Frontal and lateral views of the right tibia and fibula demonstrate previous fusion of the knee. No evidence of hardware loosening is present. No fractures or other foreign bodies are present. No joint effusion is seen in the ankle. IMPRESSION: There are no acute findings to the right tibia or fibula. Dictated by: Dictated on workstation # [id number]
[2018-09-25] MEDS ORDERED: TRAM50TA2 PO (20:24)
[2018-09-25 20:54] VITALS: BP 127/88
== END 2018-09-25 20:55 | disposition home or self-care (01) ==
LOC: EDUNIT# 19:39 → ER FS 19:41
DX: S80.11XA Contusion of right lower leg, initial encounter (principal); G40.909 Epilepsy, unspecified, not intractable, without status epilepticus; F41.9 Anxiety disorder, unspecified; F31.9 Bipolar disorder, unspecified; Z88.0 Allergy status to penicillin; Z90.89 Acquired absence of other organs; Z82.49 Family history of ischemic heart disease and other diseases of the circulatory system; X50.1XXA Overexertion from prolonged static or awkward postures, initial encounter; Y93.01 Activity, walking, marching and hiking
CPT/HCPCS: 73590

== ENCOUNTER 2018-10-14 16:29 | Emergency (ER) | payer MEDICARE, MEDICAID ==
[~2018-10-14] VITALS: Ht 154.9 cm; Wt 64.4 kg
[~2018-10-14 16:29] MED LIST changes: +TRAM50TA2 PO
--- OUTSIDE RECORDS SUMMARY | 2018-10-14 16:36 | XMS REPORT | Continuity of Care Document ---
Author Organization Unknown Address Unknown Phone Unavailable Allergies Active Description Code Type Severity Reaction Onset Reported/Identified Relationship to Patient Clinical Status Yes ibuprofen [id number] Drug Allergy Unknown N/A 06/27/2018 Yes naproxen [id number] Drug Allergy Unknown N/A 06/27/2018 Yes tramadol [id number] Drug Allergy Unknown N/A 06/27/2018 Yes Penicillins [id number] Drug Allergy Unknown N/A 08/19/2018 Medications There is no data. Problems Date Dx Coded Attending Type Code Diagnosis Diagnosed By 06/27/2018 DU DIEGO MD, Ot F32.9 MAJOR DEPRESSIVE DISORDER, SINGLE EPISOD 06/27/2018 DU DIEGO MD, Ot F41.9 ANXIETY DISORDER, UNSPECIFIED 06/27/2018 DU DIEGO MD, Ot G40.909 EPILEPSY, UNSP, [...] UNSP, NOT INTRACTABLE, WITHOUT 07/17/2018 PHILLIP ROSEN DO Ot M19.011 PRIMARY OSTEOARTHRITIS, RIGHT SHOULDER 07/17/2018 PHILLIP ROSEN DO, Ot M19.012 PRIMARY OSTEOARTHRITIS, LEFT SHOULDER 07/17/2018 PHILLIP ROSEN DO, Ot M25.511 PAIN IN RIGHT SHOULDER 07/17/2018 PHILLIP ROSEN DO Ot Z88.0 ALLERGY STATUS TO PENICILLIN 07/17/2018 PHILLIP ROSEN DO Ot Z90.6 ACQUIRED ABSENCE OF OTHER PARTS OF URINA 07/17/2018 PHILLIP ROSEN DO Ot Z98.890 OTHER SPECIFIED POSTPROCEDURAL STATES 07/22/2018 [...] HOFFMANN, JENN Grajeda Ot E87.6 HYPOKALEMIA 08/06/2018 RAJAN HOFFMANN, JENN Grajeda Ot F31.9 BIPOLAR DISORDER, UNSPECIFIED 08/06/2018 JENN [...] F41.9 ANXIETY DISORDER, UNSPECIFIED 08/19/2018 PHILLIP ROSEN DO Ot G40.909 EPILEPSY, UNSP, NOT INTRACTABLE, WITHOUT 08/19/2018 PHILLIP ROSEN DO, Ot K21.9 GASTRO-ESOPHAGEAL REFLUX DISEASE WITHOUT 08/19/2018 PHILLIP ROSEN DO, Ot K59.00 CONSTIPATION, UNSPECIFIED 08/19/2018 PHILLIP ROSEN DO Ot R10.13 EPIGASTRIC PAIN 08/19/2018 PHILLIP ROSEN DO Ot Z82.49 FAMILY HX OF ISCHEM HEART DIS AND OTH DI 08/19/2018 PHILLIP ROSEN DO Ot Z88.0 ALLERGY STATUS TO PENICILLIN 08/19/2018 PHILLIP ROSEN DO Ot Z90.6 ACQUIRED ABSENCE OF OTHER PARTS OF URINA 08/19/2018 PHILLIP ROSEN DO Ot Z90.89 ACQUIRED ABSENCE OF OTHER ORGANS 08/22/2018 PHILLIP ROSEN DO Ot F31.9 BIPOLAR DISORDER, UNSPECIFIED 08/22/2018 PHILLIP ROSEN DO Ot F41.9 ANXIETY DISORDER, UNSPECIFIED 08/22/2018 PHILLIP ROSEN DO Ot G40.909 EPILEPSY, UNSP, NOT INTRACTABLE, WITHOUT 08/22/2018 PHILLIP ROSEN DO Ot K21.9 GASTRO-ESOPHAGEAL REFLUX DISEASE WITHOUT 08/22/2018 PHILLIP ROSEN DO Ot K59.00 CONSTIPATION, UNSPECIFIED 08/22/2018 PHILLIP ROSEN DO Ot R10.13 EPIGASTRIC PAIN 08/22/2018 PHILLIP ROSEN DO Ot Z82.49 FAMILY HX OF ISCHEM HEART DIS AND OTH DI 08/22/2018 PHILLIP ROSEN DO Ot Z88.0 ALLERGY STATUS TO PENICILLIN 08/22/2018 PHILLIP ROSEN DO Ot Z90.6 ACQUIRED ABSENCE OF OTHER PARTS OF URINA 08/22/2018 PHILLIP ROSEN DO Ot Z90.89 ACQUIRED ABSENCE OF OTHER ORGANS 09/06/2018 KARLA CORTES Ot M25.571 PAIN IN RIGHT ANKLE AND JOINTS OF RIGHT 09/06/2018 KARLA CORTES Ot M79.661 PAIN IN RIGHT LOWER LEG 09/06/2018 KARLA CORTES Ot Z98.890 OTHER SPECIFIED POSTPROCEDURAL STATES 09/06/2018 EKE PARTIDA DO Ot F31.9 BIPOLAR DISORDER, UNSPECIFIED 09/06/2018 KEE PARTIDA DO, Ot F41.9 ANXIETY DISORDER, UNSPECIFIED 09/06/2018 KEE PARTIDA DO, Ot G40.909 EPILEPSY, UNSP, NOT INTRACTABLE, WITHOUT 09/06/2018 EKE PARTIDA DO Ot M79.661 PAIN IN RIGHT LOWER LEG 09/06/2018 KEE PARTIDA DO, Ot W20.8XXA [facility] CAUSE OF STRIKE BY THROWN, PROJECTED 09/06/2018 KEE PARTIDA DO Ot Z82.49 FAMILY HX OF ISCHEM HEART DIS AND OTH DI 09/06/2018 KEE PARTIDA DO Ot Z88.0 ALLERGY STATUS TO PENICILLIN 09/06/2018 KEE PARTIDA DO Ot Z90.89 ACQUIRED ABSENCE OF OTHER ORGANS 09/08/2018 KEE PARTIDA DO Ot F31.9 BIPOLAR DISORDER, UNSPECIFIED 09/08/2018 KEE PARTIDA DO Ot F41.9 ANXIETY DISORDER, UNSPECIFIED 09/08/2018 KEE PARTIDA DO Ot G40.909 EPILEPSY, UNSP, NOT INTRACTABLE, WITHOUT 09/08/2018 KEE PARTIDA DO Ot M79.661 PAIN IN RIGHT LOWER LEG 09/08/2018 KEE PARTIDA DO Ot W20.8XXA OTH CAUSE OF STRIKE BY THROWN, PROJECTED 09/08/2018 KEE PARTIDA DO Ot Z82.49 FAMILY HX OF ISCHEM HEART DIS AND OTH DI 09/08/2018 KEE PARTIDA DO Ot Z88.0 ALLERGY STATUS TO PENICILLIN 09/08/2018 KEE PARTIDA DO Ot Z90.89 ACQUIRED ABSENCE OF OTHER ORGANS 09/25/2018 KARLA CORTES Ot M25.571 PAIN IN RIGHT ANKLE AND JOINTS OF RIGHT 09/25/2018 KARLA CORTES Ot M79.661 PAIN IN RIGHT LOWER LEG 09/25/2018 KARLA CORTES Ot Z98.890 OTHER SPECIFIED POSTPROCEDURAL STATES 09/25/2018 CHAD LEBRON DO Ot F31.9 BIPOLAR DISORDER, UNSPECIFIED 09/25/2018 CHAD LEBRON DO Ot F41.9 ANXIETY DISORDER, UNSPECIFIED 09/25/2018 CHAD LEBRON DO Ot G40.909 EPILEPSY, UNSP, NOT INTRACTABLE, WITHOUT 09/25/2018 CHAD LEBRON DO Ot S80.11XA CONTUSION OF RIGHT LOWER LEG, INITIAL EN 09/25/2018 CHAD LEBRON DO Ot S89.91XA UNSPECIFIED INJURY OF RIGHT LOWER LEG, I 09/25/2018 CHAD LEBRON DO Ot X50.1XXA OVEREXERTION FROM PROLONGED STATIC OR AW 09/25/2018 CHAD LEBRON DO Ot Y93.01 ACTIVITY, WALKING, MARCHING AND HIKING 09/25/2018 CHAD LEBRON DO Ot Z82.49 FAMILY HX OF ISCHEM HEART DIS AND OTH DI 09/25/2018 CHAD LEBRON DO Ot Z88.0 ALLERGY STATUS TO PENICILLIN 09/25/2018 CHAD LEBRON DO Ot Z90.89 ACQUIRED ABSENCE OF OTHER ORGANS 10/04/2018 KARLA CORTES Ot M25.571 PAIN IN RIGHT ANKLE AND JOINTS OF RIGHT 10/04/2018 KARLA CORTES Ot M79.661 PAIN IN RIGHT LOWER LEG 10/04/2018 KARLA CORTES Ot Z98.890 OTHER SPECIFIED POSTPROCEDURAL [...] - 08/19/18 20:45 Lipase 24 U/L 8-78 CBC w/MANUAL DIFF - 10/07/18 09:33 WHITE BLOOD CELL COUNT 5.9 Thousand/uL 3.8-10.8 RED BLOOD CELL COUNT 4.96 Million/uL 4.20-5.80 HEMOGLOBIN 14.1 g/dL 13.2-17.1 HEMATOCRIT 43.3 % 38.5-50.0 MCV 87.3 fL 80.0-100.0 MCH 28.4 pg 27.0-33.0 MCHC 32.6 g/dL 32.0-36.0 RDW 13.4 % 11.0-15.0 PLATELET COUNT 298 Thousand/uL 140-400 MPV 8.1 fL 7.5-12.5 ABSOLUTE NEUTROPHILS 3245 cells/uL 8605-0752 ABSOLUTE MONOCYTES 767 cells/uL 200-950 ABSOLUTE EOSINOPHILS 118 cells/uL 15-500 ABSOLUTE BASOPHILS 0 cells/uL 0-200 NEUTROPHILS 55 % NRG LYMPHOCYTES 30 % NRG MONOCYTES 13 % NRG EOSINOPHILS 2 % NRG BASOPHILS 0 % NRG ABSOLUTE LYMPHOCYTES 1770 cells/uL 850-3900 PLATELET ESTIMATION ADEQUATE ADEQUATE CBC MORPHOLOGY NORMAL Encounters ACCT No. Visit Date/Time Discharge Status Pt. Type Provider Facility Loc./Unit Complaint [id number] 10/07/2018 14:10:00 10/07/2018 23:59:59 CLS Outpatient ROSI PARADA [facility] [id number] 10/07/2018 09:30:00 Document Registration [id number] 05/29/2017 16:20:00 Document Registration [id number] 09/25/2018 19:41:00 09/25/2018 20:55:00 DIS Emergency CHAD LEBRON DO [facility] ER FS RT LEG PAIN [id number] 09/06/2018 07:02:00 09/06/2018 07:50:00 DIS Emergency KEE PARTIDA DO [facility] ER FS RT LEG INJ [id number] 08/19/2018 20:04:00 08/19/2018 22:08:00 DIS Emergency PHILLIP ROSEN DO [facility] ER FS ABD PAIN, VOMITING, LOOSE STOOL [id number] 08/11/2018 17:16:00 08/11/2018 18:46:00 DIS Emergency ANTONETTE MONTANEZ MD [facility] ER FS RT LEG PAIN [id number] 08/06/2018 17:55:00 08/06/2018 21:33:00 DIS Emergency JENN TOLENTINO MD [facility] ER FS VOMITING [id number] 07/14/2018 11:52:00 07/14/2018 14:55:00 DIS Emergency PHILLIP ROSEN DO [facility] ER FS FLAQUITO SHOULDER PAIN [id number] 07/10/2018 09:37:00 07/10/2018 23:59:59 CLS Outpatient KARLA CORTES [facility] RAD FS M79.661 [id number] 07/02/2018 19:11:00 07/02/2018 21:18:00 DIS Emergency DU DIEGO MD [facility] ER FS PT FELL, RT LEG SWOLLEN AND TENDER [id number] 06/27/2018 17:28:00 06/27/2018 19:14:00 DIS Emergency DU DIEGO MD [facility] ER FS CONSTIPATION, ABD PAIN
[2018-10-14] MEDS ORDERED: RT-ALBUTEROL/IPRATROPIUM 3 ML (DUONEB) VIAL INH ONE (16:45)
[2018-10-14 16:54] LABS: HEMOGLOBIN 14.4 G/DL (13.3-17.7); WHITE BLOOD COUNT 9.6 10^3/uL (4.3-11.0)
[2018-10-14 16:55] LABS: MEAN PLATELET VOLUME 8.4 FL (7.4-10.4); RED CELL DISTRIBUTION WIDTH 13.2 % (10.0-14.5)
--- NOTE | 2018-10-14 17:00 | Diagnostic Imaging Report ---
Patient History: Shortness of breath. Technique: Two views of the chest Comparison: None FINDINGS: The lung volumes are normal. No focal consolidation is seen. No large pleural effusion or pneumothorax is seen. The cardiomediastinal silhouette is normal in size and contour. No acute osseous abnormality is seen. IMPRESSION: No acute pulmonary abnormality seen. Dictated by: Dictated on workstation # [id number]
[2018-10-14 17:46] LABS: POTASSIUM 3.2 MMOL/L (3.6-5.0); SODIUM 141 MMOL/L (135-145)
[2018-10-14 17:47] LABS: ALANINE AMINOTRANSFERASE 13 U/L (0-55); ALKALINE PHOSPHATASE 100 U/L (40-136); BILIRUBIN,TOTAL 0.4 MG/DL (0.1-1.0); BUN/CREATININE RATIO 15; CALCIUM 10.1 MG/DL (8.5-10.1); CARBON DIOXIDE 19 MMOL/L (21-32); CHLORIDE 100 MMOL/L (98-107); CREATININE SERUM 1.14 MG/DL (0.60-1.30); GFR ESTIMATED > 60; GLUCOSE 113 MG/DL (70-105)
[2018-10-14 17:48] LABS: ALBUMIN 4.8 GM/DL (3.2-4.5)
--- NOTE | 2018-10-14 17:52 | ED Cough/URI ---
General Chief Complaint: Respiratory Problems Stated Complaint: SOA Nursing Triage Note: PT REPORTS HE WALKED "3/4 OF A MILE TO THE [facility] ON [address] AND HE GOT SHORT OF BREATH. HE REPORTS HIS RIGHT KNEE HURTS TOO FROM A CHRONIC INJURY. Sepsis Screen: No Definite Risk Source: patient Exam Limitations: no limitations History of Present Illness Date Seen by Provider: Oct 14, 2018 Time Seen by Provider: 16:40 Initial Comments She is a 48-year-old male well-known to this department and this examiner who presents with shortness of breath with exertion. Patient was walking outdoors in hot humid air with increased heat index greater than 95F. patient states he b nirav to overheat and started to pain. Denies chest pain, chest tightness, nausea, vomiting, fever, chills. Denies acute leg pain, swelling. No history of CAD, congestive heart failure, COPD, asthma, chronic lung disease, DVT or PE. Patient is a current smoker. No other acute symptoms or complaints. Timing/Duration: just prior to arrival Severity/Quality: mild Prior Episodes/Possible Cause: no prior episodes Modifying Factors: Improves With Activity Associated Symptoms: dizziness, lightheadedness, shortness of breath Allergies and Home Medications Allergies Coded Allergies: Penicillins (Verified Allergy, Unknown, 08/19/18) Home Medications Meloxicam 7.5 Mg Tablet, 7.5 MG PO Q12H PRN for SHOULDER PAIN Prescribed by: PHILLIP ROSEN on 07/14/18 1307 Naproxen 500 Mg Tablet, 500 MG PO BID Prescribed by: ANTONETTE MONTANEZ on 08/11/181835 Omeprazole 20 Mg Capsule., 20 MG PO BID Prescribed by: JENN OVALLE on 08/06/182122 Omeprazole Magnesium 20 Mg Tablet., 20 MG PO DAILY Prescribed by: ANTONETTE MONTANEZ on 08/11/18 183 Ondansetron 4 Mg Tab.rapdis, 4 MG PO Q6H PRN for NAUSEA/VOMITING Prescribed by: PHILLIP ROSEN on 08/19/182201 Polyethylene Glycol 3350 119 Gm Powder, 17 GM PO BID PRN PRN for CONSTIPATION- 1ST LINE Prescribed by: ANTONETTE MONTANEZ on 08/11/18 183 Tramadol HCl 50 Mg Tablet, 50 MG PO Q6H PRN for PAIN Prescribed by: BERNARDINO BONILLA on 09/25/182023 Patient Home Medication List Home Medication List Reviewed: Yes Review of Systems Review of Systems Constitutional: no symptoms reported EENTM: no symptoms reported Respiratory: see HPI Cardiovascular: no symptoms reported Gastrointestinal: no symptoms reported Genitourinary: no symptoms reported Musculoskeletal: no symptoms reported Skin: no symptoms reported Psychiatric/Neurological: No Symptoms Reported Hematologic/Lymphatic: No Symptoms Reported Immunological/Allergic: no symptoms reported Past Zdygmlk-Dblomc-Uugncj Hx Past Med/Social Hx: Reviewed Nursing Past Med/Soc Hx Patient Social History Alcohol Use: Denies Use Recreational Drug Use: No Smoking Status: Never a Smoker 2nd Hand Smoke Exposure: No Recent Foreign Travel: No Contact w/Someone Who Travel: No Recent Infectious Disease Expo: No Recent Hopitalizations: No Physical Abuse: No Sexual Abuse: No Mistreated: No Fear: No Immunizations Up To Date Tetanus Booster (TDap): Unknown Seasonal Allergies Seasonal Allergies: No Past Medical History Surgeries: Yes (RIGHT LEG FUSION CHILD) Cystectomy, Gallbladder, Orthopedic, Tonsillectomy Respiratory: No Cardiac: No Neurological: Yes Seizure Disorder Genitourinary: No Gastrointestinal: No Musculoskeletal: Yes Chronic Back Pain Endocrine: No HEENT: No Cancer: No Psychosocial: Yes Anxiety, Bipolar, Depression Integumentary: No Blood Disorders: No Family Medical History Heart Disease, Diabetes, Hypertension Physical Exam Vital Signs - First Documented 10/14/18 16:45 Temp 96.3 Pulse 100 Resp 24 B/P (MAP) 100/60 (73) O2 Delivery Room Air Capillary Refill : Less Than 3 Seconds Height: 5'1.00" Weight: 142lbs. oz. 64.625050jh; BMI Method:Stated General Appearance: WD/WN, no apparent distress Eyes: Bilateral Eye Normal Inspection, Bilateral Eye PERRL, Bilateral Eye Abnormal EOM HEENT: PERRL/EOMI, normal ENT inspection, pharynx normal Neck: non-tender, full range of motion, supple Respiratory: chest non-tender, lungs clear, decreased breath sounds; No wheezing, No expiration, No inspiration Cardiovascular: normal peripheral pulses, regular rate, rhythm, no edema Gastrointestinal: normal bowel sounds, non tender Extremities: no pedal edema, no calf tenderness Neurologic/Psychiatric: alert, oriented x 3 Focused Exam Sepsis Stage: Ruled Out Progress/Results/Core Measures Suspected Sepsis Recent Fever Within 48 Hours: No Infection Criteria Present: None New/Unexplained Altered Menta: No Sepsis Screen: No Definite Risk SIRS Temperature:96.3 Pulse: 100 Respiratory Rate: 24 Laboratory Tests 10/14/18 16:43: White Blood Count 9.6 Blood Pressure 100 /60 Mean: 73 Laboratory Tests 10/14/18 16:43: Creatinine 1.14, Platelet Count 329, Total Bilirubin 0.4 Results/Orders Lab Results Laboratory Tests Test 10/14/18 16:43 Range/Units White Blood Count 9.6 4.3-11.0 10^3/uL Red Blood Count 5.07 4.35-5.85 10^6/uL Hemoglobin 14.4 13.3-17.7 G/DL Hematocrit 42 40-54 % Mean Corpuscular Volume 83 80-99 FL Mean Corpuscular Hemoglobin 28 25-34 PG Mean Corpuscular Hemoglobin Concent 34 32-36 G/DL Red Cell Distribution Width 13.2 10.0-14.5 % Platelet Count 329 130-400 10^3/uL Mean Platelet Volume 8.4 7.4-10.4 FL Sodium Level 141 135-145 MMOL/L Potassium Level 3.2 L 3.6-5.0 MMOL/L Chloride Level 100 98-107 MMOL/L Carbon Dioxide Level 19 L 21-32 MMOL/L Anion Gap 22 H 5-14 MMOL/L Blood Urea Nitrogen 17 7-18 MG/DL Creatinine 1.14 0.60-1.30 MG/DL Estimat Glomerular Filtration Rate > 60 BUN/Creatinine Ratio 15 Glucose Level 113 H 70-105 MG/DL Calcium Level 10.1 8.5-10.1 MG/DL Corrected Calcium 8.5-10.1 MG/DL Total Bilirubin 0.4 0.1-1.0 MG/DL Aspartate Amino Transf (AST/SGOT) 17 5-34 U/L Alanine Aminotransferase (ALT/SGPT) 13 0-55 U/L Alkaline Phosphatase 100 40-136 U/L Troponin I < 0.30 <0.30 NG/ML Pro-B-Type Natriuretic Peptide 14.8 <75.0 PG/ML Total Protein 8.0 6.4-8.2 GM/DL Albumin 4.8 H 3.2-4.5 GM/DL My Orders Orders - KEE PARTIDA DO Ekg Tracing (10/14/18 16:36) Chest Pa/Lat (2 View) (10/14/18 16:36) Albuterol/Ipra Inhalation Soln (Duoneb I (10/14/18 16:45) Svn Small Volume Nebulizer (10/14/18 16:36) Troponin I (10/14/18 16:37) Probnp Fs (10/14/18 16:37) Cbc No Diff (10/14/18 16:37) Comprehensive Metabolic Panel (10/14/18 16:38) Ondansetron Oral Dissolve Tab (Zofran (10/14/18 17:53) Medications Given in ED Current Medications Medications Dose Ordered Sig/Mukund Route Start Time Stop Time Status Last Admin Dose Admin Albuterol/ Ipratropium 3 ml ONCE ONCE INH 10/14/18 16:45 10/14/18 16:46 DC 10/14/18 16:40 3 ML Vital Signs/I&O 10/14/18 16:45 Temp 96.3 Pulse 100 Resp 24 B/P (MAP) 100/60 (73) O2 Delivery Room Air Capillary Refill : Less Than 3 Seconds Blood Pressure Mean: 73 Departure Communication (Admissions) Presentation consistent with mild heat related illness primarily with respiratory complaints. Patient wanted to cool off and air-conditioned environment and drink ice water. A breathing treatment was given with some improvement. Lab, EKG chest x-ray reviewed nondiagnostic. Recommended the patient states in cooler condition firemen and follow-up with local PCP as needed. Return precautions reviewed Impression Primary Impression: Dyspnea Additional Impression: Heat intolerance Disposition: 01 HOME, SELF-CARE Condition: Stable Departure-Patient Inst. Referrals: [facility]/ (PCP) Primary Care Physician LUZ ELENA BARNEY (Family) Primary Care Physician Add. Discharge Instructions: Please stay in a cool air-conditioned environment. Avoid going outdoors during hot daytime hours. Follow-up with your PCP as needed All discharge instructions reviewed with patient and/or family. Voiced understanding. KEE PARTIDA DO Oct 14, 2018 17:52
[2018-10-14] MEDS ORDERED: ONDANSETRON 4 MG (ZOFRAN) ORAL DISSOLVE TAB PO STA (17:53)
[2018-10-14 18:05] VITALS: BP 122/68
== END 2018-10-14 18:01 | disposition home or self-care (01) ==
LOC: EDUNIT# 16:29 → ER FS 16:30
DX: R06.00 Dyspnea, unspecified (principal); R68.89 Other general symptoms and signs; G40.909 Epilepsy, unspecified, not intractable, without status epilepticus; F41.9 Anxiety disorder, unspecified; F31.9 Bipolar disorder, unspecified; F17.200 Nicotine dependence, unspecified, uncomplicated; Z88.0 Allergy status to penicillin; Z90.89 Acquired absence of other organs; Z90.6 Acquired absence of other parts of urinary tract; Z82.49 Family history of ischemic heart disease and other diseases of the circulatory system
CPT/HCPCS: 36415; 71046; 80053; 83880; 84484; 85027; 93005; 94640

== ENCOUNTER 2018-10-17 18:27 | Emergency (ER) | payer MEDICARE, MEDICAID ==
[~2018-10-17] VITALS: Ht 154.9 cm; Wt 63.5 kg
[~2018-10-17 18:27] MED LIST changes: -OMEP20CA12 PO; +OMEP20CA13 PO
--- OUTSIDE RECORDS SUMMARY | 2018-10-17 18:34 | XMS REPORT | Continuity of Care Document ---
Author Organization Unknown Address Unknown Phone Unavailable Allergies Active Description Code Type Severity Reaction Onset Reported/Identified Relationship to Patient Clinical Status Yes ibuprofen [id number] Drug Allergy Unknown N/A 06/27/2018 Yes naproxen [id number] Drug Allergy Unknown N/A 06/27/2018 Yes tramadol [id number] Drug Allergy Unknown N/A 06/27/2018 Yes Penicillins [id number] Drug Allergy Unknown N/A 08/19/2018 Medications There [...] Ot M25.561 PAIN IN RIGHT KNEE 07/02/2018 UD DIEGO MD Ot M25.571 PAIN IN RIGHT [...] ANKLE AND JOINTS OF RIGHT 07/14/2018 KARLA CORTSE Ot M79.661 PAIN IN RIGHT LOWER LEG [...] K21.9 GASTRO-ESOPHAGEAL REFLUX DISEASE WITHOUT 08/19/2018 PHILLIP ORSEN DO, Ot K59.00 CONSTIPATION, UNSPECIFIED 08/19/2018 PHILLIP [...] Ot Z98.890 OTHER SPECIFIED POSTPROCEDURAL STATES 09/06/2018 KEE PARTIDA DO Ot F31.9 BIPOLAR DISORDER, UNSPECIFIED 09/06/2018 KEE PARTIDA DO, Ot F41.9 ANXIETY DISORDER, UNSPECIFIED 09/06/2018 KEE PARTIDA DO, Ot G40.909 EPILEPSY, UNSP, NOT INTRACTABLE, WITHOUT 09/06/2018 KEE PARTIDA DO Ot M79.661 PAIN IN RIGHT LOWER LEG 09/06/2018 KEE PARTIDA DO, Ot W20.8XXA [facility] CAUSE OF STRIKE BY THROWN, PROJECTED 09/06/2018 [...] Ot Z88.0 ALLERGY STATUS TO PENICILLIN 09/08/2018 PARTIDA KEE EASTMAN Ot Z90.89 ACQUIRED ABSENCE OF OTHER ORGANS [...] CORTES Ot Z98.890 OTHER SPECIFIED POSTPROCEDURAL STATES 10/14/2018 SEBASTIAN, KARLA J MANAGER SITE Ot M25.571 PAIN IN RIGHT ANKLE AND JOINTS OF RIGHT 10/14/2018 KARLA CORTES MANAGER SITE Ot M79.661 PAIN IN RIGHT LOWER LEG 10/14/2018 KARLA CORTES MANAGER SITE Ot Z98.890 OTHER SPECIFIED POSTPROCEDURAL STATES 10/17/2018 KEE PARTIDA DO, Ot 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 DEPENDENCE, UNSPECIFIED, UNCOMP 10/17/2018 KEE PARTIDA DO Ot F31.9 BIPOLAR DISORDER, UNSPECIFIED 10/17/2018 KEE PARTIDA DO Ot F41.9 ANXIETY DISORDER, UNSPECIFIED 10/17/2018 KEE PARTIDA DO Ot G40.909 EPILEPSY, UNSP, NOT INTRACTABLE, WITHOUT 10/17/2018 KEE PARTIDA DO Ot R06.00 DYSPNEA, UNSPECIFIED 10/17/2018 KEE PARTIDA DO Ot R06.02 SHORTNESS OF BREATH 10/17/2018 KEE PARTIDA DO Ot R68.89 OTHER GENERAL SYMPTOMS AND SIGNS 10/17/2018 KEE PARTIDA DO Ot Z82.49 FAMILY HX OF ISCHEM HEART DIS AND OTH DI 10/17/2018 KEE PARTIDA DO Ot Z88.0 ALLERGY STATUS TO PENICILLIN 10/17/2018 KEE PARTIDA DO Ot Z90.6 ACQUIRED ABSENCE OF OTHER PARTS OF URINA 10/17/2018 KEE PARTIDA DO Ot Z90.89 ACQUIRED ABSENCE [...] 8.1 fL 7.5-12.5 ABSOLUTE NEUTROPHILS 3245 cells/uL 1939-2006 ABSOLUTE MONOCYTES 767 cells/uL 200-950 ABSOLUTE EOSINOPHILS 118 cells/uL 15-500 ABSOLUTE BASOPHILS 0 cells/uL 0-200 NEUTROPHILS 55 % NRG LYMPHOCYTES 30 % NRG MONOCYTES 13 % NRG EOSINOPHILS 2 % NRG BASOPHILS 0 % NRG ABSOLUTE LYMPHOCYTES 1770 cells/uL 850-3900 PLATELET ESTIMATION ADEQUATE ADEQUATE CBC MORPHOLOGY NORMAL Automated blood complete blood count (hemogram) panel - 10/14/18 16:43 Blood leukocytes automated count (number/volume) 9.6 10*3/uL 4.3-11.0 Blood erythrocytes automated count (number/volume) 5.07 10*6/uL 4.35-5.85 Venous blood hemoglobin measurement (mass/volume) 14.4 g/dL 13.3-17.7 Blood hematocrit (volume fraction) 42 % 40-54 Automated erythrocyte mean corpuscular volume 83 [foz_us] 80-99 Automated erythrocyte mean corpuscular hemoglobin (mass per erythrocyte) 28 pg 25-34 Automated erythrocyte mean corpuscular hemoglobin concentration measurement (mass/volume) 34 g/dL 32-36 Automated erythrocyte distribution width ratio 13.2 % 10.0- 14.5 Automated blood platelet count (count/volume) 329 10*3/uL 130-400 Automated blood platelet mean volume measurement 8.4 [foz_us] 7.4-10.4 Comprehensive metabolic panel - 10/14/18 16:43 Serum or plasma sodium measurement (moles/volume) 141 mmol/L 135-145 Serum or plasma potassium measurement (moles/volume) 3.2 mmol/L 3.6-5.0 Serum or plasma chloride measurement (moles/volume) 100 mmol/L 98-107 Carbon dioxide 19 mmol/L 21-32 Serum or plasma anion gap determination (moles/volume) 22 mmol/L 5-14 Serum or plasma urea nitrogen measurement (mass/volume) 17 mg/dL 7-18 Serum or plasma creatinine measurement (mass/volume) 1.14 mg/dL 0.60-1.30 Serum or plasma urea nitrogen/creatinine mass ratio 15 NRG Serum or plasma creatinine measurement with calculation of estimated glomerular filtration rate > NRG Serum or plasma glucose measurement (mass/volume) 113 mg/dL 70-105 Serum or plasma calcium measurement (mass/volume) 10.1 mg/dL 8.5-10.1 Serum or plasma total bilirubin measurement (mass/volume) 0.4 mg/dL 0.1-1.0 Serum or plasma alkaline phosphatase measurement (enzymatic activity/volume) 100 U/L 40-136 Serum or plasma aspartate aminotransferase measurement (enzymatic activity/volume) 17 U/L 5-34 Serum or plasma alanine aminotransferase measurement (enzymatic activity/volume) 13 U/L 0-55 Serum or plasma protein measurement (mass/volume) 8.0 g/dL 6.4-8.2 Serum or plasma albumin measurement (mass/volume) 4.8 g/dL 3.2-4.5 Serum or plasma troponin i.cardiac measurement (mass/volume) - 10/14/18 16:43 Serum or plasma troponin i.cardiac measurement (mass/volume) < ng/mL <0.30 PROBNP FS - 10/14/18 16:43 PROBNP FS 14.8 pg/mL <75.0 Encounters ACCT No. Visit Date/Time Discharge Status Pt. Type Provider Facility Loc./Unit Complaint [id number] 10/14/2018 09:00:00 ACT Outpatient ROSI PARADA [facility] [id number] 10/07/2018 09:30:00 Document Registration [id number] 05/29/2017 16:20:00 Document Registration [id number] 10/14/2018 16:30:00 10/14/2018 18:01:00 DIS Outpatient KEE PARTIDA DO [facility] FS SOA [id number] 09/25/2018 19:41:00 09/25/2018 20:55:00 DIS Emergency CHAD LEBRON DO [facility] ER FS RT LEG PAIN [id number] 09/06/2018 07:02:00 09/06/2018 07:50:00 DIS Emergency JAQUAN KEE EASTMAN [facility] ER FS RT LEG INJ [id number] 08/19/2018 20:04:00 08/19/2018 22:08:00 DIS Emergency PHILLIP ROSEN DO [facility] ER FS ABD PAIN, VOMITING, LOOSE STOOL [id number] 08/11/2018 17:16:00 08/11/2018 18:46:00 DIS Emergency ANTONETTE MONTANEZ MD [facility] ER FS RT LEG PAIN [id number] 08/06/2018 17:55:00 08/06/2018 21:33:00 DIS Emergency JENN TOLENTINO MD [facility] ER FS VOMITING [id number] 07/14/2018 11:52:00 07/14/2018 14:55:00 DIS Emergency PHILLIP ROSEN DO [facility] ER FS FLAQUITO SHOULDER PAIN [id number] 07/10/2018 09:37:00 07/10/2018 23:59:59 CLS Outpatient KARLA CORTES [facility] RAD FS M79.661 [id number] 07/02/2018 19:11:00 07/02/2018 21:18:00 DIS Emergency DU DIEGO MD [facility] ER FS PT FELL, RT LEG SWOLLEN AND TENDER [id number] 06/27/2018 17:28:00 06/27/2018 19:14:00 DIS Emergency DU DIEGO MD [facility] ER FS CONSTIPATION, ABD PAIN [id number] 10/17/2018 18:28:00 ACT Emergency SNOW BUENROSTRO MD [facility] ER FS ABD PAIN
[2018-10-17] MEDS ORDERED: MAGNESIUM CITRATE 300 ML BTL PO ONE (19:45)
--- NOTE | 2018-10-17 19:49 | ED Abdominal Pain ---
General Stated Complaint: ABD PAIN Source of Information: Patient Exam Limitations: No Limitations History of Present Illness Date Seen by Provider: Oct 17, 2018 Time Seen by Provider: 19:46 Initial Comments This 48-year-old man states that he has constipation frequently and now states he hasn't had a bowel movement for about a month. He presents now because he thinks he might need an enema. He denies nausea vomiting diarrhea or any other problems. Timing/Duration: 1 Week (one month history of constipation.), Constant Severity/Quality: Mild Location: Generalized Abdomen Radiation: No Radiation Activities at Onset: None Allergies and Home Medications Allergies Coded Allergies: Penicillins (Verified Allergy, Unknown, 08/19/18) Home Medications Meloxicam 7.5 Mg Tablet, 7.5 MG PO Q12H PRN for SHOULDER PAIN Prescribed by: PHILLIP ROSEN on 07/14/18 1307 Naproxen 500 Mg Tablet, 500 MG PO BID Prescribed by: ANTONETTE MONTANEZ on 08/11/18 183 Omeprazole 20 Mg Capsule., 20 MG PO BID Prescribed by: JENN OVALLE on 08/06/182122 Omeprazole Magnesium 20 Mg Tablet., 20 MG PO DAILY Prescribed by: ANTONETTE MONTANEZ on 08/11/18 183 Ondansetron 4 Mg Tab.rapdis, 4 MG PO Q6H PRN for NAUSEA/VOMITING Prescribed by: PHILLIP ROSEN on 08/19/182201 Polyethylene Glycol 3350 119 Gm Powder, 17 GM PO BID PRN PRN for CONSTIPATION- 1ST LINE Prescribed by: ANTONETTE MONTANEZ on 08/11/18 183 Tramadol HCl 50 Mg Tablet, 50 MG PO Q6H PRN for PAIN Prescribed by: BERNARDINO BONILLA on 09/25/182023 Patient Home Medication List Home Medication List Reviewed: Yes Review of Systems Review of Systems Constitutional: no symptoms reported Respiratory: No Symptoms Reported, See HPI Cardiovascular: No Symptoms Reported, See HPI Gastrointestinal: No Symptoms Reported, See HPI Genitourinary: No Symptoms Reported, See HPI Psychiatric/Neurological: No Symptoms Reported, See HPI Endocrine: No Symptoms Reported, See HPI Hematologic/Lymphatic: No Symptoms Reported, See HPI Past Qtvwcjc-Igtjer-Agembb Hx Patient Social History 2nd Hand Smoke Exposure: No Recent Foreign Travel: No Contact w/Someone Who Travel: No Recent Hopitalizations: No Immunizations Up To Date Tetanus Booster (TDap): Unknown Seasonal Allergies Seasonal Allergies: No Past Medical History Surgeries: Yes (RIGHT LEG FUSION CHILD) Cystectomy, Gallbladder, Orthopedic, Tonsillectomy Respiratory: No Cardiac: No Neurological: Yes Seizure Disorder Genitourinary: No Gastrointestinal: No Musculoskeletal: Yes Chronic Back Pain Endocrine: No HEENT: No Cancer: No Psychosocial: Yes Anxiety, Bipolar, Depression Integumentary: No Blood Disorders: No Family Medical History Heart Disease, Diabetes, Hypertension Physical Exam Vital Signs Capillary Refill : Height/Weight/BMI Height: 5'1.00" Weight: 142lbs. oz. 64.591377ly; BMI Method:Stated General Appearance: WD/WN, no apparent distress HEENT: PERRL/EOMI, normal ENT inspection, TMs normal, pharynx normal Neck: non-tender, full range of motion, supple, normal inspection Respiratory: chest non-tender, lungs clear, normal breath sounds, no respiratory distress, no accessory muscle use Cardiovascular: normal peripheral pulses, regular rate, rhythm, no edema, no gallop, no JVD, no murmur Peripheral Pulses: 2+ Carotid (R), 2+ Carotid (L), 2+ Femoral (R), 2+ Femoral (L), 2+ Dorsalis Pedis (R), 2+ Left Dors-Pedis (L), 2+ Radial Pulses (R), 2+ Radial Pulses (L) Gastrointestinal: normal bowel sounds, soft, no organomegaly, no pulsatile mass, tenderness (patient has some mild diffuse abdominal tenderness without rebound or guarding) Rectal: normal exam, normal rectal tone Genital/Rectal: normal genital exam Extremities: normal range of motion, non-tender, normal inspection, no pedal edema, no calf tenderness, normal capillary refill, pelvis stable Pelvic: normal external exam, normal adnexa, no cerv. 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 Patient Instructions: Constipation in Adults SNOW BUENROSTRO MD Oct 17, 2018 19:49
[2018-10-17 19:58] VITALS: BP 129/115
== END 2018-10-17 19:58 | disposition home or self-care (01) ==
LOC: EDUNIT# 18:27 → ER FS 18:28
DX: K59.00 Constipation, unspecified (principal); G40.909 Epilepsy, unspecified, not intractable, without status epilepticus; F31.9 Bipolar disorder, unspecified; F41.9 Anxiety disorder, unspecified; Z88.0 Allergy status to penicillin; Z90.89 Acquired absence of other organs; Z90.6 Acquired absence of other parts of urinary tract; Z82.49 Family history of ischemic heart disease and other diseases of the circulatory system
CPT/HCPCS: 99283

== ENCOUNTER 2018-10-22 17:59 | Emergency (ER) | payer MEDICARE, MEDICAID ==
[~2018-10-22] VITALS: Ht 154.9 cm; Wt 63.5 kg
[2018-10-22] MEDS ORDERED: PANTOPRAZOLE 40 MG (PROTONIX) VIAL IV ONE (18:15)
[2018-10-22] MEDS ORDERED: NS IV 1000 ML 1,000 ML IV SCH (18:15)
[2018-10-22] MEDS ORDERED: ONDANSETRON 4 MG/2 ML (SDV) Z0FRAN IVP ONE (18:15)
--- NOTE | 2018-10-22 18:18 | ED Abdominal Pain ---
General Chief Complaint: Abdominal/GI Problems Stated Complaint: STOMACH PAIN Source of Information: Patient History of Present Illness Date Seen by Provider: Oct 22, 2018 Time Seen by Provider: 18:05 Initial Comments The patient is a 48-year-old male presents for evaluation of epigastric abdominal discomfort as well as nausea and vomiting which started last night. He is very well-known to this emergency department for chronic abdominal pain. Review of his records over the last few months reveals over 5 visits for abdominal discomfort. He states that he has vomited approximately 6 times today. He denies fevers or chills, hematemesis, back or flank pain, urinary complaints, penile or testicular pain, shortness of breath, diaphoresis, dizziness or syncope. He reports some lower chest wall/upper abdominal burning discomfort. He states that he has had a laparoscopic cholecystectomy but denies any other abdominal surgeries. He states that he has hemorrhoids and intermittently has mild bleeding with bowel movements and that this is currently at baseline. He is prescribed omeprazole for GERD and MiraLAX for chronic constipation. Timing/Duration: 12 Hours Severity/Quality: Moderate Location: Epigastric Radiation: No Radiation Activities at Onset: None Associated Symptoms: Heartburn, Nausea/Vomiting Allergies and Home Medications Allergies Coded Allergies: Penicillins (Verified Allergy, Unknown, 08/19/18) Home Medications Meloxicam 7.5 Mg Tablet, 7.5 MG PO Q12H PRN for SHOULDER PAIN Prescribed by: PHILLIP ROSEN on 07/14/18 1307 Naproxen 500 Mg Tablet, 500 MG PO BID Prescribed by: ANTONETTE MONTANEZ on 08/11/181835 Omeprazole 20 Mg Capsule., 20 MG PO BID Prescribed by: JENN OVALLE on 08/06/182122 Omeprazole Magnesium 20 Mg Tablet., 20 MG PO DAILY Prescribed by: ANTONETTE MONTANEZ on 08/11/18 183 Ondansetron 4 Mg Tab.rapdis, 4 MG PO Q6H PRN for NAUSEA/VOMITING Prescribed by: PHILLIP ROSEN on 08/19/182201 Polyethylene Glycol 3350 119 Gm Powder, 17 GM PO BID PRN PRN for CONSTIPATION- 1ST LINE Prescribed by: ANTONETTE MONTANEZ on 08/11/18 183 Tramadol HCl 50 Mg Tablet, 50 MG PO Q6H PRN for PAIN Prescribed by: BERNARDINO BONILLA on 09/25/182023 Patient Home Medication List Home Medication List Reviewed: Yes Review of Systems Review of Systems Constitutional: no symptoms reported EENTM: No Symptoms Reported Respiratory: No Symptoms Reported Cardiovascular: No Symptoms Reported Gastrointestinal: Abdominal Pain, Nausea, Vomiting Musculoskeletal: no symptoms reported Skin: no symptoms reported Psychiatric/Neurological: No Symptoms Reported Endocrine: No Symptoms Reported Hematologic/Lymphatic: No Symptoms Reported All Other Systems Reviewed Negative Unless Noted: Yes Past Wivizql-Lnbjiz-Bjrlma Hx Past Med/Social Hx: Reviewed Nursing Past Med/Soc Hx Patient Social History 2nd Hand Smoke Exposure: No Recent Hopitalizations: No Immunizations Up To Date Tetanus Booster (TDap): Unknown Seasonal Allergies Seasonal Allergies: No Past Medical History Surgeries: Yes (RIGHT LEG FUSION CHILD) Cystectomy, Gallbladder, Orthopedic, Tonsillectomy Respiratory: No Cardiac: No Neurological: Yes Seizure Disorder Genitourinary: No Gastrointestinal: No Musculoskeletal: Yes Chronic Back Pain Endocrine: No HEENT: No Cancer: No Psychosocial: Yes Anxiety, Bipolar, Depression Integumentary: No Blood Disorders: No Family Medical History Heart Disease, Diabetes, Hypertension Physical Exam Vital Signs Vital Signs - First Documented 10/22/18 18:00 Temp 98.2 Pulse 100 Resp 18 B/P (MAP) 152/104 (120) Pulse Ox 100 O2 Delivery Room Air Capillary Refill : Height/Weight/BMI Height: 5'1.00" Weight: 140lbs. oz. 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, no motor/sensory deficits, alert, normal mood/affect, oriented x 3 Skin: normal color, warm/dry Lymphatic: no adenopathy Progress/Results/Core Measures Results/Orders Lab Results Laboratory Tests Test 10/22/18 18:21 Range/Units White Blood Count 9.6 4.3-11.0 10^3/uL Red Blood Count 5.06 4.35-5.85 10^6/uL Hemoglobin 14.4 13.3-17.7 G/DL Hematocrit 45 40-54 % Mean Corpuscular Volume 88 80-99 FL Mean Corpuscular Hemoglobin 28 25-34 PG Mean Corpuscular Hemoglobin Concent 32 32-36 G/DL Red Cell Distribution Width 13.3 10.0-14.5 % Platelet Count 319 130-400 10^3/uL Mean Platelet Volume 8.2 7.4-10.4 FL Neutrophils (%) (Auto) 65 42-75 % Lymphocytes (%) (Auto) 21 12-44 % Monocytes (%) (Auto) 12 0-12 % Eosinophils (%) (Auto) 1 0-10 % Basophils (%) (Auto) 1 0-10 % Neutrophils # (Auto) 6.3 1.8-7.8 X 10^3 Lymphocytes # (Auto) 2.1 1.0-4.0 X 10^3 Monocytes # (Auto) 1.2 H 0.0-1.0 X 10^3 Eosinophils # (Auto) 0.1 0.0-0.3 10^3/uL Basophils # (Auto) 0.1 0.0-0.1 10^3/uL Sodium Level 141 135-145 MMOL/L Potassium Level 3.3 L 3.6-5.0 MMOL/L Chloride Level 97 L 98-107 MMOL/L Carbon Dioxide Level 28 21-32 MMOL/L Anion Gap 16 H 5-14 MMOL/L Blood Urea Nitrogen 6 L 7-18 MG/DL Creatinine 1.03 0.60-1.30 MG/DL Estimat Glomerular Filtration Rate > 60 BUN/Creatinine Ratio 6 Glucose Level 89 70-105 MG/DL Calcium Level 9.5 8.5-10.1 MG/DL Corrected Calcium 8.5-10.1 MG/DL Total Bilirubin 0.3 0.1-1.0 MG/DL Aspartate Amino Transf (AST/SGOT) 17 5-34 U/L Alanine Aminotransferase (ALT/SGPT) 12 0-55 U/L Alkaline Phosphatase 97 40-136 U/L Troponin I < 0.30 <0.30 NG/ML Total Protein 8.0 6.4-8.2 GM/DL Albumin 5.0 H 3.2-4.5 GM/DL Amylase Level 47 25-125 U/L Lipase 27 8-78 U/L My Orders Orders - BERNARDINO BONILLA DO Comprehensive Metabolic Panel (10/22/18 18:09) Lipase (10/22/18 18:09) Amylase (10/22/18 18:09) Ua Culture If Indicated (10/22/18 18:09) Ed Iv/Invasive Line Start (10/22/18 18:09) Acute Abd Series (10/22/18 18:09) Cbc With Automated Diff (10/22/18 18:09) Ekg Tracing (10/22/18 18:09) Troponin I (10/22/18 18:09) Ondansetron Injection (Zofran Injectio (10/22/18 18:15) Pantoprazole Injection (Protonix Injecti (10/22/18 18:15) Ns Iv 1000 Ml (Sodium Chloride 0.9%) (10/22/18 18:15) Lidocaine 2% Viscous 15 Ml (Xylocaine Vi (10/22/18 19:00) Antacid Suspension (Mylanta Suspension (10/22/18 19:00) Potassium Chloride (Tablet) (K Dur Table (10/22/18 19:15) Tramadol Tablet (Ultram Tablet) (10/22/18 19:15) Medications Given in ED Current Medications Medications Dose Ordered Sig/Mukund Route Start Time Stop Time Status Last Admin Dose Admin Ondansetron HCl 4 mg ONCE ONCE IVP 10/22/18 18:15 10/22/18 18:16 DC 10/22/18 18:24 4 MG Pantoprazole 40 mg ONCE ONCE IV 10/22/18 18:15 10/22/18 18:16 DC 10/22/18 18:24 40 MG Vital Signs/I&O 10/22/18 18:00 Temp 98.2 Pulse 100 Resp 18 B/P (MAP) 152/104 (120) Pulse Ox 100 O2 Delivery Room Air Progress Progress Note : Progress Note @1910 - Patient reports some relief after the GI cocktail. Workup today fails reveal any emergent pathology. The patient is stable for discharge. He reports that he had previously been told to follow up with GI (Dr. Hatch) for an endoscopy but states that he does not yet have an appointment. Advised the patient to take the prescribed medications as directed and return to the emergency department for new or worsening symptoms. Comment @1829 - Normal sinus rhythm, rate of 81, normal axis, no acute ischemic findings noted, no STEMI, reviewed and interpreted by myself. Departure Impression Primary Impression: Epigastric abdominal pain Additional Impressions: Chronic abscess of areola Hypokalemia Disposition: HOME, SELF-CARE Condition: Stable Departure-Patient Inst. Decision time for Depature: 19:15 Referrals: [facility]/ (PCP) Primary Care Physician LUZ ELENA BARNEY (Family) Primary Care Physician Patient Instructions: Peptic Ulcers (DC), Hypokalemia, Acid Reflux (Gastroesophageal Reflux Disease), Adult (DC) Add. Discharge Instructions: Take the prescribed medications as instructed. Return to the ER for new or worsening symptoms. Follow up with Dr. Hatch for endoscopies as previously arranged. Scripts Ondansetron (Ondansetron Odt) 4 Mg Tab.rapdis 4 MG PO Q4H PRN for NAUSEA/VOMITING-1ST LINE for 5 Days, #20 TAB Prov: BERNARDINO BONILLA DO 10/22/18 Tramadol HCl (Ultram) 50 Mg Tablet 50 MG PO Q6H PRN for ABDOMINAL PAIN for 4 Days, #10 TAB Prov: BERNARDINO BONILLA DO 10/22/18 Potassium Chloride (Potassium Chloride) 20 Meq Tablet.er 20 MEQ PO DAILY for 7 Days, #7 TAB Prov: BERNARDINO BONILLA DO 10/22/18 BERNARDINO BONILLA DO Oct 22, 2018 18:18
[2018-10-22 18:29] LABS: BASOPHILS # (AUTO) 0.1 10^3/uL (0.0-0.1); BASOPHILS % (AUTO) 1 % (0-10); EOSINOPHILS # (AUTO) 0.1 10^3/uL (0.0-0.3); EOSINOPHILS % (AUTO) 1 % (0-10); HEMATOCRIT 45 % (40-54); HEMOGLOBIN 14.4 G/DL (13.3-17.7); LYMPHOCYTES # (AUTO) 2.1 X 10^3 (1.0-4.0); LYMPHOCYTES % (AUTO) 21 % (12-44); MEAN CORPUSCULAR HEMOGLOBIN 28 PG (25-34); MEAN CORPUSCULAR HGB CONC 32 G/DL (32-36); MEAN CORPUSCULAR VOLUME 88 FL (80-99); MEAN PLATELET VOLUME 8.2 FL (7.4-10.4); MONOCYTES # (AUTO) 1.2 X 10^3 (0.0-1.0); MONOCYTES % (AUTO) 12 % (0-12); NEUTROPHILS # (AUTO) 6.3 X 10^3 (1.8-7.8); NEUTROPHILS % (AUTO) 65 % (42-75); PLATELET COUNT 319 10^3/uL (130-400); RED CELL DISTRIBUTION WIDTH 13.3 % (10.0-14.5); WHITE BLOOD COUNT 9.6 10^3/uL (4.3-11.0)
--- NOTE | 2018-10-22 18:37 | Diagnostic Imaging Report ---
EXAMINATION: Abdominal radiographs, acute series. DATE: October 22, 2018. CLINICAL INDICATION: 48-year-old male, abdominal pain, vomiting. COMPARISON: August 19, 2018. COMMENTS: Heart size and mediastinal contours are unremarkable. There is no identified pneumothorax. There is no large pleural effusion. There is no identified focal airspace consolidation. There is no identified free intraperitoneal air. Right upper quadrant surgical clips most likely relate to prior cholecystectomy. There are gas-filled segments of large bowel which are not abnormally distended. There are no abnormally distended gas-filled segments of small bowel. There is a moderate volume colonic stool. There is no identified abnormal radiodensity overlying the kidneys or expected positions of the ureters. IMPRESSION: 1. Moderate volume colonic stool. 2. No identified acute abdominal radiographic abnormality. 3. No identified acute cardiopulmonary abnormality. Dictated by: Dictated on workstation # [id number]
[2018-10-22 18:45] LABS: ALANINE AMINOTRANSFERASE 12 U/L (0-55); ALKALINE PHOSPHATASE 97 U/L (40-136); AMYLASE 47 U/L (25-125); BILIRUBIN,TOTAL 0.3 MG/DL (0.1-1.0); BUN/CREATININE RATIO 6; CALCIUM 9.5 MG/DL (8.5-10.1); CARBON DIOXIDE 28 MMOL/L (21-32); CHLORIDE 97 MMOL/L (98-107); CREATININE SERUM 1.03 MG/DL (0.60-1.30); GFR ESTIMATED > 60; GLUCOSE 89 MG/DL (70-105); LIPASE 27 U/L (8-78); POTASSIUM 3.3 MMOL/L (3.6-5.0); SODIUM 141 MMOL/L (135-145)
--- OUTSIDE RECORDS SUMMARY | 2018-10-22 18:48 | XMS REPORT | Continuity of Care Document ---
Author Organization Unknown Address Unknown Phone Unavailable Allergies Active Description Code Type Severity Reaction Onset Reported/Identified Relationship to Patient Clinical Status Yes ibuprofen [id number] Drug Allergy Unknown N/A 06/27/2018 Yes naproxen [id number] Drug Allergy Unknown N/A 06/27/2018 Yes tramadol [id number] Drug Allergy Unknown N/A 06/27/2018 Yes Penicillins [id number] Drug Allergy Unknown N/A 08/19/2018 Medications There [...] Z88.0 ALLERGY STATUS TO PENICILLIN 06/30/2018 DU DEIGO MD Ot Z90.6 ACQUIRED ABSENCE OF OTHER [...] ANKLE AND JOINTS OF RIGHT 09/06/2018 KARLA CORETS Ot M79.661 PAIN IN RIGHT LOWER LEG 09/06/2018 KARLA CORTES Ot Z98.890 OTHER SPECIFIED POSTPROCEDURAL STATES 09/06/2018 KEE PARTIDA DO Ot F31.9 BIPOLAR DISORDER, UNSPECIFIED 09/06/2018 KEE PARTIDA DO, Ot F41.9 ANXIETY DISORDER, UNSPECIFIED 09/06/2018 KEE PARTIDA DO, Ot G40.909 EPILEPSY, UNSP, NOT INTRACTABLE, WITHOUT 09/06/2018 KEE PARTIDA DO Ot M79.661 PAIN IN RIGHT LOWER LEG 09/06/2018 KEE PARTIDA DO, Ot W20.8XXA [facility] CAUSE OF STRIKE BY THROWN, PROJECTED 09/06/2018 [...] PAIN IN RIGHT LOWER LEG 09/25/2018 KARLA CROTES Ot Z98.890 OTHER SPECIFIED POSTPROCEDURAL STATES 09/25/2018 [...] SPECIFIED POSTPROCEDURAL STATES 10/14/2018 SEBASTIAN, KARLA J MACHINERY RIGGER Ot M25.571 PAIN IN RIGHT ANKLE AND JOINTS OF RIGHT 10/14/2018 KARLA CORTES MACHINERY RIGGER Ot M79.661 PAIN IN RIGHT LOWER LEG 10/14/2018 SEBASTIANKARLA MACHINERY RIGGER Ot Z98.890 OTHER SPECIFIED POSTPROCEDURAL STATES 10/17/2018 KEE PARTIDA DO Ot 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 DEPENDENCE, UNSPECIFIED, UNCOMP 10/17/2018 PARTIDA DO, KEE Ot F31.9 BIPOLAR DISORDER, UNSPECIFIED 10/17/2018 PARTIDA DO, KEE Ot F41.9 ANXIETY DISORDER, UNSPECIFIED 10/17/2018 PARTIDA DO, KEE Ot G40.909 EPILEPSY, UNSP, NOT INTRACTABLE, WITHOUT 10/17/2018 PARTIDA DO, KEE Ot R06.00 DYSPNEA, UNSPECIFIED 10/17/2018 PARTIDA DO, KEE Ot R06.02 SHORTNESS OF BREATH 10/17/2018 PARTIDA DO, KEE Ot R68.89 OTHER GENERAL SYMPTOMS AND SIGNS 10/17/2018 JAQUAN DOKEE Ot Z82.49 FAMILY HX OF ISCHEM HEART DIS AND OTH DI 10/17/2018 KEE PARTIDA DO Ot Z88.0 ALLERGY STATUS TO PENICILLIN 10/17/2018 WHICK DO KEE Ot Z90.6 ACQUIRED ABSENCE OF OTHER PARTS OF URINA 10/17/2018 JAQUAN DOKEE Ot Z90.89 ACQUIRED ABSENCE OF OTHER ORGANS 10/21/2018 SNOW BUENROSTRO MD Ot F31.9 BIPOLAR DISORDER, UNSPECIFIED 10/21/2018 SNOW BUENROSTRO MD Ot F41.9 ANXIETY DISORDER, UNSPECIFIED 10/21/2018 SNOW BUENROSTRO MD Ot G40.909 EPILEPSY, UNSP, NOT INTRACTABLE, WITHOUT 10/21/2018 SNOW BUENROSTRO MD Ot K59.00 CONSTIPATION, UNSPECIFIED 10/21/2018 SNOW BUENROSTRO MD Ot R10.84 GENERALIZED ABDOMINAL PAIN 10/21/2018 SNOW BUENROSTRO MD Ot Z82.49 FAMILY HX OF ISCHEM HEART DIS AND OTH DI 10/21/2018 SNOW BUENROSTRO MD Ot Z88.0 ALLERGY STATUS TO PENICILLIN 10/21/2018 SNOW BUENROSTRO MD Ot Z90.6 ACQUIRED ABSENCE OF OTHER PARTS OF URINA 10/21/2018 SNOW BUENROSTRO MD Ot Z90.89 ACQUIRED ABSENCE OF OTHER [...] 8.1 fL 7.5-12.5 ABSOLUTE NEUTROPHILS 3245 cells/uL [id number] ABSOLUTE MONOCYTES 767 cells/uL 200-950 ABSOLUTE EOSINOPHILS [...] Status Pt. Type Provider Facility Loc./Unit Complaint [id number] 10/21/2018 09:40:00 ACT [id number] 10/07/2018 09:30:00 Document Registration [id number] 05/29/2017 16:20:00 Document Registration [id number] 10/17/2018 18:28:00 10/17/2018 19:58:00 DIS Outpatient SNOW BUENROSTRO MD [facility] ER FS ABD PAIN [id number] 10/14/2018 16:30:00 10/14/2018 18:01:00 DIS Outpatient KEE PARTIDA DO [facility] ER FS SOA [id number] 09/25/2018 19:41:00 09/25/2018 20:55:00 DIS Emergency CHAD LEBRON DO Via [facility] ER FS RT LEG PAIN [id number] 09/06/2018 07:02:00 09/06/2018 07:50:00 DIS Emergency KEE PARTIDA DO Via [facility] ER FS RT LEG INJ [id number] 08/19/2018 20:04:00 08/19/2018 22:08:00 DIS Emergency PHILLIP ROSEN DO Via [facility] ER FS ABD PAIN, VOMITING, LOOSE STOOL [id number] 08/11/2018 17:16:00 08/11/2018 18:46:00 DIS Emergency ANTONETTE MONTANEZ MD Via [facility] ER FS RT LEG PAIN [id number] 08/06/2018 17:55:00 08/06/2018 21:33:00 DIS Emergency JNEN TOLENTINO MD Via [facility] ER FS VOMITING [id number] 07/14/2018 11:52:00 07/14/2018 14:55:00 DIS Emergency PHILLIP ROSEN DO Via [facility] ER FS FLAQUITO SHOULDER PAIN [id number] 07/10/2018 09:37:00 07/10/2018 23:59:59 CLS Outpatient KARLA CORTES [facility] RAD FS M79.661 [id number] 07/02/2018 19:11:00 07/02/2018 21:18:00 DIS Emergency DU DIEGO MD Via [facility] ER FS PT FELL, RT LEG SWOLLEN AND TENDER [id number] 06/27/2018 17:28:00 06/27/2018 19:14:00 DIS Emergency DU DIEGO MD Via [facility] ER FS CONSTIPATION, ABD PAIN
[2018-10-22] MEDS ORDERED: LIDOCAINE 2% VISCOUS 15 ML UDC PO ONE (19:00)
[2018-10-22] MEDS ORDERED: ANTACID SUSP 30 ML UDC (MYLANTA) PO ONE (19:00)
[2018-10-22] MEDS ORDERED: TRAM-42 PO (19:12)
[2018-10-22] MEDS ORDERED: ONDA4TAB11 PO (19:12)
[2018-10-22] MEDS ORDERED: POTA-51 PO (19:12)
[2018-10-22] MEDS ORDERED: KCL 20 MEQ TAB (K-DUR) PO ONE (19:15)
[2018-10-22 19:24] LABS: BILIRUBIN,URINE NEGATIVE (NEGATIVE); CLARITY,URINE CLEAR; COLOR,URINE YELLOW; GLUCOSE, URINE (UA) NEGATIVE (NEGATIVE); KETONES,URINE NEGATIVE (NEGATIVE); LEUKOCYTE ESTERASE ,URINE NEGATIVE (NEGATIVE); NITRITE,URINE NEGATIVE (NEGATIVE); PH,URINE 7.5 (5-9); PROTEIN,URINE NEGATIVE (NEGATIVE); SQUAMOUS EPITHELIAL CELL,UR 0-2 /HPF; UROBILINOGEN,URINE 0.2 MG/DL (NORMAL)
[2018-10-22 19:30] VITALS: BP 135/98
== END 2018-10-22 19:28 | disposition home or self-care (01) ==
LOC: EDUNIT# 17:59 → ER FS 18:00
DX: N61.1 Abscess of the breast and nipple (principal); E87.6 Hypokalemia; R10.13 Epigastric pain; K21.9 Gastro-esophageal reflux disease without esophagitis; G40.909 Epilepsy, unspecified, not intractable, without status epilepticus; F31.9 Bipolar disorder, unspecified; F41.9 Anxiety disorder, unspecified; Z88.0 Allergy status to penicillin; Z87.19 Personal history of other diseases of the digestive system; Z90.49 Acquired absence of other specified parts of digestive tract; Z90.89 Acquired absence of other organs; Z82.49 Family history of ischemic heart disease and other diseases of the circulatory system
CPT/HCPCS: 36415; 74022; 80053; 81000; 82150; 83690; 84484; 85025; 93005

== ENCOUNTER 2018-10-28 14:02 | Emergency (ER) | payer MEDICARE, MEDICAID ==
[~2018-10-28] VITALS: Ht 154.9 cm; Wt 64.4 kg
[~2018-10-28 14:02] MED LIST changes: +POTA-51 PO; +TRAM-42 PO
--- NOTE | 2018-10-28 14:48 | ED Upper Extremity ---
General Chief Complaint: Upper Extremity Stated Complaint: LT SHOULDER PAIN Nursing Sepsis Screen: No Definite Risk Source: patient History of Present Illness Date Seen by Provider: Oct 28, 2018 Time Seen by Provider: 14:30 Initial Comments Patient is a 48-year-old male well-known to this emergency department with frequent visits for various pain-related conditions who presents with left shoulder pain after receiving a cortisone injection yesterday per Dr. Lyles. Patient reports burning, pain with range of motion and tenderness. Patient states he is also injected in his right shoulder, but denies complaints in that shoulder. No other acute symptoms or complaints. Severity: mild Pain/Injury Location: left shoulder Method of Injury: other Modifying Factors: Improves With Movement Allergies and Home Medications Allergies Coded Allergies: Penicillins (Verified Allergy, Unknown, 08/19/18) Home Medications Meloxicam 7.5 Mg Tablet, 7.5 MG PO Q12H PRN for SHOULDER PAIN Prescribed by: PHILLIP ROSEN on 07/14/18 1307 Naproxen 500 Mg Tablet, 500 MG PO BID Prescribed by: ANTONETTE MONTANEZ on 08/11/18 183 Omeprazole 20 Mg Capsule.dr, 20 MG PO BID Prescribed by: JENN OVALLE on 08/06/182122 Omeprazole Magnesium 20 Mg Tablet.dr, 20 MG PO DAILY Prescribed by: ANTONETTE MONTANEZ on 08/11/181835 Ondansetron 4 Mg Tab.rapdis, 4 MG PO Q6H PRN for NAUSEA/VOMITING Prescribed by: PHILLIP ROSEN on 08/19/182201 Ondansetron 4 Mg Tab.rapdis, 4 MG PO Q4H PRN for NAUSEA/VOMITING-1ST LINE Prescribed by: BERNARDINO BONILLA on 10/22/181911 Polyethylene Glycol 3350 119 Gm Powder, 17 GM PO BID PRN PRN for CONSTIPATION- 1ST LINE Prescribed by: ANTONETTE MONTANEZ on 08/11/181835 Potassium Chloride 20 Meq Tablet.er, 20 MEQ PO DAILY Prescribed by: BERNARDINO BONILLA on 10/22/181911 Tramadol HCl 50 Mg Tablet, 50 MG PO Q6H PRN for PAIN Prescribed by: BERNARDINO BONILLA on 09/25/182023 Tramadol HCl 50 Mg Tablet, 50 MG PO Q6H PRN for ABDOMINAL PAIN Prescribed by: BERNARDINO BONILLA on 10/22/181911 Patient Home Medication List Home Medication List Reviewed: Yes Review of Systems Constitutional: no symptoms reported EENTM: no symptoms reported Respiratory: no symptoms reported Cardiovascular: no symptoms reported Gastrointestinal: no symptoms reported Genitourinary: no symptoms reported Musculoskeletal: see HPI Skin: no symptoms reported Past Shzvufd-Qdxmqq-Ourtws Hx Patient Social History 2nd Hand Smoke Exposure: No Recent Foreign Travel: No Contact w/Someone Who Travel: No Recent Infectious Disease Expo: No Recent Hopitalizations: No Physical Abuse: No Sexual Abuse: No Mistreated: No Fear: No Immunizations Up To Date Tetanus Booster (TDap): Unknown Seasonal Allergies Seasonal Allergies: No Past Medical History Surgeries: Yes (RIGHT LEG FUSION CHILD) Cystectomy, Gallbladder, Orthopedic, Tonsillectomy Respiratory: No Cardiac: No Neurological: Yes Seizure Disorder Genitourinary: No Gastrointestinal: No Musculoskeletal: Yes Chronic Back Pain Endocrine: No HEENT: No Cancer: No Psychosocial: Yes Anxiety, Bipolar, Depression Integumentary: No Blood Disorders: No Family Medical History Heart Disease, Diabetes, Hypertension Physical Exam Vital Signs Vital Signs - First Documented 10/28/18 14:10 Temp 98.2 Pulse 112 Resp 20 B/P (MAP) 150/105 (120) Capillary Refill : Less Than 3 Seconds Height, Weight, BMI Height: 5'1.00" Weight: 142lbs. oz. 64.369612ry; BMI Method:Estimated General Appearance: WD/WN, no apparent distress HEENT: PERRL/EOMI, normal ENT inspection Shoulder: No non-tender, No no evidence of injury, No asymmetry, No bone tenderness, No deformity, No ecchymosis; pain, soft tissue tenderness (pain range of motion.) Elbow/Forearm: normal inspection Wrist: Yes normal inspection Progress/Results/Core Measures Results/Orders Vital Signs/I&O 10/28/18 14:10 Temp 98.2 Pulse 112 Resp 20 B/P (MAP) 150/105 (120) Blood Pressure Mean: 120 Departure Communication (Admissions) Shoulder joint is not warm without evidence of cellulitis. Pain is active and passive range of motion. Recommend shoulder sling NSAIDs for this PCP follow-up. Impression Primary Impression: Left shoulder pain Disposition: 01 HOME, SELF-CARE Condition: Critical Departure-Patient Inst. Referrals: [facility]/ (PCP) Primary Care Physician ROSI PARADA APRN (Family) Primary Care Physician Patient Instructions: Shoulder Pain (DC) Add. Discharge Instructions: Please wear shoulder sling and take aues-dkj-mmxrglq pain medications and follow-up with Dr. Lyles. All discharge instructions reviewed with patient and/or family. Voiced understanding. KEE PARTIDA DO Oct 28, 2018 14:47
[2018-10-28 14:55] VITALS: BP 142/86
--- NOTE | 2018-10-28 14:59 | NUR ---
PT WAS NOT IN THE EXAM ROOM WHEN THIS RN CAME IN WITH A SLING AND DISCHARGE PAPERS. PT WAS NOT IN WAITING AREA EITHER. LEFT WITHOUT SIGNING.
== END 2018-10-28 14:55 | disposition home or self-care (01) ==
LOC: EDUNIT# 14:02 → ER FS 14:03
DX: M25.512 Pain in left shoulder (principal); G40.909 Epilepsy, unspecified, not intractable, without status epilepticus; F31.9 Bipolar disorder, unspecified; F41.9 Anxiety disorder, unspecified; Z88.0 Allergy status to penicillin; Z90.89 Acquired absence of other organs; Z82.49 Family history of ischemic heart disease and other diseases of the circulatory system
CPT/HCPCS: 99282

== ENCOUNTER 2018-11-07 21:44 | Emergency (ER) | payer MEDICARE, MEDICAID | END 2018-11-08 00:45 | disposition home or self-care (01) | LOC: ER FS 11-08 00:45 ==

== ENCOUNTER 2018-11-12 20:36 | Inpatient (IN) | payer MEDICARE, MEDICAID ==
[~2018-11-12] VITALS: Ht 157.5 cm; Wt 58.2 kg
[~2018-11-12 20:36] MED LIST changes: +NA P133E22 RC; +POLY17PO6 PO; +PROM25TA14 PO; +QUET25TA PO; +RISP1TAB94 PO
[2018-11-12] MEDS ORDERED: NS IV 1000 ML 1,000 ML IV STA (21:18)
[2018-11-12] MEDS ORDERED: ONDANSETRON 4 MG/2 ML (SDV) Z0FRAN IVP STA (21:18)
[2018-11-12] MEDS ORDERED: KETOROLAC 30 MG/ML VIAL IVP STA (21:18)
--- NOTE | 2018-11-12 21:25 | ED Abdominal Pain ---
General Chief Complaint: Abdominal/GI Problems Stated Complaint: STOMACH PAIN, VOMITING Nursing Triage Note: PT. REPORTED HE HAS HAD VOMITING TODAY AND NO BOWEL MOVEMENTS FOR 7 DAYS. HE C/O LEFT SIDE ABD. PAIN. PT. REPORTED HE IS TO SEE HIS FAMILY DOCTOR ON . Sepsis Screen: No Definite Risk Source of Information: Patient History of Present Illness Date Seen by Provider: Nov 12, 2018 Time Seen by Provider: 20:38 Initial Comments 48 yo M presenting with complaints of constipation and vomiting. He has multiple times in the emergency department for the same complaints. He was most recently seen on November 07 for the same problem. At that time on Saturday he had a CT scan with blood work done. At that visit his test showed that he had stool in his colon and that he had constipation. He was discharged home with instructions to take MiraLAX for his constipation. He reports that he was doing that but he is been having nausea and vomiting. He states he hasn't been able to keep anything down today because of the vomiting. He is also having diffuse abdominal pain wor se on the left side. He reports also trying to use enema 3 at home with no effect. He is still urinating okay. He has an appointment on November 24 to see his primary doctor about these recurrent chronic issues. He also reports taking stool softeners and trying other [id number]-clnvgbn laxatives with no significant effect. Allergies and Home Medications Allergies Coded Allergies: Penicillins (Verified Allergy, Unknown, 08/19/18) Home Medications Meloxicam 7.5 Mg Tablet, 7.5 MG PO Q12H PRN for SHOULDER PAIN Prescribed by: PHILLIP ROSEN on 07/14/18 1307 Na Phos,M-B/Na Phos,Di-Ba 133 Ml Enema, 133 ML RC DAILY Prescribed by: ANTONETTE MONTANEZ on 11/08/18 0028 Naproxen 500 Mg Tablet, 500 MG PO BID Prescribed by: ANTONETTE MONTANEZ on 08/11/181835 Omeprazole 20 Mg Capsule., 20 MG PO BID Prescribed by: JENN OVALLE on 08/06/182122 Omeprazole Magnesium 20 Mg Tablet., 20 MG PO DAILY Prescribed by: ANTONETTE MONTANEZ on 08/11/181835 Ondansetron 4 Mg Tab.rapdis, 4 MG PO Q6H PRN for NAUSEA/VOMITING Prescribed by: PHILLIP ROSEN on 08/19/182201 Ondansetron 4 Mg Tab.rapdis, 4 MG PO Q4H PRN for NAUSEA/VOMITING-1ST LINE Prescribed by: BERNARDINO BONILLA on 10/22/181911 Ondansetron 4 Mg Tab.rapdis, 4 MG PO Q6H PRN for NAUSEA/VOMITING Prescribed by: ANTONETTE MONTANEZ on 11/08/1827 Polyethylene Glycol 3350 119 Gm Powder, 17 GM PO BID PRN PRN for CONSTIPATION- 1ST LINE Prescribed by: ANTONETTE MONTANEZ on 08/11/181835 Polyethylene Glycol 3350 17 Gm Powd.pack, 17 GM PO TID Prescribed by: ANTONETTE MONTANEZ on 11/08/1827 Potassium Chloride 20 Meq Tablet.er, 20 MEQ PO DAILY Prescribed by: BERNARDINO BONILLA on 10/22/181911 Promethazine HCl 25 Mg Tablet, 25 MG PO Q6H PRN for NAUSEA/VOMITING Prescribed by: ANTONETTE MONTANEZ on 11/08/1827 Tramadol HCl 50 Mg Tablet, 50 MG PO Q6H PRN for PAIN Prescribed by: BERNARDINO BONILLA on 09/25/182023 Tramadol HCl 50 Mg Tablet, 50 MG PO Q6H PRN for ABDOMINAL PAIN Prescribed by: BERNARDINO BONILLA on 10/22/181911 Patient Home Medication List Home Medication List Reviewed: Yes Review of Systems Review of Systems Constitutional: No chills, No dizziness, No fever; malaise EENTM: No Symptoms Reported Respiratory: No Symptoms Reported Cardiovascular: No Symptoms Reported Gastrointestinal: See HPI Genitourinary: No Symptoms Reported Musculoskeletal: other (chronic right leg pain and issues from prior injuries and surgeries) Skin: no symptoms reported Psychiatric/Neurological: Anxiety (and bipolar/schizophrenia) Past Fanharc-Lopmdu-Vfduas Hx Past Med/Social Hx: Reviewed Nursing Past Med/Soc Hx Patient Social History 2nd Hand Smoke Exposure: No Recent Foreign Travel: No Contact w/Someone Who Travel: No Recent Infectious Disease Expo: No Recent Hopitalizations: No Physical Abuse: No Sexual Abuse: No Mistreated: No Fear: No Immunizations Up To Date Tetanus Booster (TDap): Unknown Seasonal Allergies Seasonal Allergies: No Past Medical History Surgeries: Yes (RIGHT LEG FUSION CHILD) Cystectomy, Gallbladder, Orthopedic, Tonsillectomy Respiratory: No Cardiac: No Neurological: Yes Seizure Disorder Genitourinary: No Gastrointestinal: No Musculoskeletal: Yes Chronic Back Pain Endocrine: No HEENT: No Cancer: No Psychosocial: Yes Anxiety, Bipolar, Depression Integumentary: No Blood Disorders: No Family Medical History Heart Disease, Diabetes, Hypertension Physical Exam Vital Signs Vital Signs - First Documented 11/12/18 20:49 Temp 98.3 Pulse 108 Resp 20 B/P (MAP) 137/91 (106) O2 Delivery Room Air Capillary Refill : Less Than 3 Seconds Height/Weight/BMI Height: 5'1.50" Weight: 140lbs. oz. 63.024324hp; BMI Method:Stated General Appearance: WD/WN, no apparent distress HEENT: pharynx normal Neck: non-tender, full range of motion, supple, normal inspection Respiratory: chest non-tender, lungs clear, normal breath sounds Cardiovascular: normal peripheral pulses, regular rate, rhythm Gastrointestinal: soft, no pulsatile mass, abnormal bowel sounds (tympanic sounding hypoactive bowel sounds); No guarding, No rebound; tenderness (diffuse mild pain with palpation) Rectal: normal rectal tone; No hemorrhoids, No mass, No tenderness; other (no stool in rectal vault) Extremities: no pedal edema, no calf tenderness, normal capillary refill, other (right leg chronic pain and chronic extension) Neurologic/Psychiatric: alert, oriented x 3 Skin: normal color, warm/dry Progress/Results/Core Measures Results/Orders Lab Results Laboratory Tests Test 11/12/18 21:20 Range/Units White Blood Count 8.1 4.3-11.0 10^3/uL Red Blood Count 4.51 4.35-5.85 10^6/uL Hemoglobin 12.9 L 13.3-17.7 G/DL Hematocrit 39 L 40-54 % Mean Corpuscular Volume 87 80-99 FL Mean Corpuscular Hemoglobin 29 25-34 PG Mean Corpuscular Hemoglobin Concent 33 32-36 G/DL Red Cell Distribution Width 13.2 10.0-14.5 % Platelet Count 340 130-400 10^3/uL Mean Platelet Volume 8.5 7.4-10.4 FL Neutrophils (%) (Auto) 65 42-75 % Lymphocytes (%) (Auto) 22 12-44 % Monocytes (%) (Auto) 11 0-12 % Eosinophils (%) (Auto) 2 0-10 % Basophils (%) (Auto) 1 0-10 % Neutrophils # (Auto) 5.3 1.8-7.8 X 10^3 Lymphocytes # (Auto) 1.8 1.0-4.0 X 10^3 Monocytes # (Auto) 0.9 0.0-1.0 X 10^3 Eosinophils # (Auto) 0.1 0.0-0.3 10^3/uL Basophils # (Auto) 0.1 0.0-0.1 10^3/uL Urine Color YELLOW Urine Clarity CLEAR Urine pH 7.0 5-9 Urine Specific [place] 1.020 1.016-1.022 Urine Protein NEGATIVE NEGATIVE Urine Glucose (UA) NEGATIVE NEGATIVE Urine Ketones NEGATIVE NEGATIVE Urine Nitrite NEGATIVE NEGATIVE Urine Bilirubin NEGATIVE NEGATIVE Urine Urobilinogen 0.2 NORMAL MG/DL Urine Leukocyte Esterase NEGATIVE NEGATIVE Urine RBC (Auto) NEGATIVE NEGATIVE Urine RBC NONE /HPF Urine WBC NONE /HPF Urine Squamous Epithelial Cells RARE /HPF Urine Crystals NONE /LPF Urine Bacteria NEGATIVE /HPF Urine Casts NONE /LPF Urine Mucus NONE /LPF Urine Culture Indicated NO Sodium Level 141 135-145 MMOL/L Potassium Level 3.8 3.6-5.0 MMOL/L Chloride Level 100 98-107 MMOL/L Carbon Dioxide Level 26 21-32 MMOL/L Anion Gap 15 H 5-14 MMOL/L Blood Urea Nitrogen 13 7-18 MG/DL Creatinine 1.05 0.60-1.30 MG/DL Estimat Glomerular Filtration Rate > 60 BUN/Creatinine Ratio 12 Glucose Level 117 H 70-105 MG/DL Calcium Level 9.2 8.5-10.1 MG/DL Corrected Calcium 8.9 8.5-10.1 MG/DL Total Bilirubin 0.3 0.1-1.0 MG/DL Aspartate Amino Transf (AST/SGOT) 17 5-34 U/L Alanine Aminotransferase (ALT/SGPT) 14 0-55 U/L Alkaline Phosphatase 94 40-136 U/L Total Protein 7.1 6.4-8.2 GM/DL Albumin 4.4 3.2-4.5 GM/DL Lipase 27 8-78 U/L My Orders Orders - DU DIEGO MD Comprehensive Metabolic Panel (11/12/18 21:18) Lipase (11/12/18 21:18) Ua Culture If Indicated (11/12/18 21:18) Ed Iv/Invasive Line Start (11/12/18 21:18) Cbc With Automated Diff (11/12/18 21:18) Ct Abdomen/Pelvis Wo (11/12/18 21:18) Ns Iv 1000 Ml (Sodium Chloride 0.9%) (11/12/18 21:18) Ketorolac Injection (Toradol Injection) (11/12/18 21:18) Ondansetron Injection (Zofran Injectio (11/12/18 21:18) Pantoprazole Injection (Protonix Injecti (11/12/18 22:30) Vital Signs/I&O 11/12/18 20:49 Temp 98.3 Pulse 108 Resp 20 B/P (MAP) 137/91 (106) O2 Delivery Room Air 11/13/18 00:00 Intake Total 1000 ml Balance 1000 ml Blood Pressure Mean: 106 Progress Progress Note #1: Progress Note Pt reports he has been going to the bathroom and vomited during his ED stay, although no staff has heard him having any emesis. He has no stool in his rectal vault. Will try some nausea medicine and fluids for his reported nausea and slight tachycardia. Repeat testing to see if any change from Saturday. and do CT scan to determine if he has signs of obstruction or blockage. Progress Note #2: Progress Note Labs are stable but CT scan shows obstructing mass at rectosigmoid junction with constipation. Will page surgeon client application support engineer to check about admit for further evaluation and work up. Pt has continued nausea despite medicine as well and reflux symptoms so will try additional medicine for this. Diagnostic Imaging Diagonstic Imaging: CT Plain Films/CT/US/NM/MRI: abdomen, pelvis Comments NAME: [facility]IE [facility]IAN [facility] REC#: [id number] PT STATUS: REG ER : 1970 PHYSICIAN: DU DIEGO MD ADMIT DATE: 11/12/18/ER FS Signed Date of Exam:11/12/18 CT ABDOMEN/PELVIS WO PROCEDURE: CT abdomen and pelvis without contrast. TECHNIQUE: Multiple contiguous axial images were obtained through the abdomen and pelvis without the use of intravenous contrast. Auto Exposure Controls were utilized during the CT exam to meet ALARA standards for radiation dose reduction. INDICATION: Constipation, left-sided abdominal pain. COMPARISON: None available. FINDINGS: Evaluation of the abdominal viscera is mildly limited without contrast. Lower chest: Calcified pulmonary nodule in the right lower lobe is compatible with old granulomatous infection. No pericardial or pleural effusion. Peritoneum: No free intraperitoneal air or loculated fluid collections. Liver and biliary system: Unenhanced liver is normal. Cholecystectomy. No pathologic biliary duct dilatation. Spleen and Pancreas: Spleen is normal. Unenhanced pancreas is grossly normal. Adrenals: Normal. tract: No renal or ureteral calculi. No obstructive uropathy. Prostate is not enlarged. Urinary bladder is normally filled. GI tract: Stomach is partially filled with fluid and there is no wall thickening. No dilated loops of bowel to indicate small bowel obstruction. A large volume of colonic stool is present to the level of the rectosigmoid junction. At this site, there is abnormal focal wall thickening in the rectum with an abrupt transition to a stool filled colon more proximally. Surrounding inflammatory stranding is present in the sigmoid colon. There are a few regional lymph nodes measuring up to 0.5 cm. Vasculature and Lymph nodes: Normal caliber thoracic aorta. No enlarged abdominal or pelvic lymph nodes by size criteria. Musculoskeletal: No concerning osseous lesion. IMPRESSION: 1. Imaging features raise the possibility of a partially colonic neoplasm located near the rectosigmoid junction. A large volume of colonic stool is present proximal to this potential obstructing mass and the rectum is decompressed distally. 2. A few tiny regional lymph nodes in the mesentery could relate to reactive lymph nodes versus regional metastasis. Dictated by: Dictated on workstation # [id number] Dict: 11/12/182206 Trans: 11/12/182222 [facility] [id number] Interpreted by: LOY HUBER MD Electronically signed by: LOY HUBER MD 11/12/182222 Departure Communication (Admissions) Time/Spoke to Admitting Phy: 22:[address] Hauser at [phone] and he accepted the patient for admit. He requested an NG be placed as well as a Hoover. Continue LR for fluids and Protonix for his stomach, Zofran for nausea, pain medicine and check am labs. Impression Primary Impression: Rectal mass Additional Impressions: Constipation by outlet obstruction Nausea and vomiting Qualified Codes: R11.14 - Bilious vomiting Disposition: 09 ADMITTED INPATIENT Condition: Stable Admissions Decision to Admit Reason: Admit from ER (General) Decision to Admit/Date: Nov 12, 2018 Time/Decision to Admit Time: 22:44 Departure-Patient Inst. Referrals: [facility] (PCP) Primary Care Physician ROSI PARADA APRN (Family) Primary Care Physician DU DIEGO MD Nov 12, 2018 21:25
[2018-11-12 21:34] LABS: BACTERIA,URINE NEGATIVE /HPF; BILIRUBIN,URINE NEGATIVE (NEGATIVE); CLARITY,URINE CLEAR; COLOR,URINE YELLOW; GLUCOSE, URINE (UA) NEGATIVE (NEGATIVE); KETONES,URINE NEGATIVE (NEGATIVE); LEUKOCYTE ESTERASE ,URINE NEGATIVE (NEGATIVE); NITRITE,URINE NEGATIVE (NEGATIVE); PROTEIN,URINE NEGATIVE (NEGATIVE); UROBILINOGEN,URINE 0.2 MG/DL (NORMAL)
[2018-11-12 21:35] LABS: SQUAMOUS EPITHELIAL CELL,UR RARE /HPF
[2018-11-12 21:43] LABS: HEMOGLOBIN 12.9 G/DL (13.3-17.7); MEAN CORPUSCULAR HEMOGLOBIN 29 PG (25-34); WHITE BLOOD COUNT 8.1 10^3/uL (4.3-11.0)
[2018-11-12 21:44] LABS: BASOPHILS % (AUTO) 1 % (0-10); EOSINOPHILS # (AUTO) 0.1 10^3/uL (0.0-0.3); EOSINOPHILS % (AUTO) 2 % (0-10); HEMATOCRIT 39 % (40-54); LYMPHOCYTES # (AUTO) 1.8 X 10^3 (1.0-4.0); LYMPHOCYTES % (AUTO) 22 % (12-44); MEAN CORPUSCULAR HGB CONC 33 G/DL (32-36); MEAN CORPUSCULAR VOLUME 87 FL (80-99); MEAN PLATELET VOLUME 8.5 FL (7.4-10.4); MONOCYTES # (AUTO) 0.9 X 10^3 (0.0-1.0); MONOCYTES % (AUTO) 11 % (0-12); NEUTROPHILS # (AUTO) 5.3 X 10^3 (1.8-7.8); NEUTROPHILS % (AUTO) 65 % (42-75); PLATELET COUNT 340 10^3/uL (130-400); RED CELL DISTRIBUTION WIDTH 13.2 % (10.0-14.5)
[2018-11-12 21:45] LABS: BASOPHILS # (AUTO) 0.1 10^3/uL (0.0-0.1)
[2018-11-12 22:02] LABS: ALKALINE PHOSPHATASE 94 U/L (40-136); BILIRUBIN,TOTAL 0.3 MG/DL (0.1-1.0); BUN/CREATININE RATIO 12; CALCIUM 9.2 MG/DL (8.5-10.1); CARBON DIOXIDE 26 MMOL/L (21-32); CHLORIDE 100 MMOL/L (98-107); CREATININE SERUM 1.05 MG/DL (0.60-1.30); GFR ESTIMATED > 60; GLUCOSE 117 MG/DL (70-105); POTASSIUM 3.8 MMOL/L (3.6-5.0); SODIUM 141 MMOL/L (135-145)
[2018-11-12 22:03] LABS: ALANINE AMINOTRANSFERASE 14 U/L (0-55); ALBUMIN 4.4 GM/DL (3.2-4.5); LIPASE 27 U/L (8-78); TOTAL PROTEIN 7.1 GM/DL (6.4-8.2)
--- NOTE | 2018-11-12 22:10 | NUR ---
THIS RN GAVE THE PATIENT A CUP OF WATER AT THIS TIME.
--- NOTE | 2018-11-12 22:16 | Diagnostic Imaging Report ---
PROCEDURE: CT abdomen and pelvis without contrast. TECHNIQUE: Multiple contiguous axial images were obtained through the abdomen and pelvis without the use of intravenous contrast. Auto Exposure Controls were utilized during the CT exam to meet ALARA standards for radiation dose reduction. INDICATION: Constipation, left-sided abdominal pain. COMPARISON: None available. FINDINGS: Evaluation of the abdominal viscera is mildly limited without contrast. Lower chest: Calcified pulmonary nodule in the right lower lobe is compatible with old granulomatous infection. No pericardial or pleural effusion. Peritoneum: No free intraperitoneal air or loculated fluid collections. Liver and biliary system: Unenhanced liver is normal. Cholecystectomy. No pathologic biliary duct dilatation. Spleen and Pancreas: Spleen is normal. Unenhanced pancreas is grossly normal. Adrenals: Normal. tract: No renal or ureteral calculi. No obstructive uropathy. Prostate is not enlarged. Urinary bladder is normally filled. GI tract: Stomach is partially filled with fluid and there is no wall thickening. No dilated loops of bowel to indicate small bowel obstruction. A large volume of colonic stool is present to the level of the rectosigmoid junction. At this site, there is abnormal focal wall thickening in the rectum with an abrupt transition to a stool filled colon more proximally. Surrounding inflammatory stranding is present in the sigmoid colon. There are a few regional lymph nodes measuring up to 0.5 cm. Vasculature and Lymph nodes: Normal caliber thoracic aorta. No enlarged abdominal or pelvic lymph nodes by size criteria. Musculoskeletal: No concerning osseous lesion. IMPRESSION: 1. Imaging features raise the possibility of a partially colonic neoplasm located near the rectosigmoid junction. A large volume of colonic stool is present proximal to this potential obstructing mass and the rectum is decompressed distally. 2. A few tiny regional lymph nodes in the mesentery could relate to reactive lymph nodes versus regional metastasis. Dictated by: Dictated on workstation # [id number]
[2018-11-12] MEDS ORDERED: PANTOPRAZOLE 40 MG (PROTONIX) VIAL ONE (22:30)
[2018-11-13] VITALS (7 sets, daily range): BP systolic 128–143; BP diastolic 85–100
[2018-11-13] MEDS ORDERED: ONDANSETRON 4 MG/2 ML (SDV) Z0FRAN IVP STA (00:07)
[2018-11-13] MEDS ORDERED: PANTOPRAZOLE 40 MG (PROTONIX) VIAL IV STA (00:07)
[2018-11-13] MEDS ORDERED: DICYCLOMINE 10 MG/ML (BENTYL) 2 ML AMP IM PRN (03:00)
[2018-11-13] MEDS: LACTATED RINGERS 1,000 ML IV SCH ×3 (03:25→21:53)
[2018-11-13] MEDS: morphine INJ 4 MG/ML 1 ML (VIAL/SYRINGE) IV PRN ×4 (03:27→18:39)
[2018-11-13 05:26] LABS: BASOPHILS % (AUTO) 0 % (0-10); EOSINOPHILS # (AUTO) 0.1 10^3/uL (0.0-0.3); EOSINOPHILS % (AUTO) 1 % (0-10); HEMATOCRIT 37 % (40-54); HEMOGLOBIN 11.9 G/DL (13.3-17.7); LYMPHOCYTES # (AUTO) 1.6 X 10^3 (1.0-4.0); LYMPHOCYTES % (AUTO) 12 % (12-44); MEAN CORPUSCULAR HEMOGLOBIN 28 PG (25-34); MEAN CORPUSCULAR HGB CONC 33 G/DL (32-36); MEAN CORPUSCULAR VOLUME 87 FL (80-99); MEAN PLATELET VOLUME 8.5 FL (7.4-10.4); MONOCYTES # (AUTO) 1.3 X 10^3 (0.0-1.0); MONOCYTES % (AUTO) 10 % (0-12); NEUTROPHILS % (AUTO) 77 % (42-75); PLATELET COUNT 283 10^3/uL (130-400); RED CELL DISTRIBUTION WIDTH 13.6 % (10.0-14.5)
[2018-11-13 05:48] LABS: ALANINE AMINOTRANSFERASE 12 U/L (0-55); ALBUMIN 3.8 GM/DL (3.2-4.5); ALKALINE PHOSPHATASE 88 U/L (40-136); BILIRUBIN,TOTAL 0.4 MG/DL (0.1-1.0); BUN/CREATININE RATIO 11; CALCIUM 8.5 MG/DL (8.5-10.1); CARBON DIOXIDE 22 MMOL/L (21-32); CHLORIDE 106 MMOL/L (98-107); CREATININE SERUM 0.82 MG/DL (0.60-1.30); GFR ESTIMATED > 60; GLUCOSE 94 MG/DL (70-105); POTASSIUM 3.6 MMOL/L (3.6-5.0); SODIUM 139 MMOL/L (135-145); TOTAL PROTEIN 6.2 GM/DL (6.4-8.2)
--- NOTE | 2018-11-13 07:22 | Diagnostic Imaging Report ---
Patient History: Tube placement.. Technique: Single frontal view of the chest Comparison: 11/07/2018 FINDINGS: The enteric tube is visualized the tip at the distal esophagus. The lung volumes are normal. No focal consolidation is seen. No large pleural effusion or pneumothorax is seen. The cardiomediastinal silhouette is normal in size and contour. No acute osseous abnormality is seen. IMPRESSION: Enteric tube with the tip overlying the distal esophagus. Recommend advancing. No acute pulmonary abnormality seen. Dictated by: Dictated on workstation # [id number]
--- NOTE | 2018-11-13 09:21 | Progress Note-Pre Operative ---
Pre-Operative Progress Note H&P Reviewed The H&P was reviewed, patient examined and no changes noted. 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
--- NOTE | 2018-11-13 09:22 | Conscious Sedation/ASA ---
Conscious Sedation Pre-Proced Time 09:20 ASA Score 2 For ASA 3 and 4: Consider anesthesia and medical clearance. Also, for patients with a history of failed moderate sedation consider anesthesia. Airway Lungs Heart ASA score ASA 1: a normal healthy patient ASA 2: a patient with a mild systemic disease (mid diabetes, controlled hypertension, obesity ASA 3: a patient with a severe systemic disease that limits activity (angina, COPD, prior Myocardial infarction) ASA 4: a patient with an incapacitating disease that is a constant threat to life (CHF, renal failure) ASA 5: a moribund patient not expected to survive 24 hrs. (ruptured aneurysm) ASA 6: a declared brain- patient whose organs are being harvested. For emergent operations, add the letter E after the classification Mallampati Classification Grade 2 Sedation Plan Analgesia, Amnesia, Plan communicated to team members, Discussed options with patient/fam, Discussed risks with patient/fam The patient is an appropriate candidate to undergo the planned procedure, sedation, and anesthesia. The patient immediately re-assessed prior to indication. СЕРГЕЙ SANCHEZ MD Nov 13, 2018 09:22
[2018-11-13] MEDS ORDERED: POLY17PO6 PO (09:59)
[2018-11-13] MEDS ORDERED: CYCL10TA9 PO (09:59)
[2018-11-13] MEDS ORDERED: SUCR1TAB PO (09:59)
[2018-11-13] MEDS ORDERED: NAPR-915 PO (09:59)
[2018-11-13] MEDS ORDERED: SENN15TA5 PO ×2 (09:59→10:22)
[2018-11-13] MEDS ORDERED: RANI150T11 PO (09:59)
[2018-11-13] MEDS ORDERED: RSP50S INJ (09:59)
[2018-11-13] MEDS ORDERED: QUET300T44 PO (09:59)
[2018-11-13] MEDS ORDERED: LAMO200T2 PO (10:22)
[2018-11-13] MEDS ORDERED: TRAZ-190 PO (10:22)
[2018-11-13] MEDS ORDERED: DOCU-143 PO (10:25)
[2018-11-13] MEDS ORDERED: BENZ1TAB6 PO (10:25)
--- NOTE | 2018-11-13 10:25 | NUR ---
PATIENT HAD A LIST OF HIS MEDICATIONS WITH HIM HE STATES HE WROTE DOWN PRIOR TO GOING TO THE ER. I COMPARED THAT LIST WITH THE EXT MED HX. HE STATES HE WAS UNABLE TO ADMINISTER THE ENEMAS ER TOLD HIM TO USE DUE TO NOT BEING ABLE TO BEND HIS LEG. HE STATES HE DID HAVE THE PROMETHAZINE AND ZOFRAN FOR NAUSEA BUT THEY WERE SMALL SUPPLIES AND HE DOES NOT HAVE ANY LEFT. ACCORDING TO THE EXT MED HX HE IS PAST DUE FOR REFILL ON SOME OF HIS MEDS, HE STATES HE DOES NOT HAVE A PHONE TO CALL IN HIS REFILLS. I NOTED THE PAST DUE FILL DATES ON THE MED REC: 08-06-18 TRAZODONE 100MG #90 3 HS (LIST STATES 1 HS) 07-29-18 BENZTROPINE 1MG HS #30 (LIST STATES 1/2 TAB HS) 07-12-18 LAMOTRIGINE 200MG HS #90 HIS LIST ALSO HAS POTASSIUM HOWEVER IT WAS FILLED FOR 7 DAYS 10-22-18- HE STATES THAT THERAPY IS FINISHED. OTC MEDS: MIRALAX TID (PUT ON PRN) CHOCOLATE LAXATIVE 2 BID PRN STOOL SOFTENER QID (PUT ON PRN)
--- NOTE | 2018-11-13 10:26 | HISTORY AND PHYSICAL ---
DATE OF SERVICE: 11/13/2018 ATTENDING LEGAL TRANSCRIBER: Lolly Foote APRN HISTORY OF PRESENT ILLNESS: The patient is a 48-year-old male who presented to [facility] with abdominal distention and crampy pain. This gentleman reports that he had similar symptoms one week previous and underwent a workup including x-rays, which did show significant amount of stool within the colon consistent with constipation. Since that time, he states that he has only had minimal bowel function and continued abdominal discomfort. He does report a history of constipation. He does not report any known red blood per rectum nor any dark tarry stools. A CT scan was performed, which did show a significant amount of stools within the proximal colon as well as a transition point at the rectosigmoid junction, most likely consistent with some type of neoplastic process. PAST MEDICAL HISTORY: Anxiety, depression, bipolar disorder. PAST SURGICAL HISTORY: Right lower extremity ORIF, laparoscopic cholecystectomy and tonsillectomy. ALLERGIES: PENICILLIN. MEDICATIONS: Seroquel 25 mg daily, risperidone 1 mg daily and Tramadol p.r.n. SOCIAL HISTORY: Negative smoke, negative alcohol. FAMILY HISTORY: Noncontributory for diabetes, hypertension and heart disease. VITAL SIGNS: Temperature 98.3, blood pressure 143/100, pulse 99, respirations 19, pulse ox 99% on room air. REVIEW OF SYSTEMS: Well-nourished male currently uncomfortable due to the abdominal distention. He was experiencing nausea and vomiting; however, currently has a nasogastric tube in place. He states that he has not had a bowel movement for one week; however, has passed flatus. No known red blood per rectum, no dark tarry stools. He has past history of constipation. No fever, chills, no recent inadvertent weight loss. All other review of systems negative. PHYSICAL EXAMINATION: CHEST: Clear. Good breath sounds bilaterally. HEART: Regular, no murmurs. EXTREMITIES: No lower extremity edema, negative Homans sign. HEENT: No scleral icterus. NECK: No cervical lymphadenopathy. ABDOMEN: Soft, distended and tympanitic. No palpable masses. SKIN: Warm, dry. LABORATORY DATA: WBC 13.0, hemoglobin 11.9, hematocrit 37, platelets 283. BUN 9, creatinine 0.82. Liver function enzymes normal. ASSESSMENT AND PLAN: A 48-year-old male with near obstructing lesion of the rectosigmoid junction, most likely consistent with a neoplastic process. We will proceed with a flexible sigmoidoscopy biopsies as well as submucosal injection for identification. Depending on the severity of the stricture we will determine what surgical procedure to proceed with. He will likely need resection of the lesion as well as either an end colostomy and Pramod's pouch and then later roman catholic of gastrointestinal continuity versus a one stage resection and anastomosis. However, he would have to have adequate bowel prep before this. Job ID: [id number] DocumentID: [id number] Dictated Date: 11/13/2018 09:19:41 Topstitcher Zigzag Date: 11/13/2018 10:25:24 Dictated By: СЕРГЕЙ SANCHEZ MD
--- NOTE | 2018-11-13 14:05 | NUR ---
PT LEFT FLOOR AT THIS TIME IN ROUTE TO ENDO ACCOMPANIED BY STAFF. IV TO RIGHT HAND SALINE LOCKED, NG CLAMPED. THIS RN WILL AWAIT PTS RETURN TO THE FLOOR.
[2018-11-13] MEDS ORDERED: NS IV 500 ML 500 ML ONE (14:07)
[2018-11-13] MEDS ORDERED: MIDAZOLAM 2 MG/2 ML (VERSED) VIAL ONE ×3 (14:08→14:09)
[2018-11-13] MEDS ORDERED: LIDOCAINE JELLY 2% 6 ML SYRINGE ONE (14:09)
[2018-11-13] MEDS ORDERED: fentaNYL INJECTION 100 MCG/2 ML AMP ONE (14:09)
--- NOTE | 2018-11-13 15:21 | NUR ---
PT BACK TO ROOM 420 VIA WHEELCHAIR, ACCOMPANIED BY STAFF. NG TO INTERMITTENT SUCTION, IV FLUIDS RESTARTED
--- NOTE | 2018-11-13 15:40 | Progress Note-Post Operative ---
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 Procedure & Operative Findings Date of Procedure 11/13/18 Procedure Performed/Findings colonoscopy with bx and balloon dilatation and submucosal injection. Anesthesia Type get Estimated Blood Loss Estimated blood loss (mL): minimal Specimens/Packing Specimens Removed rectosimoid, rectum СЕРГЕЙ SANCHEZ MD Nov 13, 2018 15:40
[2018-11-13] MEDS ORDERED: MAGNESIUM CITRATE 300 ML BTL PO PRN (15:45)
--- NOTE | 2018-11-13 16:00 | NUR ---
Dr Hauser on floor new orders received. DC Hoover and NG tube.
[2018-11-13] MEDS: HYDROcodone/APAP 7.5 MG/325 MG (LORTAB, LORCET PLUS) TABLET PO PRN (16:12)
--- NOTE | 2018-11-13 16:12 | NUR ---
DR FOREMAN NOTIFIED BY THIS RN FOR CONSULT.
[2018-11-13] MEDS ORDERED: NS IV 500 ML 500 ML IV PRN (16:18)
--- NOTE | 2018-11-13 16:18 | NUR ---
NG TUBE REMOVED AT THIS TIME. PT TOLERATED PROCEDURE WELL.
--- NOTE | 2018-11-13 16:21 | OPERATIVE REPORT ---
DATE OF SERVICE: 11/13/2018 PREOPERATIVE DIAGNOSES: Obstructing lesion rectosigmoid junction with abdominal distention. POSTOPERATIVE DIAGNOSES: Rectosigmoid hypertonicity versus stricture versus Hirschsprung disease. No mechanical obstruction. No tumors. There were no neoplasms. Proximal colon full of formed stool. PROCEDURE: Colonoscopy with biopsy, balloon dilatation, and submucosal injection. SURGEON: Сергей Sanchez MD ANESTHESIA: Conscious sedation. ESTIMATED BLOOD LOSS: Minimal. FINDINGS: Chronic stage II external and internal hemorrhoids. At the rectosigmoid junction, there appeared to be hypertonicity of the circular musculature with a thick band of muscle identified. This did relax over time with gentle insufflation. Everything proximal appeared normal. There were no exophytic masses or neoplastic processes that would be worrisome for cancer. Once the sigmoid colon was reached, this was full of formed stool. There were no other lesions identified. DISPOSITION: The patient tolerated the procedure well. INDICATIONS: The patient is a 48-year-old male who presented to [facility] with abdominal distention, crampy pain. He reports that he has had similar symptoms one week previous and underwent workup including abdominal x-rays, which did show significant amount of stools within the colon consistent with constipation. Since that time, he only states that he has only had minimal amounts of flatulence as well as small bowel movements and worsening abdominal discomfort. He does report a history of constipation. A CT scan was performed, which did show a significant amount of stools within the proximal colon as well as transition point at the rectosigmoid junction. DESCRIPTION OF PROCEDURE: The patient was brought to the endoscopy suite, laid in the left lateral decubitus position. After adequate IV pain sedating medications and conscious sedation anesthesia, a digital rectal examination was performed. Chronic stage II external and internal hemorrhoids were identified, which were not actively edematous nor inflamed and no bleeding. Normal sphincter tone was felt and there were no palpable masses. Prostate gland was palpable and appeared normal. Endoscope was then intubated into the anus and rectum gently insufflated. The endoscope was then advanced to the valves of Reyes of the rectum with no polyps or any neoplasms identified. At the rectosigmoid junction at approximately 15 cm from the anal verge, a ring of hypertonic musculature was identified. There was no exophytic mucosal lesions that would indicate any neoplastic process. With gentle insufflation in time, this did relax over time. Biopsies were taken of this region to rule out Hirschsprung disease and loss of Vangie's and myenteric plexus. Biopsies were taken of the distal rectum as well. Submucosal injections at this area with black ink were then performed. The endoscope was then advanced into the sigmoid colon and significant amount of formed stools were identified. It was then proceeded with dilatation of the stricture or the hypertonic portion of the rectosigmoid junction and the balloon was dilated to 2, 4 and then 6 atmospheres or 20mm luminal diameter with no resistance. The balloon was then desufflated and removed. Good hemostasis was observed as well as no mucosal tears. The endoscope was then slowly withdrawn while taking a second look and suctioning of residual air with no additional findings. The patient tolerated the procedure well. We will start magnesium citrate 150 mg b.i.d. as well as advance diet as tolerated to promote liquid stools. His presentation is more likely consistent with a dysmotility and an undiagnosed adult presentation of Hirschsprung disease. We will await the biopsy results; however, he may need to see a industrial maintenance millwright first suction biopsies to find the transition point of the myenteric plexus and then he may need a formal colorectal resection and anastomosis if he continues to become symptomatic. Job ID: [id number] DocumentID: [id number] Dictated Date: 11/13/2018 16:07:18 Piping Drafter Date: 11/13/2018 16:20:25 Dictated By: СЕРГЕЙ SANCHEZ MD MTDD
[2018-11-13] MEDS ORDERED: MIDAZOLAM 2 MG/2 ML (VERSED) VIAL IVP ONE (16:30)
[2018-11-13] MEDS ORDERED: fentaNYL INJECTION 100 MCG/2 ML AMP IVP ONE (16:30)
[2018-11-13] MEDS ORDERED: LIDOCAINE JELLY 2% 6 ML SYRINGE MM PRN (16:30)
[2018-11-13] MEDS: ONDANSETRON 4 MG/2 ML (SDV) Z0FRAN IV PRN (18:39)
[2018-11-13] MEDS ORDERED: PANTOPRAZOLE 40 MG (PROTONIX) VIAL IV SCH (23:00)
[2018-11-14] VITALS: BP 122/78
[2018-11-14] MEDS: HYDROcodone/APAP 7.5 MG/325 MG (LORTAB, LORCET PLUS) TABLET PO PRN ×2 (01:37→06:51)
[2018-11-14 04:00] VITALS: BP 144/93
[2018-11-14] MEDS: LACTATED RINGERS 1,000 ML IV SCH ×2 (04:45→13:03)
[2018-11-14 08:00] VITALS: BP 148/92
[2018-11-14] MEDS ORDERED: LACTATED RINGERS 1,000 ML IV PRN (08:00)
[2018-11-14] MEDS: ONDANSETRON 4 MG/2 ML (SDV) Z0FRAN IV PRN (08:37)
--- NOTE | 2018-11-14 10:35 | Progress Note ---
Subjective Date Seen by a Provider: Nov 14, 2018 Time Seen by a Provider: 10:00 Subjective/Events-last exam doing much better today. having multiple BM's. minimal crampy abd pain. tolerating diet. Objective Exam Vital Signs Date Time Temp Pulse Resp B/P (MAP) Pulse Ox O2 Delivery O2 Flow Rate FiO2 11/14/18 08:00 98.0 100 20 148/92 (110) 99 Room Air 11/14/18 04:00 96.6 89 19 144/93 (110) 95 Room Air 11/14/18 00:00 97.8 98 18 122/78 (93) 97 Room Air 11/13/18 20:45 Room Air 11/13/18 19:26 97.6 94 18 135/85 (102) 95 Room Air 11/13/18 16:00 97.5 85 18 131/87 (102) 97 Room Air 11/13/18 12:00 98.3 100 20 137/90 (106) 98 Room Air I & O 11/14/18 07:00 Intake Total 1950 ml Output Total 2950 ml Balance -1000 ml Capillary Refill : Less Than 3 Seconds General Appearance: No Apparent Distress HEENT: PERRL/EOMI Neck: Full Range of Motion Respiratory: Chest Non Tender, Lungs Clear, Normal Breath Sounds Cardiovascular: Regular Rate, Rhythm Gastrointestinal: normal bowel sounds, non tender, soft Extremity: Normal Capillary Refill Neurologic/Psychiatric: Alert, Oriented x3 Skin: Normal Color Lymphatic: No Adenopathy Assessment/Plan Assessment/Plan Assess & Plan/Chief Complaint constipation with possible undiagnosed hirschprung disease. recommend very high fiber diet/stool softeners to promote bowel movements daily. states dysphagia as well. will have patient f/u in 2 weeks to schedule EGD Clinical Quality Measures DVT/VTE Risk/Contraindication: Risk Factor Score Per Nursin RFS Level Per Nursing on Admit: 1=Low/No VTE PPX СЕРГЕЙ SANCHEZ MD Nov 14, 2018 10:35
--- NOTE | 2018-11-14 11:02 | Consultation - Hospitalist ---
KANNAN CARVAJAL,MED STUDENT 11/14/18 11:02am: HPI History of Present Illness: HPI/Chief Complaint Patient is a 48 y/o male that present two days ago to the ED d/t inability to have a bowel movement for 7days even with aid of laxatives. Patient denies fever, chills, headache, nausea, vomiting, chest pain, sob, constipation, diarrhea, hallucinations, delusions numbness and weakness. He admits to RLQ pain, recent loss of 40 lbs in past month. He said that he has had 3 bowel movements since surgery and stools where soft and brown. Patient said that he is bipolar but not sure which type and has visual and auditory hallucinations but denies any active hallucinations right now Source: patient Date Seen 11/14/18 Attending Physician Beny Hauser MD [facility] Referring Physician Date of Admission Nov 13, 2018 at 00:13 Home Medications & Allergies Home Medications Reviewed patient Home Medication Reconciliation performed by pharmacy medication reconciliations central sterilization technician and/or nursing. Patients Allergies have been reviewed. Allergies Allergies Coded Allergies Penicillins (Verified Allergy, Unknown, 08/19/18) Past Fgnvups-Nzmzsv-Dtzhsk Hx Past Med/Social Hx: Reviewed Nursing Past Med/Soc Hx Patient Social History Employed/Student: unemployed (disabled ) Alcohol Use: Past History Recreational Drug Use: No 2nd Hand Smoke Exposure: No Recent Foreign Travel: No Contact w/other who traveled: No Recent Hopitalizations: No Recent Infectious Disease Expo: No Immunizations Up To Date Tetanus Booster (TDap): Unknown Seasonal Allergies Seasonal Allergies: No Past Medical History Surgeries: Cystectomy, Gallbladder, Orthopedic, Tonsillectomy Neurological: Seizure Disorder Musculoskeletal: Chronic Back Pain Psychosocial: Anxiety, Bipolar, Depression History of Blood Disorders: No Family History Cardiovascular disease 19 FATHER Diabetes mellitus G8 BROTHER Hypertension 19 FATHER 19 MOTHER G8 BROTHER Heart Disease, Diabetes, Hypertension Review of Systems Constitutional: see HPI Respiratory: see HPI Cardiovascular: see HPI Gastrointestinal: see HPI Skin: see HPI Psychiatric/Neurological: See HPI Physical Exam Physical Exam Vital Signs Vital Signs - First Documented 11/12/18 11/13/18 20:49 00:12 Temp 98.3 Pulse 108 Resp 20 B/P (MAP) 137/91 (106) Pulse Ox 98 O2 Delivery Room Air Capillary Refill : Less Than 3 Seconds Height, Weight, BMI Height: 5'2.00" Weight: 128lbs. 5.0oz. 58.858604pc; 26.0 BMI Method:Stated General Appearance: No Apparent Distress HEENT: PERRL/EOMI Neck: Full Range of Motion Respiratory: Chest Non Tender, Lungs Clear, Normal Breath Sounds Cardiovascular: Regular Rate, Rhythm, No Edema, No Gallop, No Murmur, Normal Peripheral Pulses Gastrointestinal: No Pulsatile Mass, Soft, Tenderness (RLQ and LLQ ) Extremity: Normal Capillary Refill, Non Tender, No Calf Tenderness, No Pedal Edema Neurologic/Psychiatric: Alert, Oriented x3, Other (mild pressured speech and fidgeting ) Skin: Normal Color Lymphatic: No Adenopathy Results Results/Procedures Labs Laboratory Tests 11/12/18 21:20 11/13/18 05:10 Patient resulted labs reviewed. Assessment/Plan Assessment and Plan Assess & Plan/Chief Complaint Constipation d/t sigmoid stricture - management per primary Bipolar - restart home meds - monitor for hallucinations FENGIPPX - regular diet - up with aid d/t right leg disability Clinical Quality Measures DVT/VTE Risk/Contraindication: Risk Factor Score Per Nursin RFS Level Per Nursing on Admit: 1=Low/No VTE PPX LINNEA CARR MD 11/14/18 2:17pm: HPI Referring Physician Dr Hauser Past Nkxomcz-Vvykwz-Fdldia Hx Family History Cardiovascular disease 19 FATHER Diabetes mellitus G8 BROTHER Hypertension 19 FATHER 19 MOTHER G8 BROTHER Supervisory-Addendum Brief Verification & Attestation Participated in pt care: history, MDM, physical Personally performed: exam, history, MDM, supervision of care Care discussed with: Medical Student Procedures: n/a Results interpretation: Verified all documentation Verification and Attestation of Medical Student E/M Service A medical student performed and documented this service in my presence. I reviewed and verified all information documented by the medical student and made modifications to such information, when appropriate. I personally performed the physical exam and medical decision making. Linnea Carr, Nov 14, 2018,14:16 KANNAN CARVAJAL,MED STUDENT Nov 14, 2018 11:02 am LINNEA CARR MD Nov 14, 2018 2:17 pm
[2018-11-14 12:00] VITALS: BP 133/92
--- NOTE | 2018-11-14 12:42 | NUR ---
Two attempted visits and hour apart while pt was on the phone. Specialty Molder will continue to touch base as able.
--- NOTE | 2018-11-14 12:46 | NUR ---
PATIENT STATES HE HAS HAD 3 LARGE BROWN FORMED BM'S THIS AM, DENIES PAIN OR NAUSEA
--- NOTE | 2018-11-14 13:38 | Discharge Inst-Surgical ---
D/C Lap Instructions-LAURA Follow Up Appt in 2 weeks Activity as tolerated High Fiber Diet 25g or more per day Avoid Alcohol, Caffeine, Spicy [place] and Acid foods. Drink 64 fluid oz or more of fluids per day. Symptoms to Report: Fever over 101 degree F, Nausea/Vomiting If any problems/questions: Contact your physician or go to Emergency Room СЕРГЕЙ SANCHEZ MD Nov 14, 2018 13:38
[2018-11-14 15:43] VITALS: BP 133/92
--- NOTE | 2018-11-19 09:00 | Physician Query Clarification ---
PQ-Uncertain Diagnosis Admission/Discharge Admission Date: Nov 13, 2018 at 00:13 Discharge Date: Nov 14, 2018 at 15:35 The medical record reflects the following clinical scenario: History/Risk Factors: constipation, GERd Clinical Findings: abdominal distention, crampy pain, constipation, N&V Treatment: dilation rectosigmoid stricture, high fiber diet Question: Is Hirschsprung's disease a clinically valid diagnosis? Hirschsprung's disease was documented in Dr. Sanchez op rpt and 11/14 PN with no further documentation in the medical record. Please document a response in Progress Note or Discharge Summary. 1. Yes, clinically valid, condition resolved. 2. No, condition ruled out. 3. Other, with explanation of clinical findings. 4. Undetermined, no explanation for clinical findings. PHYSICIAN RESPONSE Diagnosis clinically valid: Undetermined Please remember a lack of response to the above will prompt a phone page by CDI/Coding staff. In responding to this query, please exercise your independent professional judgment. The purpose of this communication is to more accurately reflect the complexity of your patients condition. The fact that a question is asked does not imply that any particular answer is desired or expected. Thank you for your timely response to this clarification. Requestors name: Marcela THIS PHYSICIAN QUERY FORM IS A PERMANENT PART OF THE MEDICAL RECORD MARCELA PEÑA Nov 19, 2018 09:00 СЕРГЕЙ SANCHEZ MD Nov 19, 2018 10:48
--- NOTE | 2018-11-20 09:31 | Physician Query-Final Dx ---
REGINE LEON 11/20/18 0931: Final Diagnosis Give Final Diagnosis Please give Final Diagnosis СЕРГЕЙ SANCHEZ MD 11/20/18 1102: Final Diagnosis Give Final Diagnosis constipation, abdominal pain, colorectal dysmotility. REGINE LEON Nov 20, 2018 09:31 СЕРГЕЙ SANCHEZ MD Nov 20, 2018 11:02
== END 2018-11-14 15:35 | disposition home or self-care (01) | DRG 390 ==
LOC: EDUNIT# 20:36 → ER FS 20:37 → 4TH 22:44 → UNDOADMIN 11-13 00:13 → UNDODISIN 11-14 15:35
PROVIDERS: ADMIT Surgery; ATTEND Surgery
PROC: 0DBN8ZX Excision of Sigmoid Colon, Via Natural or Artificial Opening Endoscopic, Diagnostic (ICD-10-PCS; 2018-11-13)
PROC: 0DBP8ZX Excision of Rectum, Via Natural or Artificial Opening Endoscopic, Diagnostic (ICD-10-PCS; 2018-11-13)
PROC: 0D7N8ZZ Dilation of Sigmoid Colon, Via Natural or Artificial Opening Endoscopic (ICD-10-PCS; principal; 2018-11-13 14:10)
DX: K56.699 Other intestinal obstruction unspecified as to partial versus complete obstruction (principal); K59.00 Constipation, unspecified; K92.89 Other specified diseases of the digestive system; K64.1 Second degree hemorrhoids; R11.2 Nausea with vomiting, unspecified; K21.9 Gastro-esophageal reflux disease without esophagitis; M79.605 Pain in left leg; G40.909 Epilepsy, unspecified, not intractable, without status epilepticus; M54.9 Dorsalgia, unspecified; F41.9 Anxiety disorder, unspecified; F31.9 Bipolar disorder, unspecified; F20.9 Schizophrenia, unspecified; R13.10 Dysphagia, unspecified
CPT/HCPCS: 36415; 51702; 71045; 74176; 80053; 81000; 83690; 85025; 87081; 88305; 96361; 96374; 96375; 96376

== ENCOUNTER 2018-11-30 15:18 | Emergency (ER) | payer MEDICARE, MEDICAID ==
[~2018-11-30] VITALS: Ht 158.5 cm; Wt 56.8 kg
[~2018-11-30 15:18] MED LIST changes: +BENZ1TAB6 PO; +CYCL10TA9 PO; +DOCU-143 PO; +LAMO200T2 PO; +NAPR-915 PO; +QUET300T44 PO; +RANI150T11 PO; +RSP50S INJ; +SENN15TA5 PO; +SUCR1TAB PO; +TRAZ-190 PO
--- NOTE | 2018-11-30 15:39 | ED Upper Extremity ---
General Chief Complaint: Upper Extremity Stated Complaint: LT SHOULDER PAIN Source: patient Exam Limitations: no limitations History of Present Illness Date Seen by Provider: Nov 30, 2018 Time Seen by Provider: 15:36 Initial Comments Listed brooks of food with left arm (abducting left shoulder) 30 minutes prior to arrival and felt immediate pain in his left shoulder. He dropped the pain and the pain. Now has pain in his left shoulder and it is difficult to abduct. No direct trauma. History of chronic left shoulder pain. He is supposed to have an MRI. Allergies and Home Medications Allergies Coded Allergies: Penicillins (Verified Allergy, Unknown, 08/19/18) Home Medications Benztropine Mesylate 1 Mg Tablet, 0.5 MG PO HS, (Reported) LAST FILLED #30 07-29-18 TAKES 1/2 (1MG) TABLET Cyclobenzaprine HCl 10 Mg Tablet, 10 MG PO DAILY PRN for MUSCLE SPASMS, (Reported) Docusate Sodium 100 Mg Capsule, 100 MG PO QID PRN for CONSTIPATION-1ST LINE, (Reported) Lamotrigine 200 Mg Tablet, 200 MG PO HS, (Reported) LAST FILLED #90 07-12-18 Naproxen 500 Mg Tablet, 500 MG PO BID PRN for PAIN-MILD, (Reported) Polyethylene Glycol 3350 17 Gm Powd.pack, 17 GM PO TID PRN for CONSTIPATION-2ND LINE, (Reported) Quetiapine Fumarate 300 Mg Tablet, 1,200 MG PO HS, (Reported) TAKES 4 (300MG) TABLETS Ranitidine HCl 150 Mg Tablet, 150 MG PO HS, (Reported) Risperidone 50 Mg/2 Ml Inj, 50 MG INJ EVERY 2 WEEKS, (Reported) Sennosides 15 Mg Tab.chew, 2 TAB.CHEW PO BID PRN for CONSTIPATION-5TH LINE, (Reported) Sucralfate 1 Gm Tablet, 1 GM PO ACHS, (Reported) Trazodone HCl 100 Mg Tablet, 100 MG PO HS, (Reported) Patient Home Medication List Home Medication List Reviewed: Yes Review of Systems Constitutional: no symptoms reported Respiratory: no symptoms reported Cardiovascular: no symptoms reported Gastrointestinal: no symptoms reported Musculoskeletal: joint pain Skin: no symptoms reported Past Wvynfib-Dffbhz-Vwkrng Hx Patient Social History 2nd Hand Smoke Exposure: No Recent Hopitalizations: No Immunizations Up To Date Tetanus Booster (TDap): Unknown Seasonal Allergies Seasonal Allergies: No Past Medical History Surgeries: Yes (RIGHT LEG FUSION CHILD) Cystectomy, Gallbladder, Orthopedic, Tonsillectomy Respiratory: No Cardiac: No Neurological: Yes Seizure Disorder Genitourinary: No Gastrointestinal: No Musculoskeletal: Yes Chronic Back Pain Endocrine: No HEENT: No Cancer: No Psychosocial: Yes Anxiety, Bipolar, Depression Integumentary: No Blood Disorders: No Family Medical History Cardiovascular disease 19 FATHER Diabetes mellitus G8 BROTHER Hypertension 19 FATHER 19 MOTHER G8 BROTHER Heart Disease, Diabetes, Hypertension Physical Exam Vital Signs Capillary Refill : Height, Weight, BMI Height: 5'2.00" Weight: 128lbs. 5.0oz. 58.730030lm; 26.0 BMI Method:Stated General Appearance: WD/WN, no apparent distress Neck: supple Cardiovascular: regular rate, rhythm Respiratory: lungs clear Gastrointestinal: soft Back: normal inspection Shoulder: limited ROM (unable to abduct more than 10 due to pain. Tender over his lateral posterior shoulder.) Neurologic/Psychiatric: alert, normal mood/affect Skin: normal color, warm/dry Progress/Results/Core Measures Results/Orders My Orders Orders - TREVOR MCFARLAND MD Ibuprofen Tablet (Motrin Tablet) (11/30/18 15:45) Progress Progress Note : Progress Note Patient was given sling and ibuprofen. Advised follow-up with orthopedist as soon as possible. Departure Impression Primary Impression: Left shoulder strain Disposition: 01 HOME, SELF-CARE Condition: Stable Departure-Patient Inst. Decision time for Depature: 15:38 Referrals: [facility] [place] (PCP) Primary Care Physician ROSI PARADA APRN (Family) Primary Care Physician Patient Instructions: How to Use a Shoulder Sling Add. Discharge Instructions: With sling for comfort and exudates. Ibuprofen for pain. See orthopedist as soon as possible for follow-up. All discharge instructions reviewed with patient and/or family. Voiced understanding. TREVOR MCFARLAND MD Nov 30, 2018 15:39
[2018-11-30] MEDS ORDERED: IBUPROFEN 600 MG (MOTRIN) TAB PO ONE (15:45)
[2018-11-30 16:08] VITALS: BP 148/78
== END 2018-11-30 16:08 | disposition home or self-care (01) ==
LOC: EDUNIT# 15:18 → ER FS 15:19
DX: S46.912A Strain of unspecified muscle, fascia and tendon at shoulder and upper arm level, left arm, initial encounter (principal); G40.909 Epilepsy, unspecified, not intractable, without status epilepticus; F41.9 Anxiety disorder, unspecified; F31.9 Bipolar disorder, unspecified; Z88.0 Allergy status to penicillin; Z90.89 Acquired absence of other organs; Z82.49 Family history of ischemic heart disease and other diseases of the circulatory system; X50.1XXA Overexertion from prolonged static or awkward postures, initial encounter
CPT/HCPCS: 99283

== ENCOUNTER 2018-12-13 16:54 | Emergency (ER) | payer MEDICARE, MEDICAID ==
[~2018-12-13] VITALS: Ht 157.4 cm; Wt 55.3 kg
[2018-12-13] MEDS ORDERED: ONDANSETRON 4 MG (ZOFRAN) ORAL DISSOLVE TAB PO STA (17:07)
[2018-12-13 17:22] LABS: BILIRUBIN,URINE NEGATIVE (NEGATIVE); CLARITY,URINE CLEAR; COLOR,URINE YELLOW; GLUCOSE, URINE (UA) NEGATIVE (NEGATIVE); KETONES,URINE NEGATIVE (NEGATIVE); LEUKOCYTE ESTERASE ,URINE NEGATIVE (NEGATIVE); NITRITE,URINE NEGATIVE (NEGATIVE); PH,URINE 6.5 (5-9); PROTEIN,URINE NEGATIVE (NEGATIVE); SQUAMOUS EPITHELIAL CELL,UR RARE /HPF; UROBILINOGEN,URINE 0.2 MG/DL (NORMAL)
--- NOTE | 2018-12-13 18:07 | ED Abdominal Pain ---
General Chief Complaint: Abdominal/GI Problems Stated Complaint: ABD PAIN,VOMITING Nursing Triage Note: Patient c/o nausea, vomiting, and abdominal pain for the last 3 days. States his abdominal pain is on the left side. Reports that he hasn't slept in the past 2 days. Sepsis Screen: No Definite Risk Source of Information: Patient Exam Limitations: No Limitations History of Present Illness Date Seen by Provider: Dec 13, 2018 Time Seen by Provider: 17:00 Initial Comments Patient a 48-year-old male presents with left lower quadrant pain with nausea and vomiting. Symptoms began intermittent for the past several hours. Patient reports mild tenderness to palpation. Reports constipation. No urinary frequency urgency dysuria or hematuria. No flank pain. No fever chills, sweats. No history of diverticulosis diverticulitis or kidney stones. No other acute symptoms or complaints. No medications or therapies taken prior to ED arrival. Timing/Duration: 4-6 Hours Severity/Quality: Moderate Location: LLQ Radiation: No Radiation Activities at Onset: None Associated Symptoms: Back Pain Allergies and Home Medications Allergies Coded Allergies: Penicillins (Verified Allergy, Unknown, 08/19/18) Home Medications Benztropine Mesylate 1 Mg Tablet, 0.5 MG PO HS, (Reported) LAST FILLED #30 07-29-18 TAKES 1/2 (1MG) TABLET Cyclobenzaprine HCl 10 Mg Tablet, 10 MG PO DAILY PRN for MUSCLE SPASMS, (Reported) Docusate Sodium 100 Mg Capsule, 100 MG PO QID PRN for CONSTIPATION-1ST LINE, (Reported) Lamotrigine 200 Mg Tablet, 200 MG PO HS, (Reported) LAST FILLED #90 07-12-18 Naproxen 500 Mg Tablet, 500 MG PO BID PRN for PAIN-MILD, (Reported) Polyethylene Glycol 3350 17 Gm Powd.pack, 17 GM PO TID PRN for CONSTIPATION-2ND LINE, (Reported) Quetiapine Fumarate 300 Mg Tablet, 1,200 MG PO HS, (Reported) TAKES 4 (300MG) TABLETS Ranitidine HCl 150 Mg Tablet, 150 MG PO HS, (Reported) Risperidone 50 Mg/2 Ml Inj, 50 MG INJ EVERY 2 WEEKS, (Reported) Sennosides 15 Mg Tab.chew, 2 TAB.CHEW PO BID PRN for CONSTIPATION-5TH LINE, (Reported) Sucralfate 1 Gm Tablet, 1 GM PO ACHS, (Reported) Trazodone HCl 100 Mg Tablet, 100 MG PO HS, (Reported) Patient Home Medication List Home Medication List Reviewed: Yes Review of Systems Review of Systems Constitutional: see HPI EENTM: See HPI Respiratory: See HPI Cardiovascular: See HPI Gastrointestinal: See HPI Genitourinary: See HPI Musculoskeletal: see HPI Skin: see HPI Psychiatric/Neurological: See HPI Endocrine: See HPI Past Ffechjv-Imkorc-Olqgaj Hx Past Med/Social Hx: Reviewed Nursing Past Med/Soc Hx Patient Social History Alcohol Use: Denies Use Recreational Drug Use: No Smoking Status: Never a Smoker 2nd Hand Smoke Exposure: No Recent Foreign Travel: No Contact w/Someone Who Travel: No Recent Infectious Disease Expo: No Recent Hopitalizations: No Physical Abuse: No Sexual Abuse: No Mistreated: No Fear: No Immunizations Up To Date Tetanus Booster (TDap): Unknown Seasonal Allergies Seasonal Allergies: No Past Medical History Surgeries: Yes (RIGHT LEG FUSION CHILD) Cystectomy, Gallbladder, Orthopedic, Tonsillectomy Respiratory: No Cardiac: No Neurological: Yes Seizure Disorder Genitourinary: No Gastrointestinal: No Musculoskeletal: Yes Chronic Back Pain Endocrine: No HEENT: No Cancer: No Psychosocial: Yes Anxiety, Bipolar, Depression Integumentary: No Blood Disorders: No Family Medical History Cardiovascular disease 19 FATHER Diabetes mellitus G8 BROTHER Hypertension 19 FATHER 19 MOTHER G8 BROTHER Heart Disease, Diabetes, Hypertension Physical Exam Vital Signs Vital Signs - First Documented 12/13/18 17:00 Temp 37.4 Pulse 102 Resp 16 B/P (MAP) 138/86 (103) Pulse Ox 98 O2 Delivery Room Air Capillary Refill : Less Than 3 Seconds Height/Weight/BMI Height: 5'2.00" Weight: 128lbs. 5.0oz. 58.696096ws; 22.00 BMI Method:Stated General Appearance: WD/WN, no apparent distress HEENT: PERRL/EOMI Neck: non-tender, full range of motion, supple Respiratory: chest non-tender, lungs clear Cardiovascular: regular rate, rhythm, no edema Gastrointestinal: soft, distended, tenderness (LLQ) Extremities: normal range of motion, non-tender Back: normal inspection, no CVA tenderness Neurologic/Psychiatric: bike technician II-XII nml as tested, no motor/sensory deficits Progress/Results/Core Measures Results/Orders Lab Results Laboratory Tests Test 12/13/18 17:05 12/13/18 17:15 Range/Units Urine Color YELLOW Urine Clarity CLEAR Urine pH 6.5 5-9 Urine Specific [place] <1.005 1.016-1.022 Urine Protein NEGATIVE NEGATIVE Urine Glucose (UA) NEGATIVE NEGATIVE Urine Ketones NEGATIVE NEGATIVE Urine Nitrite NEGATIVE NEGATIVE Urine Bilirubin NEGATIVE NEGATIVE Urine Urobilinogen 0.2 NORMAL MG/DL Urine Leukocyte Esterase NEGATIVE NEGATIVE Urine RBC (Auto) NEGATIVE NEGATIVE Urine RBC NONE /HPF Urine WBC NONE /HPF Urine Squamous Epithelial Cells RARE /HPF Urine Crystals NONE /LPF Urine Bacteria NONE /HPF Urine Casts NONE /LPF Urine Mucus NEGATIVE /LPF Urine Culture Indicated NO Glucometer 123 H 70-110 MG/DL My Orders Orders - KEE PARTIDA DO Ondansetron Oral Dissolve Tab (Zofran (12/13/18 17:07) Urinalysis (12/13/18 17:07) Accucheck Fasting (12/13/18 17:07) Vital Signs/I&O 12/13/18 17:00 Temp 37.4 Pulse 102 Resp 16 B/P (MAP) 138/86 (103) Pulse Ox 98 O2 Delivery Room Air Blood Pressure Mean: 103 FSBG Bedside Testing Finger Stick Blood Glucose: 123 Blood Glucose Action Taken: Notified Physician Departure Communication (Admissions) Abdomen is soft, nonsurgical. i'll treat for constipation and nausea with instructions to follow up with PCP or on Saturday for reevaluation. Return precautions reviewed Impression Primary Impression: Abdominal pain Additional Impression: rectodigmoid mass, constipation, N/V Disposition: 01 HOME, SELF-CARE Condition: Improved Departure-Patient Inst. Referrals: [facility] (PCP) Primary Care Physician ROSI PARADA APRN (Family) Primary Care Physician Patient Instructions: Acute Abdomen (Belly Pain), Adult (DC) Add. Discharge Instructions: Please increase fluids and fiber and take newly prescribed medication as directed. Follow-up with your PCP early next week for reevaluation All discharge instructions reviewed with patient and/or family. Voiced understanding. Scripts Polyethylene Glycol 3350 (Miralax) 17 Gm Powd.pack 17 GM PO BID, #14 EACH Prov: KEE PARTIDA DO 12/13/18 Ondansetron (Ondansetron Odt) 4 Mg Tab.rapdis 4 MG PO Q6H, #10 TAB Prov: KEE PARTIDA DO 12/13/18 KEE PARTIDA DO Dec 13, 2018 18:07
[2018-12-13] MEDS ORDERED: POLY17PO6 PO (18:10)
[2018-12-13] MEDS ORDERED: ONDA4TAB11 PO (18:10)
[2018-12-13 18:19] VITALS: BP 138/86
== END 2018-12-13 18:19 | disposition home or self-care (01) ==
LOC: EDUNIT# 16:54 → ER FS 16:55
DX: K63.89 Other specified diseases of intestine (principal); K59.00 Constipation, unspecified; R11.2 Nausea with vomiting, unspecified; G40.909 Epilepsy, unspecified, not intractable, without status epilepticus; F41.9 Anxiety disorder, unspecified; F31.9 Bipolar disorder, unspecified; Z88.0 Allergy status to penicillin; Z90.89 Acquired absence of other organs; Z82.49 Family history of ischemic heart disease and other diseases of the circulatory system
CPT/HCPCS: 81000; 82962

== ENCOUNTER 2018-12-17 13:05 | Emergency (ER) | payer MEDICARE, MEDICAID ==
[~2018-12-17] VITALS: Ht 182 cm; Wt 56.0 kg
--- NOTE | 2018-12-17 13:24 | ED Back Pain ---
General Chief Complaint: Back Problems Stated Complaint: FALL; NECK/FLAQUITO SHOULDER/BACK INJ Source of Information: Patient Exam Limitations: No Limitations History of Present Illness Date Seen by Provider: Dec 17, 2018 Time Seen by Provider: 13:17 Initial Comments Patient states he slipped getting out of the shower and hurt his upper back. History of chronic back pain. No weakness or numbness of extremities. no head or neck injury Allergies and Home Medications Allergies Coded Allergies: Penicillins (Verified Allergy, Unknown, 08/19/18) Home Medications Benztropine Mesylate 1 Mg Tablet, 0.5 MG PO HS, (Reported) LAST FILLED #30 07-29-18 TAKES 1/2 (1MG) TABLET Cyclobenzaprine HCl 10 Mg Tablet, 10 MG PO DAILY PRN for MUSCLE SPASMS, (Reported) Docusate Sodium 100 Mg Capsule, 100 MG PO QID PRN for CONSTIPATION-1ST LINE, (Reported) Lamotrigine 200 Mg Tablet, 200 MG PO HS, (Reported) LAST FILLED #90 07-12-18 Naproxen 500 Mg Tablet, 500 MG PO BID PRN for PAIN-MILD, (Reported) Ondansetron 4 Mg Tab.rapdis, 4 MG PO Q6H Prescribed by: KEE PARTIDA on 12/13/181809 Polyethylene Glycol 3350 17 Gm Powd.pack, 17 GM PO TID PRN for CONSTIPATION-2ND LINE, (Reported) Polyethylene Glycol 3350 17 Gm Powd.pack, 17 GM PO BID Prescribed by: KEE PARTIDA on 12/13/181809 Quetiapine Fumarate 300 Mg Tablet, 1,200 MG PO HS, (Reported) TAKES 4 (300MG) TABLETS Ranitidine HCl 150 Mg Tablet, 150 MG PO HS, (Reported) Risperidone 50 Mg/2 Ml Inj, 50 MG INJ EVERY 2 WEEKS, (Reported) Sennosides 15 Mg Tab.chew, 2 TAB.CHEW PO BID PRN for CONSTIPATION-5TH LINE, (Reported) Sucralfate 1 Gm Tablet, 1 GM PO ACHS, (Reported) Trazodone HCl 100 Mg Tablet, 100 MG PO HS, (Reported) Patient Home Medication List Home Medication List Reviewed: Yes Review of Systems Constitutional: no symptoms reported Respiratory: no symptoms reported Cardiovascular: no symptoms reported Musculoskeletal: see HPI, back pain, muscle pain, muscle stiffness; No muscle twitching, No muscle weakness, No neck pain Skin: see HPI; No lesions, No lumps Psychiatric/Neurological: Denies Headache, Denies Numbness, Denies Paresthesia, Denies Pre-Existing Deficit Past Xovrswj-Zdgdcu-Ldduwf Hx Past Med/Social Hx: Reviewed Nursing Past Med/Soc Hx Patient Social History 2nd Hand Smoke Exposure: No Recent Hopitalizations: No Immunizations Up To Date Tetanus Booster (TDap): Unknown Seasonal Allergies Seasonal Allergies: No Past Medical History Surgeries: Yes (RIGHT LEG FUSION CHILD) Cystectomy, Gallbladder, Orthopedic, Tonsillectomy Respiratory: No Cardiac: No Neurological: Yes Seizure Disorder Genitourinary: No Gastrointestinal: No Musculoskeletal: Yes Chronic Back Pain Endocrine: No HEENT: No Cancer: No Psychosocial: Yes Anxiety, Bipolar, Depression Integumentary: No Blood Disorders: No Family Medical History Cardiovascular disease 19 FATHER Diabetes mellitus G8 BROTHER Hypertension 19 FATHER 19 MOTHER G8 BROTHER Heart Disease, Diabetes, Hypertension Physical Exam Vital Signs Vital Signs - First Documented 12/17/18 12/17/18 13:19 13:28 Temp 36.5 Pulse 110 Resp 18 B/P (MAP) 126/90 (102) Pulse Ox 99 Capillary Refill : Height, Weight, BMI Height: 5'2.00" Weight: 128lbs. 5.0oz. 58.608055sx; 22.00 BMI Method:Stated General Appearance: No Apparent Distress, WD/WN HEENT: PERRL/EOMI, TMs Normal, Normal ENT Inspection, Pharynx Normal, Other (AT/NC) Neck: Full Range of Motion, Normal Inspection, Non Tender, Supple Back: Normal Inspection, No CVA Tenderness, No Vertebral Tenderness; No Decreased Range of Motion, No Muscle Spasm, No Vertebral Tenderness Extremity: Normal Capillary Refill, Non Tender, No Pedal Edema Progress/Results/Core Measures Results/Orders Vital Signs/I&O 12/17/18 12/17/18 13:19 13:28 Temp 36.5 36.5 Pulse 110 110 Resp 18 18 B/P (MAP) 126/90 (102) 126/90 (102) Pulse Ox 99 Departure Impression Primary Impression: Back pain Qualified Codes: M54.5 - Low back pain Additional Impression: Chronic back pain Qualified Codes: M54.9 - Dorsalgia, unspecified; G89.29 - Other chronic pain Disposition: 01 HOME, SELF-CARE Condition: Stable Departure-Patient Inst. Decision time for Depature: 13:23 Referrals: [facility] (PCP) Primary Care Physician ROSI PARADA APRN (Family) Primary Care Physician Patient Instructions: Upper Back Pain (DC) KADEN WILLOUGHBY DO Dec 17, 2018 13:24
[2018-12-17 13:28] VITALS: BP 126/90
== END 2018-12-17 13:26 | disposition home or self-care (01) ==
LOC: EDUNIT# 13:05 → ER FS 13:07
DX: M54.6 Pain in thoracic spine (principal); G40.909 Epilepsy, unspecified, not intractable, without status epilepticus; F41.9 Anxiety disorder, unspecified; F31.9 Bipolar disorder, unspecified; Z88.0 Allergy status to penicillin; Z90.89 Acquired absence of other organs; Z82.49 Family history of ischemic heart disease and other diseases of the circulatory system; W18.2XXA Fall in (into) shower or empty bathtub, initial encounter
CPT/HCPCS: 99281

== ENCOUNTER → 2018-12-18 | Outpatient (CLI) | payer MEDICARE, MEDICAID ==
--- NOTE | 2018-12-18 10:07 | Diagnostic Imaging Report ---
INDICATION: Back pain after fall. COMPARISON: Lumbar and cervical spine radiographs performed concurrently. TECHNIQUE: 3 views of the thoracic spine were obtained. FINDINGS: Normal kyphosis of thoracic spine. No traumatic subluxation. Vertebral bodies are normal in stature without compression or burst fracture deformity. Intervertebral disc space heights are preserved. Calcified granuloma is present in the right lung base. IMPRESSION: No acute injury in the thoracic spine by radiography. Dictated by: Dictated on workstation # [id number]
--- NOTE | 2018-12-18 10:08 | Diagnostic Imaging Report ---
INDICATION: Cervical spine pain after fall. COMPARISON: None available. TECHNIQUE: Three views of the cervical spine. FINDINGS: Normal kyphosis of the cervical spine. No traumatic subluxation. No features of fracture in the cervical spine. Lateral masses of C1 and C2 are normal in alignment. The dens appears intact. No prevertebral soft tissue swelling. Degenerative disc disease is present at C4-C5 and C5-C6. IMPRESSION: Mild degenerative changes of the cervical spine without features of acute fracture or malalignment. Dictated by: Dictated on workstation # [id number]
--- NOTE | 2018-12-18 10:09 | Diagnostic Imaging Report ---
INDICATION: Back pain after fall. COMPARISON: None available. TECHNIQUE: Three views of the lumbar spine were obtained. FINDINGS: Normal lordosis of the lumbar spine. No traumatic subluxation. Intervertebral disc space heights are preserved. Small endplate spurs are present at L3-L4. Vertebral bodies are normal in stature without compression deformity. SI joints are normal in alignment. 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 IMPRESSION: No features of acute traumatic injury in the lumbar spine by radiography. Dictated by: Dictated on workstation # [id number]
== END ==
LOC: RAD FS 09:20
PROVIDERS: ATTEND Nurse Practitioner Family
DX: M47.812 Spondylosis without myelopathy or radiculopathy, cervical region (principal); M54.5 Low back pain; M54.6 Pain in thoracic spine; W19.XXXA Unspecified fall, initial encounter
CPT/HCPCS: 72040; 72072; 72100

== ENCOUNTER 2019-01-25 22:16 | Emergency (ER) | payer MEDICAID, MEDICARE ==
[~2019-01-25] VITALS: Ht 162 cm; Wt 63.0 kg
[2019-01-25] MEDS ORDERED: KETOROLAC 30 MG/ML VIAL IM STA (22:36)
[2019-01-25] MEDS ORDERED: ORPHENADRINE 60 MG/2 ML (NORFLEX) AMP IM STA (22:36)
--- NOTE | 2019-01-25 22:43 | ED Fall/Injury ---
General Chief Complaint: Trauma-Non Activation Stated Complaint: BACK PAIN Nursing Triage Note: PT TOOK SLEEPING MED TONIGHT AND THEN NEEDED TO GET OUT OF BED. PT FELL AND LANDED ON HIS BACK AND PRESENTS WITH MID/LOW BACK PAIN. PT RATES HIS PAIN 9/10 BUT IS SLEEPING IN ROOM Source: patient, EMS History of Present Illness Date Seen by Provider: Jan 25, 2019 Time Seen by Provider: 22:16 Initial Comments 48-year-old male presenting with complaints of pain in his neck, mid and low back. He states that he had taken a sleeping medicine and then tried to go to the bathroom. He had fell backward and hit his neck and back against his toilet seat. He denies hitting his head or getting knocked out. He complains of pain 9 out of 10. He has not taken anything for pain. He has no numbness or tingling in his arms or legs. He has some chronic pain anyway but reports that this is worse. He keeps falling asleep due to taking his chronic medications. Allergies and Home Medications Allergies Coded Allergies: Penicillins (Verified Allergy, Unknown, 08/19/18) Home Medications Benztropine Mesylate 1 Mg Tablet, 0.5 MG PO HS, (Reported) LAST FILLED #30 07-29-18 TAKES 1/2 (1MG) TABLET Cyclobenzaprine HCl 10 Mg Tablet, 10 MG PO DAILY PRN for MUSCLE SPASMS, (Reported) Docusate Sodium 100 Mg Capsule, 100 MG PO QID PRN for CONSTIPATION-1ST LINE, (Reported) Lamotrigine 200 Mg Tablet, 200 MG PO HS, (Reported) LAST FILLED #90 07-12-18 Naproxen 500 Mg Tablet, 500 MG PO BID PRN for PAIN-MODERATE (4-6) Prescribed by: DU DIEGO on 01/26/19 0020 Ondansetron 4 Mg Tab.rapdis, 4 MG PO Q6H Prescribed by: KEE PARTIDA on 12/13/181809 Polyethylene Glycol 3350 17 Gm Powd.pack, 17 GM PO TID PRN for CONSTIPATION-2ND LINE, (Reported) Polyethylene Glycol 3350 17 Gm Powd.pack, 17 GM PO BID Prescribed by: KEE PARTIDA on 12/13/181809 Quetiapine Fumarate 300 Mg Tablet, 1,200 MG PO HS, (Reported) TAKES 4 (300MG) TABLETS Ranitidine HCl 150 Mg Tablet, 150 MG PO HS, (Reported) Risperidone 50 Mg/2 Ml Inj, 50 MG INJ EVERY 2 WEEKS, (Reported) Sennosides 15 Mg Tab.chew, 2 TAB.CHEW PO BID PRN for CONSTIPATION-5TH LINE, (Reported) Sucralfate 1 Gm Tablet, 1 GM PO ACHS, (Reported) Trazodone HCl 100 Mg Tablet, 100 MG PO HS, (Reported) Patient Home Medication List Home Medication List Reviewed: Yes Review of Systems Review of Systems Constitutional: No chills, No dizziness, No fever Eyes: No Symptoms Reported Ears, Nose, Mouth, Throat: no symptoms reported Respiratory: no symptoms reported Cardiovascular: no symptoms reported Gastrointestinal: No nausea, No vomiting Genitourinary: no symptoms reported Musculoskeletal: see HPI Skin: No change in color, No rash; other (no bruising or lacerations noted) Psychiatric/Neurological: Denies Headache Past Laixqgr-Gruimp-Fvbzae Hx Past Med/Social Hx: Reviewed Nursing Past Med/Soc Hx Patient Social History 2nd Hand Smoke Exposure: No Recent Foreign Travel: No Contact w/Someone Who Travel: No Recent Infectious Disease Expo: No Recent Hopitalizations: No Physical Abuse: No Sexual Abuse: No Immunizations Up To Date Tetanus Booster (TDap): Unknown Seasonal Allergies Seasonal Allergies: No Past Medical History Surgeries: Yes (RIGHT LEG FUSION CHILD) Cystectomy, Gallbladder, Orthopedic, Tonsillectomy Respiratory: No Cardiac: No Neurological: Yes Seizure Disorder Genitourinary: No Gastrointestinal: No Musculoskeletal: Yes Chronic Back Pain Endocrine: No HEENT: No Cancer: No Psychosocial: Yes Anxiety, Bipolar, Depression Integumentary: No Blood Disorders: No Family Medical History Cardiovascular disease 19 FATHER Diabetes mellitus G8 BROTHER Hypertension 19 FATHER 19 MOTHER G8 BROTHER Heart Disease, Diabetes, Hypertension Physical Exam Vital Signs Vital Signs - First Documented 01/25/19 22:19 Temp 35.6 Pulse 113 Resp 16 B/P (MAP) 131/76 (94) Pulse Ox 95 O2 Delivery Room Air Capillary Refill : Less Than 3 Seconds Height, Weight, BMI Height: 5'2.00" Weight: 128lbs. 5.0oz. 58.499695zr; 24.00 BMI Method:Stated General Appearance: no apparent distress, other (patient keeps falling asleep during the interview but when awake complaints of pain 9 out of 10) HEENT: PERRL/EOMI, pharynx normal Neck: full range of motion, supple, tender lateral; No tender midline Cardiovascular: normal peripheral pulses, regular rate, rhythm Respiratory: chest non-tender, lungs clear, normal breath sounds Gastrointestinal: normal bowel sounds, non tender, soft Back: vertebral tenderness (thoracic and lumbar T10-L2 level) Extremities: normal capillary refill Neurologic/Psychiatric: other (pt awakens to voice and follows commands but is somnolent from taking his night time medicines at home) Skin: normal color, warm/dry; No ecchymosis Progress/Results/Core Measures Results/Orders My Orders Orders - DU DIEGO MD Ct Cerv/Thoracic/Lumbar Wo (01/25/19 22:36) Ketorolac Injection (Toradol Injection) (01/25/19 22:36) Orphenadrine Injection (Norflex Injectio (01/25/19 22:36) Vital Signs/I&O 01/25/19 01/26/19:19 00:27 Temp 35.6 Pulse 113 92 Resp 16 16 B/P (MAP) 131/76 (94) 124/85 Pulse Ox 95 99 O2 Delivery Room Air Room Air Blood Pressure Mean: 94 POS Progress Progress Note #1: Progress Note After Toradol and Norflex for his pain. Obtain CT scan of the cervical thoracic and lumbar spine to evaluate for possible fracture since he complains of pain in those areas. I did not palpate any step-off or deformity on physical exam. Progress Note #2: Progress Note Pt continues to be resting comfortably in room and is able to move without difficulty when he was transferring from bed to CT table and back. CT scans of Cervical, Thoracic and Lumbar spine were all negative for acute findings. Will discharge on Naproxen and encourage him to follow up with clinic for continued concerns. He may still have pain but with nothing fractured or out of place he seems to have contusions and nothing that would indicate a need for further imaging or specialist care at this point. Diagnostic Imaging Diagonstic Imaging: CT Plain Films/CT/US/NM/MRI: c-spine (Lumbar and Thoracic spine) Comments Cervical spine impression no acute findings Thoracic spine impression no acute findings Lumbar spine impression no acute findings Read by radiologist Dr. Miller Ward MD at 2338 and faxed at 0002 Reviewed: [facility] Primary Impression: Contusion of thoracic wall Qualified Codes: S20.229A - Contusion of unspecified back wall of thorax, initial encounter Additional Impressions: Lumbar contusion Qualified Codes: S30.0XXA - Contusion of lower back and pelvis, initial encounter Cervical myofascial strain Qualified Codes: S16.1XXA - Strain of muscle, fascia and tendon at neck level, initial encounter Fall at home Qualified Codes: W19.XXXA - Unspecified fall, initial encounter; Y92.009 - Unspecified place in unspecified non-institutional (private) residence as the place of occurrence of the external cause Disposition: HOME, SELF-CARE Condition: Stable Departure-Patient Inst. Decision time for Depature: 00:17 Referrals: [facility] (PCP) Primary Care Physician ROSI PARADA APRN (Family) Primary Care Physician Patient Instructions: Contusion (DC), Low Back Pain (DC), Neck Sprain (DC), Preventing Falls, Upper Back Pain (DC) Add. Discharge Instructions: From your fall you have contusions to your back and neck. There are no acute fractures or broken bones. You may use naproxen to help with pain and inflammation. You may also alternate ice and heat to your back to help with pain. Check back with your regular provider for continued concerns and problems All discharge instructions reviewed with patient and/or family. Voiced understanding. Scripts Naproxen (Naproxen) 500 Mg Tablet 500 MG PO BID PRN for PAIN-MODERATE (4-6) for 10 Days, #20 TAB 0 Refills Prov: DU DIEGO MD 01/26/19 DU DIEGO MD Jan 25, 2019 22:43 POS
[2019-01-26] MEDS ORDERED: NAPR-915 PO (00:20)
[2019-01-26 00:27] VITALS: BP 124/85
--- NOTE | 2019-01-26 06:58 | Diagnostic Imaging Report ---
INDICATION: Fall, pain COMPARISON: 12/18/2018 and 11/12/2018 TECHNIQUE: Multiple contiguous axial CT images are obtained through the cervical, thoracic, and lumbar spine without the use of intravenous contrast dated 01/25/2019. Sagittal and coronal reformatted images were reviewed. Dose reduction techniques were used 2 comply with ALAR standards. FINDINGS: Alignment of the cervical spine is well maintained. Alignment of the atlantooccipital joint is well maintained. 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 Vertebral body heights are well-maintained. Mild disc space height loss at C4/C5. No severe disc space height loss. No acute fracture or dislocation. No destructive osseous process. Scattered facet joint degenerative changes and uncovertebral joint hypertrophy are present. No high-grade osseous central canal stenosis. No significant anterolisthesis or retrolisthesis within the thoracic spine. Vertebral body heights are well-maintained. No acute fracture or dislocation. No destructive osseous process. No high-grade osseous central canal or neural foraminal stenosis. Calcified mediastinal and hilar lymph nodes are present. Calcified granuloma are noted within the lungs. Minimal background emphysematous changes. Alignment of the lumbar spine is well maintained. Vertebral body heights are well-maintained. Disc space heights demonstrate mild disc space height loss at L3/L4. No severe disc space height loss. Bilateral pars interarticularis defects of L3 without associated anterolisthesis. No acute fracture or dislocation. No destructive osseous process. Visualized sacroiliac joints are intact. Mild bilateral neural foraminal stenosis at L3/L4 without severe osseous central canal or neural foraminal stenosis. IMPRESSION: No acute osseous abnormality. Mild scattered degenerative changes. Pars interarticularis defects of L3 without significant anterolisthesis of L3 on L4. Additional findings as above. Agree with the preliminary interpretation. Dictated by: Dictated on workstation # [id number]
== END 2019-01-26 00:30 | disposition home or self-care (01) ==
LOC: EDUNIT# 22:16 → ER FS 22:18
DX: S16.1XXA Strain of muscle, fascia and tendon at neck level, initial encounter (principal); S20.229A Contusion of unspecified back wall of thorax, initial encounter; S30.0XXA Contusion of lower back and pelvis, initial encounter; G40.909 Epilepsy, unspecified, not intractable, without status epilepticus; F41.9 Anxiety disorder, unspecified; F31.9 Bipolar disorder, unspecified; Z88.0 Allergy status to penicillin; Z90.89 Acquired absence of other organs; Z82.49 Family history of ischemic heart disease and other diseases of the circulatory system; W01.198A Fall on same level from slipping, tripping and stumbling with subsequent striking against other object, initial encounter
CPT/HCPCS: 72125; 72128; 72131; 96372

== ENCOUNTER 2019-02-14 12:59 | Emergency (ER) | payer MEDICARE, MEDICAID ==
[~2019-02-14] VITALS: Ht 158.1 cm; Wt 53.9 kg
--- NOTE | 2019-02-14 13:08 | ED Fall/Injury ---
General Stated Complaint: FALL Source: patient Exam Limitations: no limitations History of Present Illness Date Seen by Provider: Feb 14, 2019 Time Seen by Provider: 13:04 Initial Comments 48-year-old male presents on a fall. Patient was walking about 6 hrs ago when he slipped on the wet concrete and fell. He is complaining of some mild pain in his left hip. He can bear weight. He did not his head. He denies any other injuries. Comes because he just wants to have it checked out. Allergies and Home Medications Allergies Coded Allergies: Penicillins (Verified Allergy, Unknown, 08/19/18) Home Medications Benztropine Mesylate 1 Mg Tablet, 0.5 MG PO HS, (Reported) LAST FILLED #30 07-29-18 TAKES 1/2 (1MG) TABLET Cyclobenzaprine HCl 10 Mg Tablet, 10 MG PO DAILY PRN for MUSCLE SPASMS, (Reported) Docusate Sodium 100 Mg Capsule, 100 MG PO QID PRN for CONSTIPATION-1ST LINE, (Reported) Lamotrigine 200 Mg Tablet, 200 MG PO HS, (Reported) LAST FILLED #90 07-12-18 Naproxen 500 Mg Tablet, 500 MG PO BID PRN for PAIN-MODERATE (4-6) Prescribed by: DU DIEGO on 01/26/19 0020 Ondansetron 4 Mg Tab.rapdis, 4 MG PO Q6H Prescribed by: KEE PARTIDA on 12/13/181809 Polyethylene Glycol 3350 17 Gm Powd.pack, 17 GM PO TID PRN for CONSTIPATION-2ND LINE, (Reported) Polyethylene Glycol 3350 17 Gm Powd.pack, 17 GM PO BID Prescribed by: KEE PARTIDA on 12/13/181809 Quetiapine Fumarate 300 Mg Tablet, 1,200 MG PO HS, (Reported) TAKES 4 (300MG) TABLETS Ranitidine HCl 150 Mg Tablet, 150 MG PO HS, (Reported) Risperidone 50 Mg/2 Ml Inj, 50 MG INJ EVERY 2 WEEKS, (Reported) Sennosides 15 Mg Tab.chew, 2 TAB.CHEW PO BID PRN for CONSTIPATION-5TH LINE, (Reported) Sucralfate 1 Gm Tablet, 1 GM PO ACHS, (Reported) Trazodone HCl 100 Mg Tablet, 100 MG PO HS, (Reported) Patient Home Medication List Home Medication List Reviewed: Yes Review of Systems Review of Systems Constitutional: no symptoms reported Ears, Nose, Mouth, Throat: no symptoms reported Respiratory: no symptoms reported Cardiovascular: no symptoms reported Gastrointestinal: no symptoms reported Musculoskeletal: see HPI Past Snvzyxv-Xkrzvg-Kojmhn Hx Past Med/Social Hx: Reviewed Nursing Past Med/Soc Hx Patient Social History 2nd Hand Smoke Exposure: No Recent Hopitalizations: No Immunizations Up To Date Tetanus Booster (TDap): Unknown Seasonal Allergies Seasonal Allergies: No Past Medical History Surgeries: Yes (RIGHT LEG FUSION CHILD) Cystectomy, Gallbladder, Orthopedic, Tonsillectomy Respiratory: No Cardiac: No Neurological: Yes Seizure Disorder Genitourinary: No Gastrointestinal: No Musculoskeletal: Yes Chronic Back Pain Endocrine: No HEENT: No Cancer: No Psychosocial: Yes Anxiety, Bipolar, Depression Integumentary: No Blood Disorders: No Family Medical History Cardiovascular disease 19 FATHER Diabetes mellitus G8 BROTHER Hypertension 19 FATHER 19 MOTHER G8 BROTHER Heart Disease, Diabetes, Hypertension Physical Exam Vital Signs Vital Signs - First Documented 02/14/19 13:07 Temp 36.0 Pulse 94 Resp 20 B/P (MAP) 120/93 (102) Pulse Ox 98 O2 Delivery Room Air Capillary Refill : Height, Weight, BMI Height: 5'2.00" Weight: 128lbs. 5.0oz. 58.054802qn; 24.00 BMI Method:Stated General Appearance: WD/WN, no apparent distress HEENT: PERRL/EOMI Neck: full range of motion, supple Cardiovascular: normal peripheral pulses, regular rate, rhythm Respiratory: lungs clear Back: normal inspection, no CVA tenderness Extremities: other (mild tenderness to palpation left hip) Neurologic/Psychiatric: oriented x 3 Skin: normal color, warm/dry Progress/Results/Core Measures Results/Orders My Orders Orders - DEANNA GREENE DO Hip 2-3 View Left (02/14/19 13:09) Vital Signs/I&O 02/14/19 13:07 Temp 36.0 Pulse 94 Resp 20 B/P (MAP) 120/93 (102) Pulse Ox 98 O2 Delivery Room Air Diagnostic Imaging Diagonstic Imaging: Xray Plain Films/CT/US/NM/MRI: hip Reviewed: Reviewed/Discussed Departure Impression Primary Impression: Contusion of left hip, initial encounter Disposition: 01 HOME, SELF-CARE Condition: Stable Departure-Patient Inst. Referrals: [facility] (PCP) Primary Care Physician ROSI PARADA APRN (Family) Primary Care Physician Patient Instructions: Contusion (DC), Hip Pointer (DC) Add. Discharge Instructions: Tylenol or ibuprofen as needed for pain DEANNA GREENE DO Feb 14, 2019 13:08 POS
--- NOTE | 2019-02-14 13:29 | Diagnostic Imaging Report ---
CLINICAL HISTORY: Fall 6 hours ago. Left-sided pain. COMPARISON: None. TECHNIQUE: Two views of the left hip. FINDINGS: There is no acute fracture or dislocation of the left hip. Alignment is anatomic. The imaged joint spaces are preserved. No joint effusion is seen in the left hip. The surrounding soft tissues are unremarkable. IMPRESSION: 1. No acute fracture or dislocation in the left hip. Dictated by: Dictated on workstation # [id number]
[2019-02-14 13:53] VITALS: BP 120/93
[2019-03-06] MEDS ORDERED: CYCL10TA9 PO (12:01)
[2019-03-06] MEDS ORDERED: DICL50TA4 PO (12:01)
--- OUTSIDE RECORDS SUMMARY | 2019-03-11 22:10 | XMS REPORT | Continuity of Care Document ---
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 ADHESIVE BONDING MACHINE OPERATOR Ot M54.5 LOW BACK PAIN 02/14/2019 ROSI PARADA ADHESIVE BONDING MACHINE OPERATOR Ot M54.6 PAIN IN THORACIC SPINE 02/14/2019 ROSI PARADA ADHESIVE BONDING MACHINE OPERATOR Ot W19.XXXA UNSPECIFIED FALL, INITIAL ENCOUNTER 02/14/2019 KARLA CORTES Ot M25.571 PAIN IN RIGHT ANKLE AND JOINTS OF RIGHT 02/14/2019 KARLA CORTESP Ot M79.661 PAIN IN RIGHT LOWER LEG 02/14/2019 KARLA CORTESP Ot Z98.890 OTHER SPECIFIED POSTPROCEDURAL STATES 02/14/2019 ROSI PARADA ADHESIVE BONDING MACHINE OPERATOR Ot M47.812 SPONDYLOSIS W/O MYELOPATHY OR RADICULOPA 02/14/2019 KARMA, ROSI Jose Juan ADHESIVE BONDING MACHINE OPERATOR Ot M54.5 LOW BACK PAIN 02/14/2019 ROSI PARADA ADHESIVE BONDING MACHINE OPERATOR Ot M54.6 PAIN IN THORACIC SPINE 02/14/2019 ROSI PARADA ADHESIVE BONDING MACHINE OPERATOR Ot W19.XXXA UNSPECIFIED FALL, INITIAL ENCOUNTER 02/14/2019 GREENE DO, DEANNA L Ot F31.9 BIPOLAR DISORDER, UNSPECIFIED 02/14/2019 GREENE DO, DEANNA L Ot F41.9 ANXIETY DISORDER, UNSPECIFIED 02/14/2019 GREENE DO, DEANNA L Ot G40.9 09 EPILEPSY, UNSP, NOT INTRACTABLE, WITHOUT 02/14/2019 GREENE DO, DEANNA L Ot M25.5 52 PAIN IN LEFT HIP 02/14/2019 GREENE DO, DEANNA L Ot S70.02XA CONTUSION OF LEFT HIP, INITIAL ENCOUNTER 02/14/2019 GREENE DO, DEANNA L Ot W01.0XXA FALL SAME LEV FROM SLIP/TRIP W/O STRIKE 02/14/2019 GREENE DO, DEANNA L Ot Z82.4 9 FAMILY HX OF ISCHEM HEART DIS AND OTH DI 02/14/2019 GREENE DO, DEANNA L Ot Z88.0 ALLERGY STATUS TO PENICILLIN 02/14/2019 GREENE DO, DEANNA L Ot Z90.8 9 ACQUIRED ABSENCE OF OTHER ORGANS 02/15/2019 ANTONETTE MONTANEZ MD Ot F31. 9 BIPOLAR DISORDER, UNSPECIFIED 02/15/2019 ANTONETTE MONTANEZ MD Ot F41. 9 ANXIETY DISORDER, UNSPECIFIED 02/15/2019 ANTONETTE MONTANEZ MD Ot G40.909 EPILEPSY, UNSP, NOT INTRACTABLE, WITHOUT 02/15/2019 ANTONETTE MONTANEZ MD Ot M79.605 PAIN IN LEFT LEG 02/15/2019 ANTONETTE MONTANEZ MD Ot W01.0XXA FALL SAME LEV FROM SLIP/TRIP W/O STRIKE 02/15/2019 ANTONETTE MONTANEZ MD Ot Y92.[address] OF OCCURRENCE OF T 02/15/2019 ANTONETTE MONTANEZ MD Ot Z82. 49 FAMILY HX OF ISCHEM HEART DIS AND OTH DI 02/15/2019 ANTONETTE MONTANEZ MD Ot Z88. 0 ALLERGY STATUS TO PENICILLIN 02/15/2019 ANTONETTE MONTANEZ MD Ot Z90. 89 ACQUIRED ABSENCE OF OTHER ORGANS 02/19/2019 GREENE DO, DEANNA L Ot F31.9 BIPOLAR DISORDER, UNSPECIFIED 02/19/2019 GREENE DO, DEANNA L Ot F41.9 ANXIETY DISORDER, UNSPECIFIED 02/19/2019 GREENE DO, DEANNA L Ot G40.9 09 EPILEPSY, UNSP, NOT INTRACTABLE, WITHOUT 02/19/2019 GREENE DO, DEANNA L Ot M25.5 52 PAIN IN LEFT HIP 02/19/2019 GREENE DO, DEANNA L Ot S70.02XA CONTUSION OF LEFT HIP, INITIAL ENCOUNTER 02/19/2019 GREENE DO, DEANNA L Ot W01.0XXA FALL SAME LEV FROM SLIP/TRIP W/O STRIKE 02/19/2019 GREENE DO, DEANNA L Ot Z82.4 9 FAMILY HX OF ISCHEM HEART DIS AND OTH DI 02/19/2019 GREENE DO, DEANNA L Ot Z88.0 ALLERGY STATUS TO PENICILLIN 02/19/2019 GREENE DO, DEANNA L Ot Z90.8 9 ACQUIRED ABSENCE OF OTHER ORGANS 02/21/2019 GREENE DO, DEANNA L Ot F31.9 BIPOLAR DISORDER, UNSPECIFIED 02/21/2019 GREENE DO, DEANNA L Ot F41.9 ANXIETY DISORDER, UNSPECIFIED 02/21/2019 GREENE DO, DEANNA L Ot G40.9 09 EPILEPSY, UNSP, NOT INTRACTABLE, WITHOUT 02/21/2019 GREENE DO, DEANNA L Ot M25.5 52 PAIN IN LEFT HIP 02/21/2019 DEANNA GREENE DO Ot S70.02XA CONTUSION OF LEFT HIP, INITIAL ENCOUNTER 02/21/2019 DEANNA GREENE DO Ot W01.0XXA FALL SAME LEV FROM SLIP/TRIP W/O STRIKE 02/21/2019 DEANNA GREENE DO Ot Z82.4 9 FAMILY HX OF ISCHEM HEART DIS AND OTH DI 02/21/2019 DEANNA GREENE DO Ot Z88.0 ALLERGY STATUS TO PENICILLIN 02/21/2019 DEANNA GREENE DO Ot Z90.8 9 ACQUIRED ABSENCE OF OTHER ORGANS 03/06/2019 KARLA CORTES COMMERCIAL REAL ESTATE SALES MANAGER Ot M25.571 PAIN IN RIGHT ANKLE AND JOINTS OF RIGHT 03/06/2019 KARLA CORTES COMMERCIAL [employer] ESTATE SALES MANAGER Ot M79.661 PAIN IN RIGHT LOWER LEG 03/06/2019 KARLA CORTES COMMERCIAL REAL ESTATE SALES MANAGER Ot Z98.890 OTHER SPECIFIED POSTPROCEDURAL STATES 03/06/2019 ROSI PARADA ADHESIVE BONDING MACHINE OPERATOR Ot M47.812 SPONDYLOSIS W/O MYELOPATHY OR RADICULOPA 03/06/2019 ROSI PARADA ADHESIVE BONDING MACHINE OPERATOR Ot M54.5 LOW BACK PAIN 03/06/2019 ROSI PARADA ADHESIVE BONDING MACHINE OPERATOR Ot M54.6 PAIN IN THORACIC SPINE 03/06/2019 ROSI PARADA ADHESIVE BONDING MACHINE OPERATOR Ot W19.XXXA UNSPECIFIED FALL, INITIAL ENCOUNTER 03/09/2019 CHARANJIT WYMAN MD Ot F31. 9 BIPOLAR DISORDER, UNSPECIFIED 03/09/2019 CHARANJIT WYMAN MD Ot F41. 9 ANXIETY DISORDER, UNSPECIFIED 03/09/2019 CHARANJIT WYMAN MD Ot G40.909 EPILEPSY, UNSP, NOT INTRACTABLE, WITHOUT 03/09/2019 CHARANJIT WYMAN MD Ot M79.652 PAIN IN LEFT THIGH 03/09/2019 CHARANJIT WYMAN MD Ot S70.12XA CONTUSION OF LEFT THIGH, INITIAL ENCOUNT 03/09/2019 CHARANJIT WYMAN MD Ot W10.1XXA FALL (ON)(FROM) SIDEWALK CURB, INITIAL E 03/09/2019 CHARANJIT WYMAN MD Ot Y92.[address] OF OCCURRENCE OF T 03/09/2019 CHARANJIT WYMAN MD Ot Z82. 49 FAMILY HX OF ISCHEM HEART DIS AND OTH DI 03/09/2019 CHARANJIT WYMAN MD, Ot Z88. 0 ALLERGY STATUS TO PENICILLIN 03/09/2019 CHARANJIT WYMAN MD, Ot Z90. 89 ACQUIRED ABSENCE OF OTHER ORGANS 03/09/2019 CHARANJIT WYMAN MD, Ot F31. 9 BIPOLAR DISORDER, UNSPECIFIED 03/09/2019 CHARANJIT WYMAN MD, Ot F41. 9 ANXIETY DISORDER, UNSPECIFIED 03/09/2019 CHARANJIT WYMAN MD, Ot G40.909 EPILEPSY, UNSP, NOT INTRACTABLE, WITHOUT 03/09/2019 CHARANJIT WYMAN MD, Ot M79.652 PAIN IN LEFT THIGH 03/09/2019 CHARANJIT WYMAN MD, Ot S70.12XA CONTUSION OF LEFT THIGH, INITIAL ENCOUNT 03/09/2019 CHARANJIT WYMAN MD, Ot W10.1XXA FALL (ON)(FROM) SIDEWALK CURB, INITIAL E 03/09/2019 CHARANJIT WYMAN MD, Ot Y92.[address] OF OCCURRENCE OF T 03/09/2019 CHARANJIT WYMAN MD, Ot Z82. 49 FAMILY HX OF ISCHEM HEART DIS AND OTH DI 03/09/2019 CHARANJIT WYMAN MD, Ot Z88. 0 ALLERGY STATUS TO PENICILLIN 03/09/2019 CHARANJIT WYMAN MD, Ot Z90. 89 ACQUIRED ABSENCE OF OTHER ORGANS Procedures Code Description Performed By Per formed On [id number] DI LATION OF SIGMOID COLON, ENDO 11/13/2018 [id number] DI LATION OF RECTUM WITH INTRALUMINAL DEV 11/13/[id number] HUERTAS OF STOMACH WITH DRAINAGE DEVICE 11/13/2018 [id number] EX CISION OF SIGMOID COLON, ENDO, DIAGN 11/13/2018 [id number] EX CISION OF RECTUM, ENDO, DIAGN 11/13/2018 Results Test Result Range PDM - PAIN MGMT (PROFILE 3 WITH CONFIRMA TION) - 05/29/17 16:55 Prescribed Drug 1 Tramadol NRG Creatinine 21.8 mg/dL > or = 20.0 pH 6.61 4.5 - 9.0 Oxidant NEGATIVE [...] Tramadol NRG Complete urinalysis with reflex to cultu re - 08/06/18 18:26 Urine color determination YELLOW NRG Urine clarity determination CLEAR NR G Urine pH measurement by test strip 6.0 5-9 Specific gravity of urine by test strip <= 1.016-1.022 Urine protein assay by test strip, semi-quantitative NEGATIVE NEGATIVE Urine glucose detection by automated test strip NE GATIVE NEGATIVE Erythrocytes detection in urine sediment by light micr oscopy NEGATIVE NEGATIVE Urine ketones detection by automated test strip NE GATIVE NEGATIVE Urine nitrite detection by test strip NEGATIVE NEGATIVE Urine total bilirubin detection by test strip NEGA TIVE NEGATIVE Urine urobilinogen measurement by automated test strip (mass/volume) 0.2 mg/dL NORMAL Urine leukocyte esterase detection by dipstick NEG ATIVE NEGATIVE Automated urine sediment erythrocyte cou nt by microscopy (number/high power field) NONE NRG Automated urine sediment leukocyte count by microscopy (number/high power field) RARE NRG Bacteria detection in urine sediment by light microsco py NEGATIVE NRG Squamous epithelial cells detection in u rine sediment by light microscopy RARE NRG Crystals detection in urine sediment by light microsco py NONE NRG Casts detection in urine sediment by light microscopy NONE NRG Mucus detection in urine sediment by light microscopy NEGATIVE NRG Complete urinalysis with reflex to culture NO NRG Complete blood count (CBC) with automate d white blood cell (WBC) differential - 08/06/18 18:40 Blood leukocytes automated count (number/volume) 7.8 10*3/uL 4.3-11.0 Blood erythrocytes automated count (number/volume) 4.81 10*6/uL 4.35-5.85 Venous blood hemoglobin measurement (mass/volume) 13.9 g/dL 13.3-17.7 Blood hematocrit (volume fraction) 42 % 40-54 Automated erythrocyte mean corpuscular volume 87 [ foz_us] 80-99 Automated erythrocyte mean corpuscular h emoglobin (mass per erythrocyte) 29 pg 25-34 Automated erythrocyte mean corpuscular h emoglobin concentration measurement (mass/volume) 33 g/dL 32-36 Automated erythrocyte distribution width ratio 12. 3 % 10.0- 14.5 Automated blood platelet count [...] 10*3 1.0-4.0 Blood monocytes automated count (number/volume) 1. 1 10*3 0.0-1.0 Automated eosinophil count 0.2 10*3/uL 0 .0-0.3 Automated blood basophil count (count/volume) 0.1 10*3/uL 0.0-0.1 Comprehensive metabolic panel - 08/06/18 18:40 Serum or plasma sodium measurement (moles/volume) 138 mmol/L 135-145 Serum or plasma potassium measurement (moles/volume) 3.2 mmol/L 3.6-5.0 Serum or plasma chloride measurement (moles/volume) 99 mmol/L 98-107 Carbon dioxide 25 mmol/L 21-32 Serum or plasma anion gap determination (moles/volume) 14 mmol/L 5-14 Serum or plasma urea nitrogen measurement (mass/volume ) 8 mg/dL 7-18 Serum or plasma creatinine measurement (mass/volume) 1.00 mg/dL 0.60-1.30 Serum or plasma urea nitrogen/creatinine mass ratio 8 NRG Serum or plasma creatinine measurement w ith calculation of estimated glomerular filtration rate > NRG Serum or plasma glucose measurement (mass/volume) 79 mg/dL 70-105 Serum or plasma calcium measurement (mass/volume) 9.0 mg/dL 8.5-10.1 Serum or plasma total bilirubin measurement (mass/volu me) 0.3 mg/dL 0.1-1.0 Serum or plasma alkaline phosphatase kenna surement (enzymatic activity/volume) 90 U/L 40-136 Serum or plasma aspartate aminotransfera se measurement (enzymatic activity/volume) 18 U/L 5-34 Serum or plasma alanine aminotransferase measurement (enzymatic activity/volume) 15 U/L 0-55 Serum or plasma protein measurement (mass/volume) 7.1 g/dL 6.4-8.2 Serum or plasma albumin measurement (mass/volume) 4.4 g/dL 3.2-4.5 CALCIUM CORRECTED 8.7 mg/dL 8.5-10.1 Magnesium - 08/06/18 18:40 Magnesium 2.0 mg/dL 1.8-2.4 Lipase - 08/06/18 18:40 Lipase 35 U/L 8-78 Serum or plasma C reactive protein measu rement (mass/volume) - 08/06/18 18:40 Serum or plasma C reactive protein measurement (mass/v olume) 0.17 mg/dL 0.00-0.50 Complete urinalysis with reflex to cultu re - 08/19/18 20:43 Urine color determination YELLOW NRG Urine clarity determination CLEAR NR G Urine pH measurement by test strip 6.5 5-9 Specific gravity of urine by test strip 1.025 1.016-1.022 Urine protein assay by test strip, semi-quantitative NEGATIVE NEGATIVE Urine glucose detection by automated test strip NE GATIVE NEGATIVE Erythrocytes detection in urine sediment by light micr oscopy NEGATIVE NEGATIVE Urine ketones detection by automated test strip NE GATIVE NEGATIVE Urine nitrite detection by test strip NEGATIVE NEGATIVE Urine total bilirubin detection by test strip NEGA TIVE NEGATIVE Urine urobilinogen measurement by automated test strip (mass/volume) 0.2 mg/dL NORMAL Urine leukocyte esterase detection by dipstick NEG ATIVE NEGATIVE Automated urine sediment erythrocyte cou nt by microscopy (number/high power field) NONE NRG Automated urine sediment leukocyte count by microscopy (number/high power field) NONE NRG Bacteria detection in urine sediment by light microsco py NONE NRG Squamous epithelial cells detection in u rine sediment by light microscopy RARE NRG Crystals detection in urine sediment by light microsco py NONE NRG Casts detection in urine sediment by light microscopy NONE NRG Mucus detection in urine sediment by light microscopy TRACE NRG Complete urinalysis with reflex to culture NO NRG Complete blood count (CBC) with automate d white blood cell (WBC) differential - 08/19/18 20:45 Blood leukocytes automated count (number/volume) 9.2 10*3/uL 4.3-11.0 Blood erythrocytes automated count (number/volume) 4.45 10*6/uL 4.35-5.85 Venous blood hemoglobin measurement (mass/volume) 13.0 g/dL 13.3-17.7 Blood hematocrit (volume fraction) 39 % 40-54 Automated erythrocyte mean corpuscular volume 87 [ foz_us] 80-99 Automated erythrocyte mean corpuscular h emoglobin (mass per erythrocyte) 29 pg 25-34 Automated erythrocyte mean corpuscular h emoglobin concentration measurement (mass/volume) 34 g/dL 32-36 Automated erythrocyte distribution width ratio 12. 7 % 10.0- 14.5 Automated blood platelet count [...] 10*3 1.0-4.0 Blood monocytes automated count (number/volume) 1. 0 10*3 0.0-1.0 Automated eosinophil count 0.1 10*3/uL 0 .0-0.3 Automated blood basophil count (count/volume) 0.0 10*3/uL 0.0-0.1 Comprehensive metabolic panel - 08/19/18 20:45 Serum or plasma sodium measurement (moles/volume) 141 mmol/L 135-145 Serum or plasma potassium measurement (moles/volume) 3.9 mmol/L 3.6-5.0 Serum or plasma chloride measurement (moles/volume) 102 mmol/L 98-107 Carbon dioxide 23 mmol/L 21-32 Serum or plasma anion gap determination (moles/volume) 16 mmol/L 5-14 Serum or plasma urea nitrogen measurement (mass/volume ) 12 mg/dL 7-18 Serum or plasma creatinine measurement (mass/volume) 1.19 mg/dL 0.60-1.30 Serum or plasma urea nitrogen/creatinine mass ratio 10 NRG Serum or plasma creatinine measurement w ith calculation of estimated glomerular filtration rate > NRG Serum or plasma glucose measurement (mass/volume) 114 mg/dL 70-105 Serum or plasma calcium measurement (mass/volume) 9.1 mg/dL 8.5-10.1 Serum or plasma total bilirubin measurement (mass/volu me) 0.2 mg/dL 0.1-1.0 Serum or plasma alkaline phosphatase kenna surement (enzymatic activity/volume) 94 U/L 40-136 Serum or plasma aspartate aminotransfera se measurement (enzymatic activity/volume) 14 U/L 5-34 Serum [...] 09:33 WHITE BLOOD CELL COUNT 5.9 Thousand/uL 3 .8-10.8 RED BLOOD CELL COUNT 4.96 Million/uL 4.2 0-5.80 HEMOGLOBIN 14.1 g/dL 13.2-17.1 HEMATOCRIT 43.3 % 38.5-50.0 MCV 87.3 fL 80.0-100.0 MCH 28.4 pg 27.0-33.0 MCHC 32.6 g/dL 32.0-36.0 RDW 13.4 % 11.0-15.0 PLATELET COUNT 298 Thousand/uL 140-400 MPV 8.1 fL 7.5-12.5 ABSOLUTE NEUTROPHILS 3245 cells/uL 1500- 7800 ABSOLUTE MONOCYTES 767 cells/uL 200-950 ABSOLUTE EOSINOPHILS 118 cells/uL 15-500 ABSOLUTE BASOPHILS 0 cells/uL 0-200 NEUTROPHILS 55 % NRG LYMPHOCYTES 30 % NRG MONOCYTES 13 % NRG EOSINOPHILS 2 % NRG BASOPHILS 0 % NRG ABSOLUTE LYMPHOCYTES 1770 cells/uL 850-3 900 PLATELET ESTIMATION ADEQUATE ADEQUATE CBC MORPHOLOGY NORMAL Automated blood complete blood count (he mogram) panel - 10/14/18 16:43 Blood leukocytes automated count (number/volume) 9.6 10*3/uL 4.3-11.0 Blood erythrocytes automated count (number/volume) 5.07 10*6/uL 4.35-5.85 Venous blood hemoglobin measurement (mass/volume) 14.4 g/dL 13.3-17.7 Blood hematocrit (volume fraction) 42 % 40-54 Automated erythrocyte mean corpuscular volume 83 [ foz_us] 80-99 Automated erythrocyte mean corpuscular h emoglobin (mass per erythrocyte) 28 pg 25-34 Automated erythrocyte mean corpuscular h emoglobin concentration measurement (mass/volume) 34 g/dL 32-36 Automated erythrocyte distribution width ratio 13. 2 % 10.0- 14.5 Automated blood platelet count [...] 5-14 Serum or plasma urea nitrogen measurement (mass/volume ) 17 mg/dL 7-18 Serum or plasma creatinine measurement (mass/volume) 1.14 mg/dL 0.60-1.30 Serum or plasma urea nitrogen/creatinine mass ratio 15 NRG Serum or plasma creatinine measurement w ith calculation of estimated glomerular filtration rate > NRG Serum or plasma glucose measurement (mass/volume) 113 mg/dL 70-105 Serum or plasma calcium measurement (mass/volume) 10.1 mg/dL 8.5-10.1 Serum or plasma total bilirubin measurement (mass/volu me) 0.4 mg/dL 0.1-1.0 Serum or plasma alkaline phosphatase kenna surement (enzymatic activity/volume) 100 U/L 40-136 Serum or plasma aspartate aminotransfera se measurement (enzymatic activity/volume) 17 U/L 5-34 Serum or plasma alanine aminotransferase measurement (enzymatic activity/volume) 13 U/L 0-55 Serum or plasma protein measurement (mass/volume) 8.0 g/dL 6.4-8.2 Serum or plasma albumin measurement (mass/volume) 4.8 g/dL 3.2-4.5 Serum or plasma troponin i.cardiac measu rement (mass/volume) - 10/14/18 16:43 Serum or plasma troponin i.cardiac measurement (mass/v olume) < ng/mL <0.30 PROBNP FS - 10/14/18 16:43 PROBNP FS 14.8 pg/mL <75.0 Complete blood count (CBC) with automate d white blood cell (WBC) differential - 10/22/18 18:21 Blood leukocytes automated count (number/volume) 9.6 10*3/uL 4.3-11.0 Blood erythrocytes automated count (number/volume) 5.06 10*6/uL 4.35-5.85 Venous blood hemoglobin measurement (mass/volume) 14.4 g/dL 13.3-17.7 Blood hematocrit (volume fraction) 45 % 40-54 Automated erythrocyte mean corpuscular volume 88 [ foz_us] 80-99 Automated erythrocyte mean corpuscular h emoglobin (mass per erythrocyte) 28 pg 25-34 Automated erythrocyte mean corpuscular h emoglobin concentration measurement (mass/volume) 32 g/dL 32-36 Automated erythrocyte distribution width ratio 13. 3 % 10.0- 14.5 Automated blood platelet count (count/volume) 319 10*3/uL 130-400 Automated blood platelet mean volume measurement 8.2 [foz_us] 7.4-10.4 Automated blood neutrophils/100 leukocytes 65 % 42-75 Automated blood lymphocytes/100 leukocytes 21 % 12-44 Blood monocytes/100 leukocytes 12 % 0-12 Automated blood eosinophils/100 leukocytes 1 % 0-10 Automated blood basophils/100 leukocytes 1 % 0-10 Blood neutrophils automated count (number/volume) 6.3 10*3 1.8-7.8 Blood lymphocytes automated count (number/volume) 2.1 10*3 1.0-4.0 Blood monocytes automated count (number/volume) 1. 2 10*3 0.0-1.0 Automated eosinophil count 0.1 10*3/uL 0 .0-0.3 Automated blood basophil count (count/volume) 0.1 10*3/uL 0.0-0.1 Comprehensive metabolic panel - 10/22/18 18:21 Serum or plasma sodium measurement (moles/volume) 141 mmol/L 135-145 Serum or plasma potassium measurement (moles/volume) 3.3 mmol/L 3.6-5.0 Serum or plasma chloride measurement (moles/volume) 97 mmol/L 98-107 Carbon dioxide 28 mmol/L 21-32 Serum or plasma anion gap determination (moles/volume) 16 mmol/L 5-14 Serum or plasma urea nitrogen measurement (mass/volume ) 6 mg/dL 7-18 Serum or plasma creatinine measurement (mass/volume) 1.03 mg/dL 0.60-1.30 Serum or plasma urea nitrogen/creatinine mass ratio 6 NRG Serum or plasma creatinine measurement w ith calculation of estimated glomerular filtration rate > NRG Serum or plasma glucose measurement (mass/volume) 89 mg/dL 70-105 Serum or plasma calcium measurement (mass/volume) 9.5 mg/dL 8.5-10.1 Serum or plasma total bilirubin measurement (mass/volu me) 0.3 mg/dL 0.1-1.0 Serum or plasma alkaline phosphatase kenna surement (enzymatic activity/volume) 97 U/L 40-136 Serum or plasma aspartate aminotransfera se measurement (enzymatic activity/volume) 17 U/L 5-34 Serum or plasma alanine aminotransferase measurement (enzymatic activity/volume) 12 U/L 0-55 Serum or plasma protein measurement (mass/volume) 8.0 g/dL 6.4-8.2 Serum or plasma albumin measurement (mass/volume) 5.0 g/dL 3.2-4.5 Serum or plasma amylase measurement (enz ymatic activity/volume) - 10/22/18 18:21 Serum or plasma amylase measurement (enzymatic activit y/volume) 47 U/L 25-125 Lipase - 10/22/18 18:21 Lipase 27 U/L 8-78 Serum or plasma troponin i.cardiac measu rement (mass/volume) - 10/22/18 18:21 Serum or plasma troponin i.cardiac measurement (mass/v olume) < ng/mL <0.30 Complete urinalysis with reflex to cultu re - 10/22/18 19:10 Urine color determination YELLOW NRG Urine clarity determination CLEAR NR G Urine pH measurement by test strip 7.5 5-9 Specific gravity of urine by test strip 1.010 1.016-1.022 Urine protein assay by test strip, semi-quantitative NEGATIVE NEGATIVE Urine glucose detection by automated test strip NE GATIVE NEGATIVE Erythrocytes detection in urine sediment by light micr oscopy NEGATIVE NEGATIVE Urine ketones detection by automated test strip NE GATIVE NEGATIVE Urine nitrite detection by test strip NEGATIVE NEGATIVE Urine total bilirubin detection by test strip NEGA TIVE NEGATIVE Urine urobilinogen measurement by automated test strip (mass/volume) 0.2 mg/dL NORMAL Urine leukocyte esterase detection by dipstick NEG ATIVE NEGATIVE Automated urine sediment erythrocyte cou nt by microscopy (number/high power field) NONE NRG Automated urine sediment leukocyte count by microscopy (number/high power field) NONE NRG Bacteria detection in urine sediment by light microsco py NONE NRG Squamous epithelial cells detection in u rine sediment by light microscopy 0-2 NRG Crystals detection in urine sediment by light microsco py NONE NRG Casts detection in urine sediment by light microscopy NONE NRG Mucus detection in urine sediment by light microscopy NEGATIVE NRG Complete urinalysis with reflex to culture NO NRG Complete blood count (CBC) with automate d white blood cell (WBC) differential - 11/07/18 22:15 Blood leukocytes automated count (number/volume) 11.1 10*3/uL 4.3-11.0 Blood erythrocytes automated count (number/volume) 4.72 10*6/uL 4.35-5.85 Venous blood hemoglobin measurement (mass/volume) 13.6 g/dL 13.3-17.7 Blood hematocrit (volume fraction) 42 % 40-54 Automated erythrocyte mean corpuscular volume 88 [ foz_us] 80-99 Automated erythrocyte mean corpuscular h emoglobin (mass per erythrocyte) 29 pg 25-34 Automated erythrocyte mean corpuscular h emoglobin concentration measurement (mass/volume) 33 g/dL 32-36 Automated erythrocyte distribution width ratio 13. 3 % 10.0- 14.5 Automated blood platelet count (count/volume) 375 10*3/uL 130-400 Automated blood platelet mean volume measurement 8.2 [foz_us] 7.4-10.4 Automated blood neutrophils/100 leukocytes 74 % 42-75 Automated blood lymphocytes/100 leukocytes 15 % 12-44 Blood monocytes/100 leukocytes 9 % 0-12 Automated blood eosinophils/100 leukocytes 1 % 0-10 Automated blood basophils/100 leukocytes 1 % 0-10 Blood neutrophils automated count (number/volume) 8.2 10*3 1.8-7.8 Blood lymphocytes automated count (number/volume) 1.6 10*3 1.0-4.0 Blood monocytes automated count (number/volume) 1. 0 10*3 0.0-1.0 Automated eosinophil count 0.1 10*3/uL 0 .0-0.3 Automated blood basophil count (count/volume) 0.1 10*3/uL 0.0-0.1 Comprehensive metabolic panel - 11/07/18 22:15 Serum or plasma sodium measurement (moles/volume) 143 mmol/L 135-145 Serum or plasma potassium measurement (moles/volume) 3.7 mmol/L 3.6-5.0 Serum or plasma chloride measurement (moles/volume) 100 mmol/L 98-107 Carbon dioxide 30 mmol/L 21-32 Serum or plasma anion gap determination (moles/volume) 13 mmol/L 5-14 Serum or plasma urea nitrogen measurement (mass/volume ) 16 mg/dL 7-18 Serum or plasma creatinine measurement (mass/volume) 1.25 mg/dL 0.60-1.30 Serum or plasma urea nitrogen/creatinine mass ratio 13 NRG Serum or plasma creatinine measurement w ith calculation of estimated glomerular filtration rate > NRG Serum or plasma glucose measurement (mass/volume) 110 mg/dL 70-105 Serum or plasma calcium measurement (mass/volume) 9.6 mg/dL 8.5-10.1 Serum or plasma total bilirubin measurement (mass/volu me) 0.3 mg/dL 0.1-1.0 Serum or plasma alkaline phosphatase kenna surement (enzymatic activity/volume) 96 U/L 40-136 Serum or plasma aspartate aminotransfera se measurement (enzymatic activity/volume) 16 U/L 5-34 Serum or plasma alanine aminotransferase measurement (enzymatic activity/volume) 13 U/L 0-55 Serum or plasma protein measurement (mass/volume) 7.4 g/dL 6.4-8.2 Serum or plasma albumin measurement (mass/volume) 4.6 g/dL 3.2-4.5 Lipase - 11/07/18 22:15 Lipase 28 U/L 8-78 PT panel in platelet poor plasma by coag ulation assay - 11/07/18 22:15 Prothrombin time (PT) in platelet poor plasma by coagu lation assay 13.8 s 12.2-14.7 INR in platelet poor plasma or blood by coagulation as say 1.0 0.8-1.4 Activated partial thromboplastin time (a PTT) in platelet poor plasma bycoagulation assay - 11/07/18 22:15 Activated partial thromboplastin time (a PTT) in platelet poor plasma bycoagulation assay 32 s 24-35 Complete urinalysis with reflex to cultu re - 11/07/18 22:17 Urine color determination YELLOW NRG Urine clarity determination CLEAR NR G Urine pH measurement by test strip 7.0 5-9 Specific gravity of urine by test strip 1.020 1.016-1.022 Urine protein assay by test strip, semi-quantitative NEGATIVE NEGATIVE Urine glucose detection by automated test strip NE GATIVE NEGATIVE Erythrocytes detection in urine sediment by light micr oscopy NEGATIVE NEGATIVE Urine ketones detection by automated test strip NE GATIVE NEGATIVE Urine nitrite detection by test strip NEGATIVE NEGATIVE Urine total bilirubin detection by test strip NEGA TIVE NEGATIVE Urine urobilinogen measurement by automated test strip (mass/volume) 0.2 mg/dL NORMAL Urine leukocyte esterase detection by dipstick NEG ATIVE NEGATIVE Automated urine sediment erythrocyte cou nt by microscopy (number/high power field) NONE NRG Automated urine sediment leukocyte count by microscopy (number/high power field) NONE NRG Bacteria detection in urine sediment by light microsco py TRACE NRG Squamous epithelial cells detection in u rine sediment by light microscopy NONE NRG Crystals detection in urine sediment by light microsco py PRESENT NRG Casts detection in urine sediment by light microscopy PRESENT NRG Mucus detection in urine sediment by light microscopy SMALL NRG Complete urinalysis with reflex to culture NO NRG Amorphous sediment detection in urine sediment by ligh t microscopy FEW BERNY PHOSPHATE NRG Hyaline casts detection in urine sediment by light antolin roscopy RARE NRG Urine drug screening test - 11/07/18 22: 17 Urine phencyclidine detection by screening method NEGATIVE NEGATIVE Urine benzodiazepines detection by screening method NEGATIVE NEGATIVE Urine cocaine detection NEGATIVE NEGATI VE Urine amphetamines detection by screening method N EGATIVE NEGATIVE Urine methamphetamine detection by screening method NEGATIVE NEGATIVE Urine cannabinoids detection by screening method N EGATIVE NEGATIVE Urine opiates detection by screening method NEGATI VE NEGATIVE Urine barbiturates detection NEGATIVE N EGATIVE Screening urine tricyclic antidepressants detection POSITIVE NEGATIVE Urine methadone detection by screening method NEGA TIVE NEGATIVE Urine oxycodone detection NEGATIVE NEGA TIVE Urine propoxyphene detection NEGATIVE N EGATIVE Bacterial urine culture - 11/07/18 22:17 Bacterial urine culture NG NRG Blood lactic acid measurement (moles/vol ume) - 11/07/18 22:28 Blood lactic acid measurement (moles/volume) 0.92 mmol/L 0.50-2.00 Bacterial blood culture - 11/07/18 22:28 QUANTITY OF GROWTH Isolated NRG Bacterial blood culture [id number] NRG Bacterial blood culture - 11/07/18 22:41 Bacterial blood culture NG NRG Complete urinalysis with reflex to cultu re - 11/12/18 21:20 Urine color determination YELLOW NRG Urine clarity determination CLEAR NR G Urine pH measurement by test strip 7.0 5-9 Specific gravity of urine by test strip 1.020 1.016-1.022 Urine protein assay by test strip, semi-quantitative NEGATIVE NEGATIVE Urine glucose detection by automated test strip NE GATIVE NEGATIVE Erythrocytes detection in urine sediment by light micr oscopy NEGATIVE NEGATIVE Urine ketones detection by automated test strip NE GATIVE NEGATIVE Urine nitrite detection by test strip NEGATIVE NEGATIVE Urine total bilirubin detection by test strip NEGA TIVE NEGATIVE Urine urobilinogen measurement by automated test strip (mass/volume) 0.2 mg/dL NORMAL Urine leukocyte esterase detection by dipstick NEG ATIVE NEGATIVE Automated urine sediment erythrocyte cou nt by microscopy (number/high power field) NONE NRG Automated urine sediment leukocyte count by microscopy (number/high power field) NONE NRG Bacteria detection in urine sediment by light microsco py NEGATIVE NRG Squamous epithelial cells detection in u rine sediment by light microscopy RARE NRG Crystals detection in urine sediment by light microsco py NONE NRG Casts detection in urine sediment by light microscopy NONE NRG Mucus detection in urine sediment by light microscopy NONE NRG Complete urinalysis with reflex to culture NO NRG Complete blood count (CBC) with automate d white blood cell (WBC) differential - 11/12/18 21:20 Blood leukocytes automated count (number/volume) 8.1 10*3/uL 4.3-11.0 Blood erythrocytes automated count (number/volume) 4.51 10*6/uL 4.35-5.85 Venous blood hemoglobin measurement (mass/volume) 12.9 g/dL 13.3-17.7 Blood hematocrit (volume fraction) 39 % 40-54 Automated erythrocyte mean corpuscular volume 87 [ foz_us] 80-99 Automated erythrocyte mean corpuscular h emoglobin (mass per erythrocyte) 29 pg 25-34 Automated erythrocyte mean corpuscular h emoglobin concentration measurement (mass/volume) 33 g/dL 32-36 Automated erythrocyte distribution width ratio 13. 2 % 10.0- 14.5 Automated blood platelet count (count/volume) 340 10*3/uL 130-400 Automated blood platelet mean volume measurement 8.5 [foz_us] 7.4-10.4 Automated blood neutrophils/100 leukocytes 65 % 42-75 Automated blood lymphocytes/100 leukocytes 22 % 12-44 Blood monocytes/100 leukocytes 11 % 0-12 Automated blood eosinophils/100 leukocytes 2 % 0-10 Automated blood basophils/100 leukocytes 1 % 0-10 Blood neutrophils automated count (number/volume) 5.3 10*3 1.8-7.8 Blood lymphocytes automated count (number/volume) 1.8 10*3 1.0-4.0 Blood monocytes automated count (number/volume) 0. 9 10*3 0.0-1.0 Automated eosinophil count 0.1 10*3/uL 0 .0-0.3 Automated blood basophil count (count/volume) 0.1 10*3/uL 0.0-0.1 Comprehensive metabolic panel - 11/12/18 21:20 Serum or plasma sodium measurement (moles/volume) 141 mmol/L 135-145 Serum or plasma potassium measurement (moles/volume) 3.8 mmol/L 3.6-5.0 Serum or plasma chloride measurement (moles/volume) 100 mmol/L 98-107 Carbon dioxide 26 mmol/L 21-32 Serum or plasma anion gap determination (moles/volume) 15 mmol/L 5-14 Serum or plasma urea nitrogen measurement (mass/volume ) 13 mg/dL 7-18 Serum or plasma creatinine measurement (mass/volume) 1.05 mg/dL 0.60-1.30 Serum or plasma urea nitrogen/creatinine mass ratio 12 NRG Serum or plasma creatinine measurement w ith calculation of estimated glomerular filtration rate > NRG Serum or plasma glucose measurement (mass/volume) 117 mg/dL 70-105 Serum or plasma calcium measurement (mass/volume) 9.2 mg/dL 8.5-10.1 Serum or plasma total bilirubin measurement (mass/volu me) 0.3 mg/dL 0.1-1.0 Serum or plasma alkaline phosphatase kenna surement (enzymatic activity/volume) 94 U/L 40-136 Serum or plasma aspartate aminotransfera se measurement (enzymatic activity/volume) 17 U/L 5-34 Serum or plasma alanine aminotransferase measurement (enzymatic activity/volume) 14 U/L 0-55 Serum or plasma protein measurement (mass/volume) 7.1 g/dL 6.4-8.2 Serum or plasma albumin measurement (mass/volume) 4.4 g/dL 3.2-4.5 CALCIUM CORRECTED 8.9 mg/dL 8.5-10.1 Lipase - 11/12/18 21:20 Lipase 27 U/L 8-78 Complete blood count (CBC) with automate d white blood cell (WBC) differential - 11/13/18 05:10 Blood leukocytes automated count (number/volume) 13.0 10*3/uL 4.3-11.0 Blood erythrocytes automated count (number/volume) 4.21 10*6/uL 4.35-5.85 Venous blood hemoglobin measurement (mass/volume) 11.9 g/dL 13.3-17.7 Blood hematocrit (volume fraction) 37 % 40-54 Automated erythrocyte mean corpuscular volume 87 [ foz_us] 80-99 Automated erythrocyte mean corpuscular h emoglobin (mass per erythrocyte) 28 pg 25-34 Automated erythrocyte mean corpuscular h emoglobin concentration measurement (mass/volume) 33 g/dL 32-36 Automated erythrocyte distribution width ratio 13. 6 % 10.0- 14.5 Automated blood platelet count (count/volume) 283 10*3/uL 130-400 Automated blood platelet mean volume measurement 8.5 [foz_us] 7.4-10.4 Automated blood neutrophils/100 leukocytes 77 % 42-75 Automated blood lymphocytes/100 leukocytes 12 % 12-44 Blood monocytes/100 leukocytes 10 % 0-12 Automated blood eosinophils/100 leukocytes 1 % 0-10 Automated blood basophils/100 leukocytes 0 % 0-10 Blood neutrophils automated count (number/volume) 10.0 10*3 1.8-7.8 Blood lymphocytes automated count (number/volume) 1.6 10*3 1.0-4.0 Blood monocytes automated count (number/volume) 1. 3 10*3 0.0-1.0 Automated eosinophil count 0.1 10*3/uL 0 .0-0.3 Automated blood basophil count (count/volume) 0.0 10*3/uL 0.0-0.1 Comprehensive metabolic panel - 11/13/18 05:10 Serum or plasma sodium measurement (moles/volume) 139 mmol/L 135-145 Serum or plasma potassium measurement (moles/volume) 3.6 mmol/L 3.6-5.0 Serum or plasma chloride measurement (moles/volume) 106 mmol/L 98-107 Carbon dioxide 22 mmol/L 21-32 Serum or plasma anion gap determination (moles/volume) 11 mmol/L 5-14 Serum or plasma urea nitrogen measurement (mass/volume ) 9 mg/dL 7-18 Serum or plasma creatinine measurement (mass/volume) 0.82 mg/dL 0.60-1.30 Serum or plasma urea nitrogen/creatinine mass ratio 11 NRG Serum or plasma creatinine measurement w ith calculation of estimated glomerular filtration rate > NRG Serum or plasma glucose measurement (mass/volume) 94 mg/dL 70-105 Serum or plasma calcium measurement (mass/volume) 8.5 mg/dL 8.5-10.1 Serum or plasma total bilirubin measurement (mass/volu me) 0.4 mg/dL 0.1-1.0 Serum or plasma alkaline phosphatase kenna surement (enzymatic activity/volume) 88 U/L 40-136 Serum or plasma aspartate aminotransfera se measurement (enzymatic activity/volume) 18 U/L 5-34 Serum or plasma alanine aminotransferase measurement (enzymatic activity/volume) 12 U/L 0-55 Serum or plasma protein measurement (mass/volume) 6.2 g/dL 6.4-8.2 Serum or plasma albumin measurement (mass/volume) 3.8 g/dL 3.2-4.5 CALCIUM CORRECTED 8.7 mg/dL 8.5-10.1 Methicillin resistant Staphylococcus aur eus (MRSA) screening culture - 11/13/18 09:20 Methicillin resistant Staphylococcus aureus (MRSA) scr eening culture NEG NRG Complete urinalysis with reflex to cultu re - 12/13/18 17:05 Urine color determination YELLOW NRG Urine clarity determination CLEAR NR G Urine pH measurement by test strip 6.5 5-9 Specific gravity of urine by test strip < 1.016-1.022 Urine protein assay by test strip, semi-quantitative NEGATIVE NEGATIVE Urine glucose detection by automated test strip NE GATIVE NEGATIVE Erythrocytes detection in urine sediment by light micr oscopy NEGATIVE NEGATIVE Urine ketones detection by automated test strip NE GATIVE NEGATIVE Urine nitrite detection by test strip NEGATIVE NEGATIVE Urine total bilirubin detection by test strip NEGA TIVE NEGATIVE Urine urobilinogen measurement by automated test strip (mass/volume) 0.2 mg/dL NORMAL Urine leukocyte esterase detection by dipstick NEG ATIVE NEGATIVE Automated urine sediment erythrocyte cou nt by microscopy (number/high power field) NONE NRG Automated urine sediment leukocyte count by microscopy (number/high power field) NONE NRG Bacteria detection in urine sediment by light microsco py NONE NRG Squamous epithelial cells detection in u rine sediment by light microscopy RARE NRG Crystals detection in urine sediment by light microsco py NONE NRG Casts detection in urine sediment by light microscopy NONE NRG Mucus detection in urine sediment by light microscopy NEGATIVE NRG Complete urinalysis with reflex to culture NO NRG Capillary blood glucose measurement by g lucometer (mass/volume) - 12/13/18 17:15 Capillary blood glucose measurement by glucometer (mas s/volume) 123 mg/dL 70-110 Encounters ACCT No. Visit Date/Time Discharge Status Pt. Type Provider Facility Loc./Unit Complaint [id number] 03/03/2019 09:40:00 03/03/2019 23:59: 59 CLS Outpatient ROSI PARADA [facility] [id number] 10/07/2018 09:30:00 Document Registration [id number] 05/29/2017 16:20:00 Document Registration [id number] 03/06/2019 11:39:00 23:59:59 CLS Outpatient ZAMZAM HOFFMANN, CHARANJIT Hoang [facility] ER FS LT HIP/LEG INJ [id number] 02/15/2019 09:09:00 09:36:00 DIS Emergency ANTONETTE MONTANEZ MD [facility] ER FS FALL [id number] 02/14/2019 13:00:00 13:54:00 DIS Emergency DEANNA GREENE DO [facility] ER FS FALL [id number] 01/25/2019 22:18:00 00:30:00 DIS Emergency DU DIEGO MD [facility] ER FS BACK PAIN [id number] 12/18/2018 09:20:00 23:59:59 CLS Outpatient ROSI PARADA APRN [facility] RAD FS M54.2 Z91.81 [id number] 12/17/2018 13:07:00 13:26:00 DIS Emergency KADEN WILLOUGHBY DO [facility] ER FS FALL; NECK/FLAQUITO SHOULDER/BACK INJ [id number] 12/13/2018 16:55:00 18:19:00 DIS Emergency KEE PARTIDA DO [facility] ER FS ABD PAIN,VOMITING [id number] 11/30/2018 15:19:00 16:08:00 DIS Emergency TREVOR MCFARLAND MD [facility] ER FS LT SHOULDER PAIN [id number] 11/25/2018 09:24:00 23:59:59 CLS Preadmit KARLA CORTES [facility] RAD ROTATOR CUFF SYNDROME L T [id number] 11/12/2018 22:44:00 15:35:00 DIS Inpatient LAURA HOFFMANN, СЕРГЕЙ Barrera ia [facility] 4TH RECTO SIGMOID MASS,CONS TIPATION,N/V [id number] 11/07/2018 21:44:00 00:45:00 DIS Emergency ANTONETTE MONTANEZ MD [facility] ER FS VOMITING/DIZZY [id number] 10/28/2018 14:03:00 14:55:00 DIS Emergency KEE PARTIDA DO [facility] ER FS LT SHOULDER PAIN [id number] 10/22/2018 18:00:00 19:28:00 DIS Emergency CHAD LEBRON DO [facility] ER FS STOMACH PAIN [id number] 10/17/2018 18:28:00 19:58:00 DIS Emergency CHITRA HOFFMANN, SNOW Fitch [facility] ER FS ABD PAIN [id number] 10/14/2018 16:30:00 18:01:00 DIS Emergency KEE PARTIDA DO [facility] ER FS SOA [id number] 09/25/2018 19:41:00 20:55:00 DIS Emergency CHAD LEBRON DO [facility] ER FS RT LEG PAIN [id number] 09/06/2018 07:02:00 07:50:00 DIS Emergency KEE PARTIDA DO [facility] ER FS RT LEG INJ [id number] 08/19/2018 20:04:00 22:08:00 DIS Emergency PHILLIP ROSEN DO [facility] ER FS ABD PAIN, VOMITING, LOO SE STOOL [id number] 08/11/2018 17:16:00 18:46:00 DIS Emergency ANTONETTE MONTANEZ MD [facility] ER FS RT LEG PAIN [id number] 08/06/2018 17:55:00 21:33:00 DIS Emergency JENN TOLENTINO MD [facility] ER FS VOMITING [id number] 07/14/2018 11:52:00 14:55:00 DIS Emergency PHILLIP ROSEN DO [facility] ER FS FLAQUITO SHOULDER PAIN [id number] 07/10/2018 09:37:00 23:59:59 CLS Outpatient KARLA CORTES [facility] RAD FS M79.661 [id number] 07/02/2018 19:11:00 21:18:00 DIS Emergency DU DIEGO MD [facility] ER FS PT FELL, RT LEG SWOLLEN AND TENDER [id number] 06/27/2018 17:28:00 19:14:00 DIS Emergency DU DIEGO MD [facility] ER FS CONSTIPATION, ABD PAIN [id number] 11/28/2018 09:31:00 Document Registration
== END 2019-02-14 13:54 | disposition home or self-care (01) ==
LOC: EDUNIT# 12:59 → ER FS 13:00
DX: S70.02XA Contusion of left hip, initial encounter (principal); G40.909 Epilepsy, unspecified, not intractable, without status epilepticus; F41.9 Anxiety disorder, unspecified; F31.9 Bipolar disorder, unspecified; Z88.0 Allergy status to penicillin; Z90.89 Acquired absence of other organs; Z82.49 Family history of ischemic heart disease and other diseases of the circulatory system; W01.0XXA Fall on same level from slipping, tripping and stumbling without subsequent striking against object, initial encounter
CPT/HCPCS: 73502

== ENCOUNTER 2019-02-15 09:08 | Emergency (ER) | payer MEDICARE, MEDICAID ==
[~2019-02-15] VITALS: Ht 157.5 cm; Wt 53.8 kg
[2019-02-15] MEDS ORDERED: IBUPROFEN 800 MG (MOTRIN) TAB PO ONE (09:30)
--- NOTE | 2019-02-15 09:30 | ED Lower Extremity ---
General Chief Complaint: Back Problems Stated Complaint: FALL Source: patient Exam Limitations: no limitations History of Present Illness Date Seen by Provider: Feb 15, 2019 Time Seen by Provider: 09:19 Initial Comments Patient presents to ER by private conveyance with significant other and chief complaint of left lower extremity pain in the posterior thigh. He had a fall yesterday slipped on the sidewalk while walking to his mother's house. He did not strike his head nor lose consciousness. He came to the ER had x-rays done because he was complaining of intolerable pain in his left thigh. He was told the x-rays were normal but he thinks the pain is too great. He is not taking any pain medicine just using ice and heat. He says he only takes medicines that are approved by his therapist so they did not interact with his bipolar medication. Allergies and Home Medications Allergies Coded Allergies: Penicillins (Verified Allergy, Unknown, 08/19/18) Home Medications Benztropine Mesylate 1 Mg Tablet, 0.5 MG PO HS, (Reported) LAST FILLED #30 07-29-18 TAKES 1/2 (1MG) TABLET Cyclobenzaprine HCl 10 Mg Tablet, 10 MG PO DAILY PRN for MUSCLE SPASMS, (Reported) Docusate Sodium 100 Mg Capsule, 100 MG PO QID PRN for CONSTIPATION-1ST LINE, (Reported) Lamotrigine 200 Mg Tablet, 200 MG PO HS, (Reported) LAST FILLED #90 07-12-18 Naproxen 500 Mg Tablet, 500 MG PO BID PRN for PAIN-MODERATE (4-6) Prescribed by: DU DIEGO on 01/26/19 0020 Ondansetron 4 Mg Tab.rapdis, 4 MG PO Q6H Prescribed by: KEE PARTIDA on 12/13/181809 Polyethylene Glycol 3350 17 Gm Powd.pack, 17 GM PO TID PRN for CONSTIPATION-2ND LINE, (Reported) Polyethylene Glycol 3350 17 Gm Powd.pack, 17 GM PO BID Prescribed by: KEE PARTIDA on 12/13/181809 Quetiapine Fumarate 300 Mg Tablet, 1,200 MG PO HS, (Reported) TAKES 4 (300MG) TABLETS Ranitidine HCl 150 Mg Tablet, 150 MG PO HS, (Reported) Risperidone 50 Mg/2 Ml Inj, 50 MG INJ EVERY 2 WEEKS, (Reported) Sennosides 15 Mg Tab.chew, 2 TAB.CHEW PO BID PRN for CONSTIPATION-5TH LINE, (Reported) Sucralfate 1 Gm Tablet, 1 GM PO ACHS, (Reported) Trazodone HCl 100 Mg Tablet, 100 MG PO HS, (Reported) Patient Home Medication List Home Medication List Reviewed: Yes Review of Systems Constitutional: No chills, No fever EENTM: No ear discharge, No ear pain Respiratory: No cough, No short of breath Cardiovascular: No chest pain, No edema Gastrointestinal: No abdominal pain, No constipation Genitourinary: No discharge, No dysuria Past Fhvgole-Ebtmsn-Wmvdfy Hx Patient Social History Alcohol Use: Denies Use Recreational Drug Use: No Smoking Status: Never a Smoker 2nd Hand Smoke Exposure: No Recent Hopitalizations: No Immunizations Up To Date Tetanus Booster (TDap): Unknown Seasonal Allergies Seasonal Allergies: No Past Medical History Surgeries: Yes (RIGHT LEG FUSION CHILD) Cystectomy, Gallbladder, Orthopedic, Tonsillectomy Respiratory: No Cardiac: No Neurological: Yes Seizure Disorder Genitourinary: No Gastrointestinal: No Musculoskeletal: Yes Chronic Back Pain Endocrine: No HEENT: No Cancer: No Psychosocial: Yes Anxiety, Bipolar, Depression Integumentary: No Blood Disorders: No Family Medical History Cardiovascular disease 19 FATHER Diabetes mellitus G8 BROTHER Hypertension 19 FATHER 19 MOTHER G8 BROTHER Heart Disease, Diabetes, Hypertension Physical Exam Vital Signs Capillary Refill : Height, Weight, BMI Height: 5'2.00" Weight: 128lbs. 5.0oz. 58.302152pb; 21.00 BMI Method:Stated General Appearance: WD/WN, mild distress HEENT: PERRL/EOMI, pharynx normal Neck: non-tender, normal inspection Cardiovascular: normal peripheral pulses, regular rate, rhythm Respiratory: no respiratory distress, no accessory muscle use Hips: bilateral hip non-tender, bilateral hip normal inspection, bilateral hip normal range of motion, bilateral hip no evidence of injury Legs: right leg non-tender; bilateral leg normal inspection, bilateral leg normal range of motion; right leg no evidence of injury; left leg soft tissue tenderness (posterior left thigh), left leg other (pain recreation on straight leg test left side) Knees: bilateral knee non-tender, bilateral knee normal inspection, bilateral knee normal range of motion, bilateral knee no evidence of injury Progress/Results/Core Measures Results/Orders My Orders Orders - LISSETH,ANTONETTE J Ibuprofen Tablet (Motrin Tablet) (02/15/19 09:30) Progress Progress Note : Time: 09:28 Progress Note Ibuprofen 800 mg. Suspect bruising soft tissue injury versus sprain/ strain of the hamstrings. Reviewed radiologist report as well as the imaging from the left hip 2 view x-ray from yesterday. No evidence of acute osseous abnormality. Departure Impression Primary Impression: Fall Qualified Codes: W19.XXXD - Unspecified fall, subsequent encounter Additional Impression: Left leg pain Disposition: HOME, SELF-CARE Condition: Stable Departure-Patient Inst. Decision time for Depature: 09:31 Referrals: [facility] (PCP) Primary Care Physician ROSI PARADA APRN (Family) Primary Care Physician Patient Instructions: Muscle Strain (DC) Add. Discharge Instructions: Continue icing her leg for the next couple days. Use heating pads, topical creams such as icy hot or Biofreeze. Use Tylenol 1000 mg every 8 hours as needed for pain. Use ibuprofen 800 mg every 8 hours as needed for pain. If your pain persists for more than 7-10 days then you should follow-up with your primary doctor for reexamination. All discharge instructions reviewed with patient and/or family. Voiced understanding. ANTONETTE MONTANEZ Feb 15, 2019 09:30 POS
[2019-02-15 09:37] VITALS: BP 134/90
[2019-03-06] MEDS ORDERED: DICL50TA4 PO (12:01)
[2019-03-06] MEDS ORDERED: CYCL10TA9 PO (12:01)
--- OUTSIDE RECORDS SUMMARY | 2019-03-12 06:39 | XMS REPORT | Continuity of Care Document ---
Author Organization Unknown Address Unknown Phone Unavailable Allergies Active Description Code Type Severity Reaction Onset Reported/Identified Relationship to Patient Clinical Status Yes ibuprofen [id number] Drug Allergy Unknown N/A 06/27/2018 Yes naproxen [id number] Drug Allergy Unknown N/A 06/27/2018 Yes tramadol [id number] Drug Allergy Unknown N/A 06/27/2018 Yes Penicillins [id number] Drug Aller gy Unknown N/A 08/19/2018 Medications There is no data. Problems Date Dx Coded Attending Type Code Diagnosis Diagnosed By 06/27/2018 DU DIEGO MD, Ot F32.9 MAJOR DEPRESSIVE DISORDER, SINGLE EPISOD 06/27/2018 DU DIEGO MD, Ot F41.9 ANXIETY DISORDER, UNSPECIFIED 06/27/2018 DU DIEGO MD Ot G40.9 09 EPILEPSY, UNSP, NOT INTRACTABLE, WITHOUT 06/27/2018 DU DIEGO MD Ot K59.0 0 CONSTIPATION, UNSPECIFIED 06/27/2018 [...] LEG 09/06/2018 KEE PARTIDA DO Ot W20.8XXA [facility] CAUSE OF STRIKE BY [...] OTHER SPECIFIED POSTPROCEDURAL STATES 10/14/2018 KARLA CORTES SECURITIES RESEARCH ANALYST Ot M25.571 PAIN IN RIGHT ANKLE AND JOINTS OF RIGHT 10/14/2018 KARLA CORTES SECURITIES RESEARCH ANALYST Ot M79.661 PAIN IN RIGHT LOWER LEG 10/14/2018 KARLA CORTES SECURITIES RESEARCH ANALYST Ot Z98.890 OTHER SPECIFIED POSTPROCEDURAL STATES 10/14/2018 [...] KEE Ot F31.9 BIPOLAR DISORDER, UNSPECIFIED 10/17/2018 PARTDIA DO, KEE Ot F41.9 ANXIETY DISORDER, UNSPECIFIED [...] KEE Ot F31.9 BIPOLAR DISORDER, UNSPECIFIED 10/28/2018 [place] DO, KEE Ot F41.9 ANXIETY DISORDER, UNSPECIFIED 10/28/2018 [place] DO, KEE Ot G40.909 EPILEPSY, UNSP, NOT INTRACTABLE, WITHOUT 10/28/2018 [place] DO, KEE Ot M25.512 PAIN IN LEFT SHOULDER 10/28/2018 [place] DO, KEE Ot Z82.49 FAMILY HX OF ISCHEM HEART DIS AND OTH DI 10/28/2018 [place] DO, KEE Ot Z88.0 ALLERGY STATUS TO PENICILLIN 10/28/2018 [place] DO, KEE Ot Z90.89 ACQUIRED ABSENCE OF OTHER ORGANS 10/30/2018 PARTIDA DO, KEE Ot F31.9 BIPOLAR DISORDER, UNSPECIFIED 10/30/2018 [place] DO, KEE Ot F41.9 ANXIETY DISORDER, UNSPECIFIED 10/30/2018 [place] DO, KEE Ot G40.909 EPILEPSY, UNSP, NOT INTRACTABLE, WITHOUT 10/30/2018 [place] DO, KEE Ot M25.512 PAIN IN LEFT SHOULDER 10/30/2018 [place] DO, KEE Ot Z82.49 FAMILY HX OF ISCHEM HEART DIS AND OTH DI 10/30/2018 [place] DO, KEE Ot Z88.0 ALLERGY STATUS TO PENICILLIN 10/30/2018 [place] DO, KEE Ot Z90.89 ACQUIRED ABSENCE OF [...] ABSENCE OF OTHER ORGANS 12/04/2018 KARLA CORTES SECURITIES RESEARCH ANALYST Ot M25.571 PAIN IN RIGHT ANKLE AND JOINTS OF RIGHT 12/04/2018 KARLA CORTES SECURITIES RESEARCH ANALYST Ot M79.661 PAIN IN RIGHT LOWER LEG 12/04/2018 KARLA CORTES SECURITIES RESEARCH ANALYST Ot Z98.890 OTHER SPECIFIED POSTPROCEDURAL STATES 12/13/2018 [...] DIS AND OTH DI 12/17/2018 ROVENSTINE DO, KAEDN L Ot Z88.0 ALLERGY STATUS TO PENICILLIN [...] OF OTHER ORGANS 12/19/2018 ROVENSTINE DO, KADEN Zamuido Ot F31.9 BIPOLAR DISORDER, UNSPECIFIED 12/19/2018 ROVENSTINE [...] ABSENCE OF OTHER ORGANS 12/22/2018 ROSI PARADA VIDEO ARCADE MANAGER Ot M47.812 SPONDYLOSIS W/O MYELOPATHY OR RADICULOPA 12/22/2018 ROSI PARADA VIDEO ARCADE MANAGER Ot M54.5 LOW BACK PAIN 12/22/2018 ROSI PARADA VIDEO ARCADE MANAGER Ot M54.6 PAIN IN THORACIC SPINE 12/22/2018 ROSI PARADA VIDEO ARCADE MANAGER Ot W19.XXXA UNSPECIFIED FALL, INITIAL ENCOUNTER 01/26/2019 [...] W/O MYELOPATHY OR RADICULOPA 02/14/2019 ROSI PARADA VIDEO ARCADE MANAGER Ot M54.5 LOW BACK PAIN 02/14/2019 ROSI PARADA VIDEO ARCADE MANAGER Ot M54.6 PAIN IN THORACIC SPINE 02/14/2019 ROSI PARADA VIDEO ARCADE MANAGER Ot W19.XXXA UNSPECIFIED FALL, INITIAL ENCOUNTER 02/14/2019 KARLA CORTES Ot M25.571 PAIN IN RIGHT ANKLE AND JOINTS OF RIGHT 02/14/2019 KARLA CORTESP Ot M79.661 PAIN IN RIGHT LOWER LEG 02/14/2019 KARLA CORTESP Ot Z98.890 OTHER SPECIFIED POSTPROCEDURAL STATES 02/14/2019 ROSI PARADA VIDEO ARCADE MANAGER Ot M47.812 SPONDYLOSIS W/O MYELOPATHY OR RADICULOPA 02/14/2019 KARMA, ROSI Jose Juan VIDEO ARCADE MANAGER Ot M54.5 LOW BACK PAIN 02/14/2019 ROSI PARADA VIDEO ARCADE MANAGER Ot M54.6 PAIN IN THORACIC SPINE 02/14/2019 ROSI PARADA VIDEO ARCADE MANAGER Ot W19.XXXA UNSPECIFIED FALL, INITIAL ENCOUNTER 02/14/2019 [...] ABSENCE OF OTHER ORGANS 03/06/2019 KARLA CORTES SECURITIES RESEARCH ANALYST Ot M25.571 PAIN IN RIGHT ANKLE AND JOINTS OF RIGHT 03/06/2019 KARLA CORTES SECURITIES RESEARCH ANALYST Ot M79.661 PAIN IN RIGHT LOWER LEG 03/06/2019 KARLA CORTES SECURITIES RESEARCH ANALYST Ot Z98.890 OTHER SPECIFIED POSTPROCEDURAL STATES 03/06/2019 ROSI PARADA VIDEO ARCADE MANAGER Ot M47.812 SPONDYLOSIS W/O MYELOPATHY OR RADICULOPA 03/06/2019 ROSI PARADA VIDEO ARCADE MANAGER Ot M54.5 LOW BACK PAIN 03/06/2019 ROSI PARADA VIDEO ARCADE MANAGER Ot M54.6 PAIN IN THORACIC SPINE 03/06/2019 ROSI PARADA VIDEO ARCADE MANAGER Ot W19.XXXA UNSPECIFIED FALL, INITIAL ENCOUNTER 03/09/2019 [...] Code Description Performed By Per formed On [id number] DI LATION OF SIGMOID COLON, ENDO 11/13/2018 [id number] DI LATION OF RECTUM WITH INTRALUMINAL DEV 11/13/[id number] HUERTAS OF STOMACH WITH DRAINAGE DEVICE 11/13/2018 [id number] EX CISION OF SIGMOID COLON, ENDO, DIAGN 11/13/2018 [id number] EX CISION OF RECTUM, ENDO, DIAGN 11/13/2018 [...] OF GROWTH Isolated NRG Bacterial blood culture [id number] NRG Bacterial blood culture - 11/07/18 22:41 [...] Status Pt. Type Provider Facility Loc./Unit Complaint [id number] 03/03/2019 09:40:00 03/03/2019 23:59: 59 CLS Outpatient ROSI PARADA [facility] [id number] 10/07/2018 09:30:00 Document Registration [id number] 05/29/2017 16:20:00 Document Registration [id number] 03/06/2019 11:39:00 23:59:59 CLS Outpatient ZAMZAM HOFFMANN, CHARANJIT Hoang [facility] ER FS LT HIP/LEG INJ [id number] 02/15/2019 09:09:00 09:36:00 DIS Emergency ANTONETTE MONTANEZ MD [facility] ER FS FALL [id number] 02/14/2019 13:00:00 13:54:00 DIS Emergency DEANNA GREENE DO [facility] ER FS FALL [id number] 01/25/2019 22:18:00 00:30:00 DIS Emergency DU DIEGO MD [facility] ER FS BACK PAIN [id number] 12/18/2018 09:20:00 23:59:59 CLS Outpatient ROSI PARADA APRN [facility] RAD FS M54.2 Z91.81 [id number] 12/17/2018 13:07:00 13:26:00 DIS Emergency KADEN WILLOUGHBY DO [facility] ER FS FALL; NECK/FLAQUITO SHOULDER/BACK INJ [id number] 12/13/2018 16:55:00 18:19:00 DIS Emergency KEE PARTIDA DO [facility] ER FS ABD PAIN,VOMITING [id number] 11/30/2018 15:19:00 16:08:00 DIS Emergency TRVEOR MCFARLAND MD [facility] ER FS LT SHOULDER PAIN [id number] 11/25/2018 09:24:00 23:59:59 CLS Preadmit KARLA CORTES [facility] RAD ROTATOR CUFF SYNDROME L T [id number] 11/12/2018 22:44:00 15:35:00 DIS Inpatient LAURA HOFFMANN, СЕРГЕЙ Barrera ia [facility] 4TH RECTO SIGMOID MASS,CONS TIPATION,N/V [id number] 11/07/2018 21:44:00 00:45:00 DIS Emergency ANTONETTE MONTANEZ MD [facility] ER FS VOMITING/DIZZY [id number] 10/28/2018 14:03:00 14:55:00 DIS Emergency KEE PARTIDA DO [facility] ER FS LT SHOULDER PAIN [id number] 10/22/2018 18:00:00 19:28:00 DIS Emergency CHAD LEBRON DO [facility] ER FS STOMACH PAIN [id number] 10/17/2018 18:28:00 19:58:00 DIS Emergency CHITRA HOFFMANN, SNOW Fitch [facility] ER FS ABD PAIN [id number] 10/14/2018 16:30:00 18:01:00 DIS Emergency KEE PARTIDA DO [facility] ER FS SOA [id number] 09/25/2018 19:41:00 20:55:00 DIS Emergency CHAD LEBRON DO [facility] ER FS RT LEG PAIN [id number] 09/06/2018 07:02:00 07:50:00 DIS Emergency KEE PARTIDA DO [facility] ER FS RT LEG INJ [id number] 08/19/2018 20:04:00 22:08:00 DIS Emergency PHILLIP ROSEN DO [facility] ER FS ABD PAIN, VOMITING, LOO SE STOOL [id number] 08/11/2018 17:16:00 18:46:00 DIS Emergency ANTONETTE MONTANEZ MD [facility] ER FS RT LEG PAIN [id number] 08/06/2018 17:55:00 21:33:00 DIS Emergency JENN TOLENTINO MD [facility] ER FS VOMITING [id number] 07/14/2018 11:52:00 14:55:00 DIS Emergency PHILLIP ROSEN DO [facility] ER FS FLAQUITO SHOULDER PAIN [id number] 07/10/2018 09:37:00 23:59:59 CLS Outpatient KARLA CORTES [facility] RAD FS M79.661 [id number] 07/02/2018 19:11:00 21:18:00 DIS Emergency DU DIEGO MD [facility] ER FS PT FELL, RT LEG SWOLLEN AND TENDER [id number] 06/27/2018 17:28:00 19:14:00 DIS Emergency DU DIEGO MD [facility] ER FS CONSTIPATION, ABD PAIN [id number] 11/28/2018 09:31:00 Document Registration
== END 2019-02-15 09:36 | disposition home or self-care (01) ==
LOC: EDUNIT# 09:08 → ER FS 09:09
DX: M79.605 Pain in left leg (principal); G40.909 Epilepsy, unspecified, not intractable, without status epilepticus; F41.9 Anxiety disorder, unspecified; F31.9 Bipolar disorder, unspecified; Z82.49 Family history of ischemic heart disease and other diseases of the circulatory system; Z88.0 Allergy status to penicillin; Z90.89 Acquired absence of other organs; W01.0XXA Fall on same level from slipping, tripping and stumbling without subsequent striking against object, initial encounter; Y92.480 Sidewalk as the place of occurrence of the external cause
CPT/HCPCS: 99283

== ENCOUNTER → 2019-03-06 | Emergency (ER) | payer MEDICARE, MEDICAID ==
[~2019-03-06] VITALS: Ht 159 cm; Wt 60.0 kg
[~2019-03-06] MED LIST changes: +ACETAMINOPHEN 325 MG TABLET PO ONE; +CYCLOBENZAPRINE 10 MG (FLEXERIL) TAB PO SCH; +DICL50TA4 PO; +KETOROLAC 60 MG/2 ML VIAL IM ONE
--- NOTE | 2019-03-06 12:00 | ED Lower Extremity ---
General Chief Complaint: Lower Extremity Stated Complaint: LT HIP/LEG INJ Nursing Triage Note: PT REPORTS HE FELL TODAY AT ABOUT 1000. LEFT LEG PAIN. PT HAS CHRONIC LOWER EXTREMITY PAIN FROM OLD INJURIES A CHILD. Nursing Sepsis Screen: No Definite Risk History of Present Illness Date Seen by Provider: Mar 06, 2019 Time Seen by Provider: 11:40 Initial Comments The patient is a 48-year-old male with a history of bipolar disorder as well as chronic musculoskeletal pain, mostly related to his right leg which has a deformity related to childhood injuries. He presents to the emergency department for the 16th time in the last 6 months with concern for left hip and upper thigh discomfort posteriorly with onset after a ground-level fall onto the left hip a couple of hours prior to arrival. He states he was ambulating and stepped wrong with his bad right leg and fell over onto his left side. He denies hitting or hurting his head, neck or any other part of his body aside from the right hip and posterior upper thigh. He took one 200 mg ibuprofen prior to arrival without relief of symptoms. He ambulated in without significant issue. Allergies and Home Medications Allergies Coded Allergies: Penicillins (Verified Allergy, Unknown, 08/19/18) Home Medications Benztropine Mesylate 1 Mg Tablet, 0.5 MG PO HS, (Reported) LAST FILLED #30 07-29-18 TAKES 1/2 (1MG) TABLET Cyclobenzaprine HCl 10 Mg Tablet, 10 MG PO DAILY PRN for MUSCLE SPASMS, (Reported) Cyclobenzaprine HCl 10 Mg Tablet, 10 MG PO Q8H PRN for SPASMS Prescribed by: CHARANJIT WYMAN on 03/06/19 1201 Diclofenac Potassium 50 Mg Tablet, 50 MG PO Q8H Prescribed by: CHARANJIT WYMAN on 03/06/19 1201 Docusate Sodium 100 Mg Capsule, 100 MG PO QID PRN for CONSTIPATION-1ST LINE, (Reported) Lamotrigine 200 Mg Tablet, 200 MG PO HS, (Reported) LAST FILLED #90 07-12-18 Naproxen 500 Mg Tablet, 500 MG PO BID PRN for PAIN-MODERATE (4-6) Prescribed by: DU DIEGO on 01/26/19 0020 Ondansetron 4 Mg Tab.rapdis, 4 MG PO Q6H Prescribed by: KEE PARTIDA on 12/13/18 1810 Polyethylene Glycol 3350 17 Gm Powd.pack, 17 GM PO TID PRN for CONSTIPATION-2ND LINE, (Reported) Polyethylene Glycol 3350 17 Gm Powd.pack, 17 GM PO BID Prescribed by: KEE PARTIDA on 12/13/180 Quetiapine Fumarate 300 Mg Tablet, 1,200 MG PO HS, (Reported) TAKES 4 (300MG) TABLETS Ranitidine HCl 150 Mg Tablet, 150 MG PO HS, (Reported) Risperidone 50 Mg/2 Ml Inj, 50 MG INJ EVERY 2 WEEKS, (Reported) Sennosides 15 Mg Tab.chew, 2 TAB.CHEW PO BID PRN for CONSTIPATION-5TH LINE, (Reported) Sucralfate 1 Gm Tablet, 1 GM PO ACHS, (Reported) Trazodone HCl 100 Mg Tablet, 100 MG PO HS, (Reported) Patient Home Medication List Home Medication List Reviewed: Yes Review of Systems Constitutional: see HPI All Other Systems Reviewed Negative Unless Noted: Yes Past Cqdwjsh-Rlvumu-Nsfoay Hx Past Med/Social Hx: Reviewed Nursing Past Med/Soc Hx Patient Social History Alcohol Use: Denies Use Recreational Drug Use: No 2nd Hand Smoke Exposure: No Recent Foreign Travel: No Contact w/Someone Who Travel: No Recent Infectious Disease Expo: No Recent Hopitalizations: No Physical Abuse: No Sexual Abuse: No Mistreated: No Fear: No Immunizations Up To Date Tetanus Booster (TDap): Unknown Seasonal Allergies Seasonal Allergies: No Past Medical History Surgeries: Yes (RIGHT LEG FUSION CHILD) Cystectomy, Gallbladder, Orthopedic, Tonsillectomy Respiratory: No Cardiac: No Neurological: Yes Seizure Disorder Genitourinary: No Gastrointestinal: No Musculoskeletal: Yes Chronic Back Pain Endocrine: No HEENT: No Cancer: No Psychosocial: Yes Anxiety, Bipolar, Depression Integumentary: No Blood Disorders: No Family Medical History Reviewed Nursing Family Hx Cardiovascular disease 19 FATHER Diabetes mellitus G8 BROTHER Hypertension 19 FATHER 19 MOTHER G8 BROTHER Heart Disease, Diabetes, Hypertension Physical Exam Vital Signs Vital Signs - First Documented 03/06/19 11:47 Temp 36.0 Pulse 96 Resp 22 B/P (MAP) 123/89 (100) Pulse Ox 99 O2 Delivery Room Air Capillary Refill : Less Than 3 Seconds Height, Weight, BMI Height: 5'2.00" Weight: 128lbs. 5.0oz. 58.921090ci; 23.00 BMI Method:Stated General Appearance: no apparent distress This is an older male appearing nontoxic and in no acute distress. Head is normocephalic and atraumatic. Neck is supple and nontender. Oropharynx is moist. Lungs are clear to auscultation at all stations. There is a normal S1 and S2 without rubs or gallops and capillary refill is appropriate, less than 2 seconds globally. Abdomen is soft, nontender and nondistended. Skin is warm and dry without cyanosis, clubbing or edema. Psychiatrically, the patient demonstrates appropriate mood and affect and is alert. Evaluation of the left lower extremity is remarkable for very mild tenderness without erythema, warmth or swelling or any other stigmata of injury to the posterior superior left thigh. No significant limitation in ranging at the left hip or left knee or left ankle or left foot. No pain with ranging of any joint. The left lower extremity is neurovascularly intact distally. Progress/Results/Core Measures Results/Orders My Orders Orders - CHARANJIT WYMAN MD Hip 2-3 View Left (03/06/19 11:50) Femur 2 View Left (03/06/19 11:50) Acetaminophen Tablet/Caplet (Tylenol T (03/06/19 12:00) Cyclobenzaprine Tablet (Flexeril Tablet) (03/06/19 12:00) Ketorolac Injection (Toradol Injection) (03/06/19 12:00) Medications Given in ED Current Medications Medications Dose Ordered Sig/Mukund Route Start Time Stop Time Status Last Admin Dose Admin Acetaminophen 975 mg ONCE ONCE PO 03/06/19 12:00 03/06/19 12:01 DC 03/06/19 12:08 975 MG Ketorolac Tromethamine 60 mg ONCE ONCE IM 03/06/19 12:00 03/06/19 12:01 DC 03/06/19 12:08 60 MG Vital Signs/I&O 03/06/19 11:47 Temp 36.0 Pulse 96 Resp 22 B/P (MAP) 123/89 (100) Pulse Ox 99 O2 Delivery Room Air Blood Pressure Mean: 100 Progress Progress Note : Time: 11:58 Progress Note We will provide analgesia and obtain plain films as noted in we'll then reevaluate. If workup is reassuring, plan will be for discharge home with scheduled nonsteroidal anti-inflammatories, muscle relaxant and referral back to primary care for very close follow-up in the next 1 to 2 days. The patient understands and agrees with this plan of care. Update 12:30: Plain films unremarkable and reassuring. Patient is ambulatory with a narrow, steady gait here in the emergency department. He feels better and is ready to go home. We will proceed with discharge home at this time as per plan above. The patient understands that if he feels worse is that of better or develops other new symptoms of concern that he will need to return to the emergency department right away for reevaluation. All questions are answered. Diagnostic Imaging Diagonstic Imaging: Xray Comments XRs of L hip and femur: no acute process, EP interp Departure Impression Primary Impression: Fall (on)(from) sidewalk curb, initial encounter Additional Impression: Contusion of left thigh, initial encounter Disposition: HOME, SELF-CARE Condition: Improved Departure-Patient Inst. Referrals: ANUEL IVAN MD (PCP) Primary Care Physician ROSI PARADA APRN (Family) Primary Care Physician Patient Instructions: Contusion (DC) Add. Discharge Instructions: Follow-up with your primary care physician in the next 1-2 days in the office for reevaluation. Use the medication as prescribed for your symptoms. Rest, ice and elevate your injured leg. Return to the emergency department right away with worsening symptoms or other new concerns. Scripts Cyclobenzaprine HCl (Cyclobenzaprine HCl) 10 Mg Tablet 10 MG PO Q8H PRN for SPASMS, #12 TAB 0 Refills Prov: CHARANJIT WYMAN MD 03/06/19 Diclofenac Potassium (Diclofenac Potassium) 50 Mg Tablet 50 MG PO Q8H for Pain, #30 TAB Prov: CHARANJIT WYMAN MD 03/06/19 CHARANJIT WYMAN MD Mar 06, 2019 12:00
--- NOTE | 2019-03-06 12:15 | Diagnostic Imaging Report ---
INDICATION: Fall with left hip pain. TIME OF EXAM: 11:42 a.m. Multiple views of the left femur were obtained. Alignment at the hip and knee is normal. The femur appears to be intact. No fractures are seen. Left hip joint space is well-maintained. IMPRESSION: No acute bony abnormality is detected. Dictated by: Dictated on workstation # [id number]
--- NOTE | 2019-03-06 12:16 | Diagnostic Imaging Report ---
INDICATION: Fall with left hip pain. TIME OF EXAM: 11:41 a.m. Two views of the left hip show normal femoroacetabular alignment. Joint space is well maintained. Femoral head and neck are intact. No fractures are seen. Left-sided rami are intact. IMPRESSION: No acute bony abnormality is detected. Dictated by: Dictated on workstation # [id number]
[2019-03-06 12:24] VITALS: BP 123/89
== END | disposition home or self-care (01) ==
LOC: EDUNIT# 11:37 → ER FS 11:39
DX: S70.12XA Contusion of left thigh, initial encounter (principal); F31.9 Bipolar disorder, unspecified; G40.909 Epilepsy, unspecified, not intractable, without status epilepticus; F41.9 Anxiety disorder, unspecified; Z88.0 Allergy status to penicillin; Z90.89 Acquired absence of other organs; Z82.49 Family history of ischemic heart disease and other diseases of the circulatory system; W10.1XXA Fall (on)(from) sidewalk curb, initial encounter; Y92.480 Sidewalk as the place of occurrence of the external cause
CPT/HCPCS: 73502; 73552; 96372

== ENCOUNTER 2019-04-21 20:26 | Emergency (ER) | payer MEDICARE, MEDICAID ==
[~2019-04-21] VITALS: Ht 157 cm; Wt 59.0 kg
[~2019-04-21 20:26] MED LIST changes: -ACETAMINOPHEN 325 MG TABLET PO ONE; -CYCLOBENZAPRINE 10 MG (FLEXERIL) TAB PO SCH; -KETOROLAC 60 MG/2 ML VIAL IM ONE; -LAMO200T2 PO; +LAMO200T5 PO; +OMEP-280 PO; -OMEP20CA13 PO; -TRAM50TA2 PO; +TRM50T PO
[2019-04-21] MEDS ORDERED: NS IV 1000 ML 1,000 ML IV STA (20:39)
[2019-04-21 20:45] LABS: HEMATOCRIT 38 % (40-54); HEMOGLOBIN 12.4 G/DL (13.3-17.7); MEAN CORPUSCULAR HEMOGLOBIN 26 PG (25-34); MEAN CORPUSCULAR VOLUME 82 FL (80-99); WHITE BLOOD COUNT 7.1 10^3/uL (4.3-11.0)
[2019-04-21 20:46] LABS: BASOPHILS # (AUTO) 0.1 10^3/uL (0.0-0.1); BASOPHILS % (AUTO) 1 % (0-10); EOSINOPHILS # (AUTO) 0.2 10^3/uL (0.0-0.3); EOSINOPHILS % (AUTO) 3 % (0-10); LYMPHOCYTES # (AUTO) 1.8 X 10^3 (1.0-4.0); LYMPHOCYTES % (AUTO) 25 % (12-44); MEAN CORPUSCULAR HGB CONC 33 G/DL (32-36); MEAN PLATELET VOLUME 8.2 FL (7.4-10.4); MONOCYTES # (AUTO) 0.8 X 10^3 (0.0-1.0); MONOCYTES % (AUTO) 11 % (0-12); NEUTROPHILS # (AUTO) 4.2 X 10^3 (1.8-7.8); NEUTROPHILS % (AUTO) 59 % (42-75); PLATELET COUNT 328 10^3/uL (130-400); RED CELL DISTRIBUTION WIDTH 14.2 % (10.0-14.5)
--- NOTE | 2019-04-21 20:52 | ED Abdominal Pain ---
General Chief Complaint: Abdominal/GI Problems Stated Complaint: ABD PAIN/VOMITING Nursing Triage Note: PT COMPLAINING OF MID ABD PAIN THAT STARTED 6 DAYS AGO. Sepsis Screen: No Definite Risk Source of Information: Patient Exam Limitations: No Limitations History of Present Illness Date Seen by Provider: Apr 21, 2019 Time Seen by Provider: 20:51 Initial Comments Patient complains of diffuse abdominal cramping for the past 6 days. Last bowel movement was 2 days ago. He is nauseated and has vomited 6 times today.. No fevers or chills. History of frequent ER visits for same. Allergies and Home Medications Allergies Coded Allergies: Penicillins (Verified Allergy, Unknown, 08/19/18) Home Medications Benztropine Mesylate 1 Mg Tablet, 0.5 MG PO HS, (Reported) LAST FILLED #30 07-29-18 TAKES 1/2 (1MG) TABLET Cyclobenzaprine HCl 10 Mg Tablet, 10 MG PO DAILY PRN for MUSCLE SPASMS, (Reported) Cyclobenzaprine HCl 10 Mg Tablet, 10 MG PO Q8H PRN for SPASMS Prescribed by: CHARANJIT WYMAN on 03/06/19 1201 Diclofenac Potassium 50 Mg Tablet, 50 MG PO Q8H Prescribed by: CHARANJIT WYMAN on 03/06/19 1201 Docusate Sodium 100 Mg Capsule, 100 MG PO QID PRN for CONSTIPATION-1ST LINE, (Reported) Lamotrigine 200 Mg Tablet, 200 MG PO HS, (Reported) LAST FILLED #90 07-12-18 Naproxen 500 Mg Tablet, 500 MG PO BID PRN for PAIN-MODERATE (4-6) Prescribed by: DU DIEGO on 01/26/19 0020 Ondansetron 4 Mg Tab.rapdis, 4 MG PO Q6H Prescribed by: KEE PARTIDA on 12/13/181809 Polyethylene Glycol 3350 17 Gm Powd.pack, 17 GM PO TID PRN for CONSTIPATION-2ND LINE, (Reported) Polyethylene Glycol 3350 17 Gm Powd.pack, 17 GM PO BID Prescribed by: KEE PARTIDA on 12/13/181809 Quetiapine Fumarate 300 Mg Tablet, 1,200 MG PO HS, (Reported) TAKES 4 (300MG) TABLETS Ranitidine HCl 150 Mg Tablet, 150 MG PO HS, (Reported) Risperidone 50 Mg/2 Ml Inj, 50 MG INJ EVERY 2 WEEKS, (Reported) Sennosides 15 Mg Tab.chew, 2 TAB.CHEW PO BID PRN for CONSTIPATION-5TH LINE, (Reported) Sucralfate 1 Gm Tablet, 1 GM PO ACHS, (Reported) Trazodone HCl 100 Mg Tablet, 100 MG PO HS, (Reported) Patient Home Medication List Home Medication List Reviewed: Yes Review of Systems Review of Systems Constitutional: no symptoms reported EENTM: No Symptoms Reported Respiratory: No Symptoms Reported Cardiovascular: No Symptoms Reported Gastrointestinal: See HPI, Nausea All Other Systems Reviewed Negative Unless Noted: Yes Past Vjtvemv-Mfjqdm-Scrwui Hx Patient Social History Alcohol Use: Denies Use Recreational Drug Use: No Smoking Status: Never a Smoker 2nd Hand Smoke Exposure: No Recent Foreign Travel: No Contact w/Someone Who Travel: No Recent Infectious Disease Expo: No Recent Hopitalizations: No Physical Abuse: No Sexual Abuse: No Immunizations Up To Date Tetanus Booster (TDap): Unknown Seasonal Allergies Seasonal Allergies: No Past Medical History Surgeries: Yes (RIGHT LEG FUSION CHILD) Cystectomy, Gallbladder, Orthopedic, Tonsillectomy Respiratory: No Cardiac: No Neurological: Yes Seizure Disorder Genitourinary: No Gastrointestinal: No Musculoskeletal: Yes Chronic Back Pain Endocrine: No HEENT: No Cancer: No Psychosocial: Yes Anxiety, Bipolar, Depression Integumentary: No Blood Disorders: No Family Medical History Cardiovascular disease 19 FATHER Diabetes mellitus G8 BROTHER Hypertension 19 FATHER 19 MOTHER G8 BROTHER Heart Disease, Diabetes, Hypertension Physical Exam Vital Signs Vital Signs - First Documented 04/21/19 20:32 Temp 36.6 Pulse 100 Resp 16 B/P (MAP) 145/94 (111) Pulse Ox 97 O2 Delivery Room Air Capillary Refill : Less Than 3 Seconds Height/Weight/BMI Height: 5'2.00" Weight: 128lbs. 5.0oz. 58.821944ko; 23.00 BMI Method:Stated General Appearance: WD/WN, no apparent distress HEENT: PERRL/EOMI, pharynx normal Neck: supple Respiratory: lungs clear, normal breath sounds Cardiovascular: regular rate, rhythm, no edema Gastrointestinal: normal bowel sounds, soft; No guarding, No rebound; tenderness (diffusely tender, no rebound or guarding) Extremities: normal inspection Neurologic/Psychiatric: alert, normal mood/affect Skin: normal color, warm/dry Progress/Results/Core Measures Results/Orders Lab Results Laboratory Tests Test 2/4/20 20:40 Range/Units White Blood Count 7.1 4.3-11.0 10^3/uL Red Blood Count 4.68 4.35-5.85 10^6/uL Hemoglobin 12.4 L 13.3-17.7 G/DL Hematocrit 38 L 40-54 % Mean Corpuscular Volume 82 80-99 FL Mean Corpuscular Hemoglobin 26 25-34 PG Mean Corpuscular Hemoglobin Concent 33 32-36 G/DL Red Cell Distribution Width 14.2 10.0-14.5 % Platelet Count 328 130-400 10^3/uL Mean Platelet Volume 8.2 7.4-10.4 FL Neutrophils (%) (Auto) 59 42-75 % Lymphocytes (%) (Auto) 25 12-44 % Monocytes (%) (Auto) 11 0-12 % Eosinophils (%) (Auto) 3 0-10 % Basophils (%) (Auto) 1 0-10 % Neutrophils # (Auto) 4.2 1.8-7.8 X 10^3 Lymphocytes # (Auto) 1.8 1.0-4.0 X 10^3 Monocytes # (Auto) 0.8 0.0-1.0 X 10^3 Eosinophils # (Auto) 0.2 0.0-0.3 10^3/uL Basophils # (Auto) 0.1 0.0-0.1 10^3/uL Sodium Level 142 135-145 MMOL/L Potassium Level 3.8 3.6-5.0 MMOL/L Chloride Level 102 98-107 MMOL/L Carbon Dioxide Level 27 21-32 MMOL/L Anion Gap 13 5-14 MMOL/L Blood Urea Nitrogen 10 7-18 MG/DL Creatinine 1.15 0.60-1.30 MG/DL Estimat Glomerular Filtration Rate > 60 BUN/Creatinine Ratio 9 Glucose Level 112 H 70-105 MG/DL Calcium Level 9.2 8.5-10.1 MG/DL Corrected Calcium 9.0 8.5-10.1 MG/DL Total Bilirubin 0.2 0.1-1.0 MG/DL Aspartate Amino Transf (AST/SGOT) 17 5-34 U/L Alanine Aminotransferase (ALT/SGPT) 12 0-55 U/L Alkaline Phosphatase 97 40-136 U/L Total Protein 6.7 6.4-8.2 GM/DL Albumin 4.2 3.2-4.5 GM/DL Lipase 25 8-78 U/L My Orders Orders - TREVOR MCFARLAND MD Cbc With Automated Diff (04/21/19 20:38) Comprehensive Metabolic Panel (04/21/19 20:38) Lipase (04/21/19 20:38) Acute Abd Series (04/21/19 20:38) Ns Iv 1000 Ml (Sodium Chloride 0.9%) (04/21/19 20:39) Ed Iv/Invasive Line Start (04/21/19 20:43) Vital Signs/I&O 04/21/19 20:32 Temp 36.6 Pulse 100 Resp 16 B/P (MAP) 145/94 (111) Pulse Ox 97 O2 Delivery Room Air Blood Pressure Mean: 111 Departure Impression Primary Impression: Abdominal pain Additional Impression: Constipation Disposition: 01 HOME, SELF-CARE Condition: Stable Departure-Patient Inst. Decision time for Depature: 21:14 Referrals: ROSI PARADA APRN (PCP/Family) Primary Care Physician Patient Instructions: Constipation in Adults Add. Discharge Instructions: Go to pharmacy and buy one bottle of magnesium citrate. Drink it over 2-3 hours All discharge instructions reviewed with patient and/or family. Voiced understanding. TREVOR MCFARLAND MD Apr 21, 2019 20:52
[2019-04-21 21:03] LABS: ALANINE AMINOTRANSFERASE 12 U/L (0-55); ALKALINE PHOSPHATASE 97 U/L (40-136); BILIRUBIN,TOTAL 0.2 MG/DL (0.1-1.0); BUN/CREATININE RATIO 9; CALCIUM 9.2 MG/DL (8.5-10.1); CARBON DIOXIDE 27 MMOL/L (21-32); CHLORIDE 102 MMOL/L (98-107); CREATININE SERUM 1.15 MG/DL (0.60-1.30); GFR ESTIMATED > 60; GLUCOSE 112 MG/DL (70-105); POTASSIUM 3.8 MMOL/L (3.6-5.0); SODIUM 142 MMOL/L (135-145); TOTAL PROTEIN 6.7 GM/DL (6.4-8.2)
[2019-04-21 21:04] LABS: ALBUMIN 4.2 GM/DL (3.2-4.5); LIPASE 25 U/L (8-78)
--- NOTE | 2019-04-21 21:08 | Diagnostic Imaging Report ---
EXAMINATION: Abdominal radiographs, acute series. DATE: April 21, 2019. CLINICAL INDICATION: 49-year-old male, mid abdominal pain. COMPARISON: November 07, 2018. COMMENTS: Heart size and mediastinal contours are unremarkable. There is no identified pneumothorax. There is no large pleural effusion. There is no identified focal airspace consolidation. There is no identified free intraperitoneal air. There are right upper quadrant surgical clips. There is large volume colonic stool. 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 There are no abnormally distended gas-filled segments of bowel. There is no identified abnormal radiodensity overlying the expected positions of the kidneys or ureters. IMPRESSION: 1. No identified radiographically apparent acute abdominal abnormality. 2. Large volume colonic stool. Dictated by: Dictated on workstation # [id number]
[2019-04-21 21:20] VITALS: BP 134/92
== END 2019-04-21 21:20 | disposition home or self-care (01) ==
LOC: EDUNIT# 20:26 → ER FS 20:28
DX: K59.00 Constipation, unspecified (principal); G40.909 Epilepsy, unspecified, not intractable, without status epilepticus; F31.9 Bipolar disorder, unspecified; F32.9 Major depressive disorder, single episode, unspecified; Z88.0 Allergy status to penicillin; Z82.49 Family history of ischemic heart disease and other diseases of the circulatory system
CPT/HCPCS: 36415; 74022; 80053; 83690; 85025

== ENCOUNTER 2019-04-24 10:41 | Emergency (ER) | payer MEDICARE, MEDICAID ==
[~2019-04-24] VITALS: Ht 157.4 cm; Wt 59.0 kg
--- NOTE | 2019-04-24 10:50 | ED Fall/Injury ---
General Stated Complaint: SYNCOPE; FALL Source: patient, family History of Present Illness Date Seen by Provider: Apr 24, 2019 Time Seen by Provider: 10:50 Initial Comments 49-year-old male presents following a syncopal episode. 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 Patient did not have any symptoms at this time. Patient denies any chest pain, shortness of breath, nausea vomiting, diaphoresis or any other symptoms prior to syncopal event. Patient has generalized pain at this time but no focal pain. Patient does not have any obvious injury. Patient's brother states that he thinks is because he "hasn't been sleeping" and hasn't eaten anything at this morning. Patient with no other complaints at this time Allergies and Home Medications Allergies Coded Allergies: Penicillins (Verified Allergy, Unknown, 08/19/18) Home Medications Benztropine Mesylate 1 Mg Tablet, 0.5 MG PO HS, (Reported) LAST FILLED #30 07-29-18 TAKES 1/2 (1MG) TABLET Cyclobenzaprine HCl 10 Mg Tablet, 10 MG PO DAILY PRN for MUSCLE SPASMS, (Reporte d) Cyclobenzaprine HCl 10 Mg Tablet, 10 MG PO Q8H PRN for SPASMS Prescribed by: CHARANJIT WYMAN on 03/06/19 1201 Diclofenac Potassium 50 Mg Tablet, 50 MG PO Q8H Prescribed by: CHARANJIT WYMAN on 03/06/19 1201 Docusate Sodium 100 Mg Capsule, 100 MG PO QID PRN for CONSTIPATION-1ST LINE, (Reported) Lamotrigine 200 Mg Tablet, 200 MG PO HS, (Reported) LAST FILLED #90 07-12-18 Naproxen 500 Mg Tablet, 500 MG PO BID PRN for PAIN-MODERATE (4-6) Prescribed by: DU DIEGO on 01/26/19 0020 Ondansetron 4 Mg Tab.rapdis, 4 MG PO Q6H Prescribed by: KEE PARTIDA on 12/13/18 181 Polyethylene Glycol 3350 17 Gm Powd.pack, 17 GM PO TID PRN for CONSTIPATION-2ND LINE, (Reported) Polyethylene Glycol 3350 17 Gm Powd.pack, 17 GM PO BID Prescribed by: KEE PARTIDA on 12/13/181809 Quetiapine Fumarate 300 Mg Tablet, 1,200 MG PO HS, (Reported) TAKES 4 (300MG) TABLETS Ranitidine HCl 150 Mg Tablet, 150 MG PO HS, (Reported) Risperidone 50 Mg/2 Ml Inj, 50 MG INJ EVERY 2 WEEKS, (Reported) Sennosides 15 Mg Tab.chew, 2 TAB.CHEW PO BID PRN for CONSTIPATION-5TH LINE, (Reported) Sucralfate 1 Gm Tablet, 1 GM PO ACHS, (Reported) Trazodone HCl 100 Mg Tablet, 100 MG PO HS, (Reported) Patient Home Medication List Home Medication List Reviewed: Yes Review of Systems Review of Systems Constitutional: No chills, No diaphoresis; dizziness; No fever, No malaise Eyes: No Symptoms Reported Ears, Nose, Mouth, Throat: no symptoms reported Respiratory: no symptoms reported Cardiovascular: no symptoms reported Gastrointestinal: no symptoms reported Genitourinary: no symptoms reported Musculoskeletal: no symptoms reported Skin: no symptoms reported Psychiatric/Neurological: See HPI Past Xxjmqiq-Kvljen-Bjzbqi Hx Past Med/Social Hx: Reviewed Nursing Past Med/Soc Hx Patient Social History 2nd Hand Smoke Exposure: No Recent Foreign Travel: No Recent Hopitalizations: No Immunizations Up To Date Tetanus Booster (TDap): Unknown Seasonal Allergies Seasonal Allergies: No Past Medical History Surgeries: Yes (RIGHT LEG FUSION CHILD) Cystectomy, Gallbladder, Orthopedic, Tonsillectomy Respiratory: No Cardiac: No Neurological: Yes Seizure Disorder Genitourinary: No Gastrointestinal: No Musculoskeletal: Yes Chronic Back Pain Endocrine: No HEENT: No Cancer: No Psychosocial: Yes Anxiety, Bipolar, Depression Integumentary: No Blood Disorders: No Family Medical History Cardiovascular disease 19 FATHER Diabetes mellitus G8 BROTHER Hypertension 19 FATHER 19 MOTHER G8 BROTHER Heart Disease, Diabetes, Hypertension Physical Exam Vital Signs Vital Signs - First Documented 04/24/19 10:42 Temp 36.5 Pulse 110 Resp 16 B/P (MAP) 133/97 (109) Pulse Ox 98 O2 Delivery Room Air Capillary Refill : Height, Weight, BMI Height: 5'2.00" Weight: 128lbs. 5.0oz. 58.591171ci; 23.00 BMI Method:Stated General Appearance: WD/WN, no apparent distress HEENT: PERRL/EOMI, normal ENT inspection, TMs normal Neck: non-tender, full range of motion, supple Cardiovascular: normal peripheral pulses, no edema, tachycardia Respiratory: chest non-tender, lungs clear, normal breath sounds Gastrointestinal: non tender, soft Back: no CVA tenderness, no vertebral tenderness Extremities: normal range of motion, non-tender Neurologic/Psychiatric: technical implementation lead II-XII nml as tested, no motor/sensory deficits, alert, normal mood/affect, oriented x 3 Skin: normal color, warm/dry Lymphatic: no adenopathy Madeleine Coma Score Best Eye Response: (4) Open Spontaneously Best Verbal Response: (5) Oriented Best Motor Response: (6) Obeys Commands Progress/Results/Core Measures Results/Orders Lab Results Laboratory Tests Test 04/24/19 10:53 04/24/19 10:59 04/24/19 11:05 04/24/19 12:00 Range/Units White Blood Count 6.3 4.3-11.0 10^3/uL Red Blood Count 4.81 4.35-5.85 10^6/uL Hemoglobin 12.8 L 13.3-17.7 G/DL Hematocrit 39 L 40-54 % Mean Corpuscular Volume 82 80-99 FL Mean Corpuscular Hemoglobin 27 25-34 PG Mean Corpuscular Hemoglobin Concent 33 32-36 G/DL Red Cell Distribution Width 14.2 10.0-14.5 % Platelet Count 301 130-400 10^3/uL Mean Platelet Volume 8.4 7.4-10.4 FL Neutrophils (%) (Auto) 73 42-75 % Lymphocytes (%) (Auto) 15 12-44 % Monocytes (%) (Auto) 10 0-12 % Eosinophils (%) (Auto) 1 0-10 % Basophils (%) (Auto) 1 0-10 % Neutrophils # (Auto) 4.6 1.8-7.8 X 10^3 Lymphocytes # (Auto) 1.0 1.0-4.0 X 10^3 Monocytes # (Auto) 0.9 0.0-1.0 X 10^3 Eosinophils # (Auto) 0.1 0.0-0.3 10^3/uL Basophils # (Auto) 0.0 0.0-0.1 10^3/uL Glucometer 141 H 70-110 MG/DL Sodium Level 138 135-145 MMOL/L Potassium Level 3.7 3.6-5.0 MMOL/L Chloride Level 102 98-107 MMOL/L Carbon Dioxide Level 24 21-32 MMOL/L Anion Gap 12 5-14 MMOL/L Blood Urea Nitrogen 7 7-18 MG/DL Creatinine 0.95 0.60-1.30 MG/DL Estimat Glomerular Filtration Rate > 60 BUN/Creatinine Ratio 7 Glucose Level 143 H 70-105 MG/DL Calcium Level 9.0 8.5-10.1 MG/DL Corrected Calcium 8.8 8.5-10.1 MG/DL Magnesium Level 2.0 1.6-2.4 MG/DL Total Bilirubin 0.2 0.1-1.0 MG/DL Aspartate Amino Transf (AST/SGOT) 13 5-34 U/L Alanine Aminotransferase (ALT/SGPT) 11 0-55 U/L Alkaline Phosphatase 103 40-136 U/L Troponin I < 0.30 <0.30 NG/ML Total Protein 6.7 6.4-8.2 GM/DL Albumin 4.2 3.2-4.5 GM/DL Urine Color YELLOW Urine Clarity CLEAR Urine pH 7.5 5-9 Urine Specific [place] 1.025 H 1.016-1.022 Urine Protein NEGATIVE NEGATIVE Urine Glucose (UA) NEGATIVE NEGATIVE Urine Ketones NEGATIVE NEGATIVE Urine Nitrite NEGATIVE NEGATIVE Urine Bilirubin NEGATIVE NEGATIVE Urine Urobilinogen 0.2 < = 1.0 MG/DL Urine Leukocyte Esterase NEGATIVE NEGATIVE Urine RBC (Auto) NEGATIVE NEGATIVE Urine RBC NONE /HPF Urine WBC 0-2 /HPF Urine Squamous Epithelial Cells RARE /HPF Urine Crystals NONE /LPF Urine Bacteria NEGATIVE /HPF Urine Casts NONE /LPF Urine Mucus NONE /LPF Urine Culture Indicated NO Micro Results Microbiology 04/24/19 Influenza Types A,B Antigen (DWAIN) - Final, Complete My Orders Orders - DEANNA GREENE L DO Accucheck Stat ONCE (04/24/19 10:53) Ed Iv/Invasive Line Start (04/24/19 10:53) Monitor-Rhythm Ecg Trace Only (04/24/19 10:53) Orthostatic Vital Signs (Adult (04/24/19 10:53) Cbc With Automated Diff (04/24/19 10:53) Comprehensive Metabolic Panel (04/24/19 10:53) Magnesium (04/24/19 10:53) Ua Culture If Indicated (04/24/19 10:53) Influenza A And B Antigens (04/24/19 10:53) Troponin I Fs (04/24/19 10:53) Ct Head Wo (04/24/19 10:53) Ns Iv 1000 Ml (Sodium Chloride 0.9%) (04/24/19 10:53) Ekg Tracing (04/24/19 11:26) Ns Iv 1000 Ml (Sodium Chloride 0.9%) (04/24/19 11:09) Vital Signs/I&O 04/24/19 04/24/19 04/24/19 10:42 11:50 12:48 Temp 36.5 36.5 Pulse 110 99 95 101 100 Resp 16 16 B/P (MAP) 133/97 (109) 136/94 (108) 140/97 (108) 139/91 (107) 141/92 (108) Pulse Ox 98 98 O2 Delivery Room Air Progress Progress Note : Time: 12:41 Progress Note Patient with no symptoms while he was here in the ER. Patient had no physical findings of trauma. Patient with negative workup. He will be discharged home in stable condition and should follow-up with his primary care provider as needed Initial ECG Impression Date: Apr 24, 2019 Initial ECG Impression Time: 11:29 Initial ECG Rhythm: Normal Sinus Initial ECG Intervals: Normal Initial ECG Impression: Normal Diagnostic Imaging Diagonstic Imaging: CT Plain Films/CT/US/NM/MRI: head Reviewed: Reviewed by Me, Reviewed/Discussed Departure Impression Primary Impression: Syncope Qualified Codes: R55 - Syncope and collapse Additional Impression: Concussion Qualified Codes: S06.0X0A - Concussion without loss of consciousness, initial encounter Disposition: 01 HOME, SELF-CARE Condition: Stable Departure-Patient Inst. Referrals: ROSI PARADA APRN (PCP/Family) Primary Care Physician Patient Instructions: Concussion in Adults, Syncope (Fainting) (DC) Add. Discharge Instructions: Emergency department focuses on treating and ruling out life-threatening diseases. Whenever possible, a diagnosis is given. However, most patients are given an impression based on their history, physical exam, and workup during y our brief time in the ER. Information about probable diagnosis and other educational material has been provided. Please take the time to read and understand this information. It is very important that you follow up with a physician as discussed during the visit today. Failure to adhere to your follow-up instructions may lead to severe disability, injury, or so please make sure to keep your appointments or obtain one as requested. Please keep in mind the emergency department is not designed to your primary care or "family doctor" and nonurgent issues are best evaluated by an outpatient physician DEANNA GREENE DO Apr 24, 2019 10:50
[2019-04-24] MEDS ORDERED: NS IV 1000 ML 1,000 ML IV SCH (10:53)
[2019-04-24] MEDS ORDERED: NS IV 1000 ML 1,000 ML ONE (11:09)
[2019-04-24 11:13] LABS: HEMATOCRIT 39 % (40-54); HEMOGLOBIN 12.8 G/DL (13.3-17.7); MEAN CORPUSCULAR HEMOGLOBIN 27 PG (25-34); MEAN CORPUSCULAR HGB CONC 33 G/DL (32-36); MEAN CORPUSCULAR VOLUME 82 FL (80-99); PLATELET COUNT 301 10^3/uL (130-400); RED CELL DISTRIBUTION WIDTH 14.2 % (10.0-14.5); WHITE BLOOD COUNT 6.3 10^3/uL (4.3-11.0)
[2019-04-24 11:14] LABS: BASOPHILS % (AUTO) 1 % (0-10); EOSINOPHILS # (AUTO) 0.1 10^3/uL (0.0-0.3); EOSINOPHILS % (AUTO) 1 % (0-10); LYMPHOCYTES % (AUTO) 15 % (12-44); MEAN PLATELET VOLUME 8.4 FL (7.4-10.4); MONOCYTES # (AUTO) 0.9 X 10^3 (0.0-1.0); MONOCYTES % (AUTO) 10 % (0-12); NEUTROPHILS # (AUTO) 4.6 X 10^3 (1.8-7.8); NEUTROPHILS % (AUTO) 73 % (42-75)
[2019-04-24 11:49] LABS: CHLORIDE 102 MMOL/L (98-107); POTASSIUM 3.7 MMOL/L (3.6-5.0); SODIUM 138 MMOL/L (135-145)
[2019-04-24 11:50] VITALS: BP_SYST 136; BP_SYST 139; BP_SYST 141; BP_DIAS 91; BP_DIAS 92; BP_DIAS 94
[2019-04-24 11:50] LABS: ALANINE AMINOTRANSFERASE 11 U/L (0-55); ALBUMIN 4.2 GM/DL (3.2-4.5); ALKALINE PHOSPHATASE 103 U/L (40-136); BILIRUBIN,TOTAL 0.2 MG/DL (0.1-1.0); BUN/CREATININE RATIO 7; CARBON DIOXIDE 24 MMOL/L (21-32); CREATININE SERUM 0.95 MG/DL (0.60-1.30); GFR ESTIMATED > 60; GLUCOSE 143 MG/DL (70-105); TOTAL PROTEIN 6.7 GM/DL (6.4-8.2)
[2019-04-24 12:17] LABS: CLARITY,URINE CLEAR; COLOR,URINE YELLOW; GLUCOSE, URINE (UA) NEGATIVE (NEGATIVE); KETONES,URINE NEGATIVE (NEGATIVE); NITRITE,URINE NEGATIVE (NEGATIVE); PH,URINE 7.5 (5-9); PROTEIN,URINE NEGATIVE (NEGATIVE)
[2019-04-24 12:18] LABS: BACTERIA,URINE NEGATIVE /HPF; BILIRUBIN,URINE NEGATIVE (NEGATIVE); LEUKOCYTE ESTERASE ,URINE NEGATIVE (NEGATIVE); SQUAMOUS EPITHELIAL CELL,UR RARE /HPF; WBC,URINE 0-2 /HPF
[2019-04-24 12:48] VITALS: BP 140/97
--- NOTE | 2019-04-24 13:52 | Diagnostic Imaging Report ---
INDICATION: Syncope with fall and trauma to the head. TECHNIQUE: Routine non contrast-enhanced axial images were obtained from the skull base to the vertex. Auto Exposure Controls were utilized during the CT exam to meet ALARA standards for radiation dose reduction COMPARISON: None. FINDINGS: The ventricles and cortical sulci are mildly diffusely prominent consistent with underlying age related parenchymal volume loss. There is no midline shift or mass-effect. No acute intra-axial hemorrhage is seen. There are no abnormal areas of increased or decreased density to suggest acute hemorrhage or edema. No extra-axial masses or collections are present. The bony calvarium is intact. The visualized paranasal sinuses are unremarkable. The mastoid air cells are clear. IMPRESSION: 1. No acute intracranial abnormality. No CT evidence of mass, acute infarct or intracranial hemorrhage. Dictated by: Dictated on workstation # [id number]
== END 2019-04-24 12:46 | disposition home or self-care (01) ==
LOC: EDUNIT# 10:41 → ER FS 10:43
DX: S06.0X0A Concussion without loss of consciousness, initial encounter (principal); R55 Syncope and collapse; G40.909 Epilepsy, unspecified, not intractable, without status epilepticus; F31.9 Bipolar disorder, unspecified; F41.9 Anxiety disorder, unspecified; Z88.0 Allergy status to penicillin; Z82.49 Family history of ischemic heart disease and other diseases of the circulatory system; W01.198A Fall on same level from slipping, tripping and stumbling with subsequent striking against other object, initial encounter
CPT/HCPCS: 36415; 70450; 80053; 81000; 82962; 83735; 84484; 85025; 87804; 93005; 93041

== ENCOUNTER → 2019-05-04 | Outpatient (CLI) | payer MEDICARE, MEDICAID ==
--- NOTE | 2019-05-04 14:39 | Diagnostic Imaging Report ---
PROCEDURE: MRI left joint lower extremity without contrast. TECHNIQUE: Multiplanar, multisequence non contrast-enhanced MRI of the left lower extremity was accomplished. INDICATION: Hip pain after multiple falls. FINDINGS: Both proximal femurs are intact. There is no fracture or dislocation. The bony pelvis is intact. SI joints are unremarkable. No acute fracture. There is some questionable abnormal signal intensity in the acetabular labrum superiorly. There appears to be partial strain of the obturator internus muscle. There is also partial tear of the hamstring origins on the left. Adductor muscles demonstrate normal volume and signal intensity. There is no evidence of strain. Gluteus minimus and medius tendons are intact. No other focal fluid collections or masses are appreciated. Intrapelvic soft tissue structures are unremarkable. IMPRESSION: Partial tear of the hamstring origins on the left. Strain of the obturator internus tendon which does however remain intact. There is however some fluid and surrounding edema. No other focal abnormality in the pelvis or hip. Dictated by: Dictated on workstation # [id number]
== END ==
LOC: RAD 11:09
PROVIDERS: ATTEND Nurse Practitioner
DX: S76.312D Strain of muscle, fascia and tendon of the posterior muscle group at thigh level, left thigh, subsequent encounter (principal); R29.6 Repeated falls
CPT/HCPCS: 73721

== ENCOUNTER 2019-05-08 23:53 | Emergency (ER) | payer MEDICARE, MEDICAID ==
[~2019-05-08] VITALS: Ht 157.5 cm; Wt 53.0 kg
[~2019-05-08 23:53] MED LIST changes: -OMEP-280 PO; +OMEP20CA18 PO; -TRAZ-190 PO; +TRAZ-227 PO
[2019-05-09] MEDS ORDERED: NS IV 1000 ML 1,000 ML IV SCH (00:03)
--- NOTE | 2019-05-09 00:11 | ED General ---
General Chief Complaint: Dizziness/Syncope Stated Complaint: SYNOPE History of Present Illness Date Seen by Provider: May 09, 2019 Time Seen by Provider: 00:00 Initial Comments The patient is a 49-year-old male with a history of psychiatric illness on Risperdal, Seroquel and Lamictal, constipation / chronic abdominal pain / acid reflux, chronic discomfort to his right lower extremity secondary to a remote injury. He has no history of coronary artery disease, heart failure, COPD, asthma, chronic lung disease, DVT/PE or any other known cardiorespiratory comorbidities. He is a smoker. He is very well known to this emergency departm ent; this is his 24th presentation in the last 10 months. He presents for evaluation of an apparent syncopal episode occurring just prior to arrival. Patient states he was resting on his couch and got up to urinate and felt lightheaded on the way to the bathroom. Before he was able to urinate he passed out. He reports striking the back of his head and his posterior midline neck on the lip of the bathtub as he fell. He also reports hurting his chronically painful right lower extremity in some way during the fall. He was able to get up immediately afterwards and went back to the couch and then called 911. He reports he was feeling well before the onset of symptoms. He denies any fevers, nausea or vomiting, focal weakness, numbness, tingling, vision changes, sh ortness of breath or chest pain prior to, during or after the syncopal episode, flank pain, back pain, abdominal pain, dysuria or hematuria, changes in bowel habits. Patient is alert and oriented and in absolutely no acute distress with appropriate vital signs aside from very mild tachycardia on initial evaluation in the emergency department. Allergies and Home Medications Allergies Coded Allergies: Penicillins (Verified Allergy, Unknown, 08/19/18) Home Medications Benztropine Mesylate 1 Mg Tablet, 0.5 MG PO HS, (Reported) LAST FILLED #30 07-29-18 TAKES 1/2 (1MG) TABLET Cyclobenzaprine HCl 10 Mg Tablet, 10 MG PO DAILY PRN for MUSCLE SPASMS, (Reported) Cyclobenzaprine HCl 10 Mg Tablet, 10 MG PO Q8H PRN for SPASMS Prescribed by: CHARANJIT WYMAN on 03/06/19 1201 Diclofenac Potassium 50 Mg Tablet, 50 MG PO Q8H Prescribed by: CHARANJIT WYMAN on 03/06/19 1201 Docusate Sodium 100 Mg Capsule, 100 MG PO QID PRN for CONSTIPATION-1ST LINE, (Reported) Lamotrigine 200 Mg Tablet, 200 MG PO HS, (Reported) LAST FILLED #90 07-12-18 Naproxen 500 Mg Tablet, 500 MG PO BID PRN for PAIN-MODERATE (4-6) Prescribed by: DU DIEGO on 01/26/19 0020 Ondansetron 4 Mg Tab.rapdis, 4 MG PO Q6H Prescribed by: KEE PARTIDA on 12/13/181809 Polyethylene Glycol 3350 17 Gm Powd.pack, 17 GM PO TID PRN for CONSTIPATION-2ND LINE, (Reported) Polyethylene Glycol 3350 17 Gm Powd.pack, 17 GM PO BID Prescribed by: KEE PARTIDA on 12/13/181809 Quetiapine Fumarate 300 Mg Tablet, 1,200 MG PO HS, (Reported) TAKES 4 (300MG) TABLETS Ranitidine HCl 150 Mg Tablet, 150 MG PO HS, (Reported) Risperidone 50 Mg/2 Ml Inj, 50 MG INJ EVERY 2 WEEKS, (Reported) Sennosides 15 Mg Tab.chew, 2 TAB.CHEW PO BID PRN for CONSTIPATION-5TH LINE, (Reported) Sucralfate 1 Gm Tablet, 1 GM PO ACHS, (Reported) Trazodone HCl 100 Mg Tablet, 100 MG PO HS, (Reported) Patient Home Medication List Home Medication List Reviewed: Yes Review of Systems Review of Systems Constitutional: see HPI All Other Systems Reviewed Negative Unless Noted: Yes (Negative excepted noted.) Past Khyanrc-Mlbceu-Oidiwd Hx Past Med/Social Hx: Reviewed Nursing Past Med/Soc Hx Patient Social History 2nd Hand Smoke Exposure: No Recent Foreign Travel: No Contact w/Someone Who Travel: No Recent Hopitalizations: No Immunizations Up To Date Tetanus Booster (TDap): Unknown Seasonal Allergies Seasonal Allergies: No Past Medical History Surgeries: Yes (RIGHT LEG FUSION CHILD) Cystectomy, Gallbladder, Orthopedic, Tonsillectomy Respiratory: No Cardiac: No Neurological: Yes Seizure Disorder Genitourinary: No Gastrointestinal: No Musculoskeletal: Yes Chronic Back Pain Endocrine: No HEENT: No Cancer: No Psychosocial: Yes Anxiety, Bipolar, Depression Integumentary: No Blood Disorders: No Family Medical History Reviewed Nursing Family Hx Cardiovascular disease 19 FATHER Diabetes mellitus G8 BROTHER Hypertension 19 FATHER 19 MOTHER G8 BROTHER Heart Disease, Diabetes, Hypertension Physical Exam Vital Signs Vital Signs - First Documented 05/09/19 00:03 Temp 35.9 Pulse 112 Resp 18 B/P (MAP) 124/89 (101) Pulse Ox 98 O2 Delivery Room Air Capillary Refill : Height, Weight, BMI Height: 5'2.00" Weight: 128lbs. 5.0oz. 58.892851dt; 23.00 BMI Method:Stated General Appearance: No Apparent Distress Comments This is an older male appearing nontoxic and in no acute distress. Head is normocephalic and with mild tenderness to the occiput without contusion or any other signs of trauma. No signs basilar fracture. Neck is supple and with mild tenderness to the posterior midline. C-collar is in place. No erythema, warmth, swelling, step-offs or deformities to the neck or back at midline. Oropharynx is moist. Lungs clear to auscultation at all stations. There is a normal S1 and S2 without rubs or gallops and capillary refill is appropriate, less than 2 seconds globally. Abdomen is soft, nontender nondistended. Skin is warm and dry without cyanosis, clubbing or edema. Psychiatrically, the patient demonstrated appropriate mood and affect and is alert. Neurologically, cranial nerves II through XII are intact and there are no lateralizing deficits noted. Speech is normal. Leg which is normal. Coordination is normal. There is no dysmetria with finger to nose bilaterally. Strength is 5 out of 5 in all joints of bilateral upper and lower extremities. Sensation is intact to light touch in bilateral upper and lower extremities. The patient ambulates with a narrow, steady gait in the emergency department. Examination of the right lower extremity is remarkable for mild tenderness to the anterior right keene without erythema, warmth or swelling noted. No pain with ranging of any joint of the right lower extremity. The right lower from is neurovascularly intact distally. Progress/Results/Core Measures Suspected Sepsis SIRS Temperature: Pulse: Respiratory Rate: Laboratory Tests 05/09/19 00:15: White Blood Count 7.5 Blood Pressure / Mean: Laboratory Tests 05/09/19 00:15: Creatinine 0.86, Platelet Count 329, Total Bilirubin 0.2 Results/Orders Lab Results Laboratory Tests Test 05/09/19 00:15 Range/Units White Blood Count 7.5 4.3-11.0 10^3/uL Red Blood Count 4.52 4.35-5.85 10^6/uL Hemoglobin 12.0 L 13.3-17.7 G/DL Hematocrit 37 L 40-54 % Mean Corpuscular Volume 81 80-99 FL Mean Corpuscular Hemoglobin 27 25-34 PG Mean Corpuscular Hemoglobin Concent 33 32-36 G/DL Red Cell Distribution Width 14.3 10.0-14.5 % Platelet Count 329 130-400 10^3/uL Mean Platelet Volume 8.4 7.4-10.4 FL Sodium Level 139 135-145 MMOL/L Potassium Level 3.3 L 3.6-5.0 MMOL/L Chloride Level 100 98-107 MMOL/L Carbon Dioxide Level 26 21-32 MMOL/L Anion Gap 13 5-14 MMOL/L Blood Urea Nitrogen 7 7-18 MG/DL Creatinine 0.86 0.60-1.30 MG/DL Estimat Glomerular Filtration Rate > 60 BUN/Creatinine Ratio 8 Glucose Level 130 H 70-105 MG/DL Calcium Level 8.8 8.5-10.1 MG/DL Corrected Calcium 8.9 8.5-10.1 MG/DL Total Bilirubin 0.2 0.1-1.0 MG/DL Aspartate Amino Transf (AST/SGOT) 18 5-34 U/L Alanine Aminotransferase (ALT/SGPT) 10 0-55 U/L Alkaline Phosphatase 91 40-136 U/L Troponin I < 0.30 <0.30 NG/ML Total Protein 6.4 6.4-8.2 GM/DL Albumin 3.9 3.2-4.5 GM/DL My Orders Orders - CHARANJIT WYMAN MD Cbc No Diff (05/09/19 00:03) Comprehensive Metabolic Panel (05/09/19 00:03) Troponin I Fs (05/09/19 00:03) Ekg Tracing (05/09/19 00:03) Chest 1 View Ap/Pa Only (05/09/19 00:03) Tibia Fibula 2 View Right (05/09/19 00:03) Acetaminophen Tablet/Caplet (Tylenol T (05/09/19 00:15) Ns Iv 1000 Ml (Sodium Chloride 0.9%) (05/09/19 00:03) Ct Head/Cervical Spine Wo (05/09/19 00:03) Potassium Chloride (Tablet) (K Dur Table (05/09/19 00:45) Medications Given in ED Current Medications Medications Dose Ordered Sig/Mukund Route Start Time Stop Time Status Last Admin Dose Admin Acetaminophen 975 mg ONCE ONCE PO 05/09/19 00:15 05/09/19 00:16 DC 05/09/19 00:25 975 MG Vital Signs/I&O 05/09/19 00:03 Temp 35.9 Pulse 112 Resp 18 B/P (MAP) 124/89 (101) Pulse Ox 98 O2 Delivery Room Air Capillary Refill : Progress Note : Time: 00:11 Progress Note Clinical examination reassuring and neurologic examination nonfocal. 49-year-old male who presents with what sounds to have been an orthostatic syncopal episode after getting up abruptly from his couch to use the bathroom. He is likely to be low risk for his syncopal episode by [place] criteria. Given posterior midline neck pain and occipital head pain, will check advanced imaging as noted and will check labs and EKG and chest x-ray and plain films of the right lower extremity and will give some Tylenol for discomfort. We'll give a liter of IV fluids. If workup is reassuring and the patient feels better, plan will likely be for discharge home with medication for discomfort to follow up very closely with primary care immediately after the weekend. Patient understands and agrees with this plan of care. Update 0115: Patient resting comfortably in no acute distress upon reassessment. Labs, EKG, plain films of the chest and distal right lower extremity and advanced imaging of the head and cervical spine are unremarkable for any evidence of acute process. Patient is low risk by symptoms skull criteria for his likely orthostatic syncopal episode prior to arrival. He is ambulatory with a narrow, steady gait in the emergency department and states he feels better. We will proceed with discharge home as per plan above. Patient understands that if he feels worse instead of better or develops any other new symptoms of concern that he should return to the emergency department immediately for reevaluation. All questions are answered. ECG Comment Sinus rhythm, rate 99, no acute ST elevation or depression, GA 140, QRS 89, QTc 461, EP interpretation. Diagnostic Imaging Comments Plain films of chest and R tib/fib: no acute process per EP read. CT head and cervical spine: no acute process per radiologist interpretation. Departure Impression Primary Impression: Syncope and collapse Disposition: 01 HOME, SELF-CARE Condition: Stable Departure-Patient Inst. Referrals: ROSI PARADA APRN (PCP/Family) Primary Care Physician Patient Instructions: Syncope (Fainting) (DC) Add. Discharge Instructions: Please follow up very closely with your primary care doctor immediately after the weekend, ideally in the next 2-4 days. Drink plenty of fluids in order to stay hydrated. Get up carefully from a seated position after you have been sitting for a while to minimize any risk for lightheadedness. Use ibuprofen and/or Tylenol as needed for any discomfort from your fall. Return to the emergency department right away with worsening symptoms or other new concerns. CHARANJIT WYMAN MD May 09, 2019 00:11
[2019-05-09] MEDS ORDERED: ACETAMINOPHEN 325 MG TABLET PO ONE (00:15)
[2019-05-09 00:19] LABS: MEAN PLATELET VOLUME 8.4 FL (7.4-10.4); RED CELL DISTRIBUTION WIDTH 14.3 % (10.0-14.5); WHITE BLOOD COUNT 7.5 10^3/uL (4.3-11.0)
[2019-05-09 00:40] LABS: ALKALINE PHOSPHATASE 91 U/L (40-136); BILIRUBIN,TOTAL 0.2 MG/DL (0.1-1.0); BUN/CREATININE RATIO 8; CALCIUM 8.8 MG/DL (8.5-10.1); CARBON DIOXIDE 26 MMOL/L (21-32); CHLORIDE 100 MMOL/L (98-107); CREATININE SERUM 0.86 MG/DL (0.60-1.30); GFR ESTIMATED > 60; GLUCOSE 130 MG/DL (70-105); POTASSIUM 3.3 MMOL/L (3.6-5.0); SODIUM 139 MMOL/L (135-145)
[2019-05-09 00:41] LABS: ALANINE AMINOTRANSFERASE 10 U/L (0-55); ALBUMIN 3.9 GM/DL (3.2-4.5); TOTAL PROTEIN 6.4 GM/DL (6.4-8.2)
[2019-05-09] MEDS ORDERED: KCL 20 MEQ TAB (K-DUR) PO ONE (00:45)
[2019-05-09 01:37] VITALS: BP 122/84
--- NOTE | 2019-05-09 06:28 | Diagnostic Imaging Report ---
PROCEDURE: CT head and CT cervical spine without contrast. TECHNIQUE: Multiple contiguous axial images were obtained through the brain and cervical spine without the use of intravenous contrast. Sagittal and coronal reformations through the cervical spine were then performed. Auto Exposure Controls were utilized during the CT exam to meet ALARA standards for radiation dose reduction. INDICATION: Dizziness, fall, resulting in neck pain. Head CT compared 04/24/2019, cervical imaging compared 01/25/2019. Head: The degree of sulcation is slightly greater than typically encountered in patients of this age, a mild degree of atrophy could not be excluded. There is no hydrocephalus, however, no evidence for focal or generalized cerebral edema. No intracerebral hemorrhage or acute extra-axial fluid collection. Orbits, sinuses, and calvarium appeared nonacute. There has been no interval change. Cervical spine: Cervical body heights maintained, the alignment anatomic. No paravertebral hemorrhage. There is developmental incomplete fusion of the midline C1 ring anteriorly and posteriorly as a variant. There were no findings of acute or chronic fracture. No traumatic malalignment. No appreciable stenosis. No paravertebral mass, hemorrhage or fluid collection. No traumatic deformity of the structures of the larynx. IMPRESSION: CT HEAD: Stable head CT. No edema, hemorrhage or acute finding CT cervical spine: No cervical fracture, stenosis or traumatic malalignment. Dictated by: Dictated on workstation # [id number]
--- NOTE | 2019-05-09 07:12 | Diagnostic Imaging Report ---
INDICATION: Dizziness resulting in fall Comparison is made to the study of 04/21/2019. FINDINGS: Heart size and pulmonary vascularity are within normal limits, and the lungs are clear, bilaterally. IMPRESSION: Unremarkable chest. Dictated by: Dictated on workstation # [id number]
--- NOTE | 2019-05-09 07:30 | Diagnostic Imaging Report ---
INDICATION: Fall with leg injury. AP and lateral views of the right lower leg are obtained with comparison made to study of 09/25/2018. FINDINGS: Intramedullary rods and fusion of the knee joint are again noted. There is no evidence of acute fracture or malalignment. No orthopedic hardware complication is seen. IMPRESSION: No acute abnormality or significant change. Dictated by: Dictated on workstation # [id number]
== END 2019-05-09 01:37 | disposition home or self-care (01) ==
LOC: EDUNIT# 23:53 → ER FS 23:56
DX: R55 Syncope and collapse (principal); G40.909 Epilepsy, unspecified, not intractable, without status epilepticus; F41.9 Anxiety disorder, unspecified; F31.9 Bipolar disorder, unspecified; F17.200 Nicotine dependence, unspecified, uncomplicated; Z88.0 Allergy status to penicillin; Z82.49 Family history of ischemic heart disease and other diseases of the circulatory system
CPT/HCPCS: 36415; 70450; 71045; 72125; 73590; 80053; 84484; 85027; 93005; 96360

== ENCOUNTER 2019-06-03 20:01 | Emergency (ER) | payer MEDICARE, MEDICAID ==
[~2019-06-03] VITALS: Ht 154.9 cm; Wt 51.7 kg
--- NOTE | 2019-06-03 20:08 | ED EENT ---
History of Present Illness General Stated Complaint: EAR DRAINAGE/BLOOD Source: patient History of Present Illness Date Seen by Provider: Jun 03, 2019 Time Seen by Provider: 20:08 Initial Comments 49-year-old male presents with a little bit of blood on it Q-tip when he cleans on his right ear with a little bit of "drainage" thing on for about 5 days. Patient denies any fevers chills or other systemic complaints. Allergies and Home Medications Allergies Coded Allergies: Penicillins (Verified Allergy, Unknown, 08/19/18) Home Medications Benztropine Mesylate 1 Mg Tablet, 0.5 MG PO HS, (Reported) LAST FILLED #30 07-29-18 TAKES 1/2 (1MG) TABLET Cyclobenzaprine HCl 10 Mg Tablet, 10 MG PO DAILY PRN for MUSCLE SPASMS, (Reported) Cyclobenzaprine HCl 10 Mg Tablet, 10 MG PO Q8H PRN for SPASMS Prescribed by: CHARANJIT WYMAN on 03/06/19 1201 Diclofenac Potassium 50 Mg Tablet, 50 MG PO Q8H Prescribed by: CHARANJIT WYMAN on 03/06/19 1201 Docusate Sodium 100 Mg Capsule, 100 MG PO QID PRN for CONSTIPATION-1ST LINE, (Reported) Lamotrigine 200 Mg Tablet, 200 MG PO HS, (Reported) LAST FILLED #90 07-12-18 Naproxen 500 Mg Tablet, 500 MG PO BID PRN for PAIN-MODERATE (4-6) Prescribed by: DU DIEGO on 01/26/19 0020 Ondansetron 4 Mg Tab.rapdis, 4 MG PO Q6H Prescribed by: KEE PARTIDA on 12/13/181809 Polyethylene Glycol 3350 17 Gm Powd.pack, 17 GM PO TID PRN for CONSTIPATION-2ND LINE, (Reported) Polyethylene Glycol 3350 17 Gm Powd.pack, 17 GM PO BID Prescribed by: KEE PARTIDA on 12/13/181809 Quetiapine Fumarate 300 Mg Tablet, 1,200 MG PO HS, (Reported) TAKES 4 (300MG) TABLETS Ranitidine HCl 150 Mg Tablet, 150 MG PO HS, (Reported) Risperidone 50 Mg/2 Ml Inj, 50 MG INJ EVERY 2 WEEKS, (Reported) Sennosides 15 Mg Tab.chew, 2 TAB.CHEW PO BID PRN for CONSTIPATION-5TH LINE, (Reported) Sucralfate 1 Gm Tablet, 1 GM PO ACHS, (Reported) Trazodone HCl 100 Mg Tablet, 100 MG PO HS, (Reported) Patient Home Medication List Home Medication List Reviewed: Yes Review of Systems Review of Systems Constitutional: No chills, No fever Eyes: No Symptoms Reported Ears: See HPI Nose: no symptoms reported Mouth: no symptoms reported Throat: no symptoms reported Respiratory: no symptoms reported Cardiovascular: no symptoms reported Gastrointestinal: no symptoms reported Past Zjnuhzb-Obkhjh-Cgqzxt Hx Past Med/Social Hx: Reviewed Nursing Past Med/Soc Hx Patient Social History 2nd Hand Smoke Exposure: No Recent Foreign Travel: No Contact w/Someone Who Travel: No Recent Hopitalizations: No Immunizations Up To Date Tetanus Booster (TDap): Unknown Seasonal Allergies Seasonal Allergies: No Past Medical History Surgeries: Yes (RIGHT LEG FUSION CHILD) Cystectomy, Gallbladder, Orthopedic, Tonsillectomy Respiratory: No Cardiac: No Neurological: Yes Seizure Disorder Genitourinary: No Gastrointestinal: No Musculoskeletal: Yes Chronic Back Pain Endocrine: No HEENT: No Cancer: No Psychosocial: Yes Anxiety, Bipolar, Depression Integumentary: No Blood Disorders: No Family Medical History Cardiovascular disease 19 FATHER Diabetes mellitus G8 BROTHER Hypertension 19 FATHER 19 MOTHER G8 BROTHER Heart Disease, Diabetes, Hypertension Physical Exam Vital Signs Vital Signs - First Documented 06/03/19 20:11 Temp 36.7 Pulse 81 Resp 16 B/P (MAP) 131/90 (104) O2 Delivery Room Air Height, Weight, BMI Height: 5'2.00" Weight: 128lbs. 5.0oz. 58.180985wn; 21.00 BMI Method:Stated General Appearance: WD/WN Eyes: bilateral eye normal inspection Ears: right ear other (abrasion of right ear canal with some mild erythema); bilateral ear TM normal Cardiovascular: normal peripheral pulses, regular rate, rhythm Respiratory: chest non-tender, lungs clear Gastrointestinal: non tender, soft Progress/Results/Core Measures Results/Orders Vital Signs/I&O 06/03/19 20:11 Temp 36.7 Pulse 81 Resp 16 B/P (MAP) 131/90 (104) O2 Delivery Room Air Departure Impression Primary Impression: Abrasion of right ear canal Qualified Codes: S00.411A - Abrasion of right ear, initial encounter Additional Impression: Otitis externa Qualified Codes: H60.501 - Unspecified acute noninfective otitis externa, right ear Disposition: HOME, SELF-CARE Condition: Stable Departure-Patient Inst. Referrals: ROSI PARADA APRN (PCP/Family) Primary Care Physician Patient Instructions: Skin Abrasions, How to Use Ear Drops Add. Discharge Instructions: Emergency department focuses on treating and ruling out life-threatening diseases. Whenever possible, a diagnosis is given. However, most patients are given an impression based on their history, physical exam, and workup during your brief time in the ER. Information about probable diagnosis and other educational material has been provided. Please take the time to read and understand this information. It is very important that you follow up with a physician as discussed during the visit today. Failure to adhere to your follow-up instructions may lead to severe disability, injury, or so please make sure to keep your appointments or obtain one as requested. Please keep in mind the emergency department is not designed to your primary care or "family doctor" and nonurgent issues are best evaluated by an outpatient physician Scripts Ciprofloxacin HCl/Dexameth (Ciprodex Otic Suspension) 7.5 Ml Soln 7.5 ML OT BID for 7 Days, #1 EA Prov: DEANNA GREENE DO 06/03/19 DEANNA GREENE DO Jun 03, 2019 20:08
[2019-06-03 20:11] VITALS: BP 131/90
[2019-06-03] MEDS ORDERED: NF-CIPDEC OT (20:29)
--- OUTSIDE RECORDS SUMMARY | 2019-06-03 23:12 | XMS REPORT | Continuity of Care Document ---
Author Organization Unknown Address Unknown Phone Unavailable Allergies Active Description Code Type Severity Reaction Onset Reported/Identified Relationship to Patient Clinical Status Yes ibuprofen [id number] Drug Allergy Unknown N/A 06/27/2018 Yes naproxen [id number] Drug Allergy Unknown N/A 06/27/2018 Yes tramadol [id number] Drug Allergy Unknown N/A 06/27/2018 Yes Penicillins [id number] Drug Aller gy Unknown N/A 08/19/2018 Medications [...] LEG 09/06/2018 KEE PARTIDA DO Ot W20.8XXA [facility] CAUSE OF STRIKE BY THROWN, PROJECTED [...] OTHER SPECIFIED POSTPROCEDURAL STATES 10/14/2018 KARLA CORTES HYDROELECTRIC POWERPLANT SUPERVISOR Ot M25.571 PAIN IN RIGHT ANKLE AND JOINTS OF RIGHT 10/14/2018 KARLA CORTES HYDROELECTRIC POWERPLANT SUPERVISOR Ot M79.661 PAIN IN RIGHT LOWER LEG 10/14/2018 KARLA CORTES HYDROELECTRIC POWERPLANT SUPERVISOR Ot Z98.890 OTHER SPECIFIED POSTPROCEDURAL STATES 10/14/2018 [...] KEE Ot F31.9 BIPOLAR DISORDER, UNSPECIFIED 10/28/2018 [place] DO, KEE Ot F41.9 ANXIETY DISORDER, UNSPECIFIED 10/28/2018 [place] DO, KEE Ot G40.909 EPILEPSY, UNSP, NOT INTRACTABLE, WITHOUT 10/28/2018 [place] DO, KEE Ot M25.512 PAIN IN LEFT SHOULDER 10/28/2018 [place] DO, KEE Ot Z82.49 FAMILY HX OF ISCHEM HEART DIS AND OTH DI 10/28/2018 [place] DO, KEE Ot Z88.0 ALLERGY STATUS TO PENICILLIN 10/28/2018 [place] DO, KEE Ot Z90.89 ACQUIRED ABSENCE OF OTHER ORGANS 10/30/2018 [place] DO, KEE Ot F31.9 BIPOLAR DISORDER, UNSPECIFIED 10/30/2018 [place] DO, KEE Ot F41.9 ANXIETY DISORDER, UNSPECIFIED 10/30/2018 [place] DO, KEE Ot G40.909 EPILEPSY, UNSP, NOT INTRACTABLE, WITHOUT 10/30/2018 [place] DO, KEE Ot M25.512 PAIN IN LEFT SHOULDER 10/30/2018 [place] DO, KEE Ot Z82.49 FAMILY HX OF ISCHEM HEART DIS AND OTH DI 10/30/2018 [place] DO, KEE Ot Z88.0 ALLERGY STATUS TO PENICILLIN 10/30/2018 [place] DO, KEE Ot Z90.89 ACQUIRED ABSENCE OF [...] ABSENCE OF OTHER ORGANS 12/04/2018 KARLA CORTES HYDROELECTRIC POWERPLANT SUPERVISOR Ot M25.571 PAIN IN RIGHT ANKLE AND JOINTS OF RIGHT 12/04/2018 KARLA CORTES HYDROELECTRIC POWERPLANT SUPERVISOR Ot M79.661 PAIN IN RIGHT LOWER LEG 12/04/2018 KARLA CORTES HYDROELECTRIC POWERPLANT SUPERVISOR Ot Z98.890 OTHER SPECIFIED POSTPROCEDURAL STATES 12/13/2018 [...] ABSENCE OF OTHER ORGANS 12/22/2018 ROSI PARADA TECHNICAL SUPPORT SPECIALIST Ot M47.812 SPONDYLOSIS W/O MYELOPATHY OR RADICULOPA 12/22/2018 ROSI PARADA TECHNICAL SUPPORT SPECIALIST Ot M54.5 LOW BACK PAIN 12/22/2018 ROSI PARADA TECHNICAL SUPPORT SPECIALIST Ot M54.6 PAIN IN THORACIC SPINE 12/22/2018 ROSI PARADA TECHNICAL SUPPORT SPECIALIST Ot W19.XXXA UNSPECIFIED FALL, INITIAL ENCOUNTER 01/26/2019 [...] W/O MYELOPATHY OR RADICULOPA 02/14/2019 ROSI PARADA TECHNICAL SUPPORT SPECIALIST Ot M54.5 LOW BACK PAIN 02/14/2019 ROSI PARADA TECHNICAL SUPPORT SPECIALIST Ot M54.6 PAIN IN THORACIC SPINE 02/14/2019 ROSI PARADA TECHNICAL SUPPORT SPECIALIST Ot W19.XXXA UNSPECIFIED FALL, INITIAL ENCOUNTER 02/14/2019 KARLA CORTES Ot M25.571 PAIN IN RIGHT ANKLE AND JOINTS OF RIGHT 02/14/2019 KARLA CORTESP Ot M79.661 PAIN IN RIGHT LOWER LEG 02/14/2019 KARLA CORTESP Ot Z98.890 OTHER SPECIFIED POSTPROCEDURAL STATES 02/14/2019 ROSI PARADA TECHNICAL SUPPORT SPECIALIST Ot M47.812 SPONDYLOSIS W/O MYELOPATHY OR RADICULOPA 02/14/2019 KARMA, ROSI Jose Juan TECHNICAL SUPPORT SPECIALIST Ot M54.5 LOW BACK PAIN 02/14/2019 ROSI PARADA TECHNICAL SUPPORT SPECIALIST Ot M54.6 PAIN IN THORACIC SPINE 02/14/2019 ROSI PARADA TECHNICAL SUPPORT SPECIALIST Ot W19.XXXA UNSPECIFIED FALL, INITIAL ENCOUNTER 02/14/2019 [...] Ot Z88.0 ALLERGY STATUS TO PENICILLIN 02/19/2019 [place] DO, DEANNA L Ot Z90.8 9 ACQUIRED ABSENCE OF OTHER ORGANS 02/21/2019 [place] DO, DEANNA L Ot F31.9 BIPOLAR DISORDER, UNSPECIFIED 02/21/2019 [place] DO, DEANNA L Ot F41.9 ANXIETY DISORDER, UNSPECIFIED 02/21/2019 [place] DO, DEANNA L Ot G40.9 09 EPILEPSY, UNSP, NOT INTRACTABLE, WITHOUT 02/21/2019 [place] DO, DEANNA L Ot M25.5 52 PAIN IN LEFT HIP 02/21/2019 [place] DO, DEANNA L Ot S70.02XA CONTUSION OF LEFT HIP, INITIAL ENCOUNTER 02/21/2019 GREENE DEANNA EASTMAN Ot W01.0XXA FALL SAME LEV FROM SLIP/TRIP W/O STRIKE 02/21/2019 GREENE ALEXEY EASTMANR Lizz Ot Z82.4 9 FAMILY HX OF ISCHEM HEART DIS AND OTH DI 02/21/2019 GREENE DOALEXEYR Lizz Ot Z88.0 ALLERGY STATUS TO PENICILLIN 02/21/2019 GREENE CHEMA EASTMANVOR L Ot Z90.8 9 ACQUIRED ABSENCE OF OTHER ORGANS 03/06/2019 CHARANJIT WYMAN MD Ot F31. 9 BIPOLAR DISORDER, UNSPECIFIED 03/06/2019 CHARANJIT WYMAN MD, Ot F41. 9 ANXIETY DISORDER, UNSPECIFIED 03/06/2019 CHARANJIT WYMAN MD, Ot G40.909 EPILEPSY, UNSP, NOT INTRACTABLE, WITHOUT 03/06/2019 CHARANJIT WYMAN MD Ot M79.652 PAIN IN LEFT THIGH 03/06/2019 CHARANJIT WYMAN MD Ot S70.12XA CONTUSION OF LEFT THIGH, INITIAL ENCOUNT 03/06/2019 CHARANJIT WYMAN MD, Ot W10.1XXA FALL (ON)(FROM) SIDEWALK CURB, INITIAL E 03/06/2019 CHARANJIT WYMAN MD Ot Y92.[address] OF OCCURRENCE OF T 03/06/2019 CHARANJIT WYMAN MD Ot Z82. 49 FAMILY HX OF ISCHEM HEART DIS AND OTH DI 03/06/2019 CHARANJIT WYMAN MD Ot Z88. 0 ALLERGY STATUS TO PENICILLIN 03/06/2019 CHARANJIT WYMAN MD, Ot Z90. 89 ACQUIRED ABSENCE OF OTHER ORGANS 03/06/2019 KARLA CORTES Ot M25.571 PAIN IN RIGHT ANKLE AND JOINTS OF RIGHT 03/06/2019 KARLA CORTES Ot M79.661 PAIN IN RIGHT LOWER LEG 03/06/2019 KARLA CORTES Ot Z98.890 OTHER SPECIFIED POSTPROCEDURAL STATES 03/06/2019 ROSI PARADA APRN Ot M47.812 SPONDYLOSIS W/O MYELOPATHY OR RADICULOPA 03/06/2019 ROSI PARADA APRN Ot M54.5 LOW BACK PAIN 03/06/2019 KARMAROSI Adams TECHNICAL SUPPORT SPECIALIST Ot M54.6 PAIN IN THORACIC SPINE 03/06/2019 ROSI PARADA TECHNICAL SUPPORT SPECIALIST Ot W19.XXXA UNSPECIFIED FALL, INITIAL ENCOUNTER 03/09/2019 CHARANJIT WYMAN MD, Ot F31. 9 [...] DIS AND OTH DI 03/09/2019 CHARANJIT WYMAN MD Ot Z88. 0 ALLERGY STATUS TO PENICILLIN 03/09/2019 CHARANJIT WYMAN MD Ot Z90. 89 ACQUIRED ABSENCE OF OTHER ORGANS 03/12/2019 CHARANJIT WYMAN MD, Ot F31. 9 BIPOLAR DISORDER, UNSPECIFIED 03/12/2019 CHARANJIT WYMAN MD, Ot F41. 9 ANXIETY DISORDER, UNSPECIFIED 03/12/2019 CHARANJIT WYMAN MD, Ot G40.909 EPILEPSY, UNSP, NOT INTRACTABLE, WITHOUT 03/12/2019 CHARANJIT WYMAN MD Ot M79.652 PAIN IN LEFT THIGH 03/12/2019 CHARANJIT WYMAN MD, Ot S70.12XA CONTUSION OF LEFT THIGH, INITIAL ENCOUNT 03/12/2019 CHARANJIT WYMAN MD Ot W10.1XXA FALL (ON)(FROM) SIDEWALK CURB, INITIAL E 03/12/2019 CHARANJIT WYMAN MD Ot Y92.[address] OF OCCURRENCE OF T 03/12/2019 CHARANJIT WYMAN MD Ot Z82. 49 FAMILY HX OF ISCHEM HEART DIS AND OTH DI 03/12/2019 CHARANJIT WYMAN MD, Ot Z88. 0 ALLERGY STATUS TO PENICILLIN 03/12/2019 CHARANJIT WYMAN MD Ot Z90. 89 ACQUIRED ABSENCE OF OTHER ORGANS 03/12/2019 KARLA CORTES Ot M25.571 PAIN IN RIGHT ANKLE AND JOINTS OF RIGHT 03/12/2019 KARLA CORTES Ot M79.661 PAIN IN RIGHT LOWER LEG 03/12/2019 KARLA CORTES Ot Z98.890 OTHER SPECIFIED POSTPROCEDURAL STATES 03/12/2019 CHARANJIT WYMAN MD, Ot F31. 9 BIPOLAR DISORDER, UNSPECIFIED 03/12/2019 CHARANJIT WYMAN MD, Ot F41. 9 ANXIETY DISORDER, UNSPECIFIED 03/12/2019 CHARANJIT WYMAN MD Ot G40.909 EPILEPSY, UNSP, NOT INTRACTABLE, WITHOUT 03/12/2019 CHARANJIT WYMAN MD Ot M79.652 PAIN IN LEFT THIGH 03/12/2019 CHARANJIT WYMAN MD Ot S70.12XA CONTUSION OF LEFT THIGH, INITIAL ENCOUNT 03/12/2019 CHARANJIT WYMAN MD, Ot W10.1XXA FALL (ON)(FROM) SIDEWALK CURB, INITIAL E 03/12/2019 CHARANJIT WYMAN MD, Ot Y92.[address] OF OCCURRENCE OF T 03/12/2019 CHARANJIT WYMAN MD, Ot Z82. 49 FAMILY HX OF ISCHEM HEART DIS AND OTH DI 03/12/2019 CHARANJIT WYMAN MD, Ot Z88. 0 ALLERGY STATUS TO PENICILLIN 03/12/2019 CHARANJIT WYMAN MD, Ot Z90. 89 ACQUIRED ABSENCE OF OTHER ORGANS 03/17/2019 KARLA CORTES HYDROELECTRIC POWERPLANT SUPERVISOR Ot M25.571 PAIN IN RIGHT ANKLE AND JOINTS OF RIGHT 03/17/2019 KARLA CORTES HYDROELECTRIC POWERPLANT SUPERVISOR Ot M79.661 PAIN IN RIGHT LOWER LEG 03/17/2019 KARLA CORTES HYDROELECTRIC POWERPLANT SUPERVISOR Ot Z98.890 OTHER SPECIFIED POSTPROCEDURAL STATES 04/02/2019 KARLA CORTES HYDROELECTRIC POWERPLANT SUPERVISOR Ot M25.571 PAIN IN RIGHT ANKLE AND JOINTS OF RIGHT 04/02/2019 KARLA CORTES HYDROELECTRIC POWERPLANT SUPERVISOR Ot M79.661 PAIN IN RIGHT LOWER LEG 04/02/2019 KARLA CORTES HYDROELECTRIC POWERPLANT SUPERVISOR Ot Z98.890 OTHER SPECIFIED POSTPROCEDURAL STATES 04/08/2019 KARLA CORTES HYDROELECTRIC POWERPLANT SUPERVISOR Ot M25.571 PAIN IN RIGHT ANKLE AND JOINTS OF RIGHT 04/08/2019 KARLA CORTES HYDROELECTRIC POWERPLANT SUPERVISOR Ot M79.661 PAIN IN RIGHT LOWER LEG 04/08/2019 KARLA CORTES HYDROELECTRIC POWERPLANT SUPERVISOR Ot Z98.890 OTHER SPECIFIED POSTPROCEDURAL STATES 04/08/2019 ROSI PARADA TECHNICAL SUPPORT SPECIALIST Ot M47.812 SPONDYLOSIS W/O MYELOPATHY OR RADICULOPA 04/08/2019 ROSI PARADA TECHNICAL SUPPORT SPECIALIST Ot M54.5 LOW BACK PAIN 04/08/2019 ROSI PARADA TECHNICAL SUPPORT SPECIALIST Ot M54.6 PAIN IN THORACIC SPINE 04/08/2019 ROSI PARADA TECHNICAL SUPPORT SPECIALIST Ot W19.XXXA UNSPECIFIED FALL, INITIAL ENCOUNTER 04/21/2019 TREVOR MCFARLAND MD Ot F31. 9 BIPOLAR DISORDER, UNSPECIFIED 04/21/2019 TREVOR MCFARLAND MD Ot F32. 9 MAJOR DEPRESSIVE DISORDER, SINGLE EPISOD 04/21/2019 BRUNA MD, TREVOR A Ot G40.909 EPILEPSY, UNSP, NOT INTRACTABLE, WITHOUT 04/21/2019 BRUNA HOFFMANN, TREVOR A Ot K59. 00 CONSTIPATION, UNSPECIFIED 04/21/2019 BRUNA HOFFMANN, TREVOR A Ot R10. 9 UNSPECIFIED ABDOMINAL PAIN 04/21/2019 BRUNA HOFFMANN, TREVOR A Ot Z82. 49 FAMILY HX OF ISCHEM HEART DIS AND OTH DI 04/21/2019 BRUNA HOFFMANN, TREVOR A Ot Z88. 0 ALLERGY STATUS TO PENICILLIN 04/24/2019 BRUNA HOFFMANN, TREVOR A Ot F31. 9 BIPOLAR DISORDER, UNSPECIFIED 04/24/2019 BRUNA HOFFMANN, TREVOR A Ot F32. 9 MAJOR DEPRESSIVE DISORDER, SINGLE EPISOD 04/24/2019 BRUNA HOFFMANN, TREVOR A Ot G40.909 EPILEPSY, UNSP, NOT INTRACTABLE, WITHOUT 04/24/2019 BRUNA HOFFMANN, TREVOR A Ot K59. 00 CONSTIPATION, UNSPECIFIED 04/24/2019 BRUNA HOFFMANN, TREVOR A Ot R10. 9 UNSPECIFIED ABDOMINAL PAIN 04/24/2019 BRUNA HOFFMANN, TREVOR A Ot Z82. 49 FAMILY HX OF ISCHEM HEART DIS AND OTH DI 04/24/2019 BRUNA HOFFMANN, TREVOR A Ot Z88. 0 ALLERGY STATUS TO PENICILLIN 04/24/2019 [place] DO, DEANNA L Ot F31.9 BIPOLAR DISORDER, UNSPECIFIED 04/24/2019 [place] DO, DEANNA L Ot F41.9 ANXIETY DISORDER, UNSPECIFIED 04/24/2019 [place] DO, DEANNA L Ot G40.9 09 EPILEPSY, UNSP, NOT INTRACTABLE, WITHOUT 04/24/2019 [place] DO, DEANNA L Ot R55 SYNCOPE AND COLLAPSE 04/24/2019 [place] DO, DEANNA L Ot S06.0X0A CONCUSSION WITHOUT LOSS OF CONSCIOUSNESS 04/24/2019 [place] DO, DEANNA L Ot W01.198A FALL SAME LEV FROM SLIP/TRIP W STRIKE AG 04/24/2019 [place] DO, DEANNA L Ot Z82.4 9 FAMILY HX OF ISCHEM HEART DIS AND OTH DI 04/24/2019 [place] DO, DEANNA L Ot Z88.0 ALLERGY STATUS TO PENICILLIN 04/28/2019 [place] DO, DEANNA L Ot F31.9 BIPOLAR DISORDER, UNSPECIFIED 04/28/2019 [place] DO, DEANNA L Ot F41.9 ANXIETY DISORDER, UNSPECIFIED 04/28/2019 [place] DO, DEANNA L Ot G40.9 09 EPILEPSY, UNSP, NOT INTRACTABLE, WITHOUT 04/28/2019 [place] DO, DEANNA L Ot R55 SYNCOPE AND COLLAPSE 04/28/2019 [place] DO, DEANNA L Ot S06.0X0A CONCUSSION WITHOUT LOSS OF CONSCIOUSNESS 04/28/2019 [place] DO, DEANNA L Ot W01.198A FALL SAME LEV FROM SLIP/TRIP W STRIKE AG 04/28/2019 [place] DO, DEANNA L Ot Z82.4 9 FAMILY HX OF ISCHEM HEART DIS AND OTH DI 04/28/2019 [place] DO, DEANNA L Ot Z88.0 ALLERGY STATUS TO PENICILLIN 04/28/2019 [place] DO, DEANNA L Ot F31.9 BIPOLAR DISORDER, UNSPECIFIED 04/28/2019 [place] DO, DEANNA L Ot F41.9 ANXIETY DISORDER, UNSPECIFIED 04/28/2019 [place] DO, DEANNA L Ot G40.9 09 EPILEPSY, UNSP, NOT INTRACTABLE, WITHOUT 04/28/2019 [place] DO, DEANNA L Ot R55 SYNCOPE AND COLLAPSE 04/28/2019 [place] DO, DEANNA L Ot S06.0X0A CONCUSSION WITHOUT LOSS OF CONSCIOUSNESS 04/28/2019 [place] DO, DEANNA L Ot W01.198A FALL SAME LEV FROM SLIP/TRIP W STRIKE AG 04/28/2019 [place] DO, DEANNA L Ot Z82.4 9 FAMILY HX OF ISCHEM HEART DIS AND OTH DI 04/28/2019 [place] DO, DEANNA L Ot Z88.0 ALLERGY STATUS TO PENICILLIN 05/05/2019 KARLA CORTESP Ot R29.6 REPEATED FALLS 05/05/2019 KARLA CORTESP Ot S76.312D STRAIN OF MSL/FASC/TND POST GRP AT THI L 05/13/2019 CHARANJIT WYMAN MD Ot 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 DEPENDENCE, UNSPECIFIED, UNCOMP 05/13/2019 CHARANJIT WYMAN MD Ot F31. 9 BIPOLAR DISORDER, UNSPECIFIED 05/13/2019 CHARANJIT WYMAN MD Ot F41. 9 ANXIETY DISORDER, UNSPECIFIED 05/13/2019 CHARANJIT WYMAN MD Ot G40.909 EPILEPSY, UNSP, NOT INTRACTABLE, WITHOUT 05/13/2019 CHARANJIT WYMAN MD Ot R55 SYNCOPE AND COLLAPSE 05/13/2019 ZAMZAM HOFFMANN, CHARANJIT Hoang Ot Z82. 49 FAMILY HX OF ISCHEM HEART DIS AND OTH DI 05/13/2019 CHARANJIT WYMAN MD Ot Z88. 0 ALLERGY STATUS TO PENICILLIN 05/29/2019 CHITRA HOFFMANN, SNOW Fitch Ot F31.9 BIPOLAR DISORDER, UNSPECIFIED 05/29/2019 CHITRA HOFFMANN, SNOW Fitch Ot F41.9 ANXIETY DISORDER, UNSPECIFIED 05/29/2019 CHITRA HOFFMANN, SNOW Little Ot G40.909 EPILEPSY, UNSP, NOT INTRACTABLE, WITHOUT 05/29/2019 CHITRA HOFFMANN, SNOW Little Ot K59.00 CONSTIPATION, UNSPECIFIED 05/29/2019 CHITRA HOFFMANN, SNOW Little Ot R10.84 GENERALIZED ABDOMINAL PAIN 05/29/2019 CHITRA HOFFMANN, SNOW Little Ot Z82.49 FAMILY HX OF ISCHEM HEART DIS AND OTH DI 05/29/2019 CHITRA HOFFMANN, SNOW Fitch Ot Z88.0 ALLERGY STATUS TO PENICILLIN 05/29/2019 CHITRA HOFFMANN, SNOW Little Ot Z90.6 ACQUIRED ABSENCE OF OTHER PARTS OF URINA 05/29/2019 CHITRA HOFFMANN, SNOW Little Ot Z90.89 ACQUIRED ABSENCE OF OTHER ORGANS Procedures Code Description Performed By Per formed On [id number] DI LATION OF SIGMOID COLON, ENDO 11/13/2018 [id number] DI LATION OF RECTUM WITH INTRALUMINAL DEV 11/13/[id number] HUERTAS OF STOMACH WITH DRAINAGE DEVICE 11/13/2018 [id number] EX CISION OF SIGMOID COLON, ENDO, DIAGN 11/13/2018 [id number] EX CISION OF RECTUM, ENDO, DIAGN 11/13/2018 [...] OF GROWTH Isolated NRG Bacterial blood culture [id number] NRG Bacterial blood culture - 11/07/18 22:41 [...] by glucometer (mas s/volume) 123 mg/dL 70-110 Complete blood count (CBC) with automate d white blood cell (WBC) differential - 04/21/19 20:40 Blood leukocytes automated count (number/volume) 7.1 10*3/uL 4.3-11.0 Blood erythrocytes automated count (number/volume) 4.68 10*6/uL 4.35-5.85 Venous blood hemoglobin measurement (mass/volume) 12.4 g/dL 13.3-17.7 Blood hematocrit (volume fraction) 38 % 40-54 Automated erythrocyte mean corpuscular volume 82 [ foz_us] 80-99 Automated erythrocyte mean corpuscular h emoglobin (mass per erythrocyte) 26 pg 25-34 Automated erythrocyte mean corpuscular h emoglobin concentration measurement (mass/volume) 33 g/dL 32-36 Automated erythrocyte distribution width ratio 14. 2 % 10.0- 14.5 Automated blood platelet count (count/volume) 328 10*3/uL 130-400 Automated blood platelet mean volume measurement 8.2 [foz_us] 7.4-10.4 Automated blood neutrophils/100 leukocytes 59 % 42-75 Automated blood lymphocytes/100 leukocytes 25 % 12-44 Blood monocytes/100 leukocytes 11 % 0-12 Automated blood eosinophils/100 leukocytes 3 % 0-10 Automated blood basophils/100 leukocytes 1 % 0-10 Blood neutrophils automated count (number/volume) 4.2 10*3 1.8-7.8 Blood lymphocytes automated count (number/volume) 1.8 10*3 1.0-4.0 Blood monocytes automated count (number/volume) 0. 8 10*3 0.0-1.0 Automated eosinophil count 0.2 10*3/uL 0 .0-0.3 Automated blood basophil count (count/volume) 0.1 10*3/uL 0.0-0.1 Comprehensive metabolic panel - 04/21/19 20:40 Serum or plasma sodium measurement (moles/volume) 142 mmol/L 135-145 Serum or plasma potassium measurement (moles/volume) 3.8 mmol/L 3.6-5.0 Serum or plasma chloride measurement (moles/volume) 102 mmol/L 98-107 Carbon dioxide 27 mmol/L 21-32 Serum or plasma anion gap determination (moles/volume) 13 mmol/L 5-14 Serum or plasma urea nitrogen measurement (mass/volume ) 10 mg/dL 7-18 Serum or plasma creatinine measurement (mass/volume) 1.15 mg/dL 0.60-1.30 Serum or plasma urea nitrogen/creatinine mass ratio 9 NRG Serum or plasma creatinine measurement w ith calculation of estimated glomerular filtration rate > NRG Serum or plasma glucose measurement (mass/volume) 112 mg/dL 70-105 Serum or plasma calcium measurement [...] 6.4-8.2 Serum or plasma albumin measurement (mass/volume) 4.2 g/dL 3.2-4.5 CALCIUM CORRECTED 9.0 mg/dL 8.5-10.1 Lipase - 04/21/19 20:40 Lipase 25 U/L 8-78 Complete blood count (CBC) with automate d white blood cell (WBC) differential - 04/24/19 10:53 Blood leukocytes automated count (number/volume) 6.3 10*3/uL 4.3-11.0 Blood erythrocytes automated count (number/volume) 4.81 10*6/uL 4.35-5.85 Venous blood hemoglobin measurement (mass/volume) 12.8 g/dL 13.3-17.7 Blood hematocrit (volume fraction) 39 % 40-54 Automated erythrocyte mean corpuscular volume 82 [ foz_us] 80-99 Automated erythrocyte mean corpuscular h emoglobin (mass per erythrocyte) 27 pg 25-34 Automated erythrocyte mean corpuscular h emoglobin concentration measurement (mass/volume) 33 g/dL 32-36 Automated erythrocyte distribution width ratio 14. 2 % 10.0- 14.5 Automated blood platelet count (count/volume) 301 10*3/uL 130-400 Automated blood platelet mean volume measurement 8.4 [foz_us] 7.4-10.4 Automated blood neutrophils/100 leukocytes 73 % 42-75 Automated blood lymphocytes/100 leukocytes 15 % 12-44 Blood monocytes/100 leukocytes 10 % 0-12 Automated blood eosinophils/100 leukocytes 1 % 0-10 Automated blood basophils/100 leukocytes 1 % 0-10 Blood neutrophils automated count (number/volume) 4.6 10*3 1.8-7.8 Blood lymphocytes automated count (number/volume) 1.0 10*3 1.0-4.0 Blood monocytes automated count (number/volume) 0. 9 10*3 0.0-1.0 Automated eosinophil count 0.1 10*3/uL 0 .0-0.3 Automated blood basophil count (count/volume) 0.0 10*3/uL 0.0-0.1 Capillary blood glucose measurement by g lucometer (mass/volume) - 04/24/19 10:59 Capillary blood glucose measurement by glucometer (mas s/volume) 141 mg/dL 70-110 Influenza virus A and B antigen detectio n - 04/24/19 11:05 FLU RESULT NEGATIVE FOR INFLUENZA A AND B ANTIGENS BY [facility] Comprehensive metabolic panel - 04/24/19 11:05 Serum or plasma sodium measurement (moles/volume) 138 mmol/L 135-145 Serum or plasma potassium measurement (moles/volume) 3.7 mmol/L 3.6-5.0 Serum or plasma chloride measurement (moles/volume) 102 mmol/L 98-107 Carbon dioxide 24 mmol/L 21-32 Serum or plasma anion gap determination (moles/volume) 12 mmol/L 5-14 Serum or plasma urea nitrogen measurement (mass/volume ) 7 mg/dL 7-18 Serum or plasma creatinine measurement (mass/volume) 0.95 mg/dL 0.60-1.30 Serum or plasma urea nitrogen/creatinine mass ratio 7 NRG Serum or plasma creatinine measurement w ith calculation of estimated glomerular filtration rate > NRG Serum or plasma glucose measurement (mass/volume) 143 mg/dL 70-105 Serum or plasma calcium measurement (mass/volume) 9.0 mg/dL 8.5-10.1 Serum or plasma total bilirubin measurement (mass/volu me) 0.2 mg/dL 0.1-1.0 Serum or plasma alkaline phosphatase kenna surement (enzymatic activity/volume) 103 U/L 40-136 Serum or plasma aspartate aminotransfera se measurement (enzymatic activity/volume) 13 U/L 5-34 Serum or plasma alanine aminotransferase measurement (enzymatic activity/volume) 11 U/L 0-55 Serum or plasma protein measurement (mass/volume) 6.7 g/dL 6.4-8.2 Serum or plasma albumin measurement (mass/volume) 4.2 g/dL 3.2-4.5 CALCIUM CORRECTED 8.8 mg/dL 8.5-10.1 Magnesium - 04/24/19 11:05 Magnesium 2.0 mg/dL 1.6-2.4 TROPONIN I FS - 04/24/19 11:05 TROPONIN I FS < 0.30 <0.30 Complete urinalysis with reflex to cultu re - 04/24/19 12:00 Urine color determination YELLOW NRG Urine clarity [...] by automated test strip (mass/volume) 0.2 mg/dL < = 1.0 Urine leukocyte esterase detection by dipstick NEG ATIVE NEGATIVE Automated urine sediment erythrocyte cou nt by microscopy (number/high power field) NONE NRG Automated urine sediment leukocyte count by microscopy (number/high power field) [HPF] NRG Bacteria detection in urine sediment by [...] urinalysis with reflex to culture NO NRG Automated blood complete blood count (he mogram) panel - 05/09/19 00:15 Blood leukocytes automated count (number/volume) 7.5 10*3/uL 4.3-11.0 Blood erythrocytes automated count (number/volume) 4.52 10*6/uL 4.35-5.85 Venous blood hemoglobin measurement (mass/volume) 12.0 g/dL 13.3-17.7 Blood hematocrit (volume fraction) 37 % 40-54 Automated erythrocyte mean corpuscular volume 81 [ foz_us] 80-99 Automated erythrocyte mean corpuscular h emoglobin (mass per erythrocyte) 27 pg 25-34 Automated erythrocyte mean corpuscular h emoglobin concentration measurement (mass/volume) 33 g/dL 32-36 Automated erythrocyte distribution width ratio 14. 3 % 10.0- 14.5 Automated blood platelet count (count/volume) 329 10*3/uL 130-400 Automated blood platelet mean volume measurement 8.4 [foz_us] 7.4-10.4 Comprehensive metabolic panel - 05/09/19 00:15 Serum or plasma sodium measurement (moles/volume) 139 mmol/L 135-145 Serum or plasma potassium measurement (moles/volume) 3.3 mmol/L 3.6-5.0 Serum or plasma chloride measurement (moles/volume) 100 mmol/L 98-107 Carbon dioxide 26 mmol/L 21-32 Serum or plasma anion gap determination (moles/volume) 13 mmol/L 5-14 Serum or plasma urea nitrogen measurement (mass/volume ) 7 mg/dL 7-18 Serum or plasma creatinine measurement (mass/volume) 0.86 mg/dL 0.60-1.30 Serum or plasma urea nitrogen/creatinine mass ratio 8 NRG Serum or plasma creatinine measurement w ith calculation of estimated glomerular filtration rate > NRG Serum or plasma glucose measurement (mass/volume) 130 mg/dL 70-105 Serum or plasma calcium measurement (mass/volume) 8.8 mg/dL 8.5-10.1 Serum or plasma total bilirubin measurement (mass/volu me) 0.2 mg/dL 0.1-1.0 Serum or plasma alkaline phosphatase kenna surement (enzymatic activity/volume) 91 U/L 40-136 Serum or plasma aspartate aminotransfera se measurement (enzymatic activity/volume) 18 U/L 5-34 Serum or plasma alanine aminotransferase measurement (enzymatic activity/volume) 10 U/L 0-55 Serum or plasma protein measurement (mass/volume) 6.4 g/dL 6.4-8.2 Serum or plasma albumin measurement (mass/volume) 3.9 g/dL 3.2-4.5 CALCIUM CORRECTED 8.9 mg/dL 8.5-10.1 TROPONIN I FS - 05/09/19 00:15 TROPONIN I FS < 0.30 <0.30 Encounters ACCT No. Visit Date/Time Discharge Status Pt. Type Provider Facility Loc./Unit Complaint [id number] 04/01/2019 11:40:00 04/01/2019 23:59: 59 CLS Outpatient ROSI PARADA [facility] [id number] 10/07/2018 09:30:00 Document Registration [id number] 05/29/2017 16:20:00 Document Registration [id number] 06/03/2019 20:03:00 20:31:00 DIS Emergency GREENE DEANNA EASTMAN [facility] FS EAR DRAINAGE/BLOOD [id number] 05/08/2019 23:56:00 01:37:00 DIS Outpatient CHARANJIT WYMAN MD [facility] FS SYNOPE [id number] 05/04/2019 11:09:00 23:59:59 CLS Outpatient KARLA CORTES [facility] RAD STRAIN OF MUSCLE, LT T HIGH [id number] 04/24/2019 10:43:00 12:46:00 DIS Emergency GREENE DO, DEANNA L [facility] FS SYNCOPE; FALL [id number] 04/21/2019 20:28:00 21:20:00 DIS Emergency BRUNA HOFFMANN, TREVOR Richey [facility] FS ABD PAIN/VOMITING [id number] 03/06/2019 11:39:00 12:24:00 DIS Emergency ZAMZAM HOFFMANN, CHARANJIT Hoang [facility] FS LT HIP/LEG INJ [id number] 02/15/2019 09:09:00 09:36:00 DIS Emergency LISSETH HOFFMANN, ANTONETTE Payan [facility] FS FALL [id number] 02/14/2019 13:00:00 13:54:00 DIS Emergency GREENE DO, DEANNA L [facility] FS FALL [id number] 01/25/2019 22:18:00 00:30:00 DIS Emergency JOHNATHON HOFFMANN, DU Adams [facility] FS BACK PAIN [id number] 12/18/2018 09:20:00 23:59:59 CLS Outpatient ROSI PARADA APRN [facility] FS M54.2 [id number] [id number] 12/17/2018 13:07:00 13:26:00 DIS Emergency ROVENSTKADEN CHIN DO [facility] FS FALL; NECK/FLAQUITO SHOULDER/BACK INJ [id number] 12/13/2018 16:55:00 18:19:00 DIS Emergency KEE PARTIDA DO [facility] FS ABD PAIN,VOMITING [id number] 11/30/2018 15:19:00 16:08:00 DIS Emergency TREVOR MCFARLAND [facility] [facility] FS LT SHOULDER PAIN [id number] 11/25/2018 09:24:00 23:59:59 CLS Preadmit KARLA CORTES Via [facility] RAD ROTATOR CUFF SYNDROME L T [id number] 11/12/2018 22:44:00 15:35:00 DIS Inpatient LAURA HOFFMANN, СЕРГЕЙ Barrera ia [facility] 4TH RECTO SIGMOID MASS,CONS TIPATION,N/V [id number] 11/07/2018 21:44:00 00:45:00 DIS Emergency LISSETH HOFFMANN, ANTONETTE Payan Via [facility] ER FS VOMITING/DIZZY [id number] 10/28/2018 14:03:00 14:55:00 DIS Emergency KEE PARTIDA DO Via [facility] ER FS LT SHOULDER PAIN [id number] 10/22/2018 18:00:00 19:28:00 DIS Emergency CHAD LEBRON DO Via [facility] ER FS STOMACH PAIN [id number] 10/17/2018 18:28:00 19:58:00 DIS Outpatient SNOW BUENROSTRO MD Via [facility] ER FS ABD PAIN [id number] 10/14/2018 16:30:00 18:01:00 DIS KEE Castle DO Via [facility] ER FS SOA [id number] 09/25/2018 19:41:00 20:55:00 DIS Emergency CHAD LEBRON DO Via [facility] FS RT LEG PAIN [id number] 09/06/2018 07:02:00 07:50:00 DIS Emergency KEE PARTIDA DO Via [facility] FS RT LEG INJ [id number] 08/19/2018 20:04:00 22:08:00 DIS Emergency PHILLIP ROSEN DO Via [facility] ER FS ABD PAIN, VOMITING, LOO SE STOOL [id number] 08/11/2018 17:16:00 18:46:00 DIS Emergency ANTONETTE MONTANEZ MD Via [facility] ER FS RT LEG PAIN [id number] 08/06/2018 17:55:00 21:33:00 DIS Emergency RAJAN HOFFMANN, JENN Grajeda Via [facility] FS VOMITING [id number] 07/14/2018 11:52:00 14:55:00 DIS Emergency PHILLIP ROSEN DO [facility] ER FS FLAQUITO SHOULDER PAIN [id number] 07/10/2018 09:37:00 23:59:[address] [facility] Outpatient KARLA CORTES Via [facility] RAD FS M79.661 [id number] 07/02/2018 19:11:00 21:18:00 DIS Emergency DU DIEGO MD Via [facility] FS PT FELL, RT LEG SWOLLEN AND TENDER [id number] 06/27/2018 17:28:00 19:14:00 DIS Emergency DU DIEGO MD Via [facility] FS CONSTIPATION, ABD PAIN [id number] 11/28/2018 09:31:00 Document Registration
== END 2019-06-03 20:31 | disposition home or self-care (01) ==
LOC: EDUNIT# 20:01 → ER FS 20:03
DX: S00.411A Abrasion of right ear, initial encounter (principal); H60.91 Unspecified otitis externa, right ear; G40.909 Epilepsy, unspecified, not intractable, without status epilepticus; F41.9 Anxiety disorder, unspecified; F31.9 Bipolar disorder, unspecified; Z88.0 Allergy status to penicillin; Z82.49 Family history of ischemic heart disease and other diseases of the circulatory system; X58.XXXA Exposure to other specified factors, initial encounter
CPT/HCPCS: 99282

== ENCOUNTER 2019-07-20 19:04 | Emergency (ER) | payer MEDICARE, MEDICAID ==
[~2019-07-20] VITALS: Ht 157.4 cm; Wt 55.4 kg
[~2019-07-20 19:04] MED LIST changes: +NF-CIPDEC OT
--- OUTSIDE RECORDS SUMMARY | 2019-07-20 19:20 | XMS REPORT | Continuity of Care Document ---
Author Organization Unknown Address Unknown Phone Unavailable Allergies Active Description Code Type Severity Reaction Onset Reported/Identified Relationship to Patient Clinical Status Yes ibuprofen [id number] Drug Allergy Unknown N/A 06/27/2018 Yes naproxen [id number] Drug Allergy Unknown N/A 06/27/2018 Yes tramadol [id number] Drug Allergy Unknown N/A 06/27/2018 Yes Penicillins [id number] Drug Aller gy Unknown N/A 08/19/2018 Medications [...] LEG 09/06/2018 KEE PARTIDA DO Ot W20.8XXA [facility] CAUSE OF STRIKE BY THROWN, PROJECTED [...] OTHER SPECIFIED POSTPROCEDURAL STATES 10/14/2018 KARLA CORTES [employer] Ot M25.571 PAIN IN RIGHT ANKLE AND JOINTS OF RIGHT 10/14/2018 KARLA CORTES [employer] Ot M79.661 PAIN IN RIGHT LOWER LEG 10/14/2018 KARLA CORTES [employer] Ot Z98.890 OTHER SPECIFIED POSTPROCEDURAL STATES 10/14/2018 [...] 0 ALLERGY STATUS TO PENICILLIN 10/22/2018 CHAD LBERON DO Ot Z90. 49 ACQUIRED ABSENCE OF [...] KEE Ot F31.9 BIPOLAR DISORDER, UNSPECIFIED 10/28/2018 [place] DO, KEE Ot F41.9 ANXIETY DISORDER, UNSPECIFIED 10/28/2018 [place] DO, KEE Ot G40.909 EPILEPSY, UNSP, NOT INTRACTABLE, WITHOUT 10/28/2018 [place] DO, KEE Ot M25.512 PAIN IN LEFT SHOULDER 10/28/2018 [place] DO, KEE Ot Z82.49 FAMILY HX OF ISCHEM HEART DIS AND OTH DI 10/28/2018 [place] DO, KEE Ot Z88.0 ALLERGY STATUS TO PENICILLIN 10/28/2018 [place] DO, KEE Ot Z90.89 ACQUIRED ABSENCE OF OTHER ORGANS 10/30/2018 PARTIDA DO, KEE Ot F31.9 BIPOLAR DISORDER, UNSPECIFIED 10/30/2018 [place] DO, KEE Ot F41.9 ANXIETY DISORDER, UNSPECIFIED 10/30/2018 [place] DO, KEE Ot G40.909 EPILEPSY, UNSP, NOT INTRACTABLE, WITHOUT 10/30/2018 [place] DO, KEE Ot M25.512 PAIN IN LEFT SHOULDER 10/30/2018 [place] DO, KEE Ot Z82.49 FAMILY HX OF ISCHEM HEART DIS AND OTH DI 10/30/2018 [place] DO, KEE Ot Z88.0 ALLERGY STATUS TO PENICILLIN 10/30/2018 [place] DO, KEE Ot Z90.89 ACQUIRED ABSENCE OF [...] ABSENCE OF OTHER ORGANS 12/04/2018 KARLA CORTES [employer] Ot M25.571 PAIN IN RIGHT ANKLE AND JOINTS OF RIGHT 12/04/2018 KARLA CORTES [employer] Ot M79.661 PAIN IN RIGHT LOWER LEG 12/04/2018 KARLA CORTES [employer] Ot Z98.890 OTHER SPECIFIED POSTPROCEDURAL STATES 12/13/2018 [...] ABSENCE OF OTHER ORGANS 12/22/2018 ROSI PARADA [employer] Ot M47.812 SPONDYLOSIS W/O MYELOPATHY OR RADICULOPA 12/22/2018 ROSI PARADA [employer] Ot M54.5 LOW BACK PAIN 12/22/2018 ROSI PARADA [employer] Ot M54.6 PAIN IN THORACIC SPINE 12/22/2018 ROSI PARADA [employer] Ot W19.XXXA UNSPECIFIED FALL, INITIAL ENCOUNTER 01/26/2019 [...] W/O MYELOPATHY OR RADICULOPA 02/14/2019 ROSI PARADA [employer] Ot M54.5 LOW BACK PAIN 02/14/2019 ROSI PARADA [employer] Ot M54.6 PAIN IN THORACIC SPINE 02/14/2019 ROSI PARADA [employer] Ot W19.XXXA UNSPECIFIED FALL, INITIAL ENCOUNTER 02/14/2019 KARLA CORTES Ot M25.571 PAIN IN RIGHT ANKLE AND JOINTS OF RIGHT 02/14/2019 KARLA CORTESP Ot M79.661 PAIN IN RIGHT LOWER LEG 02/14/2019 KARLA CORTESP Ot Z98.890 OTHER SPECIFIED POSTPROCEDURAL STATES 02/14/2019 ROSI PARADA [employer] Ot M47.812 SPONDYLOSIS W/O MYELOPATHY OR RADICULOPA 02/14/2019 KARMA, ROSI Jose Juan [employer] Ot M54.5 LOW BACK PAIN 02/14/2019 ROSI PARADA [employer] Ot M54.6 PAIN IN THORACIC SPINE 02/14/2019 ROSI PARADA [employer] Ot W19.XXXA UNSPECIFIED FALL, INITIAL ENCOUNTER 02/14/2019 [...] M54.5 LOW BACK PAIN 03/06/2019 KARMAROSI Adams [employer] Ot M54.6 PAIN IN THORACIC SPINE 03/06/2019 ROSI PARADA [employer] Ot W19.XXXA UNSPECIFIED FALL, INITIAL ENCOUNTER 03/09/2019 [...] ABSENCE OF OTHER ORGANS 03/17/2019 KARLA CORTES [employer] Ot M25.571 PAIN IN RIGHT ANKLE AND JOINTS OF RIGHT 03/17/2019 KARLA CORTES [employer] Ot M79.661 PAIN IN RIGHT LOWER LEG 03/17/2019 KARLA CORTES [employer] Ot Z98.890 OTHER SPECIFIED POSTPROCEDURAL STATES 04/02/2019 KARLA CORTES [employer] Ot M25.571 PAIN IN RIGHT ANKLE AND JOINTS OF RIGHT 04/02/2019 KARLA CORTES [employer] Ot M79.661 PAIN IN RIGHT LOWER LEG 04/02/2019 KARLA CORTES [employer] Ot Z98.890 OTHER SPECIFIED POSTPROCEDURAL STATES 04/08/2019 KARLA CORTES [employer] Ot M25.571 PAIN IN RIGHT ANKLE AND JOINTS OF RIGHT 04/08/2019 KARLA CORTES [employer] Ot M79.661 PAIN IN RIGHT LOWER LEG 04/08/2019 KARLA CORTES [employer] Ot Z98.890 OTHER SPECIFIED POSTPROCEDURAL STATES 04/08/2019 ROSI PARADA [employer] Ot M47.812 SPONDYLOSIS W/O MYELOPATHY OR RADICULOPA 04/08/2019 ROSI PARADA [employer] Ot M54.5 LOW BACK PAIN 04/08/2019 ROSI PARADA [employer] Ot M54.6 PAIN IN THORACIC SPINE 04/08/2019 ROSI PARADA [employer] Ot W19.XXXA UNSPECIFIED FALL, INITIAL ENCOUNTER 04/21/2019 [...] ISCHEM HEART DIS AND OTH DI 05/13/2019 ZAMZAM HOFFMANN, CHARANJIT Hoang Ot Z88. 0 ALLERGY STATUS TO PENICILLIN [...] AND OTH DI 05/29/2019 CHITRA HOFFMANN, SNOW Little Ot Z88.0 ALLERGY STATUS TO PENICILLIN 05/29/2019 CHITRA HOFFMANN, SNOW Little Ot Z90.6 ACQUIRED ABSENCE OF OTHER PARTS OF URINA 05/29/2019 CHITRA HOFFMANN, SNOW Little Ot Z90.89 ACQUIRED ABSENCE OF OTHER ORGANS 06/09/2019 GREENE DO, DEANNA L Ot F31.9 BIPOLAR DISORDER, UNSPECIFIED 06/09/2019 GREENE DO, DEANNA L Ot F41.9 ANXIETY DISORDER, UNSPECIFIED 06/09/2019 GREENE DO, DEANNA L Ot G40.9 09 EPILEPSY, UNSP, NOT INTRACTABLE, WITHOUT 06/09/2019 GREENE DO, DEANNA L Ot H60.9 1 UNSPECIFIED OTITIS EXTERNA, RIGHT EAR 06/09/2019 GREENE DO, DEANNA L Ot H92.0 1 OTALGIA, RIGHT EAR 06/09/2019 GREENE DO, DEANNA L Ot S00.411A ABRASION OF RIGHT EAR, INITIAL ENCOUNTER 06/09/2019 GREENE DO, DEANNA L Ot X58.XXXA EXPOSURE TO OTHER SPECIFIED FACTORS, INI 06/09/2019 GREENE DO, DEANNA L Ot Z82.4 9 FAMILY HX OF ISCHEM HEART DIS AND OTH DI 06/09/2019 GREENE DO, DEANNA L Ot Z88.0 ALLERGY STATUS TO PENICILLIN Procedures Code Description Performed By Per lakesha On [id number] DI LATION OF SIGMOID COLON, ENDO 11/13/2018 [id number] DI LATION OF RECTUM WITH INTRALUMINAL DEV 11/13/[id number] HUERTAS OF STOMACH WITH DRAINAGE DEVICE 11/13/2018 [id number] EX CISION OF SIGMOID COLON, ENDO, DIAGN 11/13/2018 [id number] EX CISION OF RECTUM, ENDO, DIAGN 11/13/2018 [...] OF GROWTH Isolated NRG Bacterial blood culture [id number] NRG Bacterial blood culture - 11/07/18 22:41 [...] FOR INFLUENZA A AND B ANTIGENS BY IA [facility] Comprehensive metabolic panel - 04/24/19 11:05 Serum [...] Status Pt. Type Provider Facility Loc./Unit Complaint [id number] 04/01/2019 11:40:00 04/01/2019 23:59: 59 CLS Outpatient ROSI PARADA [facility] [id number] 10/07/2018 09:30:00 Document Registration [id number] 05/29/2017 16:20:00 Document Registration [id number] 06/03/2019 20:03:00 20:31:00 DIS Outpatient GREENE DO, DEANNA L Via [facility] ER FS EAR DRAINAGE/BLOOD [id number] 05/08/2019 23:56:00 01:37:00 DIS Outpatient ZAMZAM HOFFMANN, CHARANJIT Hoang Via [facility] ER FS SYNOPE [id number] 05/04/2019 11:09:00 23:59:59 CLS Outpatient KARLA CORTES Via [facility] RAD STRAIN OF MUSCLE, LT T HIGH [id number] 04/24/2019 10:43:00 12:46:00 DIS Emergency GREENE DO, DEANNA L Via [facility] ER FS SYNCOPE; FALL [id number] 04/21/2019 20:28:00 21:20:00 DIS Emergency TREVOR MCFARLAND MD Via [facility] ER FS ABD PAIN/VOMITING [id number] 03/06/2019 11:39:00 12:24:00 DIS Emergency CHARANJIT WYMAN MD Via [facility] ER FS LT HIP/LEG INJ [id number] 02/15/2019 09:09:00 09:36:00 DIS Emergency ANTONETTE MONTANEZ MD Via [facility] ER FS FALL [id number] 02/14/2019 13:00:00 13:54:00 DIS Emergency GREENE DO, DEANNA L Via [facility] ER FS FALL [id number] 01/25/2019 22:18:00 00:30:00 DIS Emergency DU DIEGO MD Via [facility] ER FS BACK PAIN [id number] 12/18/2018 09:20:00 23:59:59 CLS Outpatient ROSI PARADA APRN Via [facility] RAD FS M54.2 Z91.81 [id number] 12/17/2018 13:07:00 13:26:00 DIS Emergency FARTUN EASTMAN KADEN L Via [facility] ER FS FALL; NECK/FLAQUITO SHOULDER/BACK INJ [id number] 12/13/2018 16:55:00 18:19:00 DIS Emergency KEE PARTIDA DO Via [facility] ER FS ABD PAIN,VOMITING [id number] 11/30/2018 15:19:00 16:08:00 DIS Emergency TREVOR MCFARLAND MD Via [facility] ER FS LT SHOULDER PAIN [id number] 11/25/2018 09:24:00 23:59:59 CLS Preadmit KARLA CORTES Via [facility] RAD ROTATOR CUFF SYNDROME L T [id number] 11/12/2018 22:44:00 15:35:00 DIS Inpatient LAURA HOFFMANN, СЕРГЕЙ Barrera ia [facility] 4TH RECTO SIGMOID MASS,CONS TIPATION,N/V [id number] 11/07/2018 21:44:00 00:45:00 DIS Emergency LISSETH HOFFMANN, ANTONETTE Payan [facility] ER FS VOMITING/DIZZY [id number] 10/28/2018 14:03:00 14:55:00 DIS Emergency KEE PARTIDA DO Via [facility] ER FS LT SHOULDER PAIN [id number] 10/22/2018 18:00:00 19:28:00 DIS Emergency CHAD LEBRON DO Via [facility] ER FS STOMACH PAIN [id number] 10/17/2018 18:28:00 19:58:00 DIS Outpatient SNOW BUENROSTRO MD Via [facility] ER FS ABD PAIN [id number] 10/14/2018 16:30:00 18:01:00 DIS Emergency KEE PARTIDA DO Via [facility] FS SOA [id number] 09/25/2018 19:41:00 20:55:00 DIS Emergency CHAD LEBRON DO Via [facility] FS RT LEG PAIN [id number] 09/06/2018 07:02:00 07:50:00 DIS Emergency KEE PARTIDA DO Via [facility] FS RT LEG INJ [id number] 08/19/2018 20:04:00 22:08:00 DIS Emergency PHILLIP ROSEN DO Via [facility] ER FS ABD PAIN, VOMITING, LOO SE STOOL [id number] 08/11/2018 17:16:00 18:46:00 DIS Emergency ANTONETTE MONTANEZ MD Via [facility] FS RT LEG PAIN [id number] 08/06/2018 17:55:00 21:33:00 DIS Emergency JENN TOLENTINO MD Via [facility] FS VOMITING [id number] 07/14/2018 11:52:00 14:55:00 DIS Emergency PHILLIP ROSEN DO Via [facility] FS FLAQUITO SHOULDER PAIN [id number] 07/10/2018 09:37:00 23:59:59 CLS Outpatient KARLA CORTES Via [facility] RAD FS M79.661 [id number] 07/02/2018 19:11:00 21:18:00 DIS Emergency DU DIEGO MD Via [facility] FS PT FELL, RT LEG SWOLLEN AND TENDER [id number] 06/27/2018 17:28:00 19:14:00 DIS Emergency DU DIEGO MD Via [facility] ER FS CONSTIPATION, ABD PAIN [id number] 07/20/2019 19:06:[address] Emergency CHAD LEBRON DO Via [facility] ER FS SHAKES,LIGHTHEADED [id number] 11/28/2018 09:31:00 Document Registration
--- NOTE | 2019-07-20 19:25 | ED General ---
General Chief Complaint: Dizziness/Syncope Stated Complaint: SHAKES,LIGHTHEADED Source of Information: Patient Exam Limitations: No Limitations History of Present Illness Date Seen by Provider: July 20, 2019 Time Seen by Provider: 19:10 Initial Comments The patient is a pleasant 49-year-old male presents for evaluation of shakiness. He states that he was feeling tired at home so had 2 energy drinks as well as a cup of coffee. He did this about 2 hours ago. Shortly afterward he started to feel shaky and jittery. He has no other complaints. He denies any cardiac history. He is alert and oriented 4, calm, and appears to be in no distress at this time. He denies chest pain, shortness of breath, nausea or vomiting, d izziness, syncope, fevers or chills, abdominal or back pain. Severity: Mild Associated Systoms: Denies Symptoms Allergies and Home Medications Allergies Coded Allergies: Penicillins (Verified Allergy, Unknown, 08/19/18) Home Medications Benztropine Mesylate 1 Mg Tablet, 0.5 MG PO HS, (Reported) LAST FILLED #30 07-29-18 TAKES 1/2 (1MG) TABLET Ciprofloxacin HCl/Dexameth 7.5 Ml Soln, 7.5 ML OT BID Prescribed by: DEANNA GREENE on 06/03/192028 Cyclobenzaprine HCl 10 Mg Tablet, 10 MG PO DAILY PRN for MUSCLE SPASMS, (Reported) Cyclobenzaprine HCl 10 Mg Tablet, 10 MG PO Q8H PRN for SPASMS Prescribed by: CHARANJIT WYMAN on 03/06/19 1201 Diclofenac Potassium 50 Mg Tablet, 50 MG PO Q8H Prescribed by: CHARANJIT WYMAN on 03/06/19 1201 Docusate Sodium 100 Mg Capsule, 100 MG PO QID PRN for CONSTIPATION-1ST LINE, (Reported) Lamotrigine 200 Mg Tablet, 200 MG PO HS, (Reported) LAST FILLED #90 07-12-18 Naproxen 500 Mg Tablet, 500 MG PO BID PRN for PAIN-MODERATE (4-6) Prescribed by: DU DIEGO on 01/26/19 0020 Ondansetron 4 Mg Tab.rapdis, 4 MG PO Q6H Prescribed by: KEE PARTIDA on 12/13/18 1810 Polyethylene Glycol 3350 17 Gm Powd.pack, 17 GM PO TID PRN for CONSTIPATION-2ND LINE, (Reported) Polyethylene Glycol 3350 17 Gm Powd.pack, 17 GM PO BID Prescribed by: KEE PARTIDA on 12/13/180 Quetiapine Fumarate 300 Mg Tablet, 1,200 MG PO HS, (Reported) TAKES 4 (300MG) TABLETS Ranitidine HCl 150 Mg Tablet, 150 MG PO HS, (Reported) Risperidone 50 Mg/2 Ml Inj, 50 MG INJ EVERY 2 WEEKS, (Reported) Sennosides 15 Mg Tab.chew, 2 TAB.CHEW PO BID PRN for CONSTIPATION-5TH LINE, (Reported) Sucralfate 1 Gm Tablet, 1 GM PO ACHS, (Reported) Trazodone HCl 100 Mg Tablet, 100 MG PO HS, (Reported) Patient Home Medication List Home Medication List Reviewed: Yes Review of Systems Review of Systems Constitutional: other (shanelle, filippo) EENTM: no symptoms reported Respiratory: no symptoms reported Cardiovascular: no symptoms reported Gastrointestinal: no symptoms reported Genitourinary: no symptoms reported Musculoskeletal: no symptoms reported Skin: no symptoms reported Psychiatric/Neurological: No Symptoms Reported Hematologic/Lymphatic: No Symptoms Reported Immunological/Allergic: no symptoms reported All Other Systems Reviewed Negative Unless Noted: Yes Past Wkcctdb-Ivzxxv-Unplmp Hx Past Med/Social Hx: Reviewed Nursing Past Med/Soc Hx Patient Social History 2nd Hand Smoke Exposure: No Recent Foreign Travel: No Contact w/Someone Who Travel: No Recent Hopitalizations: No Immunizations Up To Date Tetanus Booster (TDap): Unknown Seasonal Allergies Seasonal Allergies: No Past Medical History Surgeries: Yes (RIGHT LEG FUSION CHILD) Cystectomy, Gallbladder, Orthopedic, Tonsillectomy Respiratory: No Cardiac: No Neurological: Yes Seizure Disorder Genitourinary: No Gastrointestinal: No Musculoskeletal: Yes Chronic Back Pain Endocrine: No HEENT: No Cancer: No Psychosocial: Yes Anxiety, Bipolar, Depression Integumentary: No Blood Disorders: No Family Medical History Cardiovascular disease 19 FATHER Diabetes mellitus G8 BROTHER Hypertension 19 FATHER 19 MOTHER G8 BROTHER Heart Disease, Diabetes, Hypertension Physical Exam Vital Signs Vital Signs - First Documented 07/20/19 19:10 Temp 36.3 Pulse 92 Resp 16 B/P (MAP) 139/98 (112) Pulse Ox 99 O2 Delivery Room Air Capillary Refill : Height, Weight, BMI Height: 5'2.00" Weight: 128lbs. 5.0oz. 58.109016ie; 21.00 BMI Method:Stated General Appearance: No Apparent Distress, WD/WN Eyes: Bilateral Eye Normal Inspection, Bilateral Eye PERRL, Bilateral Eye EOMI HEENT: PERRL/EOMI, Pharynx Normal Neck: Full Range of Motion, Normal Inspection Respiratory: Lungs Clear, Normal Breath Sounds, No Accessory Muscle Use, No Respiratory Distress Cardiovascular: Regular Rate, Rhythm, No Edema, No JVD, No Murmur, Normal Peripheral Pulses Gastrointestinal: Normal Bowel Sounds, Non Tender, Soft Extremity: Normal Capillary Refill, Normal Inspection, Normal Range of Motion Neurologic/Psychiatric: Alert, Oriented x3, No Motor/Sensory Deficits, Normal Mood/Affect Skin: Normal Color, Warm/Dry Progress/Results/Core Measures Suspected Sepsis SIRS Temperature: Pulse: Respiratory Rate: Blood Pressure / Mean: Results/Orders My Orders Orders - BERNARDINO BONILLA DO Ekg Tracing (07/20/19 19:15) Vital Signs/I&O 07/20/19 19:10 Temp 36.3 Pulse 92 Resp 16 B/P (MAP) 139/98 (112) Pulse Ox 99 O2 Delivery Room Air Capillary Refill : Progress Note : Progress Note @1919 - The patient states he is feeling much better at this time. EKG is unremarkable. Advised the patient to follow up with his PCP in the next 2-3 days and to return to the emergency department immediately for new or worsening symptoms. The patient expresses verbal understanding and agreement with the plan and is stable for discharge. ECG Comment EKG@1919 - Normal sinus rhythm, rate of 85, normal axis, no acute ischemic findings noted, no STEMI, normal intervals, reviewed and interpreted by myself Departure Impression Primary Impression: Caffeine overdose Additional Impression: Shakiness Disposition: 01 HOME, SELF-CARE Condition: Stable Departure-Patient Inst. Decision time for Depature: 19:37 Referrals: ROSI PARADA APRN (PCP/Family) Primary Care Physician Patient Instructions: Caffeine, Palpitations (DC) Add. Discharge Instructions: Follow-up with your doctor in the next 2-3 days. Avoid excessive caffeine use as this will likely happen again. Return to the emergency Department immediately for new or worsening symptoms. BERNARDINO BONILLA DO July 20, 2019 19:25
[2019-07-20 19:40] VITALS: BP 139/98
== END 2019-07-20 19:42 | disposition home or self-care (01) ==
LOC: EDUNIT# 19:04 → ER FS 19:06
DX: T43.611A Poisoning by caffeine, accidental (unintentional), initial encounter (principal); R25.1 Tremor, unspecified; G40.909 Epilepsy, unspecified, not intractable, without status epilepticus; F41.9 Anxiety disorder, unspecified; F31.9 Bipolar disorder, unspecified; Z88.0 Allergy status to penicillin
CPT/HCPCS: 93005

== ENCOUNTER 2019-10-13 20:09 | Emergency (ER) | payer MEDICARE, MEDICAID ==
[~2019-10-13] VITALS: Ht 154.9 cm; Wt 53.0 kg
--- NOTE | 2019-10-13 20:40 | ED Abdominal Pain ---
General Chief Complaint: Abdominal/GI Problems Stated Complaint: VOMITING,LIGHTHEADED,DIARRHEA Nursing Triage Note: PT. C/O VOMITING AND SHAKING. PT. STATED HIS VOMITING STARTED A COUPLE OF DAYS AGO. HE STATED HE VOMITED 4 TIMES TODAY. PT. C/O UPPER GASTRIC PAIN. Sepsis Screen: No Definite Risk History of Present Illness Date Seen by Provider: Oct 13, 2019 Time Seen by Provider: 20:10 Timing/Duration: 1-2 Days Severity/Quality: Moderate Location: Generalized Abdomen Radiation: No Radiation Activities at Onset: None Modifying Factors: Worsens With Eating, Worsens With Movement, Worsens With Vomiting Associated Symptoms: No Chest Pain; Fatigue, Nausea/Vomiting; No Weakness Allergies and Home Medications Allergies Coded Allergies: Penicillins (Verified Allergy, Unknown, 08/19/18) Home Medications Benztropine Mesylate 1 Mg Tablet, 0.5 MG PO HS, (Reported) LAST FILLED #30 07-29-18 TAKES 1/2 (1MG) TABLET Ciprofloxacin HCl/Dexameth 7.5 Ml Soln, 7.5 ML OT BID Prescribed by: DEANNA GREENE on 06/03/192028 Cyclobenzaprine HCl 10 Mg Tablet, 10 MG PO DAILY PRN for MUSCLE SPASMS, (Reported) Cyclobenzaprine HCl 10 Mg Tablet, 10 MG PO Q8H PRN for SPASMS Prescribed by: CHARANJIT WYMAN on 03/06/19 120 Diclofenac Potassium 50 Mg Tablet, 50 MG PO Q8H Prescribed by: CHARANJIT WYMAN on 03/06/19 120 Docusate Sodium 100 Mg Capsule, 100 MG PO QID PRN for CONSTIPATION-1ST LINE, (Reported) Lamotrigine 200 Mg Tablet, 200 MG PO HS, (Reported) LAST FILLED #90 07-12-18 Naproxen 500 Mg Tablet, 500 MG PO BID PRN for PAIN-MODERATE (4-6) Prescribed by: DU DIEGO on 01/26/19 0020 Ondansetron 4 Mg Tab.rapdis, 4 MG PO Q6H Prescribed by: KEE PARTIDA on 12/13/181809 Polyethylene Glycol 3350 17 Gm Powd.pack, 17 GM PO TID PRN for CONSTIPATION-2ND LINE, (Reported) Polyethylene Glycol 3350 17 Gm Powd.pack, 17 GM PO BID Prescribed by: KEE PARTIDA on 9/28/19 1810 Quetiapine Fumarate 300 Mg Tablet, 1,200 MG PO HS, (Reported) TAKES 4 (300MG) TABLETS Ranitidine HCl 150 Mg Tablet, 150 MG PO HS, (Reported) Risperidone 50 Mg/2 Ml Inj, 50 MG INJ EVERY 2 WEEKS, (Reported) Sennosides 15 Mg Tab.chew, 2 TAB.CHEW PO BID PRN for CONSTIPATION-5TH LINE, (Reported) Sucralfate 1 Gm Tablet, 1 GM PO ACHS, (Reported) Trazodone HCl 100 Mg Tablet, 100 MG PO HS, (Reported) Patient Home Medication List Home Medication List Reviewed: Yes Review of Systems Review of Systems Constitutional: No chills, No fever; malaise EENTM: No Symptoms Reported Respiratory: No Symptoms Reported Cardiovascular: No Symptoms Reported Gastrointestinal: Abdominal Pain; Denies Diarrhea; Nausea, Vomiting Genitourinary: Denies Burning, Denies Frequency Musculoskeletal: No back pain, No muscle pain Skin: No change in color, No rash Past Olzdcho-Qfphkz-Rgzazo Hx Past Med/Social Hx: Reviewed Nursing Past Med/Soc Hx Patient Social History 2nd Hand Smoke Exposure: No Recent Foreign Travel: No Contact w/Someone Who Travel: No Recent Infectious Disease Expo: No Recent Hopitalizations: No Physical Abuse: No Sexual Abuse: No Mistreated: No Fear: No Immunizations Up To Date Tetanus Booster (TDap): Unknown Seasonal Allergies Seasonal Allergies: No Past Medical History Surgeries: Yes (RIGHT LEG FUSION CHILD) Cystectomy, Gallbladder, Orthopedic, Tonsillectomy Respiratory: No Cardiac: No Neurological: Yes Seizure Disorder Genitourinary: No Gastrointestinal: No Musculoskeletal: Yes Chronic Back Pain Endocrine: No HEENT: No Cancer: No Psychosocial: Yes Anxiety, Bipolar, Depression Integumentary: No Blood Disorders: No Family Medical History Cardiovascular disease 19 FATHER Diabetes mellitus G8 BROTHER Hypertension 19 FATHER 19 MOTHER G8 BROTHER Heart Disease, Diabetes, Hypertension Physical Exam Vital Signs Vital Signs - First Documented 10/13/19 20:19 Temp 36.4 Pulse 106 Resp 19 B/P (MAP) 133/97 (109) Pulse Ox 100 O2 Delivery Room Air Capillary Refill : Less Than 3 Seconds Height/Weight/BMI Height: 5'2.00" Weight: 128lbs. 5.0oz. 58.125338lw; 22.00 BMI Method:Stated General Appearance: WD/WN, mild distress HEENT: PERRL/EOMI, normal ENT inspection Neck: non-tender Respiratory: chest non-tender, lungs clear, normal breath sounds Cardiovascular: regular rate, rhythm, no murmur Gastrointestinal: normal bowel sounds, soft; No distended; tenderness Extremities: normal range of motion, non-tender Neurologic/Psychiatric: no motor/sensory deficits, alert, oriented x 3 Skin: normal color, warm/dry Focused Exam Lactate Level 10/13/19 20:49: Lactic Acid Level 1.92 Lactic Acid Level Laboratory Tests Test 10/13/19 20:49 Lactic Acid Level 1.92 MMOL/L (0.50-2.00) Progress/Results/Core Measures Results/Orders Lab Results Laboratory Tests Test 10/13/19 20:48 10/13/19 20:49 Range/Units Urine Color YELLOW Urine Clarity SLT CLOUDY Urine pH 7.5 5-9 Urine Specific [place] 1.020 1.016-1.022 Urine Protein NEGATIVE NEGATIVE Urine Glucose (UA) NEGATIVE NEGATIVE Urine Ketones NEGATIVE NEGATIVE Urine Nitrite NEGATIVE NEGATIVE Urine Bilirubin NEGATIVE NEGATIVE Urine Urobilinogen 0.2 < = 1.0 MG/DL Urine Leukocyte Esterase NEGATIVE NEGATIVE Urine RBC (Auto) NEGATIVE NEGATIVE Urine RBC NONE /HPF Urine WBC NONE /HPF Urine Crystals PRESENT H /LPF Urine Amorphous Sediment MOD BERNY PHOSPHATE H /LPF Urine Bacteria TRACE /HPF Urine Casts NONE /LPF Urine Mucus NEGATIVE /LPF Urine Culture Indicated NO White Blood Count 10.1 4.3-11.0 10^3/uL Red Blood Count 5.35 4.35-5.85 10^6/uL Hemoglobin 15.2 13.3-17.7 G/DL Hematocrit 46 40-54 % Mean Corpuscular Volume 86 80-99 FL Mean Corpuscular Hemoglobin 28 25-34 PG Mean Corpuscular Hemoglobin Concent 33 32-36 G/DL Red Cell Distribution Width 13.7 10.0-14.5 % Platelet Count 346 130-400 10^3/uL Mean Platelet Volume 8.4 7.4-10.4 FL Neutrophils (%) (Auto) 64 42-75 % Lymphocytes (%) (Auto) 23 12-44 % Monocytes (%) (Auto) 11 0-12 % Eosinophils (%) (Auto) 2 0-10 % Basophils (%) (Auto) 1 0-10 % Neutrophils # (Auto) 6.5 1.8-7.8 X 10^3 Lymphocytes # (Auto) 2.3 1.0-4.0 X 10^3 Monocytes # (Auto) 1.1 H 0.0-1.0 X 10^3 Eosinophils # (Auto) 0.2 0.0-0.3 10^3/uL Basophils # (Auto) 0.1 0.0-0.1 10^3/uL Sodium Level 144 135-145 MMOL/L Potassium Level 3.5 L 3.6-5.0 MMOL/L Chloride Level 103 98-107 MMOL/L Carbon Dioxide Level 28 21-32 MMOL/L Anion Gap 13 5-14 MMOL/L Blood Urea Nitrogen 10 7-18 MG/DL Creatinine 0.99 0.60-1.30 MG/DL Estimat Glomerular Filtration Rate > 60 BUN/Creatinine Ratio 10 Glucose Level 106 H 70-105 MG/DL Lactic Acid Level 1.92 0.50-2.00 MMOL/L Calcium Level 9.7 8.5-10.1 MG/DL Corrected Calcium 8.5-10.1 MG/DL Total Bilirubin 0.3 0.1-1.0 MG/DL Aspartate Amino Transf (AST/SGOT) 20 5-34 U/L Alanine Aminotransferase (ALT/SGPT) 16 0-55 U/L Alkaline Phosphatase 98 40-136 U/L Total Protein 7.9 6.4-8.2 GM/DL Albumin 4.9 H 3.2-4.5 GM/DL Lipase 20 8-78 U/L My Orders Orders - SNOW CARVAJAL JR, MD Cbc With Automated Diff (10/13/19 20:34) Comprehensive Metabolic Panel (10/13/19 20:34) Lipase (10/13/19 20:34) Lactic Acid Analyzer (10/13/19 20:34) Ua Culture If Indicated (10/13/19 20:34) Ns Iv 1000 Ml (Sodium Chloride 0.9%) (10/13/19 20:45) Ondansetron Injection (Zofran Injectio (10/13/19 20:45) Ct Abdomen/Pelvis W (10/13/19 20:43) Iohexol Injection (Omnipaque 350 Mg/Ml 1 (10/13/19 21:00) Received Contrast (Hold Metformin- Contr (10/13/19 21:00) Ns (Ivpb) (Sodium Chloride 0.9% Ivpb Bag (10/13/19 21:00) Pantoprazole Injection (Protonix Injecti (10/13/19 22:15) Medications Given in ED Current Medications Medications Dose Ordered Sig/Mukund Route Start Time Stop Time Status Last Admin Dose Admin Iohexol 100 ml ONCE ONCE IV 10/13/19 21:00 10/13/19 21:01 DC 10/13/19 21:37 100 ML Ondansetron HCl 4 mg ONCE ONCE IVP 10/13/19 20:45 10/13/19 20:46 DC 10/13/19 20:45 4 MG Sodium Chloride 100 ml ONCE ONCE IV 10/13/19 21:00 10/13/19 21:01 DC 10/13/19 21:37 100 ML Vital Signs/I&O 10/13/19 20:19 Temp 36.4 Pulse 106 Resp 19 B/P (MAP) 133/97 (109) Pulse Ox 100 O2 Delivery Room Air Blood Pressure Mean: 109 Departure Communication (Admissions) CT scan seemed to show acid reflux with swelling and inflammation at the distal esophagus proximal stomach this dummies Protonix aiming back toward his primary care physician for follow-up send him home with some Zofran as well Impression Primary Impression: GERD with esophagitis Disposition: HOME, SELF-CARE Condition: Stable Departure-Patient Inst. Referrals: ROSI PARADA APRN (PCP/Family) Primary Care Physician Patient Instructions: Acid Reflux and Gastroesophageal Reflux Disease in Adults Scripts Pantoprazole Sodium (Protonix) 40 Mg Tablet. 40 MG PO DAILY for 30 Days, TAB Prov: SNOW CARVAJAL JR, MD 10/13/19 SNOW CARVAJAL JR, MD Oct 13, 2019 20:40
[2019-10-13] MEDS ORDERED: ONDANSETRON 4 MG/2 ML (SDV) Z0FRAN IVP ONE (20:45)
[2019-10-13] MEDS ORDERED: NS IV 1000 ML 1,000 ML IV SCH (20:45)
[2019-10-13 20:58] LABS: BILIRUBIN,URINE NEGATIVE (NEGATIVE); CLARITY,URINE SLT CLOUDY; COLOR,URINE YELLOW; GLUCOSE, URINE (UA) NEGATIVE (NEGATIVE); KETONES,URINE NEGATIVE (NEGATIVE); LEUKOCYTE ESTERASE ,URINE NEGATIVE (NEGATIVE); NITRITE,URINE NEGATIVE (NEGATIVE); PH,URINE 7.5 (5-9); PROTEIN,URINE NEGATIVE (NEGATIVE)
[2019-10-13 20:59] LABS: AMORPHOUS SEDIMENT,UR MOD AMOR PHOSPHATE /LPF; BACTERIA,URINE TRACE /HPF
[2019-10-13] MEDS ORDERED: NS 100 ML (IVPB) BAG IV ONE (21:00)
[2019-10-13] MEDS ORDERED: HOLD METFORMIN - RECEIVED CONTRAST 20 ML VIAL IV SCH (21:00)
[2019-10-13] MEDS ORDERED: IOHEXOL 350 MG/ML 100 ML (OMNIPAQUE 350) VIAL IV ONE (21:00)
[2019-10-13 21:02] LABS: HEMATOCRIT 46 % (40-54); HEMOGLOBIN 15.2 G/DL (13.3-17.7); MEAN CORPUSCULAR HEMOGLOBIN 28 PG (25-34); MEAN CORPUSCULAR HGB CONC 33 G/DL (32-36); MEAN CORPUSCULAR VOLUME 86 FL (80-99); WHITE BLOOD COUNT 10.1 10^3/uL (4.3-11.0)
[2019-10-13 21:03] LABS: BASOPHILS % (AUTO) 1 % (0-10); EOSINOPHILS % (AUTO) 2 % (0-10); LYMPHOCYTES % (AUTO) 23 % (12-44); MEAN PLATELET VOLUME 8.4 FL (7.4-10.4); MONOCYTES % (AUTO) 11 % (0-12); NEUTROPHILS % (AUTO) 64 % (42-75); PLATELET COUNT 346 10^3/uL (130-400); RED CELL DISTRIBUTION WIDTH 13.7 % (10.0-14.5)
[2019-10-13 21:04] LABS: BASOPHILS # (AUTO) 0.1 10^3/uL (0.0-0.1); EOSINOPHILS # (AUTO) 0.2 10^3/uL (0.0-0.3); LYMPHOCYTES # (AUTO) 2.3 X 10^3 (1.0-4.0); MONOCYTES # (AUTO) 1.1 X 10^3 (0.0-1.0); NEUTROPHILS # (AUTO) 6.5 X 10^3 (1.8-7.8)
[2019-10-13 21:29] LABS: CHLORIDE 103 MMOL/L (98-107); POTASSIUM 3.5 MMOL/L (3.6-5.0); SODIUM 144 MMOL/L (135-145)
[2019-10-13 21:30] LABS: ALANINE AMINOTRANSFERASE 16 U/L (0-55); ALBUMIN 4.9 GM/DL (3.2-4.5); ALKALINE PHOSPHATASE 98 U/L (40-136); BILIRUBIN,TOTAL 0.3 MG/DL (0.1-1.0); BUN/CREATININE RATIO 10; CALCIUM 9.7 MG/DL (8.5-10.1); CARBON DIOXIDE 28 MMOL/L (21-32); CREATININE SERUM 0.99 MG/DL (0.60-1.30); GFR ESTIMATED > 60; GLUCOSE 106 MG/DL (70-105); LIPASE 20 U/L (8-78); TOTAL PROTEIN 7.9 GM/DL (6.4-8.2)
--- NOTE | 2019-10-13 22:02 | Diagnostic Imaging Report ---
CT ABDOMEN/PELVIS W PROCEDURE: CT abdomen and pelvis with contrast. TECHNIQUE: Multiple contiguous axial images were obtained through the abdomen and pelvis after administration of intravenous contrast. INDICATION: Emesis and tremor with upper gastric region pain. COMPARISON: 11/12/2018 FINDINGS: There is calcified granuloma in the lower lobe of the right lung. Note is made of significant mural thickening of the distal esophagus which appears to extend into the upper stomach as well. The stomach is distended with fluid without surrounding inflammation. There is low-density within the liver indicating steatosis. No focal hepatic abnormality is identified. Gallbladder is surgically absent. No pancreatic, adrenal gland or splenic lesion is seen apart from occasional splenic granulomas. There is good perfusion ti both kidneys without evidence of mass or hydronephrosis. There is mild mural thickening throughout small bowel loops and a moderate amount of stool distributed throughout the colon. There is the suggestion of possible narrowing and mural thickening in the sigmoid colon with moderate stool at the level of the rectum. There is no evidence of free fluid within the abdomen or pelvis. No organized fluid collection is identified and is unremarkable. IMPRESSION: 1. Mural thickening of esophagus and upper stomach, likely due to inflammation. Clinical correlation and possible endoscopic assessment may be of use. 2. In addition, there is mural thickening throughout the small bowel which may reflect enteritis and moderate to large amount of colonic stool, likely related to constipation. 3. There is possible mural thickening throughout the sigmoid colon without inflammation. This could also be assessed with colonoscopy or endoscopy, if warranted. Dictated by: Dictated on workstation # [id number]
[2019-10-13] MEDS ORDERED: RX-ONDANSETRON 4 MG ODT (ZOFRAN) PPK #4 PO STA (22:09)
[2019-10-13] MEDS ORDERED: PANT40TA2 PO (22:09)
[2019-10-13 22:13] VITALS: BP 130/88
[2019-10-13] MEDS ORDERED: PANTOPRAZOLE 40 MG (PROTONIX) VIAL IV ONE (22:15)
--- OUTSIDE RECORDS SUMMARY | 2019-10-14 00:08 | XMS REPORT | Continuity of Care Document ---
Author Organization Unknown Address Unknown Phone Unavailable Allergies Active Description Code Type Severity Reaction Onset Reported/Identified Relationship to Patient Clinical Status Yes ibuprofen [id number] Drug Allergy Unknown N/A 06/27/2018 Yes naproxen [id number] Drug Allergy Unknown N/A 06/27/2018 Yes tramadol [id number] Drug Allergy Unknown N/A 06/27/2018 Yes Penicillins [id number] Drug Aller gy Unknown N/A 08/19/2018 Medications [...] UNSP, NOT INTRACTABLE, WITHOUT 07/04/2018 DU DIEGO MD, Ot M25.5 51 PAIN IN RIGHT HIP 07/04/2018 DU DIEGO MD, Ot M25.5 61 PAIN IN RIGHT KNEE 07/04/2018 DU DIEGO MD, Ot M25.5 71 PAIN IN RIGHT ANKLE AND JOINTS OF RIGHT 07/04/2018 DU DIEGO MD Ot M79.6 04 PAIN IN RIGHT LEG 07/04/2018 DU DIEGO MD Ot W19.XXXA UNSPECIFIED FALL, INITIAL ENCOUNTER 07/04/2018 DU DIEGO MD, Ot Z88.0 ALLERGY STATUS TO PENICILLIN 07/04/2018 DU DIEGO MD, Ot Z90.6 ACQUIRED ABSENCE OF OTHER PARTS OF URINA 07/04/2018 DU DIEGO MD, Ot Z90.8 9 ACQUIRED ABSENCE OF OTHER ORGANS 07/11/2018 KARLA CORTES Ot M25.571 PAIN IN RIGHT ANKLE AND JOINTS OF RIGHT 07/11/2018 KARLA CORTESP Ot M79.661 PAIN IN RIGHT LOWER LEG 07/11/2018 KARLA CORTES Ot Z98.890 OTHER SPECIFIED POSTPROCEDURAL STATES 07/14/2018 AKRLA CORTES Ot M25.571 PAIN IN RIGHT ANKLE AND JOINTS OF RIGHT 07/14/2018 KARLA CORTES Ot M79.661 PAIN IN RIGHT LOWER LEG 07/14/2018 KARLA CORTES Ot Z98.890 OTHER SPECIFIED POSTPROCEDURAL STATES 07/14/2018 PHILLIP ROSEN DO Ot F32.9 MAJOR DEPRESSIVE DISORDER, SINGLE EPISOD 07/14/2018 PHILLIP ROSEN DO Ot F41.9 ANXIETY DISORDER, UNSPECIFIED 07/14/2018 PHILLIP ROSEN DO, Ot G40.909 EPILEPSY, UNSP, NOT INTRACTABLE, WITHOUT 07/14/2018 PHILLIP ROSEN DO Ot M19.011 PRIMARY OSTEOARTHRITIS, RIGHT SHOULDER 07/14/2018 PHILLIP ROSEN DO, Ot M19.012 PRIMARY OSTEOARTHRITIS, LEFT SHOULDER 07/14/2018 PHILLIP ROSEN DO Ot M25.511 PAIN IN RIGHT SHOULDER 07/14/2018 PHILLIP ROSEN DO, Ot Z88.0 ALLERGY STATUS TO PENICILLIN 07/14/2018 [...] DO, Ot F41.9 ANXIETY DISORDER, UNSPECIFIED 07/17/2018 HPILLIP ROSEN DO, Ot G40.909 EPILEPSY, UNSP, NOT [...] HOFFMANN, JENN Grajeda Ot E87.6 HYPOKALEMIA 08/06/2018 JENN TOLENTINO MD Ot F31.9 BIPOLAR DISORDER, UNSPECIFIED 08/06/2018 [...] LEG 09/06/2018 KEE PARTIDA DO Ot W20.8XXA OT CAUSE OF STRIKE BY THROWN, PROJECTED 09/06/2018 [...] OF RIGHT LOWER LEG, I 09/25/2018 CHAD LEBRNO DO Ot X50.1XXA OVEREXERTION FROM PROLONGED STATIC [...] OTHER SPECIFIED POSTPROCEDURAL STATES 10/14/2018 KARLA CORTES CRM BUSINESS ANALYST Ot M25.571 PAIN IN RIGHT ANKLE AND JOINTS OF RIGHT 10/14/2018 KARLA CORTES CRM BUSINESS ANALYST Ot M79.661 PAIN IN RIGHT LOWER LEG 10/14/2018 KARLA CORTES CRM BUSINESS ANALYST Ot Z98.890 OTHER SPECIFIED POSTPROCEDURAL STATES [...] ACQUIRED ABSENCE OF OTHER SPECIFIED PART 10/27/2018 BERNARDINO CHAD EASTMAN Ot Z90. 89 ACQUIRED ABSENCE OF OTHER ORGANS 10/28/2018 CARTHAGE DO, KEE Ot F31.9 BIPOLAR DISORDER, UNSPECIFIED 10/28/2018 CARTHAGE DO, KEE Ot F41.9 ANXIETY DISORDER, UNSPECIFIED 10/28/2018 CARTHAGE DO, KEE Ot G40.909 EPILEPSY, UNSP, NOT INTRACTABLE, WITHOUT 10/28/2018 CARTHAGE DO, KEE Ot M25.512 PAIN IN LEFT SHOULDER 10/28/2018 CARTHAGE DO, KEE Ot Z82.49 FAMILY HX OF ISCHEM HEART DIS AND OTH DI 10/28/2018 CARTHAGE DO, KEE Ot Z88.0 ALLERGY STATUS TO PENICILLIN 10/28/2018 CARTHAGE DO, KEE Ot Z90.89 ACQUIRED ABSENCE OF OTHER ORGANS 10/30/2018 PARTIDA DO, KEE Ot F31.9 BIPOLAR DISORDER, UNSPECIFIED 10/30/2018 CARTHAGE DO, KEE Ot F41.9 ANXIETY DISORDER, UNSPECIFIED 10/30/2018 CARTHAGE DO, KEE Ot G40.909 EPILEPSY, UNSP, NOT INTRACTABLE, WITHOUT 10/30/2018 CARTHAGE DO, KEE Ot M25.512 PAIN IN LEFT SHOULDER 10/30/2018 CARTHAGE DO, KEE Ot Z82.49 FAMILY HX OF ISCHEM HEART DIS AND OTH DI 10/30/2018 CARTHAGE DO, KEE Ot Z88.0 ALLERGY STATUS TO PENICILLIN 10/30/2018 CARTHAGE DO, KEE Ot Z90.89 ACQUIRED ABSENCE OF OTHER ORGANS 11/08/2018 KARLA CORTES Ot M25.571 PAIN IN RIGHT ANKLE AND JOINTS OF RIGHT 11/08/2018 KARLA CORTES Ot M79.661 PAIN IN RIGHT LOWER LEG 11/08/2018 KARLA CORTES Ot Z98.890 OTHER SPECIFIED POSTPROCEDURAL STATES 11/08/2018 LISSETH HOFFMANN, ANTONETTE Payan Ot F20. 9 SCHIZOPHRENIA, UNSPECIFIED 11/08/2018 LISSETH HOFFMANN, ANTONETTE Payan Ot F31. 9 BIPOLAR DISORDER, UNSPECIFIED 11/08/2018 LISSETH HOFFMANN, ANTONETTE Payan Ot F41. 9 ANXIETY DISORDER, UNSPECIFIED 11/08/2018 LISSETH HOFFMANN, ANTONETTE Payan Ot G40.909 EPILEPSY, UNSP, NOT INTRACTABLE, WITHOUT [...] OTHER SPECIFIED PART 11/08/2018 ANTONETTE MONTANEZ MD Ot Z90. 6 ACQUIRED ABSENCE OF OTHER PARTS OF URINA 11/08/2018 ANTONETTE MONTANEZ MD Ot Z90. 89 ACQUIRED [...] 9 BIPOLAR DISORDER, UNSPECIFIED 12/02/2018 TREVOR MCFARLAND MD Ot F41. 9 ANXIETY DISORDER, UNSPECIFIED 12/02/2018 TREVOR MCFARLAND MD Ot G40.909 EPILEPSY, UNSP, NOT INTRACTABLE, WITHOUT 12/02/2018 TREVOR MCFARLAND MD Ot M25.512 PAIN IN LEFT SHOULDER 12/02/2018 BRUNA HOFFMANN, TREVOR Rossi Ot S46.912A STRAIN UNSP MUSC/FASC/TEND AT SHLDR/UP A 12/02/2018 BRUNA HOFFMANN, TREVOR Richey Ot X50.1XXA OVEREXERTION FROM PROLONGED STATIC OR AW 12/02/2018 TREVOR MCFARLAND MD Ot Z82. 49 FAMILY HX OF ISCHEM HEART DIS AND OTH DI 12/02/2018 BRUNA HOFFMANN, TREVOR Richey Ot Z88. 0 ALLERGY STATUS TO PENICILLIN 12/02/2018 BRUNA HOFFMANN, TREVOR Richey Ot Z90. 89 ACQUIRED ABSENCE OF OTHER ORGANS 12/04/2018 KARLA CORTES CRM BUSINESS ANALYST Ot M25.571 PAIN IN RIGHT ANKLE AND JOINTS OF RIGHT 12/04/2018 KARLA CORTES CRM BUSINESS ANALYST Ot M79.661 PAIN IN RIGHT LOWER LEG 12/04/2018 KARLA CORTES CRM BUSINESS ANALYST Ot Z98.890 OTHER SPECIFIED POSTPROCEDURAL STATES [...] NOT INTRACTABLE, WITHOUT 12/19/2018 ROVENSTINE DO KADEN L Ot M54.6 PAIN IN THORACIC SPINE 12/19/2018 ROVENSTINE DOPATRIZIAEN Lizz Ot M54.9 DORSALGIA, UNSPECIFIED 12/19/2018 ROVENSTINE DO KADEN Zamudio Ot W18.2XXA FALL IN (INTO) SHOWER OR EMPTY BATHTUB, 12/19/2018 ROVENSTINE DO KADEN Zamudio Ot Z82.49 FAMILY HX OF ISCHEM HEART DIS AND OTH DI 12/19/2018 ROVENSTINE DO KADEN Zamudio Ot Z88.0 ALLERGY STATUS TO PENICILLIN 12/19/2018 ROVENSTINE DO KADEN Zamudio Ot Z90.89 ACQUIRED ABSENCE OF OTHER ORGANS 12/22/2018 ROSI PARADA SENIOR DATA SCIENTIST Ot M47.812 SPONDYLOSIS W/O MYELOPATHY OR RADICULOPA 12/22/2018 ROSI PARADA SENIOR DATA SCIENTIST Ot M54.5 LOW BACK PAIN 12/22/2018 ROSI PARADA SENIOR DATA SCIENTIST Ot M54.6 PAIN IN THORACIC SPINE 12/22/2018 ROSI PARADA SENIOR DATA SCIENTIST Ot W19.XXXA UNSPECIFIED FALL, INITIAL ENCOUNTER 01/26/2019 [...] W/O MYELOPATHY OR RADICULOPA 02/14/2019 ROSI PARADA Jose Juan SENIOR DATA SCIENTIST Ot M54.5 LOW BACK PAIN 02/14/2019 KARMAROSI Adams Jose Juan SENIOR DATA SCIENTIST Ot M54.6 PAIN IN THORACIC SPINE 02/14/2019 GABRIELA PARADAANDA Jose Juan SENIOR DATA SCIENTIST Ot W19.XXXA UNSPECIFIED FALL, INITIAL ENCOUNTER 02/14/2019 KARLA CORTES Ot M25.571 PAIN IN RIGHT ANKLE AND JOINTS OF RIGHT 02/14/2019 KARLA CORTESP Ot M79.661 PAIN IN RIGHT LOWER LEG 02/14/2019 KARLA CORTESP Ot Z98.890 OTHER SPECIFIED POSTPROCEDURAL STATES 02/14/2019 GABRIELA PARADAANDA Jose Juan SENIOR DATA SCIENTIST Ot M47.812 SPONDYLOSIS W/O MYELOPATHY OR RADICULOPA 02/14/2019 ROSI PARADA SENIOR DATA SCIENTIST Ot M54.5 LOW BACK PAIN 02/14/2019 KARMA ROSI Jose Juan SENIOR DATA SCIENTIST Ot M54.6 PAIN IN THORACIC SPINE 02/14/2019 KARMA ROSI Jose Juan SENIOR DATA SCIENTIST Ot W19.XXXA UNSPECIFIED FALL, INITIAL ENCOUNTER 02/14/2019 GREENE DO, DEANNA L Ot F31.9 BIPOLAR DISORDER, UNSPECIFIED 02/14/2019 GREENE DO, DEANNA L Ot F41.9 ANXIETY DISORDER, UNSPECIFIED 02/14/2019 JC DO, DEANNA L Ot G40.9 09 EPILEPSY, [...] 52 PAIN IN LEFT HIP 02/21/2019 GREENE DEANNA EASTMAN Ot S70.02XA CONTUSION OF LEFT HIP, INITIAL ENCOUNTER 02/21/2019 GREENE DEANNA EASTMAN Ot W01.0XXA FALL SAME LEV FROM SLIP/TRIP W/O STRIKE 02/21/2019 GREENE ALEXEY EASTMANR L Ot Z82.4 9 FAMILY HX OF ISCHEM HEART DIS AND OTH DI 02/21/2019 GREENE DOALEXEYR Lizz Ot Z88.0 ALLERGY STATUS TO PENICILLIN 02/21/2019 GREENE CHEMA EASTMANVOR Lizz Ot Z90.8 9 ACQUIRED ABSENCE OF OTHER [...] M47.812 SPONDYLOSIS W/O MYELOPATHY OR RADICULOPA 03/06/2019 KARMA, ROSI S SENIOR DATA SCIENTIST Ot M54.5 LOW BACK PAIN 03/06/2019 KARMAROSI Adams SENIOR DATA SCIENTIST Ot M54.6 PAIN IN THORACIC SPINE 03/06/2019 ROSI PARADA SENIOR DATA SCIENTIST Ot W19.XXXA UNSPECIFIED FALL, INITIAL ENCOUNTER 03/09/2019 [...] UNSP, NOT INTRACTABLE, WITHOUT 03/12/2019 CHARANJIT WYMAN MD, Ot M79.652 PAIN IN LEFT THIGH 03/12/2019 [...] ABSENCE OF OTHER ORGANS 03/17/2019 KARLA CORTES CRM BUSINESS ANALYST Ot M25.571 PAIN IN RIGHT ANKLE AND JOINTS OF RIGHT 03/17/2019 KARLA CORTES CRM BUSINESS ANALYST Ot M79.661 PAIN IN RIGHT LOWER LEG 03/17/2019 KARLA CORTES CRM BUSINESS ANALYST Ot Z98.890 OTHER SPECIFIED POSTPROCEDURAL STATES 04/02/2019 KARLA CORTES CRM BUSINESS ANALYST Ot M25.571 PAIN IN RIGHT ANKLE AND JOINTS OF RIGHT 04/02/2019 KARLA CORTES CRM BUSINESS ANALYST Ot M79.661 PAIN IN RIGHT LOWER LEG 04/02/2019 KARLA CORTES CRM BUSINESS ANALYST Ot Z98.890 OTHER SPECIFIED POSTPROCEDURAL STATES 04/08/2019 KARLA CORTES CRM BUSINESS ANALYST Ot M25.571 PAIN IN RIGHT ANKLE AND JOINTS OF RIGHT 04/08/2019 KARLA CORTES CRM BUSINESS ANALYST Ot M79.661 PAIN IN RIGHT LOWER LEG 04/08/2019 KARLA CORTES CRM BUSINESS ANALYST Ot Z98.890 OTHER SPECIFIED POSTPROCEDURAL STATES 04/08/2019 ROSI PARADA SENIOR DATA SCIENTIST Ot M47.812 SPONDYLOSIS W/O MYELOPATHY OR RADICULOPA 04/08/2019 ROSI PARADA SENIOR DATA SCIENTIST Ot M54.5 LOW BACK PAIN 04/08/2019 ROSI PARADA SENIOR DATA SCIENTIST Ot M54.6 PAIN IN THORACIC SPINE 04/08/2019 ROSI PARADA SENIOR DATA SCIENTIST Ot W19.XXXA UNSPECIFIED FALL, INITIAL ENCOUNTER 04/21/2019 [...] CORTESP Ot R29.6 REPEATED FALLS 05/05/2019 KARLA CORTES CRM BUSINESS ANALYST Ot S76.312D STRAIN OF MSL/FASC/TND POST GRP AT [facility] 05/09/2019 CHARANJIT WYMAN MD Ot 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 DEPENDENCE, UNSPECIFIED, UNCOMP 05/09/2019 CHARANJIT WYMAN MD Ot F31. 9 BIPOLAR DISORDER, UNSPECIFIED 05/09/2019 CHARANJIT WYMAN MD Ot F41. 9 ANXIETY DISORDER, UNSPECIFIED 05/09/2019 CHARANJIT WYMAN MD Ot G40.909 EPILEPSY, UNSP, NOT INTRACTABLE, WITHOUT 05/09/2019 CHARANJIT WYMAN MD Ot R55 SYNCOPE AND COLLAPSE 05/09/2019 CHARANJIT WYMAN MD Ot Z82. 49 FAMILY HX OF ISCHEM HEART DIS AND OTH DI 05/09/2019 CHARANJIT WYMAN MD Ot Z88. 0 ALLERGY STATUS TO PENICILLIN 05/13/2019 ZAMZAM HFOFMANN, CHARANJIT Hoang Ot 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 DEPENDENCE, UNSPECIFIED, UNCOMP 05/13/2019 CHARANJIT WYMAN MD Ot F31. 9 BIPOLAR DISORDER, UNSPECIFIED 05/13/2019 CHARANJIT WYMAN MD Ot F41. 9 ANXIETY DISORDER, UNSPECIFIED 05/13/2019 CHARANJIT WYMAN MD Ot G40.909 EPILEPSY, UNSP, NOT INTRACTABLE, WITHOUT 05/13/2019 CHARANJIT WYMAN MD Ot R55 SYNCOPE AND COLLAPSE 05/13/2019 CHARANJIT WYMAN MD Ot Z82. 49 FAMILY HX OF ISCHEM HEART DIS AND OTH DI 05/13/2019 CHARANJIT WYMAN MD Ot Z88. 0 ALLERGY STATUS TO PENICILLIN 05/29/2019 SNOW BUENROSTRO MD Ot F31.9 BIPOLAR DISORDER, UNSPECIFIED 05/29/2019 SNOW BUENROSTRO MD Ot F41.9 ANXIETY DISORDER, UNSPECIFIED 05/29/2019 SNOW BUENROSTRO MD Ot G40.909 EPILEPSY, UNSP, NOT INTRACTABLE, WITHOUT 05/29/2019 SNOW BUENROSTRO MD Ot K59.00 CONSTIPATION, UNSPECIFIED 05/29/2019 CHITRA HOFFMANN, SNOW Fitch Ot R10.84 GENERALIZED ABDOMINAL PAIN 05/29/2019 SNOW BUENROSTRO MD Ot Z82.49 FAMILY HX OF ISCHEM HEART DIS AND OTH DI 05/29/2019 SNOW BUENROSTRO MD Ot Z88.0 ALLERGY STATUS TO PENICILLIN 05/29/2019 SNOW BUENROSTRO MD Ot Z90.6 ACQUIRED ABSENCE OF OTHER PARTS OF URINA 05/29/2019 SNOW BUENROSTRO MD Ot Z90.89 ACQUIRED ABSENCE OF OTHER ORGANS 06/03/2019 GREENE DO, DEANNA L Ot F31.9 BIPOLAR DISORDER, UNSPECIFIED 06/03/2019 GREENE DO, DEANNA L Ot F41.9 ANXIETY DISORDER, UNSPECIFIED 06/03/2019 GREENE DO, DEANNA L Ot G40.9 09 EPILEPSY, UNSP, NOT INTRACTABLE, WITHOUT 06/03/2019 GREENE DO, DEANNA L Ot H60.9 1 UNSPECIFIED OTITIS EXTERNA, RIGHT EAR 06/03/2019 GREENE DO, DEANNA L Ot H92.0 1 OTALGIA, RIGHT EAR 06/03/2019 GREENE DO, DEANNA L Ot S00.411A ABRASION OF RIGHT EAR, INITIAL ENCOUNTER 06/03/2019 GREENE DO, DEANNA L Ot X58.XXXA EXPOSURE TO OTHER SPECIFIED FACTORS, INI 06/03/2019 GREENE DO, DEANNA L Ot Z82.4 9 FAMILY HX OF ISCHEM HEART DIS AND OTH DI 06/03/2019 GREENE DO, DEANNA L Ot Z88.0 ALLERGY STATUS TO PENICILLIN 06/09/2019 GREENE DO, DEANNA L Ot F31.9 [...] L Ot Z88.0 ALLERGY STATUS TO PENICILLIN 07/20/2019 CHAD LEBRON DO Ot F31. 9 BIPOLAR DISORDER, UNSPECIFIED 07/20/2019 CHAD LEBRON DO Ot F41. 9 ANXIETY DISORDER, UNSPECIFIED 07/20/2019 CHAD LEBRON DO Ot G40.909 EPILEPSY, UNSP, NOT INTRACTABLE, WITHOUT 07/20/2019 CHAD LEBRON DO Ot R25. 1 TREMOR, UNSPECIFIED 07/20/2019 CHAD LEBRON DO Ot T43.611A POISONING BY CAFFEINE, ACCIDENTAL (UNINT 07/20/2019 CHAD LEBRON DO Ot Z88. 0 ALLERGY STATUS TO PENICILLIN 07/22/2019 CHAD LEBRON DO Ot F31. 9 BIPOLAR DISORDER, UNSPECIFIED 07/22/2019 CHAD LEBRON DO Ot F41. 9 ANXIETY DISORDER, UNSPECIFIED 07/22/2019 CHAD LEBRON DO Ot G40.909 EPILEPSY, UNSP, NOT INTRACTABLE, WITHOUT 07/22/2019 CHAD LEBRON DO Ot R25. 1 TREMOR, UNSPECIFIED 07/22/2019 CHAD LEBRON DO Ot T43.611A POISONING BY CAFFEINE, ACCIDENTAL (UNINT 07/22/2019 CHAD LEBRON DO Ot Z88. 0 ALLERGY STATUS TO PENICILLIN 07/30/2019 KARLA CORTES Ot R29.6 REPEATED FALLS 07/30/2019 KARLA CORTES Ot S76.312D STRAIN OF MSL/FASC/TND POST GRP AT [facility] L 07/31/2019 ANTONETTE MONTANEZ MD Ot F31. 9 BIPOLAR DISORDER, UNSPECIFIED 07/31/2019 ANTONETTE MONTANEZ MD Ot F41. 9 ANXIETY DISORDER, UNSPECIFIED 07/31/2019 ANTONETTE MONTANEZ MD Ot G40.909 EPILEPSY, UNSP, NOT INTRACTABLE, WITHOUT 07/31/2019 ANTONETTE MONTANEZ MD Ot M79.605 PAIN IN LEFT LEG 07/31/2019 ANTONETTE MONTANEZ MD Ot W01.0XXA FALL SAME LEV FROM SLIP/TRIP W/O STRIKE 07/31/2019 ANTONETTE MONTANEZ MD Ot Y92.[address] OF OCCURRENCE OF T 07/31/2019 ANTONETTE MONTANEZ MD Ot Z82. 49 FAMILY HX OF ISCHEM HEART DIS AND OTH DI 07/31/2019 ANTONETTE MONTANEZ MD Ot Z88. 0 ALLERGY STATUS TO PENICILLIN 07/31/2019 ANTONETTE MONTANEZ MD Ot Z90. 89 ACQUIRED ABSENCE OF OTHER ORGANS 10/06/2019 KARLA CORTES Ot R29.6 REPEATED FALLS 10/06/2019 KARLA CORTES Ot S76.312D STRAIN OF MSL/FASC/TND POST GRP AT [facility] L Procedures Code Description Performed By Per lakesha On [id number] DI LATION OF SIGMOID COLON, ENDO 11/13/2018 [id number] DI LATION OF RECTUM WITH INTRALUMINAL DEV 11/13/[id number] HUERTAS OF STOMACH WITH DRAINAGE DEVICE 11/13/2018 [id number] EX CISION OF SIGMOID COLON, ENDO, DIAGN 11/13/2018 [id number] EX CISION OF RECTUM, ENDO, DIAGN 11/13/2018 [...] OF GROWTH Isolated NRG Bacterial blood culture [id number] NRG Bacterial blood culture - 11/07/18 22:41 [...] AND B ANTIGENS BY IA [facility] Comprehensive metabolic panel - 04/24/19 11:05 Serum [...] 00:15 TROPONIN I FS < 0.30 <0.30 PSA - 08/27/19 09:08 PSA, TOTAL 1.1 ng/mL < OR = 4.0 TSH - 08/27/19 09:08 TSH 2.00 mIU/L 0.40-4.50 Encounters ACCT No. Visit Date/Time Discharge Status Pt. Type Provider Facility Loc./Unit Complaint [id number] 10/01/2019 11:00:00 10/01/2019 23:59: 59 CLS Outpatient ROSI PARADA [facility] [id number] 08/27/2019 09:00:00 Document Registration [id number] 10/07/2018 09:30:00 Document Registration [id number] 05/29/2017 16:20:00 Document Registration [id number] 07/20/2019 19:06:00 19:42:00 DIS Emergency CHAD LEBRON DO [facility] ER FS JOVI,LIAMED [id number] 06/03/2019 20:03:00 20:31:00 DIS Emergency DEANNA GREENE DO [facility] ER FS EAR DRAINAGE/BLOOD [id number] 05/08/2019 23:56:00 01:37:00 DIS Emergency CHARANJIT WYMAN MD [facility] ER FS SYNOPE [id number] 05/04/2019 11:09:00 23:59:59 CLS Outpatient KARLA CORTES [facility] RAD STRAIN OF MUSCLE, LT T HIGH [id number] 04/24/2019 10:43:00 12:46:00 DIS Emergency DEANNA GREENE DO [facility] ER FS SYNCOPE; FALL [id number] 04/21/2019 20:28:00 21:20:00 DIS Emergency TREVOR MCFARLAND MD [facility] ER FS ABD PAIN/VOMITING [id number] 03/06/2019 11:39:00 12:24:00 DIS Emergency CHARANJIT WYMAN MD [facility] ER FS LT HIP/LEG INJ [id number] 02/15/2019 09:09:00 09:36:00 DIS Emergency ANTONETTE MONTANEZ MD [facility] ER FS FALL [id number] 02/14/2019 13:00:00 13:54:00 DIS Emergency GREENE DO, DEANNA L [facility] ER FS FALL [id number] 01/25/2019 22:18:00 00:30:00 DIS Emergency DU DIEGO MD [facility] ER FS BACK PAIN [id number] 12/18/2018 09:20:00 23:59:59 CLS Outpatient ROSI PARADA APRN [facility] RAD FS M54.2 Z91.81 [id number] 12/17/2018 13:07:00 13:26:00 DIS Emergency MISBAHVENSTKADEN CHIN DO [facility] ER FS FALL; NECK/FLAQUITO SHOULDER/BACK INJ [id number] 12/13/2018 16:55:00 18:19:00 DIS Emergency KEE PARTIDA DO [facility] ER FS ABD PAIN,VOMITING [id number] 11/30/2018 15:19:00 16:08:00 DIS Emergency BRUNA HOFFMANN, TREVOR Richey [facility] ER FS LT SHOULDER PAIN [id number] 11/25/2018 09:24:00 23:59:59 CLS Preadmit KARLA CORTES [facility] RAD ROTATOR CUFF SYNDROME L T [id number] 11/12/2018 22:44:00 15:35:00 DIS Inpatient LAURA HOFFMANN, СЕРГЕЙ Barrera [facility] 4TH RECTO SIGMOID MASS,CONS TIPATION,N/V [id number] 11/07/2018 21:44:00 00:45:00 DIS Emergency ANTONETTE MONTANEZ MD [facility] ER FS VOMITING/DIZZY [id number] 10/28/2018 14:03:00 14:55:00 DIS Emergency KEE PARTIDA DO [facility] ER FS LT SHOULDER PAIN [id number] 10/22/2018 18:00:00 19:28:00 DIS Emergency CHAD LEBRON DO [facility] ER FS STOMACH PAIN [id number] 10/17/2018 18:28:00 19:58:00 DIS Outpatient SNOW BUENROSTRO MD [facility] ER FS ABD PAIN [id number] 10/14/2018 16:30:00 18:01:00 DIS Emergency KEE PARTIDA DO [facility] ER FS SOA [id number] 09/25/2018 19:41:00 20:55:00 DIS Emergency CHAD LEBRON DO [facility] ER FS RT LEG PAIN [id number] 09/06/2018 07:02:00 07:50:00 DIS Emergency KEE PARTIDA DO [facility] ER FS RT LEG INJ [id number] 08/19/2018 20:04:00 22:08:00 DIS Emergency PHILLIP ROSEN DO [facility] ER FS ABD PAIN, VOMITING, LOO SE STOOL [id number] 08/11/2018 17:16:00 18:46:00 DIS Emergency ANTONETTE MONTANEZ MD [facility] ER FS RT LEG PAIN [id number] 08/06/2018 17:55:00 21:33:00 DIS Emergency JENN TOLENTINO MD [facility] ER FS VOMITING [id number] 07/14/2018 11:52:00 14:55:00 DIS Emergency PHILLIP ROSEN DO [facility] ER FS FLAQUITO SHOULDER PAIN [id number] 07/10/2018 09:37:00 23:59:59 [facility] Outpatient KARLA CORTES [facility] RAD FS M79.661 [id number] 07/02/2018 19:11:00 21:18:00 DIS Emergency DU DIEGO MD [facility] ER FS PT FELL, RT LEG SWOLLEN AND TENDER [id number] 06/27/2018 17:28:00 019 19:14:00 DIS Emergency JOHNATHON HOFFMANN, DU Marrufo [facility] ER FS CONSTIPATION, ABD PAIN [id number] 11/28/2018 09:31:00 Document Registration
== END 2019-10-13 22:13 | disposition home or self-care (01) ==
LOC: EDUNIT# 20:09 → ER FS 20:10
DX: K21.0 Gastro-esophageal reflux disease with esophagitis (principal); G40.909 Epilepsy, unspecified, not intractable, without status epilepticus; F41.9 Anxiety disorder, unspecified; F31.9 Bipolar disorder, unspecified; Z88.0 Allergy status to penicillin; Z82.49 Family history of ischemic heart disease and other diseases of the circulatory system
CPT/HCPCS: 36415; 74177; 80053; 81000; 83605; 83690; 85025

== ENCOUNTER 2019-11-02 07:56 | Day surgery (SDC) | payer MEDICARE, MEDICAID ==
[2019-11-02] VITALS (7 sets, daily range): BP systolic 125–143; BP diastolic 86–104
[~2019-11-02] VITALS: Ht 157 cm; Wt 55.9 kg
[~2019-11-02 07:56] MED LIST changes: +BENZ2TAB6 PO; +MELA5TAB14 PO; +METO5TAB2 PO; +PANT40TA2 PO; +TRAZ150T72 PO
[2019-11-02] MEDS ORDERED: LACTATED RINGERS 1,000 ML IV ONE (07:59)
[2019-11-02] MEDS ORDERED: LACTATED RINGERS 1,000 ML IV STA (08:05)
[2019-11-02] MEDS ORDERED: HURRICAINE EXT TUBE (BENZOCAINE) XX PRN (08:15)
--- OUTSIDE RECORDS SUMMARY | 2019-11-02 08:43 | XMS REPORT | Continuity of Care Document ---
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 [id number] 09/06/2018 07:02:00 07:50:00 DIS KEE Castle DO [facility] ER FS RT LEG INJ [id number] 08/19/2018 20:04:00 22:08:00 DIS Emergency PHILLIP ROSEN DO [facility] ER FS ABD PAIN, VOMITING, LOO SE STOOL [id number] 08/11/2018 17:16:00 18:46:00 DIS Emergency ANTONETTE MONTANEZ MD [facility] ER FS RT LEG PAIN [id number] 08/06/2018 17:55:00 21:33:00 DIS Emergency RAJAN HOFFMANN, JENN Grajeda [facility] ER FS VOMITING [id number] 07/14/2018 11:52:00 14:55:00 DIS Emergency PHILLIP ROSEN DO [facility] ER FS FLAQUITO SHOULDER PAIN [id number] 07/10/2018 09:37:00 23:59:59 CLS Outpatient KARLA CORTES [facility] RAD FS [id number] 07/02/2018 19:11:00 21:18:00 DIS Emergency DU DIEGO MD [facility] ER FS PT FELL, RT LEG SWOLLEN AND TENDER [id number] 06/27/2018 17:28:00 19:14:00 DIS Emergency DU DIEGO MD [facility] ER FS CONSTIPATION, ABD PAIN [id number] 11/02/2019 09:10:00 P EN Preadmit JANA MOCK DO [facility] ENDO HEMATEMESIS, RECTAL BLEEDING [id number] 10/30/2019 10:00:[address] Outpatient JANA MOCK DO [facility] LAB FS PRE OP REQUIREMENT [id number] 11/28/2018 09:31:00 Document Registration
--- NOTE | 2019-11-02 08:45 | Progress Note-Pre Operative ---
Pre-Operative Progress Note H&P Reviewed The H&P was reviewed, patient examined and no changes noted. Time Seen by Provider: 08:38 Date H&P Reviewed: Nov 02, 2019 Time H&P Reviewed: 08:39 Pre-Operative Diagnosis: Hematochezia, Hematemesis JANA MOCK DO Nov 02, 2019 08:45
[2019-11-02] MEDS ORDERED: HURRICAINE EXT TUBE (BENZOCAINE) ONE (08:49)
[2019-11-02] MEDS ORDERED: MIDAZOLAM 2 MG/2 ML (VERSED) VIAL ONE (08:52)
[2019-11-02] MEDS ORDERED: PROPOFOL INJECTION 50 ML IV ONE (08:52)
--- NOTE | 2019-11-02 09:15 | Progress Note-Post Operative ---
Post-Operative Progess Note Surgeon (s)/Interpretive Program Coordinator (s) Surgeon JANA MOCK DO Interpretive Program Coordinator: none Pre-Operative Diagnosis Hematochezia, Hematemesis Post-Operative Diagnosis Gastritis Hiatal Hernia Evans's esophagus diverticula internal hemorrhoids poor pre Procedure & Operative Findings Date of Procedure 11/02/19 Procedure Performed/Findings EGD with bx Colon Anesthesia Type IV sedation by PROPERTY CUSTODIAN Estimated Blood Loss Estimated blood loss (mL): scant Specimens/Packing Specimens Removed antral bx body of stomach bx GE jxn bx JANA MOCK DO Nov 02, 2019 09:15
--- NOTE | 2019-11-02 09:17 | Endoscopy Discharge Instruct ---
Endo Procedure/Findings Findings 1.: Hiatal Hernia, Gastritis 2.: Evans's Esophagus 3.: Diverticulosis 4.: Internal Hemorrhoids Discharge Instructions - Activity: You might feel a little sleepy until tomorrow. This is due to the medicine you received to relax you. Until tomorrow, you should: NOT drive a car, operate machinery or power tools. NOT drink any alcoholic beverages. NOT make any important decisions or sign importortant papers. Do not return to work until tomorrow, unless otherwise instructed. Resume previous activities tomorrow. Diet: Start by taking liquids. If you tolerate liquids, advance to solid food. make an appointment for one week 1.: EGD in 6-8 weeks Notify Physician - If you experience excessive bleeding, unusual abdominal pain, fever, or chest pain, contact your doctor immediately. JANA MOCK DO Nov 02, 2019 09:16
--- NOTE | 2019-11-02 10:51 | Anesthesia-General Post-Op ---
MAC Patient Condition Mental Status/LOC: Same as Preop Cardiovascular: Satisfactory Nausea/Vomiting: Absent Respiratory: Satisfactory Pain: Controlled Complications: Absent Post Op Complications Complications None Follow Up Care/Instructions Patient Instructions None needed. Anesthesiology Discharge Order Discharge Order Patient is doing well, no complaints, stable vital signs, no apparent adverse anesthesia problems. No complications reported per nursing. EDGAR CASTILLO CRNA Nov 02, 2019 10:51
--- NOTE | 2019-11-03 01:03 | OPERATIVE REPORT ---
DATE OF SERVICE: 11/02/2019 PREOPERATIVE DIAGNOSES: Hematemesis and hematochezia. POSTOPERATIVE DIAGNOSES: 1. Gastritis, Evans's esophagus, hiatal hernia. 2. Diverticula. 3. Internal hemorrhoids. 4. Poor prep. PROCEDURES: 1. EGD with biopsy. 2. Colonoscopy. SURGEON: Edward Babb DO MILLED RUBBER TENDER: None. ANESTHESIA: IV sedation by the AGENCY DEVELOPMENT MANAGER. SPECIMEN: Biopsy of the antrum, body of stomach and GE junction. BLOOD LOSS: Scant. FLUIDS: Per anesthesia. POSTOPERATIVE CONDITION: Stable. INDICATION FOR PROCEDURE: The patient is a 49-year-old male with complains of hematemesis and hematochezia, needed a workup. FINDINGS: The patient had some pretty severe gastritis and what looked like ulcers in the lower portion of the esophagus, looked like a Evans's esophagus. He also had a small hiatal hernia. In the colon, he had some diverticula, some internal hemorrhoids, but unfortunately had a poor prep, so unable to completely finish the colonoscopy. PROCEDURE NOTE: After informed consent was obtained, the patient was brought to the endoscopy suite, placed in bed in left lateral decubitus position. He was administered IV sedation by the AGENCY DEVELOPMENT MANAGER who then monitored his vitals the entire time, heart rate, blood pressure and pulse ox, started with the EGD, placed the scope down the mouth through the esophagus into the stomach. Upon entering the stomach, noted some gastritis, pushed into the duodenum. Duodenum looked fine. Pulled back and did a biopsy of the antrum. Retroflexed the scope, saw a small hiatal hernia, took a picture and then did a biopsy of the body of stomach and then pulled the scope into the esophagus and saw what looked like an ulcer. This looked like Evans's esophagus, did a biopsy here, then pushed the scope into the stomach, suctioned all the air and then pulled the scope up the esophagus and out the mouth. Switched camera, switched gloves, went down below, started the colonoscopy. Upon entry noted unfortunately, a very large pieces of fecal material also noted some what looked like tattooing in the sigmoid colon pushed up to the splenic flexure and went through here, we were able to go past 2 or 3 large pieces of fully formed fecal material, but when we got to the transverse colon again ran into another large piece of formed fecal material. At this point, I elected to stop, withdrew the scope looking at the transverse colon to the splenic flexure, then down the descending colon into the sigmoid, again throughout here saw pieces of large fecal material that were blocking our vision and then saw the tattooing and then on the way out, noted some internal hemorrhoids, removed the scope. The patient tolerated the procedure, recovered in endoscopy suite. He will need a repeat colonoscopy because of the poor prep. He elected to do at another time, I offered him for tomorrow. Job ID: [id number] DocumentID: [id number] Dictated Date: 11/02/2019 15:06:13 High Wire Artist Date: 11/03/2019 01:02:06 Dictated By: EDWARD BABB DO
== END 2019-11-02 10:10 | disposition home or self-care (01) ==
LOC: ENDO 07:56
PROVIDERS: ATTEND Surgery
DX: K29.50 Unspecified chronic gastritis without bleeding (principal); K22.70 Barrett's esophagus without dysplasia; K44.9 Diaphragmatic hernia without obstruction or gangrene; K57.90 Diverticulosis of intestine, part unspecified, without perforation or abscess without bleeding; K64.8 Other hemorrhoids; I10 Essential (primary) hypertension; F31.9 Bipolar disorder, unspecified; F20.9 Schizophrenia, unspecified; F41.9 Anxiety disorder, unspecified; M54.9 Dorsalgia, unspecified; G89.29 Other chronic pain; Z88.0 Allergy status to penicillin; Z79.899 Other long term (current) drug therapy
CPT/HCPCS: 88305; 88312; 88342

== ENCOUNTER 2020-01-28 05:34 | Outpatient (RCR) | payer MEDICARE, MEDICAID ==
[~2020-01-28] VITALS: Ht 157.5 cm; Wt 55.5 kg
== END 2020-01-28 12:25 | disposition home or self-care (01) ==
LOC: PREOP 05:34
PROVIDERS: ATTEND Surgery
DX: Z01.818 Encounter for other preprocedural examination (principal)

== ENCOUNTER → 2020-03-09 | Outpatient (CLI) | payer MEDICARE, MEDICAID ==
--- NOTE | 2020-03-09 10:56 | Diagnostic Imaging Report ---
INDICATION: Constipation. COMPARISON: This study is interpreted in correlation with a CT abdomen of 10/13/2019. FINDINGS: There is elevation of the colonic fecal load; however, it is less pronounced than when correlated with the previous CT. No evidence for rectal or sigmoid impaction and no small bowel dilatation. IMPRESSION: The findings suggest relatively mild colonic constipation without focal impaction or bowel obstruction. The magnitude of this stool load has lessened when compared to a correlative CT. Dictated by: Dictated on workstation # [id number]
== END ==
LOC: RAD FS 09:39
PROVIDERS: ATTEND Nurse Practitioner Family
DX: K59.00 Constipation, unspecified (principal)
CPT/HCPCS: 74019

== ENCOUNTER 2020-06-10 22:07 | Emergency (ER) | payer MEDICARE, MEDICAID ==
[~2020-06-10 22:07] MED LIST changes: +QUET300T19 PO; -QUET300T44 PO
[2020-06-10 22:24] VITALS: BP 133/79
--- NOTE | 2020-06-10 22:24 | ED General ---
General Chief Complaint: General Problems/Pain Stated Complaint: SOA,LIGHTHEADED Nursing Triage Note: Pt states he started three new meds today and has been feeling sob and chest tightness tonight. He was unsure if it is related to his new medications or not Nursing Sepsis Screen: No Definite Risk Source of Information: Patient Exam Limitations: No Limitations History of Present Illness Date Seen by Provider: Jun 10, 2020 Time Seen by Provider: 22:20 Initial Comments Patient is a 50-year-old male who is well-known to this facility to roberto quintero who presents with complaints of palpitations and feeling uneasy after taking Zyrtec this evening prior to bedtime. Patient was prescribed new medication earlier today for treatment of allergies. He reports nasal congestion rhinorrhea postnasal drip. He denies wheezing, airway swelling, nausea vomiting. No other acute symptoms or complaints Timing/Duration: 1-3 Hours Severity: Mild Associated Systoms: Other Allergies and Home Medications Allergies Coded Allergies: Penicillins (Verified Allergy, Mild, RASH, 10/28/19) Home Medications Benztropine Mesylate 2 Mg Tablet, 1 MG PO DAILY, (Reported) Docusate Sodium 100 Mg Capsule, 100 MG PO QID PRN for CONSTIPATION-1ST LINE, (Reported) Lamotrigine 200 Mg Tablet, 200 MG PO HS, (Reported) Melatonin 5 Mg Tablet, 5 MG PO HS, (Reported) Metoclopramide HCl 5 Mg Tablet, 5 MG PO ACHS, (Reported) Naproxen 500 Mg Tablet, 500 MG PO BID PRN for PAIN-MODERATE (4-6) Prescribed by: DU DIEGO on 01/26/19 0020 Pantoprazole Sodium 40 Mg Tablet.dr, 40 MG PO DAILY Prescribed by: SNOW CARVAJAL on 10/13/192208 Quetiapine Fumarate 300 Mg Tablet, 1,200 MG PO HS, (Reported) TAKES 4 (300MG) TABLETS Sucralfate 1 Gm Tablet, 1 GM PO TID, (Reported) Trazodone HCl 150 Mg Tablet, 150 MG PO HS, (Reported) Patient Home Medication List Home Medication List Reviewed: Yes Review of Systems Review of Systems Constitutional: see HPI EENTM: see HPI Respiratory: see HPI Cardiovascular: see HPI Genitourinary: see HPI Musculoskeletal: see HPI Skin: see HPI Psychiatric/Neurological: See HPI Hematologic/Lymphatic: See HPI Immunological/Allergic: see HPI All Other Systems Reviewed Negative Unless Noted: Yes Past Xybpmcm-Krqabq-Ilhrcc Hx Past Med/Social Hx: Reviewed Nursing Past Med/Soc Hx Patient Social History Alcohol Use: Denies Use 2nd Hand Smoke Exposure: No Recent Infectious Disease Expo: No Recent Hopitalizations: No Immunizations Up To Date Tetanus Booster (TDap): Unknown Date of Influenza Vaccine: Dec 22, 2018 Seasonal Allergies Seasonal Allergies: No Past Medical History Surgeries: Yes (RIGHT LEG FUSION CHILD) Cystectomy, Gallbladder, Orthopedic, Tonsillectomy Respiratory: No Cardiac: No Neurological: No Seizure Disorder Genitourinary: No Gastrointestinal: Yes (gastritis, rectal bleeding) Gastroesophageal Reflux Musculoskeletal: Yes Chronic Back Pain Endocrine: No HEENT: No Loss of Vision: Denies Hearing Impairment: Denies Cancer: No Psychosocial: Yes Anxiety, Bipolar, Depression Integumentary: No Blood Disorders: No Adverse Reaction/Blood Tranf: No (N/A) Family Medical History Cardiovascular disease 19 FATHER Diabetes mellitus G8 BROTHER Hypertension 19 FATHER 19 MOTHER G8 BROTHER Heart Disease, Diabetes, Hypertension Physical Exam Vital Signs Vital Signs - First Documented 06/10/20 22:09 Temp 37.0 Pulse 98 Resp 18 B/P (MAP) 133/79 (97) Pulse Ox 100 O2 Delivery Room Air Capillary Refill : Less Than 3 Seconds Height, Weight, BMI Height: 5'2.00" Weight: 128lbs. 5.0oz. 58.052287cy; 22.37 BMI Method:Stated General Appearance: Anxious Eyes: Bilateral Eye Normal Inspection, Bilateral Eye PERRL, Bilateral Eye EOMI HEENT: PERRL/EOMI, Pharynx Normal, Other (Nasal congestion, clear rhinorrhea) Neck: Full Range of Motion, Non Tender, Supple Respiratory: Lungs Clear Cardiovascular: Regular Rate, Rhythm Focused Exam Sepsis Stage: Ruled Out Progress/Results/Core Measures Suspected Sepsis Recent Fever Within 48 Hours: No Infection Criteria Present: None New/Unexplained Altered Menta: No Sepsis Screen: No Definite Risk SIRS Temperature: Pulse: 98 Respiratory Rate: 18 Blood Pressure 133 /79 Mean: 97 Results/Orders Vital Signs/I&O 06/10/20 22:09 Temp 37.0 Pulse 98 Resp 18 B/P (MAP) 133/79 (97) Pulse Ox 100 O2 Delivery Room Air Capillary Refill : Less Than 3 Seconds Blood Pressure Mean: 97 Departure Communication (Admissions) Nasal congestion rhinorrhea. Patient has mild anticholinergic effects from medication. Recommend avoid taking at evening or discontinuing during daytime if symptoms persist and are bothersome. Impression Primary Impression: Medication reaction Disposition: 01 HOME, SELF-CARE Condition: Stable Departure-Patient Inst. Referrals: [facility] (PCP) Primary Care Physician ROSI PARADA APRN (Family) Primary Care Physician Patient Instructions: Adverse Drug Reactions, Adult (DC) Add. Discharge Instructions: Due to take newly prescribed medications at night due to the side effects. Avoid taking during the daytime if side effects are bothersome. Follow-up with your PCP for further treatment instructions. All discharge instructions reviewed with patient and/or family. Voiced understanding. KEE PARTIDA DO Jun 10, 2020 22:23
== END 2020-06-10 22:25 | disposition home or self-care (01) ==
LOC: EDUNIT# 22:07 → ER FS 22:08
DX: R00.2 Palpitations (principal); T45.0X5A Adverse effect of antiallergic and antiemetic drugs, initial encounter; I10 Essential (primary) hypertension; F41.9 Anxiety disorder, unspecified; F31.9 Bipolar disorder, unspecified; K21.9 Gastro-esophageal reflux disease without esophagitis; G40.909 Epilepsy, unspecified, not intractable, without status epilepticus; Z88.0 Allergy status to penicillin; Z82.49 Family history of ischemic heart disease and other diseases of the circulatory system; Z83.3 Family history of diabetes mellitus
CPT/HCPCS: 99281

== ENCOUNTER 2020-07-14 14:32 | Emergency (ER) | payer OTHER, MEDICARE, MEDICAID ==
[~2020-07-14] VITALS: Ht 154.9 cm; Wt 56.8 kg
[2020-07-14] MEDS ORDERED: ORPHENADRINE 60 MG/2 ML (NORFLEX) AMP (ED ONLY) IM STA (14:45)
[2020-07-14] MEDS ORDERED: KETOROLAC 30 MG/ML VIAL IM STA (14:45)
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
[2020-07-14] MEDS ORDERED: BACL10TA PO (15:52)
[2020-07-14] MEDS ORDERED: NAPR375T5 PO (15:52)
[2020-07-14 15:56] VITALS: BP 159/105
== END 2020-07-14 15:57 | disposition home or self-care (01) ==
LOC: EDUNIT# 14:32 → ER FS 14:34
DX: S16.1XXA Strain of muscle, fascia and tendon at neck level, initial encounter (principal); S09.90XA Unspecified injury of head, initial encounter; K21.9 Gastro-esophageal reflux disease without esophagitis; F41.9 Anxiety disorder, unspecified; F31.9 Bipolar disorder, unspecified; R40.2410 Glasgow coma scale score 13-15, unspecified time; Z88.0 Allergy status to penicillin; V89.2XXA Person injured in unspecified motor-vehicle accident, traffic, initial encounter
CPT/HCPCS: 70450; 72125

== ENCOUNTER → 2020-07-20 | Outpatient (CLI) | payer OTHER, MEDICARE, MEDICAID ==
[~2020-07-20] MED LIST changes: +BACL10TA PO; +NAPR375T5 PO
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
== END ==
LOC: RAD FS 14:43
PROVIDERS: ATTEND Nurse Practitioner Family
DX: M47.814 Spondylosis without myelopathy or radiculopathy, thoracic region (principal); M50.321 Other cervical disc degeneration at C4-C5 level
CPT/HCPCS: 72040; 72070

== ENCOUNTER 2020-08-18 00:49 | Emergency (ER) | payer MEDICARE, MEDICAID ==
[~2020-08-18] VITALS: Ht 154.9 cm; Wt 55.6 kg
[2020-08-18 00:58] VITALS: BP 149/86
--- NOTE | 2020-08-18 01:04 | ED Psychosocial ---
General Chief Complaint: Psych/Social Disorder Stated Complaint: FAST HEARTRATE,NAUSEA,CONGESTED Source: patient Exam Limitations: no limitations History of Present Illness Date Seen by Provider: Aug 18, 2020 Time Seen by Provider: 01:00 Initial Comments 50-year-old male presents with some congestion nausea and what he feels like fast heart rate. Patient is been on olanzapine for about 2-1/2 months. States that every time he takes it feels like he gets the symptoms. He has not told his prescribing physician complaints. Patient reports that his medications were changed about 2-1/2 months ago when the symptoms started and feels like they have not been helping. Allergies and Home Medications Allergies Coded Allergies: Penicillins (Verified Allergy, Mild, RASH, 10/28/19) Home Medications Baclofen 10 Mg Tablet, 10 MG PO BID PRN for MUSCLE SPASMS Prescribed by: DU DIEGO on 07/14/201551 Benztropine Mesylate 2 Mg Tablet, 1 MG PO DAILY, (Reported) Docusate Sodium 100 Mg Capsule, 100 MG PO QID PRN for CONSTIPATION-1ST LINE, (Reported) Lamotrigine 200 Mg Tablet, 200 MG PO HS, (Reported) Melatonin 5 Mg Tablet, 5 MG PO HS, (Reported) Metoclopramide HCl 5 Mg Tablet, 5 MG PO ACHS, (Reported) Naproxen 500 Mg Tablet, 500 MG PO BID PRN for PAIN-MODERATE (4-6) Prescribed by: DU DIEGO on 01/26/19 0020 Naproxen 375 Mg Tablet.dr, 375 MG PO BID Prescribed by: DU DIEGO on 07/14/20 155 Pantoprazole Sodium 40 Mg Tablet.dr, 40 MG PO DAILY Prescribed by: SNOW CARVAJAL on 10/13/192208 Quetiapine Fumarate 300 Mg Tablet, 1,200 MG PO HS, (Reported) TAKES 4 (300MG) TABLETS Sucralfate 1 Gm Tablet, 1 GM PO TID, (Reported) Trazodone HCl 150 Mg Tablet, 150 MG PO HS, (Reported) Patient Home Medication List Home Medication List Reviewed: Yes Review of Systems Constitutional: No chills, No fever EENTM: nose congestion Respiratory: No cough, No short of breath Cardiovascular: No chest pain; palpitations Gastrointestinal: No abdominal pain; nausea; No vomiting Musculoskeletal: no symptoms reported Skin: no symptoms reported Past Ovxkekf-Touogb-Ugatob Hx Past Med/Social Hx: Reviewed Nursing Past Med/Soc Hx Patient Social History Alcohol Beverage of Choice: Beer 2nd Hand Smoke Exposure: No Recent Hopitalizations: No Immunizations Up To Date Tetanus Booster (TDap): Less than 5yrs Date of Influenza Vaccine: Dec 22, 2018 Seasonal Allergies Seasonal Allergies: No Past Medical History Surgeries: Yes (RIGHT LEG FUSION CHILD) Cystectomy, Gallbladder, Orthopedic, Tonsillectomy Respiratory: No Cardiac: No Neurological: No Seizure Disorder Genitourinary: No Gastrointestinal: Yes (gastritis, rectal bleeding) Gastroesophageal Reflux Musculoskeletal: Yes Chronic Back Pain Endocrine: No HEENT: No Loss of Vision: Denies Hearing Impairment: Denies Cancer: No Psychosocial: Yes Anxiety, Bipolar, Depression Integumentary: No Blood Disorders: No Adverse Reaction/Blood Tranf: No (N/A) Family Medical History Cardiovascular disease 19 FATHER Diabetes mellitus G8 BROTHER Hypertension 19 FATHER 19 MOTHER G8 BROTHER Heart Disease, Diabetes, Hypertension Physical Exam Vital Signs - First Documented 08/18/20 00:58 Temp 37.3 Pulse 105 Resp 16 B/P (MAP) 149/86 (107) Pulse Ox 99 O2 Delivery Room Air Capillary Refill : Height, Weight, BMI Height: 5'2.00" Weight: 128lbs. 5.0oz. 58.465319lr; 23.00 BMI Method:Stated General Appearance: other (Anxious) Neck: full range of motion, supple Respiratory: lungs clear, normal breath sounds Cardiovascular: normal peripheral pulses, regular rate, rhythm Gastrointestinal: non tender, soft Neurologic/Psychiatric: alert, oriented x 3 Appearance/Memory: other (Anxious) Behavior/Eye Contact: increased rate of speech Thoughts/Hallucinations: no apparent hallucination Progress/Results/Core Measures Results/Orders My Orders Orders - DEANNA GREENE DO Ekg Tracing (08/18/20 01:05) Vital Signs/I&O 08/18/20 00:58 Temp 37.3 Pulse 105 Resp 16 B/P (MAP) 149/86 (107) Pulse Ox 99 O2 Delivery Room Air Progress Progress Note : Progress Note Discussed with patient that he will need to follow-up with his prescribing therapist for medication change. Discussed with him that possibly he is mildly anxious versus medication side effect. Patient stable and discharged home Initial ECG Impression Date: Aug 18, 2020 Initial ECG Impression Time: 01:04 Initial ECG Rhythm: Normal Sinus Initial ECG Intervals: Normal Initial ECG Impression: Normal Departure Impression Primary Impression: Medication reaction Qualified Codes: T50.905A - Adverse effect of unspecified drugs, medicaments and biological substances, initial encounter Additional Impression: Anxiety Disposition: 01 HOME, SELF-CARE Condition: Stable Departure-Patient Inst. Referrals: [facility] (PCP) Primary Care Physician ROSI PARADA APRN (Family) Primary Care Physician Patient Instructions: MEDICATION REACTION Add. Discharge Instructions: Follow-up with your prescribing provider for medication review and change. Please discuss with them the side effects. All discharge instructions reviewed with patient and/or family. Voiced understanding. DEANNA GREENE DO Aug 18, 2020 01:04
== END 2020-08-18 01:15 | disposition home or self-care (01) ==
LOC: EDUNIT# 00:49 → ER FS 00:50
DX: F41.9 Anxiety disorder, unspecified (principal); T43.595A Adverse effect of other antipsychotics and neuroleptics, initial encounter; K21.9 Gastro-esophageal reflux disease without esophagitis; F31.9 Bipolar disorder, unspecified; G40.909 Epilepsy, unspecified, not intractable, without status epilepticus; Z88.0 Allergy status to penicillin; Z79.899 Other long term (current) drug therapy
CPT/HCPCS: 93005

== ENCOUNTER → 2020-09-08 | Outpatient (CLI) | payer MEDICARE, MEDICAID ==
--- NOTE | 2020-09-08 11:21 | Diagnostic Imaging Report ---
INDICATION: Fall. Back pain. COMPARISON: 12/18/2018 FINDINGS: Frontal and lateral views of the lumbar spine were obtained. Evaluation static alignment shows slight grade 1 anterolisthesis at the L3-L4 level. There is no evidence of jumped facets. Pars defects are noted at L3. Vertebral body heights are maintained. There is no acute fracture. Mild degenerative changes are noted at L3-L4 consisting of mild joint space narrowing with endplate osteophyte formations. There is also multilevel facet arthropathy of the lower lumbar spine. IMPRESSION: 1. Bilateral L3 pars defects with resultant mild grade 1 anterolisthesis at L3-L4. 2. Mild multilevel degenerative changes. 3. No acute fracture or dislocation. Dictated by: Dictated on workstation # [id number]
== END ==
LOC: RAD FS 10:53
PROVIDERS: ATTEND Nurse Practitioner Family
DX: M47.816 Spondylosis without myelopathy or radiculopathy, lumbar region (principal); M43.16 Spondylolisthesis, lumbar region
CPT/HCPCS: 72100

== ENCOUNTER 2020-10-17 22:53 | Emergency (ER) | payer MEDICARE, MEDICAID ==
--- NOTE | 2020-10-17 23:02 | ED EENT ---
History of Present Illness General Chief Complaint: Dental Problems/Pain Stated Complaint: TOOTH PAIN History of Present Illness Date Seen by Provider: Oct 17, 2020 Time Seen by Provider: 23:02 Initial Comments Patient 50-year-old male presents with left sided dental pain. He reports that the pain started about 2 days ago. He reports this worsened over the last 2 d ays now the pain hurts into his ear. Hurts for him to bite down. He reports he has really bad teeth. He states he tried to call the dentist was then able to get in. He reports this in the lower back teeth on the left side. Allergies and Home Medications Allergies Coded Allergies: Penicillins (Verified Allergy, Mild, RASH, 10/28/19) Home Medications Baclofen 10 Mg Tablet, 10 MG PO BID PRN for MUSCLE SPASMS Prescribed by: DU DIEGO on 07/14/201551 Benztropine Mesylate 2 Mg Tablet, 1 MG PO DAILY, (Reported) Docusate Sodium 100 Mg Capsule, 100 MG PO QID PRN for CONSTIPATION-1ST LINE, (Reported) Lamotrigine 200 Mg Tablet, 200 MG PO HS, (Reported) Melatonin 5 Mg Tablet, 5 MG PO HS, (Reported) Metoclopramide HCl 5 Mg Tablet, 5 MG PO ACHS, (Reported) Naproxen 500 Mg Tablet, 500 MG PO BID PRN for PAIN-MODERATE (4-6) Prescribed by: DU DIEGO on 01/26/19 0020 Naproxen 375 Mg Tablet.dr, 375 MG PO BID Prescribed by: DU DIEGO on 07/14/201551 Pantoprazole Sodium 40 Mg Tablet.dr, 40 MG PO DAILY Prescribed by: SNOW CARVAJAL on 10/13/192208 Quetiapine Fumarate 300 Mg Tablet, 1,200 MG PO HS, (Reported) TAKES 4 (300MG) TABLETS Sucralfate 1 Gm Tablet, 1 GM PO TID, (Reported) Trazodone HCl 150 Mg Tablet, 150 MG PO HS, (Reported) Patient Home Medication List Home Medication List Reviewed: Yes Review of Systems Review of Systems Constitutional: no symptoms reported Eyes: No Symptoms Reported Ears: See HPI Nose: no symptoms reported Mouth: see HPI Throat: no symptoms reported Respiratory: no symptoms reported Cardiovascular: no symptoms reported Gastrointestinal: no symptoms reported Musculoskeletal: no symptoms reported Skin: no symptoms reported Past Anclhyb-Fvbnwu-Mnzlqv Hx Immunizations Up To Date Tetanus Booster (TDap): Less than 5yrs Seasonal Allergies Seasonal Allergies: No Past Medical History Surgeries: Yes (RIGHT LEG FUSION CHILD) Cystectomy, Gallbladder, Orthopedic, Tonsillectomy Respiratory: No Cardiac: No Neurological: No Seizure Disorder Genitourinary: No Gastrointestinal: Yes (gastritis, rectal bleeding) Gastroesophageal Reflux Musculoskeletal: Yes Chronic Back Pain Endocrine: No HEENT: No Loss of Vision: Denies Hearing Impairment: Denies Cancer: No Psychosocial: Yes Anxiety, Bipolar, Depression Integumentary: No Blood Disorders: No Adverse Reaction/Blood Tranf: No (N/A) Family Medical History Cardiovascular disease 19 FATHER Diabetes mellitus G8 BROTHER Hypertension 19 FATHER 19 MOTHER G8 BROTHER Heart Disease, Diabetes, Hypertension Physical Exam Vital Signs Vital Signs - First Documented 10/17/20 22:58 Temp 36.3 Pulse 72 Resp 18 B/P (MAP) 163/90 (114) Pulse Ox 100 O2 Delivery Room Air Height, Weight, BMI Height: 5'2.00" Weight: 128lbs. 5.0oz. 58.822096ls; 23.00 BMI Method:Stated General Appearance: no apparent distress Ears: bilateral ear auricle normal, bilateral ear TM normal Nose: normal inspection Mouth/Throat: other (Multiple dental caries along left teeth, no obvious dental abscess noted pain along the 3 back teeth on the left side) Cardiovascular: normal peripheral pulses Respiratory: normal breath sounds, no respiratory distress Neurologic/Psychiatric: normal mood/affect Skin: normal color, warm/dry Progress/Results/Core Measures Results/Orders My Orders Orders - DEANNA GREENE DO Ketorolac Injection (Toradol Injection) (10/17/20 23:06) Ceftriaxone (Rocephin) (10/17/20 23:15) Lidocaine 1% Inj 20 Ml (Xylocaine 1% Inj (10/17/20 23:15) Vital Signs/I&O 10/17/20 22:58 Temp 36.3 Pulse 72 Resp 18 B/P (MAP) 163/90 (114) Pulse Ox 100 O2 Delivery Room Air Departure Impression Primary Impression: Dental caries Additional Impression: Pain, dental Disposition: 01 HOME, SELF-CARE Condition: Stable Departure-Patient Inst. Referrals: [facility] (PCP) Primary Care Physician ROSI PARADA APRN (Family) Primary Care Physician Patient Instructions: Dental Pain, Tooth Decay in Young Children (DC) Add. Discharge Instructions: Follow-up with your dentist as soon as possible for definitive care Follow-up with your primary care provider if you need more pain medication other than Tylenol or ibuprofen All discharge instructions reviewed with patient and/or family. Voiced understanding. Scripts Clindamycin HCl (Clindamycin HCl) 300 Mg Capsule 300 MG PO TID, #30 CAP Prov: DEANNA GREENE DO 10/17/20 DEANNA GREENE DO Oct 17, 2020 23:02
[2020-10-17] MEDS ORDERED: KETOROLAC 30 MG/ML VIAL IM STA (23:06)
[2020-10-17] MEDS ORDERED: CLIN300C12 PO (23:12)
[2020-10-17 23:14] VITALS: BP 163/90
[2020-10-17] MEDS ORDERED: cefTRIAXone 1,000 MG VIAL IM ONE (23:15)
[2020-10-17] MEDS ORDERED: LIDOCAINE 1% INJ 20 ML 20 ML VIAL INJ ONE (23:15)
== END 2020-10-17 23:14 | disposition home or self-care (01) ==
LOC: EDUNIT# 22:53 → ER FS 22:54
DX: K02.9 Dental caries, unspecified (principal); G40.909 Epilepsy, unspecified, not intractable, without status epilepticus; K21.9 Gastro-esophageal reflux disease without esophagitis; F41.9 Anxiety disorder, unspecified; F31.9 Bipolar disorder, unspecified; Z79.899 Other long term (current) drug therapy
CPT/HCPCS: 99284

== ENCOUNTER 2021-03-19 23:19 | Emergency (ER) | payer MEDICARE, OTHER ==
[~2021-03-19] VITALS: Ht 154.9 cm; Wt 59.5 kg
[~2021-03-19 23:19] MED LIST changes: +CLIN-144 PO; +CYCL10TA25 PO; -CYCL10TA9 PO
[2021-03-19 23:28] VITALS: BP 166/113
[2021-03-19] MEDS ORDERED: PROCHLORPERAZINE 10 MG/2ML INJ (COMPAZINE) IM STA (23:33)
[2021-03-19] MEDS ORDERED: diphenhydrAMINE 50 MG/ML INJ (BENADRYL) IM STA (23:33)
[2021-03-19] MEDS ORDERED: KETOROLAC 30 MG/ML VIAL IM STA (23:33)
--- NOTE | 2021-03-19 23:38 | ED Headache ---
General Chief Complaint: Head/Cervical Problems Stated Complaint: HEADACHE Source: patient Exam Limitations: no limitations History of Present Illness Date Seen by Provider: Mar 19, 2021 Time Seen by Provider: 23:23 Initial Comments 51-year-old male with past medical history of migraines coming in due to a severe headache that is constant, throbbing, in the front of his head, and started around 6 hours ago. He says it feels like his typical headaches but may be slightly worse. It was slow in onset and took a couple hours to get to maximal amount. These typically occur about every 3 weeks. He took an Excedrin Migraine around 6 hours ago which helped a little bit. Denies any fever, neck stiffness, vision changes, weakness, numbness, or any other concerns. Also has not had any recent trauma. Allergies and Home Medications Allergies Coded Allergies: Penicillins (Verified Allergy, Mild, RASH, 10/28/19) Patient Home Medication List Home Medication List Reviewed: Yes Baclofen (Baclofen) 10 Mg Tablet, 10 MG PO BID PRN for MUSCLE SPASMS Prescribed by: DU DIEGO on 07/14/20 1552 Benztropine Mesylate (Benztropine Mesylate) 2 Mg Tablet, 1 MG PO DAILY, (Reported) Entered as Reported by: TRISTA BRADLEY on 10/28/19 0908 Clindamycin HCl (Clindamycin HCl) 300 Mg Capsule, 300 MG PO TID Prescribed by: DEANNA GREENE on 10/17/20 2312 Docusate Sodium (Colace) 100 Mg Capsule, 100 MG PO QID PRN for CONSTIPATION-1ST LINE, (Reported) Entered as Reported by: ROSI MORENO on 11/13/18 1025 Lamotrigine (Lamotrigine) 200 Mg Tablet, 200 MG PO HS, (Reported) Entered as Reported by: ROSI MORENO on 11/13/18 1022 Melatonin (Melatonin) 5 Mg Tablet, 5 MG PO HS, (Reported) Entered as Reported by: TRISTA BRADLEY on 10/28/19 0907 Metoclopramide HCl (Metoclopramide HCl) 5 Mg Tablet, 5 MG PO ACHS, (Reported) Entered as Reported by: TRISTA BRADLEY on 10/28/19 0907 Naproxen (Naproxen) 500 Mg Tablet, 500 MG PO BID PRN for PAIN-MODERATE (4-6) Prescribed by: DU DIEGO on 01/26/19 0020 Naproxen (Naproxen) 375 Mg Tablet.dr, 375 MG PO BID Prescribed by: DU DIEGO on 07/14/20 1552 Pantoprazole Sodium (Protonix) 40 Mg Tablet.dr, 40 MG PO DAILY Prescribed by: SNOW CARVAJAL on 10/13/19 2209 Quetiapine Fumarate (Quetiapine Fumarate) 300 Mg Tablet, 1,200 MG PO HS, (Reported) Entered as Reported by: ROSI MORENO on 11/13/18 0959 Sucralfate (Sucralfate) 1 Gm Tablet, 1 GM PO TID, (Reported) Entered as Reported by: ROSI MORENO on 11/13/18 0959 Trazodone HCl (Trazodone HCl) 150 Mg Tablet, 150 MG PO HS, (Reported) Entered as Reported by: TRISTA BRADLEY on 10/28/19 0907 Review of Systems Review of Systems Constitutional: No chills Eyes: Denies Blurred Vision Ears, Nose, Mouth, Throat: no symptoms reported Respiratory: No cough, No short of breath Cardiovascular: No chest pain Gastrointestinal: No abdominal pain, No diarrhea, No nausea, No vomiting Genitourinary: no symptoms reported Musculoskeletal: no symptoms reported Skin: no symptoms reported Psychiatric/Neurological: No Symptoms Reported All Other Systems Reviewed Negative Unless Noted: Yes Past Tfhcjay-Jyhmbc-Uggjrh Hx Patient Social History Tobacco Use?: No Substance use?: No Alcohol Use?: No Immunizations Up To Date Tetanus Booster (TDap): Less than 5yrs Seasonal Allergies Seasonal Allergies: No Past Medical History Surgery/Hospitalization HX: Migraines, HTN Surgeries: Yes (RIGHT LEG FUSION CHILD) Cystectomy, Gallbladder, Orthopedic, Tonsillectomy Respiratory: No Cardiac: No Neurological: No Seizure Disorder Genitourinary: No Gastrointestinal: Yes (gastritis, rectal bleeding) Gastroesophageal Reflux Musculoskeletal: Yes Chronic Back Pain Endocrine: No HEENT: No Loss of Vision: Denies Hearing Impairment: Denies Cancer: No Psychosocial: Yes Anxiety, Bipolar, Depression Integumentary: No Blood Disorders: No Adverse Reaction/Blood Tranf: No (N/A) Family Medical History Cardiovascular disease 19 FATHER Diabetes mellitus G8 BROTHER Hypertension 19 FATHER 19 MOTHER G8 BROTHER Heart Disease, Diabetes, Hypertension Physical Exam Vital Signs Vital Signs - First Documented 03/19/21 23:28 Temp 36.7 Pulse 78 Resp 18 B/P (MAP) 166/113 (130) Pulse Ox 99 O2 Delivery Room Air Capillary Refill : Height, Weight, BMI Height: 5'2.00" Weight: 128lbs. 5.0oz. 58.850821pn; 23.00 BMI Method:Stated General Appearance: WD/WN, no apparent distress HEENT: PERRL/EOMI, normal ENT inspection, pharynx normal Neck: non-tender, full range of motion, supple, normal inspection, other (No meningismus, negative jolt test) Cardiovascular: regular rate, rhythm, no edema, no murmur Respiratory: chest non-tender, lungs clear, normal breath sounds, no respiratory distress, no accessory muscle use Gastrointestinal: normal bowel sounds, non tender, soft; No distended, No guarding, No rebound Back: normal inspection, no CVA tenderness Extremities: normal range of motion, non-tender, normal inspection, no pedal edema, no calf tenderness, normal capillary refill Psychiatric: alert, oriented x 3 Crainal Nerves: normal hearing, normal speech, PERRL Coordination/Gait: normal finger to nose, normal gait Motor/Sensory: no motor deficit, no sensory deficit Skin: normal color, warm/dry Lymphatic: no adenopathy Progress/Results/Core Measures Results/Orders My Orders Orders - YVONNE GARCIA MD Ketorolac Injection (Toradol Injection) (03/19/21 23:33) Prochlorperazine Injection (Compazine In (03/19/21 23:33) Diphenhydramine Injection (Benadryl Inje (03/19/21 23:33) Vital Signs/I&O 03/19/21 23:28 Temp 36.7 Pulse 78 Resp 18 B/P (MAP) 166/113 (130) Pulse Ox 99 O2 Delivery Room Air Progress Progress Note : Progress Note 51-year-old male with above history coming in due to headache. ABCs are intact and vitals are stable on presentation. Physical exam reassuring including a normal focused neuro exam. Most importantly, the patient is very well-appearing without meningismus and a negative jolt test. He is afebrile and I have a very low suspicion for meningitis. It was slow in onset and similar to prior headach es with low probability of this being a subarachnoid hemorrhage. No traumatic mechanism involved. Low suspicion for intracranial mass given this is his typical headache. He received IM Benadryl, Compazine, Toradol with near complete resolution of symptoms. I believe he is stable for discharge with outpatient follow-up. He was sent home with strict return precautions. Departure Impression Primary Impression: Headache Qualified Codes: R51.9 - Headache, unspecified Disposition: HOME, SELF-CARE Condition: Stable Departure-Patient Inst. Decision time for Depature: 00:15 Referrals: ROSI PARADA APRN (PCP/Family) Primary Care Physician Patient Instructions: Headache, Adult ED Add. Discharge Instructions: You were seen in the emergency department for headache. You can take the Exc edrin as needed for the headache at home, and be sure to drink plenty of fluids. If these continue every 3 weeks or so then I suggest seeing a neurologist to see if they want to start you on any medications to prevent you from getting headaches. If you develop any fever or neck stiffness then please call your regular doctor or come in to the ER. Work/School Note: Work Release Form Date Seen in the Emergency Department: Mar 19, 2021 Return to Work: Mar 21, 2021 Restrictions: No Restrictions YVONNE GARCIA MD Mar 19, 2021 23:38
== END 2021-03-20 00:13 | disposition home or self-care (01) ==
LOC: EDUNIT# 23:19 → ER FS 23:26
DX: R51.9 Headache, unspecified (principal); I10 Essential (primary) hypertension; G40.909 Epilepsy, unspecified, not intractable, without status epilepticus; K21.9 Gastro-esophageal reflux disease without esophagitis; F41.9 Anxiety disorder, unspecified; F31.9 Bipolar disorder, unspecified; Z79.899 Other long term (current) drug therapy
CPT/HCPCS: 99284

== ENCOUNTER 2021-04-07 00:50 | Emergency (ER) | payer OTHER ==
[~2021-04-07] VITALS: Ht 157 cm; Wt 60.9 kg
[2021-04-07 00:52] VITALS: BP 110/74
--- NOTE | 2021-04-07 01:00 | ED Fall/Injury ---
General Stated Complaint: FALL History of Present Illness Date Seen by Provider: Apr 07, 2021 Time Seen by Provider: 00:57 Initial Comments 51-year-old male presents following a fall. Patient has a history of a right leg fusion and inability to bend it from the fusion. Patient reports he is getting out of the shower when he got his leg caught and fell. He complains of pain in his left leg from the hip to the knee. He presents because he just wants to have it evaluated following the fall. Patient is most tender on the po sterior aspect of the left leg up near the hip. He has no obvious deformity. He does have a ability to bend it without difficulty and move it without difficulty. Allergies and Home Medications Allergies Coded Allergies: Penicillins (Verified Allergy, Mild, RASH, 10/28/19) Patient Home Medication List Home Medication List Reviewed: Yes Baclofen (Baclofen) 10 Mg Tablet, 10 MG PO BID PRN for MUSCLE SPASMS Prescribed by: DU DIEGO on 07/14/20 1552 Benztropine Mesylate (Benztropine Mesylate) 2 Mg Tablet, 1 MG PO DAILY, (Reported) Entered as Reported by: TRISTA BRADLEY on 10/28/19 0908 Clindamycin HCl (Clindamycin HCl) 300 Mg Capsule, 300 MG PO TID Prescribed by: DEANNA GREENE on 10/17/20 2312 Docusate Sodium (Colace) 100 Mg Capsule, 100 MG PO QID PRN for CONSTIPATION-1ST LINE, (Reported) Entered as Reported by: ROSI MORENO on 11/13/18 1025 Lamotrigine (Lamotrigine) 200 Mg Tablet, 200 MG PO HS, (Reported) Entered as Reported by: ROSI MORENO on 11/13/18 1022 Melatonin (Melatonin) 5 Mg Tablet, 5 MG PO HS, (Reported) Entered as Reported by: TRISTA BRADLEY on 10/28/19 0907 Metoclopramide HCl (Metoclopramide HCl) 5 Mg Tablet, 5 MG PO ACHS, (Reported) Entered as Reported by: TRISTA BRADLEY on 10/28/19 0907 Naproxen (Naproxen) 500 Mg Tablet, 500 MG PO BID PRN for PAIN-MODERATE (4-6) Prescribed by: DU DIEGO on 01/26/19 0020 Naproxen (Naproxen) 375 Mg Tablet.dr, 375 MG PO BID Prescribed by: DU DIEGO on 07/14/20 1552 Pantoprazole Sodium (Protonix) 40 Mg Tablet.dr, 40 MG PO DAILY Prescribed by: SNOW CARVAJAL on 10/13/19 2209 Quetiapine Fumarate (Quetiapine Fumarate) 300 Mg Tablet, 1,200 MG PO HS, (Reported) Entered as Reported by: ROSI MORENO on 11/13/18 0959 Sucralfate (Sucralfate) 1 Gm Tablet, 1 GM PO TID, (Reported) Entered as Reported by: ROSI MORENO on 11/13/18 0959 Trazodone HCl (Trazodone HCl) 150 Mg Tablet, 150 MG PO HS, (Reported) Entered as Reported by: TRISTA BRADLEY on 10/28/19 0907 Review of Systems Review of Systems Constitutional: No chills, No fever Respiratory: no symptoms reported Cardiovascular: no symptoms reported Gastrointestinal: no symptoms reported Musculoskeletal: see HPI Skin: no symptoms reported Psychiatric/Neurological: No Symptoms Reported Past Zhszfkm-Jscptn-Yelnbz Hx Immunizations Up To Date Tetanus Booster (TDap): Less than 5yrs Seasonal Allergies Seasonal Allergies: No Past Medical History Surgery/Hospitalization HX: Migraines, HTN Surgeries: Yes (RIGHT LEG FUSION CHILD) Cystectomy, Gallbladder, Orthopedic, Tonsillectomy Respiratory: No Cardiac: No Neurological: No Seizure Disorder Genitourinary: No Gastrointestinal: Yes (gastritis, rectal bleeding) Gastroesophageal Reflux Musculoskeletal: Yes Chronic Back Pain Endocrine: No HEENT: No Loss of Vision: Denies Hearing Impairment: Denies Cancer: No Psychosocial: Yes Anxiety, Bipolar, Depression Integumentary: No Blood Disorders: No Adverse Reaction/Blood Tranf: No (N/A) Family Medical History Cardiovascular disease 19 FATHER Diabetes mellitus G8 BROTHER Hypertension 19 FATHER 19 MOTHER G8 BROTHER Heart Disease, Diabetes, Hypertension Physical Exam Vital Signs Vital Signs - First Documented 04/07/21 00:52 Temp 36.8 Pulse 78 Resp 14 B/P (MAP) 110/74 (86) Pulse Ox 100 O2 Delivery Room Air Capillary Refill : Height, Weight, BMI Height: 5'2.00" Weight: 128lbs. 5.0oz. [id number]; 24.00 BMI Method:Stated General Appearance: WD/WN, no apparent distress Cardiovascular: normal peripheral pulses, regular rate, rhythm Respiratory: lungs clear, normal breath sounds Gastrointestinal: soft; No distended Extremities: other (Tenderness on left leg from hip to knee, no difficulty with range of motion, right leg with fusion however no acute changes) Neurologic/Psychiatric: alert, normal mood/affect Skin: normal color, warm/dry Progress/Results/Core Measures Results/Orders My Orders Orders - DEANNA GREENE DO Femur 2 View Left (04/07/21 01:00) Vital Signs/I&O 04/07/21 00:52 Temp 36.8 Pulse 78 Resp 14 B/P (MAP) 110/74 (86) Pulse Ox 100 O2 Delivery Room Air Progress Progress Note : Progress Note X-ray shows no acute fractures or dislocations. Patient with likely contusion of thigh. Discussed supportive care. Patient discharged home in stable condition Diagnostic Imaging Diagonstic Imaging: Xray Plain Films/CT/US/NM/MRI: leg Comments No acute fracture or dislocation Reviewed: Reviewed by Me Departure Impression Primary Impression: Contusion of left thigh, initial encounter Additional Impression: Fall Qualified Codes: W19.XXXA - Unspecified fall, initial encounter Disposition: HOME, SELF-CARE Condition: Stable Departure-Patient Inst. Referrals: ROSI PARADA APRN (PCP/Family) Primary Care Physician Patient Instructions: Minor Contusion ED Add. Discharge Instructions: Tylenol or ibuprofen as needed for pain 4% topical lidocaine with menthol to affected area as directed on package as needed for pain DEANNA GREENE DO Apr 07, 2021 01:00
--- NOTE | 2021-04-07 07:27 | Diagnostic Imaging Report ---
INDICATION: Fall. Femur pain. FINDINGS: There are no findings of hip dislocation or malalignment at the knee. There is no cortical disruption of the femur present to suggest acute fracture. There is no suspicious bone lesion. Morphology of the femoral head is normal. There are mild osteoarthritic changes at the left hip and left knee. There is no foreign body. IMPRESSION: Mild left hip and left knee osteoarthritic changes. There are no findings of malalignment or acute fracture. Dictated by: Dictated on workstation # [id number]
== END 2021-04-07 01:27 | disposition home or self-care (01) ==
LOC: EDUNIT# 00:50 → ER FS 00:51
DX: S70.12XA Contusion of left thigh, initial encounter (principal); F41.9 Anxiety disorder, unspecified; F31.9 Bipolar disorder, unspecified; Z79.899 Other long term (current) drug therapy; K21.9 Gastro-esophageal reflux disease without esophagitis; W23.1XXA Caught, crushed, jammed, or pinched between stationary objects, initial encounter
CPT/HCPCS: 73552

== ENCOUNTER 2021-04-29 20:15 | Emergency (ER) | payer OTHER ==
[2021-04-29] MEDS ORDERED: diphenhydrAMINE 50 MG/ML INJ (BENADRYL) IM STA (20:27)
[2021-04-29] MEDS ORDERED: KETOROLAC 60 MG/2 ML VIAL IM STA (20:27)
[2021-04-29] MEDS ORDERED: ORPHENADRINE 60 MG/2 ML (NORFLEX) AMP (ED ONLY) IM STA (20:27)
[2021-04-29] MEDS ORDERED: PROCHLORPERAZINE 10 MG/2ML INJ (COMPAZINE) IM STA (20:27)
--- NOTE | 2021-04-29 20:34 | ED General ---
General Chief Complaint: Head/Cervical Problems Stated Complaint: MIGRANE SYMPTOMS Nursing Triage Note: Pt complaining of a headache that started about a week ago Source of Information: Patient, Old Records History of Present Illness Date Seen by Provider: Apr 29, 2021 Time Seen by Provider: 20:18 Initial Comments 51 yo male presenting with complaint of headache that starts in both sides of base of his neck and goes around his head to his face. He has pressure and gets dizzy and light headed. This has been going on for over a week. he has nausea and dizziness. He denies head injury or trauma. He does have nasal congestion and sinus pressure. He has not gone to see his regular doctor about his symptoms. he came in tonight after his symptoms were worse tonight while at work. He states it can not be covid as he was tested a few weeks ago and was negative then. He denies fever, chills, chest pain, diarrhea, vomiting. Timing/Duration: 1 Week Severity: Moderate Associated Systoms: No Chest Pain; Cough; No Diaphoresis, No Fever/Chills; Headaches; No Loss of Appetite, No Malaise; Nausea/Vomiting (nausea but no vomiting); No Rash, No Seizure, No Shortness of Air, No Syncope, No Weakness Allergies and Home Medications Allergies Coded Allergies: Penicillins (Verified Allergy, Mild, RASH, 10/28/19) risperidone (Verified Allergy, Unknown, 04/07/21) Patient Home Medication List Home Medication List Reviewed: Yes Baclofen (Baclofen) 10 Mg Tablet, 10 MG PO BID PRN for MUSCLE SPASMS Prescribed by: DU DIEGO on 07/14/20 1552 Benztropine Mesylate (Benztropine Mesylate) 2 Mg Tablet, 1 MG PO DAILY, (Reported) Entered as Reported by: TRISTA BRADLEY on 10/28/19 0908 Clindamycin HCl (Clindamycin HCl) 300 Mg Capsule, 300 MG PO TID Prescribed by: DU DIEGO on 04/29/21 2119 Docusate Sodium (Colace) 100 Mg Capsule, 100 MG PO QID PRN for CONSTIPATION-1ST LINE, (Reported) Entered as Reported by: ROSI MORENO on 11/13/18 1025 Lamotrigine (Lamotrigine) 200 Mg Tablet, 200 MG PO HS, (Reported) Entered as Reported by: ROSI MORENO on 11/13/18 1022 Melatonin (Melatonin) 5 Mg Tablet, 5 MG PO HS, (Reported) Entered as Reported by: TRISTA BRADLEY on 10/28/19 0907 Metoclopramide HCl (Metoclopramide HCl) 5 Mg Tablet, 5 MG PO ACHS, (Reported) Entered as Reported by: TRISTA BRADLEY on 10/28/19 0907 Naproxen (Naproxen) 500 Mg Tablet, 500 MG PO BID PRN for PAIN-MODERATE (4-6) Prescribed by: DU DIEGO on 01/26/19 0020 Naproxen (Naproxen) 375 Mg Tablet.dr, 375 MG PO BID Prescribed by: DU DIEGO on 07/14/20 1552 Pantoprazole Sodium (Protonix) 40 Mg Tablet.dr, 40 MG PO DAILY Prescribed by: SNOW CARVAJAL on 10/13/19 2209 Quetiapine Fumarate (Quetiapine Fumarate) 300 Mg Tablet, 1,200 MG PO HS, (Reported) Entered as Reported by: ROSI MORENO on 11/13/18 0959 Sucralfate (Sucralfate) 1 Gm Tablet, 1 GM PO TID, (Reported) Entered as Reported by: ROSI MORENO on 11/13/18 0959 Trazodone HCl (Trazodone HCl) 150 Mg Tablet, 150 MG PO HS, (Reported) Entered as Reported by: TRISTA BRADLEY on 10/28/19 0907 Review of Systems Review of Systems Constitutional: No chills; dizziness; No fever EENTM: nose congestion; No ear pain, No epistaxis Respiratory: cough; No short of breath Cardiovascular: No chest pain Gastrointestinal: nausea; No vomiting Genitourinary: No dysuria Musculoskeletal: neck pain (pain to muscles of both sides of his neck going up his head and around his face) Skin: No rash Psychiatric/Neurological: Anxiety, Headache Past Yvpgrid-Gbdaoz-Nccbqi Hx Patient Social History Substance use?: No Alcohol Use?: No Immunizations Up To Date Tetanus Booster (TDap): Less than 5yrs Seasonal Allergies Seasonal Allergies: No Past Medical History Surgery/Hospitalization HX: Migraines, HTN Surgeries: Yes (RIGHT LEG FUSION CHILD) Cystectomy, Gallbladder, Orthopedic, Tonsillectomy Respiratory: No Cardiac: No Neurological: No Seizure Disorder Genitourinary: No Gastrointestinal: Yes (gastritis, rectal bleeding) Gastroesophageal Reflux Musculoskeletal: Yes Chronic Back Pain Endocrine: No HEENT: No Loss of Vision: Denies Hearing Impairment: Denies Cancer: No Psychosocial: Yes Anxiety, Bipolar, Depression Integumentary: No Blood Disorders: No Adverse Reaction/Blood Tranf: No (N/A) Family Medical History Cardiovascular disease 19 FATHER Diabetes mellitus G8 BROTHER Hypertension 19 FATHER 19 MOTHER G8 BROTHER Heart Disease, Diabetes, Hypertension Physical Exam Vital Signs Vital Signs - First Documented 04/29/21 20:18 Temp 36.4 Pulse 66 Resp 18 B/P (MAP) 136/87 (103) Pulse Ox 100 O2 Delivery Room Air Capillary Refill : Less Than 3 Seconds Height, Weight, BMI Height: 5'2.00" Weight: 128lbs. 5.0oz. 58.813753oi; 24.00 BMI Method:Stated General Appearance: No Apparent Distress HEENT: PERRL/EOMI, Pharynx Normal (other than multiple missing teeth and poor dentition) Neck: Full Range of Motion, Normal Inspection, Non Tender, Supple Respiratory: Chest Non Tender, Lungs Clear, Normal Breath Sounds, No Accessory Muscle Use, No Respiratory Distress Cardiovascular: Regular Rate, Rhythm, Normal Peripheral Pulses Gastrointestinal: Normal Bowel Sounds, No Pulsatile Mass, Non Tender, Soft Extremity: Normal Capillary Refill, No Pedal Edema, Other (right leg kept straight and will not bend at knee) Neurologic/Psychiatric: Alert, Oriented x3, 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 Norm as Tested Skin: Normal Color, Warm/Dry; No Rash Progress/Results/Core Measures Suspected Sepsis SIRS Temperature: Pulse: 66 Respiratory Rate: 18 Blood Pressure 136 /87 Mean: 103 Results/Orders My Orders Orders - DU DIEGO MD Ct Head/Face/Cervical Wo (04/29/21 20:27) Ketorolac Injection (Toradol Injection) (04/29/21 20:27) Diphenhydramine Injection (Benadryl Inje (04/29/21 20:27) Prochlorperazine Injection (Compazine In (04/29/21 20:27) Orphenadrine Inj (Ed Only) (Norflex Inje (04/29/21 20:27) Vital Signs/I&O 2/12/22 2/12/22 20:18 21:20 Temp 36.4 36.4 Pulse 66 66 Resp 18 18 B/P (MAP) 136/87 (103) 136/87 Pulse Ox 100 100 O2 Delivery Room Air Room Air Capillary Refill : Less Than 3 Seconds Blood Pressure Mean: 103 Progress Note #1: Progress Note check ct scan of head, face, cervical spine. Treat pain and symptoms with norflex for muscle spasm in neck, toradol for pain, compazine for nausea, benadryl for nausea and to help him relax Progress Note #2: Progress Note CT shows mild ethmoid and sphenoid sinusitis. Otherwise no acute intracranial or cervical findings. Will treat with clindamycin for an antibiotic. Encouraged to try using [id number] nasal saline or nasal steroid spray. Follow-up with primary care provider for further concerns Diagnostic Imaging Diagonstic Imaging: CT Plain Films/CT/US/NM/MRI: facial bones, c-spine, head Comments NAME: CORIE [facility] REC#: [id number] PT STATUS: REG ER : 1970 PHYSICIAN: DU DIEGO MD ADMIT DATE: 04/29/21/ER FS Draft Date of Exam:04/29/21 CT HEAD/FACE/CERVICAL WO EXAMINATION: CT head, face and CT cervical spine without contrast. TECHNIQUE: Multiple contiguous axial images were obtained through the face, brain and cervical spine without the use of intravenous contrast. Sagittal and coronal reformations through the cervical spine were then performed. All CT scans use one or more of the following dose optimizing techniques: automated exposure control, MA and/or KvP adjustment based on patient size and exam type or iterative reconstruction. HISTORY: Headache, neck pain and sinus pain with dizziness. COMPARISON: 07/14/2020. FINDINGS: HEAD: The ventricles and sulci are normal. No abnormal attenuation of brain parenchyma is present. No acute intracranial hemorrhage or abnormal extra-axial fluid collections are present. No hyperdense vessel. The calvarium is intact. The mastoid air cells are clear. Mucosal thickening of the ethmoid sinuses and sphenoid sinuses. The orbits are normal. C-SPINE: Vertebral body height and alignment are preserved. No acute fracture, dislocation or destructive osseous process. 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 No significant facet hypertrophy. No significant central canal or neuroforaminal stenosis. The paraspinous soft tissues are normal. The visualized thyroid gland is normal. The visualized lung apices are normal. FACE: No fracture is seen in the face. The nasal bones are normal. Mandible and maxillae are normal. Zygomatic arches are normal. Pterygoid plates are normal. No soft tissue abnormality is seen. IMPRESSION: 1. No acute intracranial abnormality. 2. No cervical spine fracture. 3. No fracture in the face. 4. Mild sinusitis of the ethmoid and sphenoid sinuses. Dictated on workstation # [id number] Dict: 04/29/212105 Trans: 04/29/212110 [facility] [id number] Interpreted by: BERNARDINO HEARD DO Electronically signed by: Reviewed: Reviewed by Me Departure Impression Primary Impression: Cervical myofascial strain Qualified Codes: S16.1XXA - Strain of muscle, fascia and tendon at neck level, initial encounter Additional Impressions: Sinus pressure Headache Qualified Codes: R51.9 - Headache, unspecified Acute ethmoidal sinusitis Qualified Codes: J01.20 - Acute ethmoidal sinusitis, unspecified Acute sphenoidal sinusitis, unspecified Qualified Codes: J01.30 - Acute sphenoidal sinusitis, unspecified Disposition: 01 HOME, SELF-CARE Condition: Stable Departure-Patient Inst. Decision time for Depature: 21:18 Referrals: CORIE WRIGHT MD (PCP/Family) Primary Care Physician Patient Instructions: Cervical Sprain ED, Headache, Adult ED, Sinusitis, Adult ED Add. Discharge Instructions: Follow up with Dr. Wright for continued symptoms/concerns Stay well hydrated and drink plenty of water. Take antibiotics to treat for sinusitis. Consider using over the counter nasal saline or nasal steroid spray to help with sinus congestion and pressure All discharge instructions reviewed with patient and/or family. Voiced understanding. Scripts Clindamycin HCl (Clindamycin HCl) 300 Mg Capsule 300 MG PO TID, #30 CAP Prov: DU DIEGO MD 04/29/21 Work/School Note: Work Release Form Date Seen in the Emergency Department: Apr 29, 2021 Return to Work: May 05, 2021 Restrictions: No Restrictions DU DIEGO MD Apr 29, 2021 20:34
--- NOTE | 2021-04-29 21:11 | Diagnostic Imaging Report ---
EXAMINATION: CT head, face and CT cervical spine without contrast. TECHNIQUE: Multiple contiguous axial images were obtained through the face, brain and cervical spine without the use of intravenous contrast. Sagittal and coronal reformations through the cervical spine were then performed. All CT scans use one or more of the following dose optimizing techniques: automated exposure control, MA and/or KvP adjustment based on patient size and exam type or iterative reconstruction. HISTORY: Headache, neck pain and sinus pain with dizziness. COMPARISON: 07/14/2020. FINDINGS: HEAD: The ventricles and sulci are normal. No abnormal attenuation of brain parenchyma is present. No acute intracranial hemorrhage or abnormal extra-axial fluid collections are present. No hyperdense vessel. The calvarium is intact. The mastoid air cells are clear. Mucosal thickening of the ethmoid sinuses and sphenoid sinuses. The orbits are normal. C-SPINE: Vertebral body height and alignment are preserved. No acute fracture, dislocation or destructive osseous process. 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 No significant facet hypertrophy. No significant central canal or neuroforaminal stenosis. The paraspinous soft tissues are normal. The visualized thyroid gland is normal. The visualized lung apices are normal. FACE: No fracture is seen in the face. The nasal bones are normal. Mandible and maxillae are normal. Zygomatic arches are normal. Pterygoid plates are normal. No soft tissue abnormality is seen. IMPRESSION: 1. No acute intracranial abnormality. 2. No cervical spine fracture. 3. No fracture in the face. 4. Mild sinusitis of the ethmoid and sphenoid sinuses. Dictated by: Dictated on workstation # [id number]
[2021-04-29] MEDS ORDERED: CLIN-144 PO ×2 (21:19→21:26)
[2021-04-29 21:20] VITALS: BP 136/87
== END 2021-04-29 21:26 | disposition home or self-care (01) ==
LOC: EDUNIT# 20:15 → ER FS 20:17
DX: S16.1XXA Strain of muscle, fascia and tendon at neck level, initial encounter (principal); J01.20 Acute ethmoidal sinusitis, unspecified; J01.30 Acute sphenoidal sinusitis, unspecified; I10 Essential (primary) hypertension; G43.909 Migraine, unspecified, not intractable, without status migrainosus; G40.909 Epilepsy, unspecified, not intractable, without status epilepticus; K21.9 Gastro-esophageal reflux disease without esophagitis; G89.29 Other chronic pain; M54.9 Dorsalgia, unspecified; F41.9 Anxiety disorder, unspecified; F31.9 Bipolar disorder, unspecified; Z79.1 Long term (current) use of non-steroidal anti-inflammatories (NSAID); Z79.899 Other long term (current) drug therapy; X58.XXXA Exposure to other specified factors, initial encounter
CPT/HCPCS: 70450; 70486; 72125

== ENCOUNTER 2021-05-03 15:22 | Emergency (ER) | payer MEDICARE, MEDICAID ==
[~2021-05-03] VITALS: Ht 154.9 cm; Wt 60.8 kg
--- NOTE | 2021-05-03 15:38 | ED Psychosocial ---
General Stated Complaint: MENTAL HEALTH EVAL Source: patient, police (DU DIEGO MD) History of Present Illness Date Seen by Provider: May 03, 2021 Time Seen by Provider: 15:27 Initial Comments 51 yo male presenting with complaint of suicidal ideation and to have presented to jump off of a bridge to kill himself this afternoon. Law enforcement brought him to the emergency department. He states that he threw away all of his medications this afternoon. He has not been taking his medications even though he has been picking them up from the pharmacy. He follows with [facility]. He states that he would like to be admitted to [place] for psychiatric care. He denies drug use, alcohol use or taking too many of his medicines. He states he has had suicidal thoughts for a long time but he had not acted on them until today. Timing/Duration: just prior to arrival Associated Symptoms: suicidal ideation (plan to jump from bridge to kill himself) (DU DIEGO MD) Initial Comments Agree with history. Pt reports to me that he needs help. (DANDY LORENZO MD) Allergies and Home Medications Allergies Coded Allergies: Penicillins (Verified Allergy, Mild, RASH, 10/28/19) risperidone (Verified Allergy, Unknown, 04/07/21) Patient Home Medication List Home Medication List Reviewed: Yes (DU DIEGO MD) Baclofen (Baclofen) 10 Mg Tablet, 10 MG PO BID PRN for MUSCLE SPASMS Prescribed by: DU DIEGO on 07/14/20 1552 Benztropine Mesylate (Benztropine Mesylate) 2 Mg Tablet, 1 MG PO DAILY, ( Reported) Entered as Reported by: TRISTA BRADLEY on 10/28/19 0908 Clindamycin HCl (Clindamycin HCl) 300 Mg Capsule, 300 MG PO TID Prescribed by: DU DIEGO on 04/29/216 Docusate Sodium (Colace) 100 Mg Capsule, 100 MG PO QID PRN for CONSTIPATION-1ST LINE, (Reported) Entered as Reported by: ROSI MORENO on 11/13/18 1025 Lamotrigine (Lamotrigine) 200 Mg Tablet, 200 MG PO HS, (Reported) Entered as Reported by: ROSI MORENO on 11/13/18 1022 Melatonin (Melatonin) 5 Mg Tablet, 5 MG PO HS, (Reported) Entered as Reported by: TRISTA BRADLEY on 10/28/19 0907 Metoclopramide HCl (Metoclopramide HCl) 5 Mg Tablet, 5 MG PO ACHS, (Reported) Entered as Reported by: TRISTA BRADLEY on 10/28/19 0907 Naproxen (Naproxen) 500 Mg Tablet, 500 MG PO BID PRN for PAIN-MODERATE (4-6) Prescribed by: DU DIEGO on 01/26/19 0020 Naproxen (Naproxen) 375 Mg Tablet.dr, 375 MG PO BID Prescribed by: UD DIEGO on 07/14/20 1552 Pantoprazole Sodium (Protonix) 40 Mg Tablet.dr, 40 MG PO DAILY Prescribed by: SNOW CARVAJAL on 10/13/192208 Quetiapine Fumarate (Quetiapine Fumarate) 300 Mg Tablet, 1,200 MG PO HS, (Reported) Entered as Reported by: ROSI MORENO on 11/13/18 0959 Sucralfate (Sucralfate) 1 Gm Tablet, 1 GM PO TID, (Reported) Entered as Reported by: ROSI MORENO on 11/13/18 0959 Trazodone HCl (Trazodone HCl) 150 Mg Tablet, 150 MG PO HS, (Reported) Entered as Reported by: TRISTA BRADLEY on 10/28/19 09 Discontinued Medications Clindamycin HCl (Clindamycin HCl) 300 Mg Capsule, 300 MG PO TID Discontinued Reason: Prescription changed Prescribed by: DEANNA GREENE on 10/17/20 2312 Review of Systems Constitutional: No chills, No fever EENTM: no symptoms reported Respiratory: no symptoms reported Cardiovascular: no symptoms reported Gastrointestinal: no symptoms reported Genitourinary: no symptoms reported Musculoskeletal: no symptoms reported Skin: No rash Psychiatric/Neurological: See HPI (DU DIEGO MD) Past Msymsyg-Upxscs-Qaumur Hx Patient Social History Substance use?: No Alcohol Use?: No (DU DIEGO MD) Immunizations Up To Date Tetanus Booster (TDap): Less than 5yrs (DU DIEGO MD) Seasonal Allergies Seasonal Allergies: No (DU DIEGO MD) Past Medical History Surgery/Hospitalization HX: Migraines, HTN Surgeries: Yes (RIGHT LEG FUSION CHILD) Cystectomy, Gallbladder, Orthopedic, Tonsillectomy Respiratory: No Cardiac: No Neurological: No Seizure Disorder Genitourinary: No Gastrointestinal: Yes (gastritis, rectal bleeding) Gastroesophageal Reflux Musculoskeletal: Yes Chronic Back Pain Endocrine: No HEENT: No Loss of Vision: Denies Hearing Impairment: Denies Cancer: No Psychosocial: Yes Anxiety, Bipolar, Depression Integumentary: No Blood Disorders: No Adverse Reaction/Blood Tranf: No (N/A) (DU DIEGO MD) Family Medical History Cardiovascular disease 19 FATHER Diabetes mellitus G8 BROTHER Hypertension 19 FATHER 19 MOTHER G8 BROTHER Heart Disease, Diabetes, Hypertension (DU DIEGO MD) Physical Exam Vital Signs - First Documented 05/03/21 15:30 Temp 36.2 Pulse 84 Resp 16 B/P (MAP) 130/98 (109) O2 Delivery Room Air (DANDY LORENZO MD) Capillary Refill : (DU DIEGO MD) Height, Weight, BMI Height: 5'2.00" Weight: 128lbs. 5.0oz. [id number]; 24.00 BMI Method:Stated General Appearance: no apparent distress HEENT: PERRL/EOMI, pharynx normal Neck: non-tender, full range of motion, supple, normal inspection Respiratory: chest non-tender, lungs clear, normal breath sounds, no resp iratory distress, no accessory muscle use Cardiovascular: normal peripheral pulses, regular rate, rhythm Gastrointestinal: normal bowel sounds, non tender, soft, no pulsatile mass Extremities: non-tender, normal capillary refill, other (right leg remains extended chronically) Neurologic/Psychiatric: alert, oriented x 3, other (flat affect) Appearance/Memory: disheveled Behavior/Eye Contact: cooperative, good eye contact, normal speech Thoughts/Hallucinations: normal thought pattern Skin: normal color, warm/dry (DU DIEGO MD) Agree with exam (DANDY LORENZO MD) Progress/Results/Core Measures Results/Orders Lab Results Laboratory Tests Test 05/03/21 15:35 05/03/21 15:45 Range/Units White Blood Count 8.4 4.3-11.0 10^3/uL Red Blood Count 5.33 4.30-5.52 10^6/uL Hemoglobin 16.2 13.3-17.7 g/dL Hematocrit 47 40-54 % Mean Corpuscular Volume 88 80-99 fL Mean Corpuscular Hemoglobin 30 25-34 pg Mean Corpuscular Hemoglobin Concent 35 32-36 g/dL Red Cell Distribution Width 11.9 10.0-14.5 % Platelet Count 236 130-400 10^3/uL Mean Platelet Volume 8.6 L 9.0-12.2 fL Immature Granulocyte % (Auto) 0 % Neutrophils (%) (Auto) 60 42-75 % Lymphocytes (%) (Auto) 23 12-44 % Monocytes (%) (Auto) 11 0-12 % Eosinophils (%) (Auto) 5 0-10 % Basophils (%) (Auto) 1 0-10 % Neutrophils # (Auto) 5.0 1.8-7.8 10^3/uL Lymphocytes # (Auto) 2.0 1.0-4.0 10^3/uL Monocytes # (Auto) 1.0 0.0-1.0 10^3/uL Eosinophils # (Auto) 0.4 H 0.0-0.3 10^3/uL Basophils # (Auto) 0.1 0.0-0.1 10^3/uL Immature Granulocyte # (Auto) 0.0 0.0-0.1 10^3/uL Sodium Level 137 135-145 MMOL/L Potassium Level 3.6 3.6-5.0 MMOL/L Chloride Level 100 98-107 MMOL/L Carbon Dioxide Level 24 21-32 MMOL/L Anion Gap 13 5-14 MMOL/L Blood Urea Nitrogen 17 7-18 MG/DL Creatinine 0.89 0.60-1.30 MG/DL Estimat Glomerular Filtration Rate 102 BUN/Creatinine Ratio 19 Glucose Level 87 70-105 MG/DL Calcium Level 9.3 8.5-10.1 MG/DL Corrected Calcium 8.9 8.5-10.1 MG/DL Total Bilirubin 0.9 0.1-1.0 MG/DL Aspartate Amino Transf (AST/SGOT) 24 5-34 U/L Alanine Aminotransferase (ALT/SGPT) 16 0-55 U/L Alkaline Phosphatase 84 40-136 U/L Total Protein 7.4 6.4-8.2 GM/DL Albumin 4.5 3.2-4.5 GM/DL Salicylates Level < 0.3 L 5.0-20.0 MG/DL Acetaminophen Level < 10 L 10-30 UG/ML Serum Alcohol < 10 <10 MG/DL Urine Color YELLOW Urine Clarity CLEAR Urine pH 6.0 5-9 Urine Specific [place] 1.025 H 1.016-1.022 Urine Protein NEGATIVE NEGATIVE Urine Glucose (UA) NEGATIVE NEGATIVE Urine Ketones NEGATIVE NEGATIVE Urine Nitrite NEGATIVE NEGATIVE Urine Bilirubin NEGATIVE NEGATIVE Urine Urobilinogen 0.2 < = 1.0 MG/DL Urine Leukocyte Esterase NEGATIVE NEGATIVE Urine RBC (Auto) NEGATIVE NEGATIVE Urine RBC NONE /HPF Urine WBC RARE /HPF Urine Squamous Epithelial Cells RARE /HPF Urine Crystals NONE /LPF Urine Bacteria NEGATIVE /HPF Urine Casts PRESENT /LPF Urine Hyaline Casts RARE /LPF Urine Mucus MODERATE H /LPF Urine Culture Indicated NO Urine Opiates Screen NEGATIVE NEGATIVE Urine Oxycodone Screen NEGATIVE NEGATIVE Urine Methadone Screen NEGATIVE NEGATIVE Urine Propoxyphene Screen NEGATIVE NEGATIVE Urine Barbiturates Screen NEGATIVE NEGATIVE Ur Tricyclic Antidepressants Screen NEGATIVE NEGATIVE Urine Phencyclidine Screen NEGATIVE NEGATIVE Urine Amphetamines Screen NEGATIVE NEGATIVE Urine Methamphetamines Screen NEGATIVE NEGATIVE Urine Benzodiazepines Screen NEGATIVE NEGATIVE Urine Cocaine Screen NEGATIVE NEGATIVE Urine Cannabinoids Screen NEGATIVE NEGATIVE SARS-CoV-2 RNA (RT-PCR) Not Detected Not Detecte (DANDY LORENZO MD) Progress Progress Note #1: Progress Note Obtain basic labs and urine as well as a Covid swab to medically screen him for mental health. Once these results are back we will contact [facility] or [facility] about performing a telehealth visit for screening. Progress Note #2: Time: 16:33 Progress Note Labs stable without acute significant abnormality and no drugs of abuse, acetaminophen, salicylate, or alcohol showing up on his tests. He is medically stable and clear for mental health evaluation. 1651 He was asking for something for nausea so ordered Zofran 4 mg ODT. Progress Note #3: Time: 17:48 Progress Note Covid swab came back not detected on PCR test. Pt still waiting on mental health screening by [facility] or [facility]. Progress Note #4: Time: 20:27 Progress Note [facility] finished their mental health screening and recommend the patient receive inpatient psychiatric care and they will call around to try and find placement for him. Progress Note #5: Time: 06:50 Progress Note Patient was complaining of nausea as well as sinus pressure and headache and requesting his antibiotics which he had thrown away yesterday as well as something for pain and pressure. Will administer clindamycin and Zofran. Try Toradol shot for pain and sinus pressure. Patient still waiting on inpatient psychiatric placement. Will pass care to Dr. Lorenzo at shift change. (DU DIEGO MD) Progress Note : Progress Note Pt accepted to [facility] for behavioral health for suicidal ideation. Dr Weir is accepting physician. Pt agrees to plan and wants help. (DANDY LORENZO MD) Transfer of Care Time: 07:00 Care transferred to: Dr. Lorenzo (DU DIEGO MD) Departure Impression Primary Impression: Suicidal ideation Additional Impression: Acute ethmoidal sinusitis Qualified Codes: J01.20 - Acute ethmoidal sinusitis, unspecified Disposition: 65 XFER TO PSYCH HOSP/UNIT Condition: Stable Transfer Transfer Reason: Exceeds level of care (Needs Psychiatric inpatient care) Method of Transfer: Private Vehicle ([facility] transport) (DU DIEGO MD) Transfer Reason: Exceeds level of care Transfer Progress Notes Pt has been accepted by [facility]. Accepting physician is Dr Weir.Pt agrees to plan Transfer Time: 09:57 Method of Transfer: EMS ([facility] transport) (DANDY LORENZO MD) Departure-Patient Inst. Referrals: CORIE WRIGHT MD (PCP/Family) Primary Care Physician DU DIEGO MD May 03, 2021 15:38 DANDY LORENZO MD May 04, 2021 09:59
[2021-05-03 15:46] LABS: BASOPHILS # (AUTO) 0.1 10^3/uL (0.0-0.1); BASOPHILS % (AUTO) 1 % (0-10); EOSINOPHILS # (AUTO) 0.4 10^3/uL (0.0-0.3); EOSINOPHILS % (AUTO) 5 % (0-10); HEMATOCRIT 47 % (40-54); HEMOGLOBIN 16.2 g/dL (13.3-17.7); LYMPHOCYTES % (AUTO) 23 % (12-44); MEAN CORPUSCULAR HEMOGLOBIN 30 pg (25-34); MEAN CORPUSCULAR HGB CONC 35 g/dL (32-36); MEAN CORPUSCULAR VOLUME 88 fL (80-99); MEAN PLATELET VOLUME 8.6 fL (9.0-12.2); MONOCYTES % (AUTO) 11 % (0-12); NEUTROPHILS % (AUTO) 60 % (42-75); PLATELET COUNT 236 10^3/uL (130-400); WHITE BLOOD COUNT 8.4 10^3/uL (4.3-11.0)
[2021-05-03 16:05] LABS: ALANINE AMINOTRANSFERASE 16 U/L (0-55); ALBUMIN 4.5 GM/DL (3.2-4.5); ALKALINE PHOSPHATASE 84 U/L (40-136); BILIRUBIN,TOTAL 0.9 MG/DL (0.1-1.0); BUN/CREATININE RATIO 19; CALCIUM 9.3 MG/DL (8.5-10.1); CARBON DIOXIDE 24 MMOL/L (21-32); CHLORIDE 100 MMOL/L (98-107); CREATININE SERUM 0.89 MG/DL (0.60-1.30); GFR ESTIMATED 102; GLUCOSE 87 MG/DL (70-105); POTASSIUM 3.6 MMOL/L (3.6-5.0); SODIUM 137 MMOL/L (135-145); TOTAL PROTEIN 7.4 GM/DL (6.4-8.2)
[2021-05-03 16:06] LABS: ACETAMINOPHEN < 10 UG/ML (10-30); SALICYLATE < 0.3 MG/DL (5.0-20.0)
[2021-05-03 16:08] LABS: BILIRUBIN,URINE NEGATIVE (NEGATIVE); CLARITY,URINE CLEAR; COLOR,URINE YELLOW; GLUCOSE, URINE (UA) NEGATIVE (NEGATIVE); KETONES,URINE NEGATIVE (NEGATIVE); LEUKOCYTE ESTERASE ,URINE NEGATIVE (NEGATIVE); NITRITE,URINE NEGATIVE (NEGATIVE); PROTEIN,URINE NEGATIVE (NEGATIVE)
[2021-05-03 16:20] LABS: WBC,URINE RARE /HPF
[2021-05-03 16:21] LABS: BACTERIA,URINE NEGATIVE /HPF; HYALINE CASTS, URINE RARE /LPF; SQUAMOUS EPITHELIAL CELL,UR RARE /HPF
[2021-05-03 16:22] LABS: AMPHETAMINE SCREEN, URINE NEGATIVE (NEGATIVE); BARBITURATE SCREEN URINE NEGATIVE (NEGATIVE); BENZODIAZEPINES SCREEN URINE NEGATIVE (NEGATIVE); CANNABINOID SCREEN, URINE NEGATIVE (NEGATIVE); COCAINE SCREEN URINE NEGATIVE (NEGATIVE); METHADONE STAT NEGATIVE (NEGATIVE); METHAMPHETAMINE SCREEN URINE S NEGATIVE (NEGATIVE); OPIATE SCREEN URINE NEGATIVE (NEGATIVE); OXYCODONE STAT NEGATIVE (NEGATIVE); PROPOXYPHENE STAT NEGATIVE (NEGATIVE); TRICYCLIC ANTIDEPRESSANTS SCRE NEGATIVE (NEGATIVE)
[2021-05-03] MEDS ORDERED: ONDANSETRON 4 MG (ZOFRAN) ORAL DISSOLVE TAB PO STA (16:51)
[2021-05-04] MEDS ORDERED: KETOROLAC 60 MG/2 ML VIAL IM STA (06:53)
[2021-05-04] MEDS ORDERED: ONDANSETRON 4 MG (ZOFRAN) ORAL DISSOLVE TAB PO STA (06:53)
[2021-05-04] MEDS ORDERED: CLINDAMYCIN 150 MG (CLEOCIN) CAP PO STA (06:53)
[2021-05-04 17:05] VITALS: BP 141/87
== END 2021-05-04 17:05 ==
LOC: EDUNIT# 15:22 → ER FS 15:23
DX: R45.851 Suicidal ideations (principal); J01.20 Acute ethmoidal sinusitis, unspecified; I10 Essential (primary) hypertension; F41.9 Anxiety disorder, unspecified; F31.9 Bipolar disorder, unspecified; G40.909 Epilepsy, unspecified, not intractable, without status epilepticus; K21.9 Gastro-esophageal reflux disease without esophagitis; Z20.822 Contact with and (suspected) exposure to COVID-19; Z79.899 Other long term (current) drug therapy
CPT/HCPCS: 36415; 80053; 80306; 80320; 80329; 81000; 85025; 87636

== ENCOUNTER 2021-08-08 00:14 | Emergency (ER) | payer MEDICARE, MEDICAID ==
[~2021-08-08] VITALS: Ht 157.4 cm; Wt 56.4 kg
[2021-08-08 00:20] VITALS: BP 156/98
[2021-08-08] MEDS ORDERED: ONDANSETRON 4 MG (ZOFRAN) ORAL DISSOLVE TAB PO STA (00:37)
[2021-08-08] MEDS ORDERED: ONDA4TAB11 PO (00:43)
[2021-08-08] MEDS ORDERED: CETI10CA PO (00:43)
--- NOTE | 2021-08-08 00:43 | ED GI ---
General Chief Complaint: Abdominal/GI Problems Stated Complaint: UPSET STOMACH/VOMITING Nursing Triage Note: Patient states he has been having nausea, vomiting and abdominal pain. Patient reports vomiting just [employer]. Patient is also complaining of ear pain. Source of Information: Patient Exam Limitations: No Limitations History of Present Illness Date Seen by Provider: August 08, 2021 Time Seen by Provider: 00:18 Initial Comments 51-year-old male well-known to this emergency department coming in due to a couple days of nausea with nonbloody nonbilious vomiting. He says he has had chronic ear fullness for greater than 4 months which is unchanged. Denies any severe abdominal pain, diarrhea, constipation, weakness, numbness, rash, dysuria, or any other concerns. Also denies any fever. Allergies and Home Medications Allergies Coded Allergies: Penicillins (Verified Allergy, Mild, RASH, 10/28/19) risperidone (Verified Allergy, Unknown, 04/07/21) Patient Home Medication List Home Medication List Reviewed: Yes Baclofen (Baclofen) 10 Mg Tablet, 10 MG PO BID PRN for MUSCLE SPASMS Prescribed by: DU DIEGO on 07/14/20 1552 Benztropine Mesylate (Benztropine Mesylate) 2 Mg Tablet, 1 MG PO DAILY, (Reported) Entered as Reported by: TRISTA BRADLEY on 10/28/19 0908 Clindamycin HCl (Clindamycin HCl) 300 Mg Capsule, 300 MG PO TID Prescribed by: DU DIEGO on 04/29/21 2126 Docusate Sodium (Colace) 100 Mg Capsule, 100 MG PO QID PRN for CONSTIPATION-1ST LINE, (Reported) Entered as Reported by: ROSI MORENO on 11/13/18 1025 Lamotrigine (Lamotrigine) 200 Mg Tablet, 200 MG PO HS, (Reported) Entered as Reported by: ROSI MORENO on 11/13/18 1022 Melatonin (Melatonin) 5 Mg Tablet, 5 MG PO HS, (Reported) Entered as Reported by: TRISTA BRADLEY on 10/28/19 0907 Metoclopramide HCl (Metoclopramide HCl) 5 Mg Tablet, 5 MG PO ACHS, (Reported) Entered as Reported by: TRISTA BRADLEY on 10/28/19 0907 Naproxen (Naproxen) 500 Mg Tablet, 500 MG PO BID PRN for PAIN-MODERATE (4-6) Prescribed by: DU DIEGO on 01/26/19 0020 Naproxen (Naproxen) 375 Mg Tablet.dr, 375 MG PO BID Prescribed by: DU DIEGO on 07/14/20 1552 Pantoprazole Sodium (Protonix) 40 Mg Tablet.dr, 40 MG PO DAILY Prescribed by: SNOW CARVAJAL on 10/13/19 2209 Quetiapine Fumarate (Quetiapine Fumarate) 300 Mg Tablet, 1,200 MG PO HS, (Reported) Entered as Reported by: ROSI MORENO on 11/13/18 0959 Sucralfate (Sucralfate) 1 Gm Tablet, 1 GM PO TID, (Reported) Entered as Reported by: ROSI MORENO on 11/13/18 0959 Trazodone HCl (Trazodone HCl) 150 Mg Tablet, 150 MG PO HS, (Reported) Entered as Reported by: TRISTA BRADLEY on 10/28/19 0907 Review of Systems Review of Systems Constitutional: No fever EENTM: No Blurred Vision Respiratory: Denies Cough Cardiovascular: Denies Chest Pain Gastrointestinal: Denies Abdominal Pain; Nausea, Vomiting Genitourinary: No Symptoms Reported Musculoskeletal: no symptoms reported Skin: no symptoms reported Psychiatric/Neurological: No Symptoms Reported Endocrine: No Symptoms Reported Hematologic/Lymphatic: No Symptoms Reported All Other Systems Reviewed Negative Unless Noted: Yes Past Erpnisp-Gmtsdv-Xrydvm Hx Patient Social History Tobacco Use?: No Substance use?: No Alcohol Use?: No Pt feels they are or have been: No Immunizations Up To Date Tetanus Booster (TDap): Less than 5yrs Seasonal Allergies Seasonal Allergies: No Past Medical History Surgery/Hospitalization HX: Migraines, HTN Surgeries: Yes (RIGHT LEG FUSION CHILD) Cystectomy, Gallbladder, Orthopedic, Tonsillectomy Respiratory: No Cardiac: No Neurological: No Seizure Disorder Genitourinary: No Gastrointestinal: Yes (gastritis, rectal bleeding) Gastroesophageal Reflux Musculoskeletal: Yes Chronic Back Pain Endocrine: No HEENT: No Loss of Vision: Denies Hearing Impairment: Denies Cancer: No Psychosocial: Yes Anxiety, Bipolar, Depression Integumentary: No Blood Disorders: No Adverse Reaction/Blood Tranf: No (N/A) Family Medical History Cardiovascular disease 19 FATHER Diabetes mellitus G8 BROTHER Hypertension 19 FATHER 19 MOTHER G8 BROTHER Heart Disease, Diabetes, Hypertension Physical Exam Vital Signs Vital Signs - First Documented 08/08/21 00:20 Temp 37.0 Pulse 76 Resp 16 B/P (MAP) 156/98 (117) Pulse Ox 98 O2 Delivery Room Air Capillary Refill : Less Than 3 Seconds Height/Weight/BMI Height: 5'2.00" Weight: 128lbs. 5.0oz. [id number]; 22.00 BMI Method:Stated General Appearance: WD/WN, no apparent distress HEENT: PERRL/EOMI, normal ENT inspection, pharynx normal Neck: non-tender, full range of motion, supple, normal inspection Respiratory: chest non-tender, lungs clear, normal breath sounds, no re spiratory distress, no accessory muscle use Cardiovascular: regular rate, rhythm, no edema, no murmur Gastrointestinal: normal bowel sounds, non tender, soft; No distended, No guarding, No rebound Extremities: normal range of motion, non-tender, normal inspection, no pedal edema, no calf tenderness, normal capillary refill Back: normal inspection, no CVA tenderness, no vertebral tenderness Neurologic/Psychiatric: no motor/sensory deficits, alert, normal mood/affect Skin: normal color, warm/dry Lymphatic: no adenopathy Progress/Results/Core Measures Results/Orders My Orders Orders - YVONNE GARCIA MD Ondansetron Oral Dissolve Tab (Zofran (08/08/21 00:37) Diphenhydramine Tablet (Benadryl Tablet) (08/08/21 00:45) Vital Signs/I&O 08/08/21 00:20 Temp 37.0 Pulse 76 Resp 16 B/P (MAP) 156/98 (117) Pulse Ox 98 O2 Delivery Room Air Blood Pressure Mean: 117 Progress Progress Note : Progress Note 51-year-old male with above history coming in due to nausea and one episode of nonbloody nonbilious vomiting. ABCs were intact and vitals were stable on presentation. Physical exam reassuring including a soft and nontender abdomen. He only had 1 episode of the emesis, and is tolerating p.o. here. Was given Zofran. Likely this is a GI bug, and I am reassured by his abdominal exam, how well-appearing he has, and how he is tolerating p.o. here. I believe he is stable for discharge with outpatient follow-up. He was sent home with strict return precautions. Departure Impression Primary Impression: Nausea Disposition: 01 HOME, SELF-CARE Condition: Stable Departure-Patient Inst. Decision time for Depature: 00:42 Referrals: CORIE WRIGHT MD (PCP/Family) Primary Care Physician Patient Instructions: Nausea and Vomiting, Adult ED Add. Discharge Instructions: Take the Zofran as needed for nausea. Drink fluids, do not worry about eating food when you are feeling nauseous. Give this 3 or so days to pass. Follow-up with your regular doctor if things are not improving Scripts Ondansetron (Ondansetron Odt) 4 Mg Tab.rapdis 4 MG PO Q6H PRN for NAUSEA/VOMITING-1ST LINE for 5 Days, #20 TAB Prov: YVONNE GARCIA MD 08/08/21 Cetirizine HCl (Zyrtec) 10 Mg Capsule 10 MG PO DAILY for 30 Days, #30 CAP Prov: YVONNE GARCIA MD 08/08/21 YVONNE GARCIA MD August 08, 2021 00:43
[2021-08-08] MEDS ORDERED: diphenhydrAMINE 25 MG TAB (BENADRYL) PO ONE (00:45)
== END 2021-08-08 00:46 | disposition home or self-care (01) ==
LOC: EDUNIT# 00:14 → ER FS 00:18
DX: R11.2 Nausea with vomiting, unspecified (principal)
CPT/HCPCS: 99283

== ENCOUNTER 2021-08-21 10:13 | Emergency (ER) | payer OTHER, MEDICARE, MEDICAID ==
[~2021-08-21] VITALS: Ht 157.5 cm; Wt 58.7 kg
[~2021-08-21 10:13] MED LIST changes: +CETI10CA PO
[2021-08-21 10:20] VITALS: BP 149/96
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
[2021-08-21] MEDS ORDERED: KETOROLAC 60 MG/2 ML VIAL IM STA (10:41)
[2021-08-21] MEDS ORDERED: ORPHENADRINE 60 MG/2 ML (NORFLEX) AMP (ED ONLY) IM STA (10:41)
[2021-08-21] MEDS ORDERED: METH-732 PO (10:51)
[2021-08-21] MEDS ORDERED: NF-DICLOTA PO (10:51)
== END 2021-08-21 10:55 | disposition home or self-care (01) ==
LOC: EDUNIT# 10:13 → ER FS 10:16
DX: S16.1XXD Strain of muscle, fascia and tendon at neck level, subsequent encounter (principal); M79.18 Myalgia, other site; M54.50 Low back pain, unspecified; G89.29 Other chronic pain; T39.396A Underdosing of other nonsteroidal anti-inflammatory drugs [NSAID], initial encounter; Z91.128 Patient's intentional underdosing of medication regimen for other reason; V49.50XD Passenger injured in collision with unspecified motor vehicles in traffic accident, subsequent encounter
CPT/HCPCS: 99284

== ENCOUNTER 2021-10-26 17:59 | Emergency (ER) | payer MEDICARE, MEDICAID ==
[~2021-10-26 17:59] MED LIST changes: +METH-732 PO; +NF-DICLOTA PO
== END 2021-10-26 18:14 | disposition left against medical advice (07) ==
LOC: EDUNIT# 17:59 → ER FS 18:00
DX: M25.511 Pain in right shoulder (principal)

== ENCOUNTER 2021-11-18 | Emergency (ER) | payer MEDICARE, MEDICAID ==
[~2021-11-18] VITALS: Ht 149.8 cm; Wt 57.8 kg
[2021-11-18] MEDS ORDERED: KETOROLAC 30 MG/ML VIAL IM STA (00:14)
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
[2021-11-18 00:25] VITALS: BP 151/109
== END 2021-11-18 00:25 | disposition home or self-care (01) ==
LOC: EDUNIT# → ER FS 00:03
DX: S46.911A Strain of unspecified muscle, fascia and tendon at shoulder and upper arm level, right arm, initial encounter (principal); Z28.310 Unvaccinated for COVID-19; X50.0XXA Overexertion from strenuous movement or load, initial encounter
CPT/HCPCS: 99284

== ENCOUNTER 2021-11-21 13:24 | Emergency (ER) | payer OTHER, MEDICAID ==
[~2021-11-21] VITALS: Ht 157.5 cm; Wt 59.9 kg
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
--- NOTE | 2021-11-21 13:47 | Diagnostic Imaging Report ---
INDICATION: Right shoulder pain AP, oblique and transscapular views of the right shoulder are obtained. FINDINGS: No acute fracture or dislocation is identified. No abnormal lytic or sclerotic focus is seen, and there is no radiopaque foreign body. IMPRESSION: No acute abnormality. Dictated by: Dictated on workstation # [id number]
[2021-11-21] MEDS ORDERED: KETOROLAC 30 MG/ML VIAL IM ONE (14:00)
[2021-11-21] MEDS ORDERED: KETO10TA PO (14:13)
[2021-11-21] MEDS ORDERED: DICL20GE TP (14:14)
[2021-11-21 14:42] VITALS: BP 141/89
== END 2021-11-21 14:46 | disposition home or self-care (01) ==
LOC: EDUNIT# 13:24 → ER FS 13:27
DX: M75.01 Adhesive capsulitis of right shoulder (principal); Z28.310 Unvaccinated for COVID-19
CPT/HCPCS: 73030

== ENCOUNTER 2021-11-25 02:39 | Emergency (ER) | payer MEDICARE, MEDICAID ==
--- NOTE | 2021-11-25 02:51 | ED Upper Extremity ---
General Chief Complaint: Upper Extremity Source: patient Exam Limitations: no limitations History of Present Illness Date Seen by Provider: Nov 25, 2021 Time Seen by Provider: 02:51 Initial Comments 51-year-old male presents for continued right shoulder pain. He said pain for about 2 weeks now. He was given Toradol injection last visit here after x-rays were negative. No known injury and continues to have pain. Is worse with movement. Dull throbbing. No radiation. No alleviating factors.. He states he was given a prescription for Toradol at his last visit but his insurance would not cover it so he did not get it filled. Allergies and Home Medications Allergies Coded Allergies: Penicillins (Verified Allergy, Unknown, 11/25/21) quetiapine (Verified Allergy, Unknown, 11/25/21) risperidone (Verified Allergy, Unknown, 11/25/21) Patient Home Medication List Home Medication List Reviewed: Yes Review of Systems Constitutional: no symptoms reported EENTM: no symptoms reported Respiratory: no symptoms reported Cardiovascular: no symptoms reported Gastrointestinal: no symptoms reported Genitourinary: no symptoms reported Musculoskeletal: joint pain Past Kddfzva-Evlhzj-Mahzbe Hx Patient Social History Tobacco Use?: Yes Use of E-Cig and/or Vaping dev: No Substance use?: No Alcohol Use?: No Family Medical History Reviewed Nursing Family Hx No Pertinent Family Hx Physical Exam Vital Signs Vital Signs - First Documented 11/25/21 02:42 Temp 36.6 Pulse 78 Resp 16 B/P (MAP) 141/104 (116) Pulse Ox 100 O2 Delivery Room Air Capillary Refill : Height, Weight, BMI Height: '" Weight: lbs. oz. kg; BMI Method: General Appearance: WD/WN, no apparent distress HEENT: normal ENT inspection, TMs normal, pharynx normal Neck: non-tender, full range of motion, supple, normal inspection Cardiovascular: regular rate, rhythm, no edema, no gallop, no JVD, no murmur Respiratory: chest non-tender, lungs clear, normal breath sounds, no respiratory distress, no accessory muscle use Gastrointestinal: normal bowel sounds, non tender, soft, no organomegaly, no pulsatile mass Back: normal inspection, no CVA tenderness, no vertebral tenderness Shoulder: normal inspection, pain (Tenderness palpation the AC joint and the right shoulder. No deformity. Neurological motor and sensory intact. Good axillary sensation) Neurologic/Tendon: normal sensation, normal motor functions, normal tendon functions Neurologic/Psychiatric: alert, normal mood/affect Skin: normal color, warm/dry Lymphatic: no adenopathy Progress/Results/Core Measures Results/Orders Vital Signs/I&O 11/25/21 11/25/21 02:42 02:59 Temp 36.6 36.6 Pulse 78 78 Resp 16 16 B/P (MAP) 141/104 (116) 141/104 Pulse Ox 100 100 O2 Delivery Room Air Room Air Departure Communication (Admissions) Patient is hemodynamically stable with no red flag symptoms. Advised patient that I could give him another shot of Toradol but that for further pain management he need to follow-up with his primary care physician. He became upset and requested narcotic pain medication. I declined stating that I did not think that was appropriate for this type of pain. He left without getting his discharge instructions. I did advise him he could come back at any time should he change his mind and wish to receive care. Discharged in stable condition. Impression Primary Impression: Right shoulder pain Qualified Codes: M25.511 - Pain in right shoulder Disposition: 01 HOME, SELF-CARE Condition: Stable Departure-Patient Inst. Patient Instructions: Joint Pain Add. Discharge Instructions: Use ibuprofen and Tylenol as needed for pain. You have declined a Toradol injection today. Establish care with primary doctor to manage her longer standing pain. Return to the emergency department for any severe concerns All discharge instructions reviewed with patient and/or family. Voiced understanding. ARLET RABAGO DO Nov 25, 2021 02:51
[2021-11-25 02:59] VITALS: BP 141/104
== END 2021-11-25 02:59 | disposition home or self-care (01) ==
LOC: EDUNIT# 02:39 → ER FS 02:40
DX: M25.511 Pain in right shoulder (principal); Z72.0 Tobacco use; Z28.310 Unvaccinated for COVID-19
CPT/HCPCS: 99281

== ENCOUNTER → 2021-11-25 | Emergency (ER) | payer MEDICARE, MEDICAID ==
[~2021-11-25] MED LIST changes: +DICL20GE TP; +KETO10TA PO
== END | disposition left against medical advice (07) ==
LOC: EDUNIT# 06:12 → ER FS 06:19
DX: M25.511 Pain in right shoulder (principal)

== ENCOUNTER 2021-12-01 23:31 | Emergency (ER) | payer OTHER, MEDICAID ==
[~2021-12-01] VITALS: Ht 156 cm; Wt 56.7 kg
[2021-12-01 23:38] VITALS: BP 139/101
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
== END 2021-12-01 23:52 | disposition home or self-care (01) ==
LOC: EDUNIT# 23:31 → ER FS 23:34
DX: M25.511 Pain in right shoulder (principal); Z28.310 Unvaccinated for COVID-19
CPT/HCPCS: 99284

== ENCOUNTER 2022-05-20 23:25 | Emergency (ER) | payer OTHER, MEDICAID ==
[~2022-05-20] VITALS: Ht 157.5 cm; Wt 55.8 kg
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
[2022-05-20 23:46] LABS: BASOPHILS # (AUTO) 0.1 10^3/uL (0.0-0.1); BASOPHILS % (AUTO) 1 % (0-10); EOSINOPHILS # (AUTO) 0.2 10^3/uL (0.0-0.3); EOSINOPHILS % (AUTO) 3 % (0-10); HEMATOCRIT 45 % (40-54); HEMOGLOBIN 15.5 g/dL (13.3-17.7); LYMPHOCYTES # (AUTO) 2.5 10^3/uL (1.0-4.0); LYMPHOCYTES % (AUTO) 32 % (12-44); MEAN CORPUSCULAR HEMOGLOBIN 31 pg (25-34); MEAN CORPUSCULAR HGB CONC 35 g/dL (32-36); MEAN CORPUSCULAR VOLUME 88 fL (80-99); MEAN PLATELET VOLUME 8.5 fL (9.0-12.2); MONOCYTES # (AUTO) 0.9 10^3/uL (0.0-1.0); MONOCYTES % (AUTO) 12 % (0-12); NEUTROPHILS % (AUTO) 52 % (42-75); PLATELET COUNT 278 10^3/uL (130-400); WHITE BLOOD COUNT 7.7 10^3/uL (4.3-11.0)
[2022-05-20] MEDS ORDERED: THIAMINE INJECTION 100 MG in NS (IVPB) 50 ML IV STA (23:58)
[2022-05-21] MEDS ORDERED: NS IV 1000 ML 1,000 ML IV SCH
[2022-05-21] MEDS ORDERED: FOLIC ACID 1 MG TAB PO ONE
--- NOTE | 2022-05-21 00:09 | Diagnostic Imaging Report ---
INDICATION: confusion, drowsy, altered mental status TECHNIQUE: Routine non contrast-enhanced axial images were obtained from the skull base to the vertex. Auto Exposure Controls were utilized during the CT exam to meet ALARA standards for radiation dose reduction COMPARISON: 04/29/2021 FINDINGS: The ventricles and cortical sulci are diffusely prominent, compatible with age-related volume loss. There is no midline shift or mass-effect. No acute intra-axial hemorrhage is seen. There are no abnormal areas of increased or decreased density to suggest acute hemorrhage or edema. No extra-axial masses or collections are present. The bony calvarium is intact. The visualized paranasal sinuses are unremarkable. The mastoid air cells are clear. IMPRESSION: 1. No acute intracranial abnormality. No CT evidence of mass, acute infarct or intracranial hemorrhage. Dictated by: Dictated on workstation # [id number]
[2022-05-21 00:12] LABS: CARBON DIOXIDE 26 MMOL/L (21-32); CHLORIDE 105 MMOL/L (98-107); POTASSIUM 3.6 MMOL/L (3.6-5.0); SODIUM 141 MMOL/L (135-145)
[2022-05-21 00:13] LABS: ALANINE AMINOTRANSFERASE 20 U/L (0-55); ALBUMIN 4.2 GM/DL (3.2-4.5); ALKALINE PHOSPHATASE 68 U/L (40-136); BILIRUBIN,TOTAL 0.3 MG/DL (0.1-1.0); BUN/CREATININE RATIO 27; CALCIUM 9.6 MG/DL (8.5-10.1); CREATININE SERUM 0.85 MG/DL (0.60-1.30); GFR ESTIMATED 103; GLUCOSE 119 MG/DL (70-105); TOTAL PROTEIN 6.8 GM/DL (6.4-8.2)
[2022-05-21 00:39] LABS: BILIRUBIN,URINE NEGATIVE (NEGATIVE); CLARITY,URINE CLEAR; COLOR,URINE YELLOW; GLUCOSE, URINE (UA) NEGATIVE (NEGATIVE); KETONES,URINE NEGATIVE (NEGATIVE); LEUKOCYTE ESTERASE ,URINE NEGATIVE (NEGATIVE); NITRITE,URINE NEGATIVE (NEGATIVE); PH,URINE 7.5 (5-9); PROTEIN,URINE NEGATIVE (NEGATIVE)
[2022-05-21 00:48] LABS: BACTERIA,URINE NEGATIVE /HPF; SQUAMOUS EPITHELIAL CELL,UR RARE /HPF
[2022-05-21] MEDS ORDERED: FAMOTIDINE 20MG/2ML IV (PEPCID) IV STA (00:49)
[2022-05-21 00:54] LABS: AMPHETAMINE SCREEN, URINE NEGATIVE (NEGATIVE); BARBITURATE SCREEN URINE NEGATIVE (NEGATIVE); BENZODIAZEPINES SCREEN URINE NEGATIVE (NEGATIVE); CANNABINOID SCREEN, URINE POSITIVE (NEGATIVE); COCAINE SCREEN URINE NEGATIVE (NEGATIVE); METHADONE STAT NEGATIVE (NEGATIVE); OPIATE SCREEN URINE NEGATIVE (NEGATIVE); OXYCODONE STAT NEGATIVE (NEGATIVE); PROPOXYPHENE STAT NEGATIVE (NEGATIVE); TRICYCLIC ANTIDEPRESSANTS SCRE NEGATIVE (NEGATIVE)
[2022-05-21 01:16] VITALS: BP 142/92
[2022-05-21 14:50] LABS: VALPROIC ACID 14.6 UG/ML (50.0-100.0)
== END 2022-05-21 01:16 | disposition home or self-care (01) ==
LOC: EDUNIT# 23:25 → ER FS 23:32
DX: T50.901A Poisoning by unspecified drugs, medicaments and biological substances, accidental (unintentional), initial encounter (principal); E86.0 Dehydration; Z77.29 Contact with and (suspected) exposure to other hazardous substances; Z28.310 Unvaccinated for COVID-19
CPT/HCPCS: 36415; 70450; 80053; 80164; 80306; 81000; 83605; 83735; 84484; 85025; 99283; G0480; 80320

== ENCOUNTER 2022-07-04 19:44 | Emergency (ER) | payer OTHER, MEDICAID ==
[~2022-07-04] VITALS: Ht 157 cm; Wt 56.0 kg
[~2022-07-04 19:44] MED LIST changes: -BENZ1TAB6 PO; +BENZ1TAB74 PO
[2022-07-04 20:20] LABS: BASOPHILS # (AUTO) 0.1 10^3/uL (0.0-0.1); BASOPHILS % (AUTO) 1 % (0-10); EOSINOPHILS # (AUTO) 0.2 10^3/uL (0.0-0.3); EOSINOPHILS % (AUTO) 2 % (0-10); HEMATOCRIT 45 % (40-54); HEMOGLOBIN 15.3 g/dL (13.3-17.7); LYMPHOCYTES # (AUTO) 2.2 10^3/uL (1.0-4.0); LYMPHOCYTES % (AUTO) 25 % (12-44); MEAN CORPUSCULAR HEMOGLOBIN 31 pg (25-34); MEAN CORPUSCULAR HGB CONC 34 g/dL (32-36); MEAN CORPUSCULAR VOLUME 90 fL (80-99); MEAN PLATELET VOLUME 8.5 fL (9.0-12.2); MONOCYTES # (AUTO) 1.1 10^3/uL (0.0-1.0); MONOCYTES % (AUTO) 13 % (0-12); NEUTROPHILS # (AUTO) 5.2 10^3/uL (1.8-7.8); NEUTROPHILS % (AUTO) 60 % (42-75); PLATELET COUNT 266 10^3/uL (130-400); WHITE BLOOD COUNT 8.8 10^3/uL (4.3-11.0)
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
[2022-07-04 20:24] LABS: BILIRUBIN,URINE NEGATIVE (NEGATIVE); CLARITY,URINE CLEAR; COLOR,URINE YELLOW; GLUCOSE, URINE (UA) NEGATIVE (NEGATIVE); KETONES,URINE NEGATIVE (NEGATIVE); LEUKOCYTE ESTERASE ,URINE NEGATIVE (NEGATIVE); NITRITE,URINE NEGATIVE (NEGATIVE); PROTEIN,URINE NEGATIVE (NEGATIVE)
[2022-07-04 20:31] LABS: BACTERIA,URINE NEGATIVE /HPF; SQUAMOUS EPITHELIAL CELL,UR RARE /HPF; WBC,URINE RARE /HPF
[2022-07-04 20:34] LABS: AMPHETAMINE SCREEN, URINE NEGATIVE (NEGATIVE); BARBITURATE SCREEN URINE NEGATIVE (NEGATIVE); BENZODIAZEPINES SCREEN URINE NEGATIVE (NEGATIVE); CANNABINOID SCREEN, URINE NEGATIVE (NEGATIVE); COCAINE SCREEN URINE NEGATIVE (NEGATIVE); METHADONE STAT NEGATIVE (NEGATIVE); OPIATE SCREEN URINE NEGATIVE (NEGATIVE); OXYCODONE STAT NEGATIVE (NEGATIVE); PROPOXYPHENE STAT NEGATIVE (NEGATIVE); TRICYCLIC ANTIDEPRESSANTS SCRE NEGATIVE (NEGATIVE)
[2022-07-04 20:42] LABS: CARBON DIOXIDE 26 MMOL/L (21-32); CHLORIDE 104 MMOL/L (98-107); POTASSIUM 4.1 MMOL/L (3.6-5.0); SODIUM 141 MMOL/L (135-145)
[2022-07-04 20:43] LABS: ACETAMINOPHEN < 10 UG/ML (10-30); ALANINE AMINOTRANSFERASE 15 U/L (0-55); ALBUMIN 4.4 GM/DL (3.2-4.5); ALKALINE PHOSPHATASE 72 U/L (40-136); BILIRUBIN,TOTAL 0.4 MG/DL (0.1-1.0); BUN/CREATININE RATIO 22; CALCIUM 9.2 MG/DL (8.5-10.1); CREATININE SERUM 0.78 MG/DL (0.60-1.30); GFR ESTIMATED 106; GLUCOSE 95 MG/DL (70-105); SALICYLATE < 0.3 MG/DL (5.0-20.0); TOTAL PROTEIN 7.1 GM/DL (6.4-8.2)
[2022-07-04 22:28] VITALS: BP 165/96
== END 2022-07-04 22:35 | disposition home or self-care (01) ==
LOC: EDUNIT# 19:44 → ER FS 19:46
DX: R45.851 Suicidal ideations (principal); Z91.148 Patient's other noncompliance with medication regimen for other reason; I49.8 Other specified cardiac arrhythmias; Z28.310 Unvaccinated for COVID-19; Z20.822 Contact with and (suspected) exposure to COVID-19
CPT/HCPCS: 36415; 80053; 80306; 81000; 85025; 87636; 93005; 99284; G0480 ×3; 80320; 80329